=== PATIENT | male | born 1955 | race Caucasian/White ===

== ENCOUNTER 2020-12-03 13:23 | Outpatient (CLI) | payer OTHER, SELFPAY ==
--- NOTE | ~2020-12-03 | XR_ITS ---
EXAMINATION: XR chest 2V DATE: 12/03/2020 14:15 INDICATION: Shortness of breath. TECHNIQUE: Frontal and lateral views of the chest were obtained on 3 radiographs. COMPARISON: None. FINDINGS: A calcified left lung nodule is consistent with old granulomatous disease. No pleural effus ion or pneumothorax. The heart size is normal. IMPRESSION: 1. No acute cardiopulmonary disease. Reviewed, dictated and finalized at location B. NAGE ENGINEER
[2020-12-03 14:25] LABS: Basophils Absolute Auto 0.05 K/mm3 (0.00-0.10); Basophils Percent Auto 0.5 % (0.0-1.0); Eosinophils Percent Auto 1.9 % (1.0-6.0); Hematocrit 40.7 % (37.0-46.0); Hemoglobin 14.1 g/dL (12.4-15.3); Immature Granulocyte Absolute 0.03 K/mm3 (0.00-0.00); Immature Granulocyte Percent A 0.3 % (0.0-0.0); Lymphocytes Absolute Auto 2.86 K/mm3 (1.10-4.50); Lymphocytes Percent Auto 27.6 % (18.0-42.0); Mean Corpuscular HGB Conc 34.6 g/dL (32.0-36.0); Mean Corpuscular Hemoglobin 29.8 pg (27.0-31.0); Mean Platelet Volume 10.9 fl (8.7-11.0); Monocytes Absolute Auto 0.66 K/mm3 (0.10-0.90); Monocytes Percent Auto 6.4 % (2.0-11.0); Neutrophils Absolute Auto 6.6 K/mm3 (1.7-7.2); Neutrophils Percent Auto 63.3 % (50.0-70.0); Platelet Count Result 294 K/mm3 (150-420); Red Blood Count 4.73 M/mm3 (4.70-6.10); Red Cell Distribution Width 12.4 % (11.6-14.4); White Blood Count 10.4 K/mm3 (4.8-10.8)
[2020-12-03 14:39] LABS: Influenza Control Valid (Valid)
[2020-12-03 14:43] LABS: SARS-CoV-2 Ag Negative (Negative)
[2020-12-03 14:53] LABS: D Dimer 5.59 mg/L (0.19-0.50)
[2020-12-03 15:18] LABS: Anion Gap 11 mmol/L (8-16); Blood Urea Nitrogen 19 mg/dL (7-18); Calcium 9.4 mg/dL (8.5-10.1); Carbon Dioxide 26 mmol/L (21-32); Chloride 101 mmol/L (98-108); Estimated Glomerular Filt Rate > 60; Glucose 275 mg/dL (70-99); Osmolality Calculated 298 mOsm/kg (285-295); Potassium 3.8 mmol/L (3.5-5.1); Sodium 138 mmol/L (136-145)
[2020-12-04 21:57] LABS: SARS-CoV-2 RNA PCR Negative
== END 2020-12-03 13:24 | disposition home or self-care (01) ==
PROVIDERS: PCP Family Medicine; Visit Provider Family Medicine
DX: R06.02 Shortness of breath (principal); Z20.822 Contact with and (suspected) exposure to COVID-19
CPT/HCPCS: 71046; 80048; 85025; 85380; 87426; 87804; C9803; U0003; U0005

== ENCOUNTER 2020-12-03 15:34 | Emergency (ER) | payer OTHER, SELFPAY ==
--- NOTE | ~2020-12-03 | CT_ITS ---
EXAMINATION: CTA chest PE protocol DATE: 12/03/2020 17:22 INDICATION: Shortness of breath and cough TECHNIQUE: Computed tomography angiography (CTA) of the chest was performed with 100 mL Omnipaque-350 intravenous contrast timed to evaluate the pulmonary arteries. Coronal maximum intensity projection 3D-reconstructions were created by the technologist. The dose-length product (DLP) was 1102.30 mGy-cm . Automated exposure control and iterative reconstruction technique were employed. COMPARISON: None. FINDINGS: The pulmonary arteries are well-opacified. There are acute pulmonary emboli in segmental an d subsegmental branches of the upper and lower lobes. The heart size is normal. There is mild depende nt atelectasis. No focal airspace opacities are identified. There is no pleural effusion or pneumotho rax. No pathologically enlarged thoracic lymph nodes are identified. Nodules of the right thyroid lob e measure up to 1.2 cm. There is mild thoracic spondylosis. IMPRESSION: 1. Bilateral pulmonary emboli in the upper and lower lobes. These findings were discussed with Dr. Edu Lees MD in the Emergency Department at 1749 hours on 12/03/2020. Reviewed, dictated and finalized at location A. S MOLDER HELPER IMPRESSION: 1. Bilateral pulmonary emboli in the upper and lower lobes. These findings were discussed with Dr. Linus Lees MD in the Emergency Department at 1749 hours o n 12/03/2020.
[2020-12-03 15:52] VITALS: BP 128/78; PULSE 90; RESP 20; TEMP 36.3; O2SAT 97
--- NOTE | 2020-12-03 16:08 | ECG_ITS ---
Measurements Intervals [place] Rate: 72 P: 37 [place]: 113 QRS: 60 QRSD: 100 T: 27 QT: 377 QTc: 413 Interpretive Statements SINUS RHYTHM WITH SHORT [place] INTERVAL ATRIAL PREMATURE COMPLEXES DELAYED PRECORDIAL R/S TRANSITION BASELINE WANDER- I, II, III, AVR, AVL, AVF BORDERLINE ECG Electronically Signed On 12-03-2020 16:49:16 [employer] [employer] by Vipin Roche D.O.
[2020-12-03 16:46] LABS: Alanine Aminotransferase 20 U/L (16-63); Albumin Level 3.5 g/dL (3.4-5.0); Alkaline Phosphatase 111 U/L (46-116); Anion Gap 11 mmol/L (8-16); Aspartate Amino Transferase 15 U/L (15-37); Bilirubin,Total 0.4 mg/dL (0.00-1.00); Blood Urea Nitrogen 18 mg/dL (7-18); Calcium 9.3 mg/dL (8.5-10.1); Carbon Dioxide 25 mmol/L (21-32); Chloride 101 mmol/L (98-108); Estimated CRCL calculation 102 ml/min; Estimated Glomerular Filt Rate > 60; Glucose 215 mg/dL (70-99); Osmolality Calculated 291 mOsm/kg (285-295); Potassium 3.6 mmol/L (3.5-5.1); Sodium 137 mmol/L (136-145); Troponin I 7.3 ng/L (0.00-60.4)
--- NOTE | 2020-12-03 17:34 | ED.SOB ---
HPI - SOB/Dyspnea General Chief Complaint: Shortness of Breath/Dyspnea Stated Complaint: sent by doctor Time Seen by Provider: 12/03/20 17:35 Source: patient Mode of arrival: ambulatory Limitations: no limitations History of Present Illness HPI Narrative: Patient has had mild shortness of breath off and on for the past 2 weeks. 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 He has had previous fractures of both legs and has hardware in both legs. He denies a cough, he does state he had a previous DVT after orthopedic repair of his legs. His legs are quite large and he can't tell as to if they are swollen above baseline or not. He has been mildly short of breath while driving at times as well. MD elicited complaint: shortness of breath Pertinent past history: DVT Timing: intermittent Severity: mild (mild to moderate) Exacerbating factors: exertion Relieving factors: rest Associated symptoms: denies other symptoms Treatment prior to arrival: none Related Data Home oxygen amount: none Home Medications Medication Instructions Recorded Confirmed amlodipine 10 mg PO DAILY 12/03/20 12/03/20 atorvastatin 20 mg PO HS 12/03/20 12/03/20 finasteride 5 mg PO DAILY 12/03/20 12/03/20 irbesartan-hydrochlorothiazide 1 tablet PO DAILY 12/03/20 12/03/20 Allergies Allergy/AdvReac Type Severity Reaction Status Date / Time meperidine Allergy Unknown Unknown Verified 12/03/20 15:58 Review of Systems Constitutional: Constitutional: Reports no additional constitutional complaints Eyes: Eyes: Reports no additional eye complaints ENT: Reports system reviewed and no additional complaints, except as documented Cardiovascular: Cardiovascular: Reports no additional cardiovascular complaints Respiratory: Respiratory: Reports no additional respiratory complaints Gastrointestinal: Gastrointestinal: Reports no additional gastrointestinal complaints Genitourinary: Genitourinary: Reports no additional male genitourinary complaints Musculoskeletal: Musculoskeletal: Reports no additional musculoskeletal complaints Integumentary/Breasts: Skin/Breast: Reports system reviewed and no additional complaints, except as docu Neurologic: Reports system reviewed and no additional complaints, except as documented Psychiatric: Psychiatric: Reports no additional psychiatric complaints Endocrine: Endocrine: Reports no additional endocrine complaints Hematologic/Lymphatic: Hematologic/Lymphatic: Reports no additional hematologic/lymphatic complaints Allergic/Immunologic: Allergic/Immunologic: Reports no additional allergic/immunologic complaints [facility] Past Medical History Medical History (Updated 12/03/20 @ 20:01 by Linus Lees MD) DVT (deep venous thrombosis) Fracture closed, femur, shaft Fracture closed, fibula, shaft Hip arthrosis Lower leg arthropathy Rotator cuff arthropathy Social History Social History (Updated 12/03/20 @ 20:03 by Linus Lees MD) Smoking status: Never smoker Substance use: never Living arrangements: with family 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 Gender identity (if verbalized by the patient): Male Sexual Orientation (if Verbalized by the Patient): Straight or Heterosexual Exam Const: Orientation/consciousness: patient oriented x3 HENMT: Head: normal to inspection Ears: external ears normal and TM's normal bilaterally Face and sinus: normal facial exam Mouth: Yes Normal oral and palatal mucosa present and Yes moist mucous membranes Throat: posterior oropharynx normal Eyes: Conjunctivae: conjunctivae normal Neck: Neck: normal visual inspection Chest: Chest palpation & inspection: normal inspection of the chest Resp: Effort & Inspection: normal respiratory effort Auscultation: clear to auscultation bilaterally Cardio: Rate: regular rate Rhythm: regular rhythm GI: GI Palp: Yes Soft to palpation (nontender) Skin: General skin exam: normal color Neuro: Gene
[2020-12-03] MEDS: ENOXAPARIN 100 MG/ML SYRINGE 80 MG SUB-Q (18:25)
[2020-12-03] MEDS: ENOXAPARIN 100 MG/ML SYRINGE SUB-Q (18:26)
[2020-12-03] MEDS: APIXABAN 2.5 MG TABLET 10 MG (18:50)
[2020-12-03 18:55] VITALS: BP 121/91; PULSE 86; RESP 20; O2SAT 97
== END 2020-12-03 18:57 | disposition home or self-care (01) ==
PROVIDERS: Emergency Provider Emergency Medicine; PCP Family Medicine
DX: I82.429 Acute embolism and thrombosis of unspecified iliac vein (principal); I26.99 Other pulmonary embolism without acute cor pulmonale
CPT/HCPCS: 36415; 71275; 80053; 83880; 84484; 93005; 96372; 99283; 99284; A9270; J1650; Q9967

== ENCOUNTER 2020-12-04 13:12 | Outpatient (CLI) | payer OTHER, SELFPAY ==
--- NOTE | ~2020-12-04 | US_ITS ---
EXAMINATION: US venous doppler [facility] EXAM DATE: 12/04/2020 14:10 INDICATION: acute embolism and thrombosis of unspecified deep veins . TECHNIQUE: Multiple grayscale, color flow and Doppler images of the lower extremity deep venous syste ms bilaterally were obtained and reviewed. There is no prior study for comparison. FINDINGS: Right side: The right common femoral, femoral and profunda veins demonstrate normal color flow, respi ratory variation, augmentation and compressibility. Compressibility, color flow confirmed within the right popliteal, posterior tibial, peroneal, and greater saphenous veins. Left side: The left common femoral, femoral and profunda veins demonstrate normal color flow, respira tory variation, augmentation and compressibility. Compressibility, color flow confirmed within the l eft popliteal, posterior tibial, peroneal, and greater saphenous veins. IMPRESSION: 1. No lower extremity deep venous thrombosis bilaterally. Reviewed, dictated and finalized at location A. OGRAPH FINISHER
== END 2020-12-04 13:13 | disposition home or self-care (01) ==
LOC: CHSIMG 13:15
PROVIDERS: PCP Family Medicine; Visit Provider Emergency Medicine
DX: I82.409 Acute embolism and thrombosis of unspecified deep veins of unspecified lower extremity (principal)
CPT/HCPCS: 93970

== ENCOUNTER 2021-10-27 13:17 | Inpatient (IN) | payer OTHER, MEDICARE, SELFPAY ==
[2021-10-27] VITALS (23 sets, daily range): BP systolic 91–125; BP diastolic 53–82; PULSE 63–98; RESP 19–32; TEMP 36.5–37.9; O2SAT 89–96; BMI 49.1; BMI 51.6
--- NOTE | ~2021-10-27 | XR_ITS ---
EXAMINATION: XR chest 1V portable EXAM DATE: 11/21/2021 06:20 INDICATION: intubated TECHNIQUE: Portable AP frontal chest x-ray was obtained. Comparison is made to prior examination from 11/20/2021. FINDINGS: Endotracheal tube tip is 5 centimeters above the marily. There is a right IJ venous line. Diffuse bilateral pneumonia or edema. No pneumothorax or sizable pleural effusion. Cardiomediastinal silhouette is normal. There are bony degenerative changes. There is no significant interval change. IMPRESSION: 1. ET tube, IJ line in position. 2. Diffuse pneumonia and/or edema unchanged. Reviewed, dictated and finalized at location G. MONITOR TECH
--- NOTE | ~2021-10-27 | XR_ITS ---
EXAMINATION: XR chest 1V portable DATE: 11/11/2021 08:50 INDICATION: COVID pneumonia TECHNIQUE: frontal view of the chest was obtained. COMPARISON: Chest radiograph dated 11/10/2021 FINDINGS: Endotracheal tube tip 4 cm above the marily. Nasogastric tube extends below the left hemidiaphragm w ith distal tip collimated off the study. Right internal jugular central venous catheter with distal t ip at the midsuperior vena cava. No significant change in patchy airspace opacities throughout both lungs relatively sparing the left apex. No pneumothorax or definitive pleural effusion. Cardiac silhouette is partially obscured but ap pears normal in size. IMPRESSION: 1. No significant interval change in diffuse patchy airspace opacities consistent with pneumonia. Reviewed, dictated and finalized at location A. L MOLD DRESSER IMPRESSION: 1. No significant interval change in diffuse patchy airspace opacities consiste nt with pneumonia.
--- NOTE | ~2021-10-27 | XR_ITS ---
EXAMINATION: XR chest 1V portable EXAM DATE: 11/13/2021 07:58 INDICATION: COVID pneumonia TECHNIQUE: Portable AP frontal chest x-ray was obtained. Comparison is made to prior examination from 11/12/2021. FINDINGS: Endotracheal tube tip is about 5 centimeters above the marily. There is a nasogastric tub e seen with tip collimated off the study, but below the left hemidiaphragm. There is a right IJ venou s line. There is extensive bilateral airspace disease. There are no sizable pleural effusions. There is no pneumothorax suspected. The cardiomediastinal silhouette is prominent but magnified on this AP luis hnique. The bones and soft tissues are unremarkable. There is no significant interval change compared to prior exam. IMPRESSION: 1. Line and tube(s) in position. 2. Diffuse airspace disease. Reviewed, dictated and finalized at location A. SUPERVISOR GROUNDS AND LANDSCAPE
--- NOTE | ~2021-10-27 | XR_ITS ---
EXAMINATION: XR chest 1V portable DATE: 11/10/2021 09:01 INDICATION: COVID-19 pneumonia. TECHNIQUE: A single frontal view of the chest was obtained. COMPARISON: Chest single view 11/09/2021, chest CT 11/07/2021 FINDINGS: There are patchy airspace opacities in all lung zones bilaterally. No pleural effusion or p neumothorax. The heart size is normal. The nasogastric tube tip is in the stomach. The endotracheal t ube tip is 4.7 cm above the marily. A right internal jugular central venous catheter is seen with tip in the superior vena cava. IMPRESSION: 1. Stable diffuse lung disease, consistent with pneumonia. Reviewed, dictated and finalized at location A. R SECOND
--- NOTE | ~2021-10-27 | XR_ITS ---
EXAMINATION: XR chest 1V portable DATE: 11/06/2021 10:16 INDICATION: Pneumonia. TECHNIQUE: A single frontal view of the chest was obtained. COMPARISON: Chest single view 11/04/2021, chest CT 10/29/2021 FINDINGS: There are airspace and interstitial opacities in all lung zones bilaterally. No pleural eff usion or pneumothorax. The heart size is normal. IMPRESSION: 1. Diffuse lung disease with worsening on the left, consistent with COVID-19 pneumonia. Reviewed, dictated and finalized at location A. T DESK ASSOCIATE IMPRESSION: 1. Diffuse lung disease with worsening on the left, consistent with COVID-19 pn eumonia.
--- NOTE | ~2021-10-27 | XR_ITS ---
XR chest 1V portable DATE: 11/09/2021 10:38 INDICATION: Covid pneumonia TECHNIQUE: Portable AP chest on 11/09/2021 at 1010 and 1011 hours COMPARISON: 11/08/2021 portable supine AP chest at 1541 hours FINDINGS: ET tube tip 3.2 cm above marily. NG tube noted passing toward the stomach, distal portion n ot included in this examination. Right internal jugular central venous catheter tip overlies the superior vena cava. There are diffuse extensive patchy consolidating pulmonary infiltrates, mildly improved on the left. IMPRESSION: Extensive patchy bilateral pulmonary infiltrates, mildly improved on the left since 11/08 Reviewed, dictated and finalized at location A. CIPAL SYSTEM SOFTWARE ENGINEER IMPRESSION: Extensive patchy bilateral pulmonary infiltrates, mildly improved o n the left since 11/08/2021
--- NOTE | ~2021-10-27 | US_ITS ---
EXAMINATION: US renal BI DATE: 11/13/2021 13:34 INDICATION: Acute kidney injury. TECHNIQUE: Multiple ultrasound grayscale images of the kidneys were obtained. COMPARISON: Chest CT 11/07/2021 FINDINGS: The right kidney measures 13.3 x 6.0 x 6.5 cm. The left kidney measures 11.2 x 7.1 x 7.4 cm. The kidn eys demonstrate normal parenchymal echogenicity. There is no hydronephrosis. The bladder is not well visualized. IMPRESSION: 1. Normal kidney sizes. No hydronephrosis. Reviewed, dictated and finalized at location B. T METAL LAYOUT MECHANIC
--- NOTE | ~2021-10-27 | XR_ITS ---
EXAMINATION: XR chest PICC line, XR abdomen NG/feed tube insert DATE: 11/08/2021 15:54 INDICATION: COVID pneumonia. PICC line placement. Nasogastric tube placement. TECHNIQUE: 1. Frontal view of the chest was obtained. 2. Supine AP view of the abdomen was obtained. COMPARISON: Chest radiograph dated 11/06/2021 FINDINGS: Chest: Endotracheal tube tip 1.9 cm above the marily. Right internal jugular central venous catheter with di stal tip in the midsuperior vena cava. Again seen are patchy airspace opacities throughout both lungs without significant interval change on the right but with increase in the left lung particularly at the upper lung zone consistent with wor sening pneumonia. No pleural effusion or pneumothorax. Heart size is normal. Abdomen: Nasogastric tube tip in proximal side port in the body of the gas-filled stomach. IMPRESSION: 1. Lines and tubes in expected positions. 2. Diffuse bilateral lung disease with continued increase on the left consistent with worsening COVID pneumonia. Reviewed, dictated and finalized at location . X UNIX SYSTEM ADMINISTRATOR IMPRESSION: 1. Lines and tubes in expected positions. 2. Diffuse bilateral lung disease with continued increase on the left consisten t with worsening COVID pneumonia.
--- NOTE | ~2021-10-27 | XR_ITS ---
EXAMINATION: XR chest 1V portable EXAM DATE: 11/16/2021 06:14 INDICATION: Respiratory failure, COVID pneumonia, mechanical ventilation. TECHNIQUE: Portable AP frontal chest x-ray was obtained. Comparison is made to prior examination from 11/15/2021. FINDINGS: Endotracheal tube tip is 4-5 centimeters above the marily. There is a right IJ venous line . Feeding tube is in position. Diffuse bilateral acute airspace disease, probably edema from COVID pneumonia with relative sparing o f the left upper lung zone. There are no sizable pleural effusions. There is no pneumothorax suspe cted. The cardiomediastinal silhouette is prominent but magnified on this AP technique. The bones and soft tissues are unremarkable. There is no significant interval change compared to prior exam. IMPRESSION: 1. Line and tube(s) in position. 2. Diffuse COVID pneumonia unchanged. Reviewed, dictated and finalized at location A. APEUTIC DIETITIAN
--- NOTE | ~2021-10-27 | XR_ITS ---
XR chest 1V portable DATE: 11/20/2021 06:02 INDICATION: Respiratory failure. Covid pneumonia. TECHNIQUE: Portable AP chest on 11/20/2021 and 0520 hours COMPARISON: 11/19/2021 portable AP chest at 0502 hours FINDINGS: There are persistent prominent patchy consolidating infiltrates involving particularly the mid and lower lung zones, without improvement since 11/19/2021. Cardiomegaly. No pleural effusion or pneumothorax is evident. ET tube tip approximately 4.5 cm above marily in satisfactory position. NG tube in gastric fundus. Diffuse osteopenia. IMPRESSION: Persistent extensive patchy consolidating bilateral pulmonary infiltrates, without signif icant change since 11/19/2021 Reviewed, dictated and finalized at location A. EMS SOFTWARE DESIGNER IMPRESSION: Persistent extensive patchy consolidating bilateral pulmonary infil trates, without significant change since 11/19/2021
--- NOTE | ~2021-10-27 | CT_ITS ---
EXAMINATION: CT diagnostic chest wo con DATE: 11/07/2021 18:04 INDICATION: Covid pneumonia, worsening TECHNIQUE: Computed tomography (CT) of the chest was performed without intravenous contrast. Addition al 3D reconstructions utilizing coronal maximum intensity projection (MIP) were performed. Automated exposure control and iterative reconstruction technique were employed. The dose-length product was 89 4.20 mGy-cm. COMPARISON: 10/29/2021 FINDINGS: Evolving pattern of diffuse bilateral patchy lung disease characterized by patchy regions of consolid ation and groundglass opacity throughout both lungs. There has been significant progression in both e xtent and density of lung disease in the right middle, lingula and bilateral upper lobes with dense c onsolidation in the region of groundglass opacity central aspect of the right upper lobe and with new relatively large region of dense consolidation in the left upper lobe which was previously free of l don disease. There has been a nearly inverse evolution of lung disease in the bilateral lower lobes w here the prior groundglass opacities and consolidation have significantly decreased in both extent an d density. No pleural effusion or pneumothorax. Heart size is normal. Atherosclerotic coronary artery calcific location. No pericardial effusion. Calcified mediastinal and bilateral hilar lymph nodes al danna with several tiny splenic calcific lesions, all consistent with old granulomatous disease. Modera te to severe spondylosis at the lower cervical and upper thoracic spine. IMPRESSION: 1. Evolving pattern of extensive patchy bilateral lung disease consistent with COVID pneumonia with p rogression in the bilateral upper lobes, lingula and right middle lobe but with interval improvement in the bilateral lower lobes. Reviewed, dictated and finalized at location H. RMATION TECHNOLOGY CONSULTANT IMPRESSION: 1. Evolving pattern of extensive patchy bilateral lung disease consistent with COVID pneumonia with progression in the bilateral upper lobes, lingula and righ t middle lobe but with interval improvement in the bilateral lower lobes.
--- NOTE | ~2021-10-27 | XR_ITS ---
EXAMINATION: XR chest 1V portable EXAM DATE: 10/27/2021 14:03 INDICATION: Shortness of breath. TECHNIQUE: Portable AP frontal chest x-ray was obtained. Comparison is made to prior examination from 12/03/2020. FINDINGS: Moderate amount of bilateral airspace disease, more consistent with pneumonia than edema bu t please clinically correlate. No sizable pleural effusion. No pneumothorax. The cardiomediastinal si lhouette is prominent but magnified on this AP technique. There are no osseous abnormalities identifi ed. IMPRESSION: Moderate amount of acute airspace disease. More likely pneumonia than edema. Reviewed, dictated and finalized at location B. ATE WEALTH ADVISOR IMPRESSION: Moderate amount of acute airspace disease. More likely pneumonia t major edema.
--- NOTE | ~2021-10-27 | XR_ITS ---
XR chest 1V portable DATE: 11/18/2021 06:13 INDICATION: Respiratory failure, Covid pneumonia TECHNIQUE: Portable AP chest on 11/18/2021 at 0505 hours COMPARISON: 11/17/2021 portable AP chest at 0453 hours FINDINGS: ET and NG tubes in satisfactory position. Right internal jugular central venous catheter ti p overlies the superior vena cava. There are persistent severe patchy bilateral pulmonary infiltrates, relatively sparing the left apica l area, without significant change since 11/17/2021. IMPRESSION: Extensive severe bilateral pulmonary infiltrates, not significantly changed since 2 Reviewed, dictated and finalized at location A. ATIONS ADVISOR IMPRESSION: Extensive severe bilateral pulmonary infiltrates, not significantly changed since 11/17/2021
--- NOTE | ~2021-10-27 | XR_ITS ---
EXAMINATION: XR chest 1V portable DATE: 11/15/2021 08:50 INDICATION: Respiratory failure. COVID-19 pneumonia. TECHNIQUE: A single frontal view of the chest was obtained. COMPARISON: Chest single view 11/13/2021, chest CT 11/07/2021 FINDINGS: There are airspace opacities in all lung zones bilaterally. No pleural effusion or pneumoth orax. The heart size is normal. The endotracheal tube tip is 3.4 cm above the marily. The nasogastric tube tip is in the stomach. A right internal jugular central venous catheter is seen with tip at the superior cavoatrial junction. IMPRESSION: 1. Diffuse lung disease, likely stable given differences in technique, consistent with pneumonia vers us acute respiratory distress syndrome (ARDS). Reviewed, dictated and finalized at location A. POTATO ARRANGER IMPRESSION: 1. Diffuse lung disease, likely stable given differences in technique, consiste nt with pneumonia versus acute respiratory distress syndrome (ARDS).
--- NOTE | ~2021-10-27 | XR_ITS ---
EXAMINATION: XR chest 1V portable INDICATION: Increasing hypoxia TECHNIQUE: Portable AP chest at 0609 COMPARISON: 10/27/2021 FINDINGS: Interstitial and airspace opacities of the left mid and lower lung zone persists without si gnificant change. There are increasing opacities of the right mid and lower lung zone. No definite pl eural effusion or pneumothorax is identified. The cardiomediastinal silhouette is normal. The lung vo lumes are low. IMPRESSION: 1. Interstitial and airspace opacities of the mid and lower lung zones with worsening on the right, c onsistent with pneumonia. Reviewed, dictated and finalized at location A. MACOMETRICIAN IMPRESSION: 1. Interstitial and airspace opacities of the mid and lower lung zones with wor sening on the right, consistent with pneumonia.
--- NOTE | ~2021-10-27 | CT_ITS ---
EXAMINATION: CTA chest PE protocol DATE: 10/29/2021 22:24 CAREER DEVELOPMENT SPECIALIST INDICATION: Shortness of breath and. Covid pneumonia. Rule out pulmonary embolism. TECHNIQUE: Computed tomographic angiography (CTA) of the chest was performed with 100 mL Omnipaque-35 0 intravenous contrast. The dose-length product was 877.06 mGy-cm. Maximum intensity projection 3D-re constructions of the aorta and other arteries were constructed by the technologist on a separate work station. Automated exposure control and iterative reconstruction technique were employed. COMPARISON: CT dated 10/27/2021 FINDINGS: Study limited for evaluation of peripheral pulmonary arteries. There are small filling defe cts in right upper lobe segmental pulmonary arteries, consistent with pulmonary embolism. Small throm bus burden. Cardiomegaly. No significant pleural or pericardial effusion. No thoracic lymphadenopathy . There is atherosclerosis of the aorta and coronary arteries. There is persistent multifocal airspac e consolidation which has progressed in the right lower lobe, consistent with pneumonia. Visualized a spects of the upper abdomen are unremarkable. No acute osseous abnormality. Mild thoracic spondylosis . IMPRESSION: 1. New small filling defect right upper lobe segmental pulmonary artery, consistent with pulmonary em bolism. Small thrombus burden. 2: Progression of extensive patchy bilateral airspace disease with worsening in the right lower lobe, compatible with pneumonia. Reviewed, dictated and finalized at location A. ER DEVELOPMENT SPECIALIST IMPRESSION: 1. New small filling defect right upper lobe segmental pulmonary artery, consis tent with pulmonary embolism. Small thrombus burden. 2: Progression of extensive patchy bilateral airspace disease with worsening in the right lower lobe, compatible with pneumonia.
--- NOTE | ~2021-10-27 | XR_ITS ---
XR chest 1V portable DATE: 11/17/2021 06:20 INDICATION: Respiratory failure. Covid pneumonia. TECHNIQUE: Portable AP chest on 11/17/2021 0453 hours COMPARISON: 11/16/2021 portable AP chest at 0500 hours FINDINGS: ET tube in satisfactory position approximately 3 cm above marily. NG tube in stomach. Right internal jugular central venous catheter overlies superior vena cava. Extensive patchy bilateral pulmonary infiltrates are noted, without significant interval change since 11/16/2021. No pneumothorax. IMPRESSION: No significant change of extensive bilateral patchy pulmonary infiltrates Reviewed, dictated and finalized at location A. RIOR BLOCK WIRER IMPRESSION: No significant change of extensive bilateral patchy pulmonary infil trates
--- NOTE | ~2021-10-27 | XR_ITS ---
XR chest 1V portable DATE: 11/19/2021 06:11 INDICATION: Respiratory failure, Covid pneumonia TECHNIQUE: Portable AP chest on 11/19/2021 at 0502 hours COMPARISON: 11/18/2021 portable AP chest at 0505 hours FINDINGS: ET tube in satisfactory position 3.6 cm above marily. NG tube in stomach. Right internal ju gular central venous catheter overlies the superior vena cava. There are extensive persistent prominent patchy consolidating infiltrates of both lungs, relatively s paring the left apical area. Diffuse osteopenia. IMPRESSION: No significant change of extensive bilateral pulmonary infiltrates since 11/2021 Reviewed, dictated and finalized at location A. L PLATER
--- NOTE | ~2021-10-27 | XR_ITS ---
EXAMINATION: XR chest 1V portable DATE: 11/22/2021 06:13 INDICATION: Respiratory failure. TECHNIQUE: A single frontal view of the chest was obtained. COMPARISON: Chest single view 11/21/2021 FINDINGS: There are airspace and interstitial opacities throughout the lungs bilaterally with relativ e sparing of left upper lung zone. No pleural effusion or pneumothorax. The heart size is normal. The re is a tracheostomy tube in expected position. A right internal jugular central venous catheter is s een with tip in the superior vena cava. IMPRESSION: 1. Stable diffuse lung disease, consistent with pneumonia versus acute respiratory distress syndrome (ARDS). Reviewed, dictated and finalized at location A. RVISOR BOTTLE HOUSE CLEANERS IMPRESSION: 1. Stable diffuse lung disease, consistent with pneumonia versus acute respirat ory distress syndrome (ARDS).
--- NOTE | ~2021-10-27 | XR_ITS ---
EXAMINATION: XR chest 1V portable EXAM DATE: 11/12/2021 07:39 INDICATION: COVID PNA . TECHNIQUE: Portable AP frontal chest x-ray was obtained. Comparison is made to prior examination from 11/11/2021. FINDINGS: Endotracheal tube tip is 4 centimeters above the marily. There is a nasogastric tube seen with tip collimated off the study, but below the left hemidiaphragm. There is a right IJ venous line. There is extensive bilateral airspace disease. There are no sizable pleural effusions. There is no pneumothorax suspected. The cardiomediastinal silhouette is prominent but magnified on this AP luis hnique. The bones and soft tissues are unremarkable. There is no significant interval change compared to prior exam. IMPRESSION: 1. Line and tube(s) in position. 2. Stable airspace disease and other findings as above. Reviewed, dictated and finalized at location A. EHOLD APPLIANCE INSTALLER
--- NOTE | ~2021-10-27 | CT_ITS ---
EXAMINATION: CTA chest PE protocol DATE: 10/27/2021 15:35 MANUFACTURING PLANT CONTROLLER INDICATION: Shortness of breath. Hypoxia. TECHNIQUE: Computed tomographic angiography (CTA) of the chest was performed with 100 mL Omnipaque-35 0 intravenous contrast. The dose-length product was 824.64 mGy-cm. Maximum intensity projection 3D-re constructions of the aorta and other arteries were constructed by the technologist on a separate work station. Automated exposure control and iterative reconstruction technique were employed. COMPARISON: CT dated 12/03/2020. FINDINGS: Study is technically adequate. No central pulmonary embolism. Evaluation of lower lobe segm ental pulmonary arteries limited by motion artifact. There is 1.3 cm right thyroid nodule. No signifi cant pleural or pericardial effusion. There is mild atherosclerosis. There is multifocal airspace dis ease, consistent with pneumonia, most confluent in the lower lobes. Visualized aspects of the upper a bdomen are unremarkable. Mild thoracic spondylosis. No focal lytic or blastic lesions. No acute osseo us abnormality. IMPRESSION: 1. Multifocal airspace disease, consistent with pneumonia. 2: No evidence for pulmonary embolism. Evaluation of lower lobe segmental and subsegmental pulmonary arteries limited by motion. 3: Right thyroid nodule measuring 1.3 cm. Consider correlation with thyroid ultrasound on a nonemerge nt basis. Reviewed, dictated and finalized at location A. FACTURING PLANT CONTROLLER IMPRESSION: 1. Multifocal airspace disease, consistent with pneumonia. 2: No evidence for pulmonary embolism. Evaluation of lower lobe segmental and subsegmental pulmonary arteries limited by motion. 3: Right thyroid nodule measuring 1.3 cm. Consider correlation with thyroid ult rasound on a nonemergent basis.
--- NOTE | ~2021-10-27 | XR_ITS ---
EXAMINATION: XR chest 1V portable DATE: 11/04/2021 18:07 INDICATION: COVID TECHNIQUE: frontal view of the chest was obtained. COMPARISON: Chest radiograph and CT dated 10/29/2021 and 10/27/2021 FINDINGS: Interval reexpansion the previously reduced right lung volume. Slight interval increase in patchy air space opacities throughout both lungs relatively sparing the upper lung zones consistent with COVID p neumonia. No pleural effusion or pneumothorax. The cardiomediastinal silhouette is normal. IMPRESSION: 1. Slight increase in patchy bilateral airspace opacities relatively sparing the upper lung zones con sistent with COVID pneumonia. Reviewed, dictated and finalized at location H. BLOWER IMPRESSION: 1. Slight increase in patchy bilateral airspace opacities relatively sparing th e upper lung zones consistent with COVID pneumonia.
--- NOTE | 2021-10-27 13:48 | ECG_ITS ---
Measurements Intervals [place] Rate: 93 P: 71 [place]: 159 QRS: -14 QRSD: 102 T: -12 QT: 387 QTc: 483 Interpretive Statements SINUS RHYTHM ATRIAL PREMATURE COMPLEXES POOR R WAVE PROGRESSION, ANTERIOR LEADS INFERIOR INFARCT, AGE INDETERMINATE BASELINE ARTIFACT- I, II, III, AVR, AVL, AVF, V1-V6 ABNORMAL ECG Electronically Signed On 10-27-2021 15:22:20 CRUSHER TENDER by Vipin Roche D.O.
[2021-10-27 14:11] LABS: Basophils Percent Auto 0.3 % (0.2-1.2); Eosinophils Absolute Auto 0.2 K/mm3 (0-0.3); Eosinophils Percent Auto 2.8 % (0-4.4); Hematocrit 42.4 % (42.0-52.0); Hemoglobin 14.6 g/dL (14.0-18.0); Immature Granulocyte Absolute 0.04 K/mm3 (0.00-0.031); Immature Granulocyte Percent A 0.7 % (0-0.5); Lymphocytes Absolute Auto 1.08 K/mm3 (0.9-3.2); Lymphocytes Percent Auto 17.7 % (18.3-44.2); Mean Corpuscular HGB Conc 34.4 g/dl (32-36); Mean Corpuscular Volume 84.3 fl (80-100); Mean Platelet Volume 10.2 fl (7.4-10.4); Monocytes Absolute Auto 0.4 K/mm3 (0.1-0.6); Monocytes Percent Auto 7.1 % (2.6-8.5); Neutrophils Absolute Auto 4.4 K/mm3 (1.3-6.7); Neutrophils Percent Auto 71.4 % (45.5-73.1); Platelet Count Result 207 k/mm3 (150-375); Red Blood Count 5.03 M/mm3 (4.6-6.20); Red Cell Distribution Width 12.8 % (11.5-14.5); White Blood Count 6.1 K/mm3 (4.5-10.0)
--- NOTE | 2021-10-27 14:12 | ED.GENADULT ---
HPI - General Adult General Chief complaint: Shortness of Breath/Dyspnea Stated complaint: dif breathing, covid + Time Seen by Provider: 10/27/21 13:45 Source: patient and RN notes reviewed History of Present Illness HPI narrative: Patient is a 66 y/o male complaining of severe SOB. He states that he tested positive for COVID 1 week ago and his symptoms started 1-2 days prior to that. He also has cough, chest pain and subjective fever. He has no vomiting or diarrhea. He has not been vaccinated against COVID. He states that his COVID test was done at [facility] for pre-op evaluation for previously scheduled shoulder surgery. The surgery was canceled due to COVID positivity. Related Data Home Medications Medication Instructions Recorded Confirmed amlodipine 10 mg PO DAILY 12/03/20 12/03/20 atorvastatin 20 mg PO HS 12/03/20 12/03/20 finasteride 5 mg PO DAILY 12/03/20 12/03/20 irbesartan-hydrochlorothiazide 1 tablet PO DAILY 12/03/20 12/03/20 Allergies Allergy/AdvReac Type Severity Reaction Status Date / Time meperidine Allergy Unknown Unknown Verified 12/03/20 15:58 Review of Systems Constitutional: Constitutional: Denies chills, Reports fever(s), Denies headache(s) and Denies weakness Eyes: Eyes: Denies blurry vision ENT: Denies headache(s) and Denies neck pain Cardiovascular: Cardiovascular: Reports chest pain and Reports dyspnea Respiratory: Respiratory: Reports cough and Reports dyspnea Gastrointestinal: Gastrointestinal: Denies abdominal pain, Denies diarrhea, Denies nausea and Denies vomiting Genitourinary: Genitourinary: Denies hematuria and Denies dysuria Musculoskeletal: Musculoskeletal: Denies back pain and Denies neck pain Neurologic: Denies headache(s) and Denies weakness [facility] Past Medical History Medical History (Updated 10/27/21 @ 16:51 by Cori Talbert MD) Benign prostatic hyperplasia Current use of fdc anticoagulation Deep venous thrombosis Following ORIF of lower extremity fractures. Fracture closed, femur, shaft Fracture closed, fibula, shaft Hyperlipidemia Hypertension Pulmonary embolism (11/2020) Surgical History Surgical History (Updated 10/27/21 @ 15:13 by Mray Nagel PA-C) History of open reduction and internal fixation (ORIF) procedure Bilateral lower extremity fractures. Social History Social History (Updated 10/27/21 @ 15:13 by Mary Nagel PA-C) Social History: Surrogate decision maker: Reinaldo Maldonado, spouse. Code status: Full code. 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 Exam Const: General: no acute distress and well developed Orientation/consciousness: oriented to person, oriented to place, oriented to time and patient oriented x3 HENMT: Head: normocephalic Ears: external ears normal General nose exam: Normal external nose present Eyes: General: appearance normal, both eyes and all related structures Conjunctivae: conjunctivae normal Neck: Neck: normal visual inspection and full ROM Chest: Chest palpation & inspection: normal inspection of the chest and no tenderness Resp: Effort & Inspection: normal respiratory effort and tachypneic Cardio: Rate: regular rate Rhythm: regular rhythm GI: GI Palp: No abdominal tenderness and Yes Soft to palpation Skin: General skin exam: normal color and turgor normal Neuro: General: oriented to person, oriented to place, oriented to time and patient oriented x3 Cognition (Neuro): normal cognition Extrem: General: normal to inspection, full ROM and no pedal edema Psych: Appearance: grossly normal Mental Status: mental status grossly normal Affect: normal affect Course Vital Signs Vital signs: Vital Signs Temperature 36.7 C 10/27/21 13:27 Pulse Rate 95 10/27/21 13:27 Respiratory Rate 19 10/27/21 13:27 Blood Pressure 95/67 L 10/27/21 13:27 Pulse Oximetry 89 L 10/27/21 13:27
[2021-10-27 14:22] LABS: Alanine Aminotransferase 43 U/L (4-50); Albumin Level 3.9 g/dL (3.5-5.1); Alkaline Phosphatase 84 U/L (38-126); Anion Gap 10 mmol/L (8-16); Aspartate Amino Transferase 101 U/L (17-59); Bilirubin,Total 0.6 mg/dL (0.2-1.3); Blood Urea Nitrogen 16 mg/dL (9-20); Calcium 8.6 mg/dL (8.4-10.2); Carbon Dioxide 28 mmol/L (22-30); Chloride 96 mmol/L (98-107); Estimated CRCL calculation 92 ml/min; Estimated Glomerular Filt Rate > 60; Glucose 168 mg/dL (65-110); Potassium 3.6 mmol/L (3.4-5.0); Sodium 134 mmol/L (137-145)
--- NOTE | 2021-10-27 14:39 | ED.GENADULT ---
HPI - General Adult General Chief complaint: Shortness of Breath/Dyspnea Stated complaint: dif breathing, covid + Time Seen by Provider: 10/27/21 13:45 Source: patient and RN notes reviewed Related Data Home Medications Medication Instructions Recorded Confirmed amlodipine 10 mg PO DAILY 12/03/20 12/03/20 atorvastatin 20 mg PO HS 12/03/20 12/03/20 finasteride 5 mg PO DAILY 12/03/20 12/03/20 irbesartan-hydrochlorothiazide 1 tablet PO DAILY 12/03/20 12/03/20 Allergies Allergy/AdvReac Type Severity Reaction Status Date / Time meperidine Allergy Unknown Unknown Verified 12/03/20 15:58 [facility] Past Medical History Medical History (Updated 12/04/20 @ 00:00 by Regina Lin) DVT (deep venous thrombosis) Fracture closed, femur, shaft Fracture closed, fibula, shaft Hip arthrosis Lower leg arthropathy Rotator cuff arthropathy Social History Social History (Updated 12/03/20 @ 20:03 by Linus Lees MD) Smoking status: Never smoker Substance use: never 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 Date: 10/27/21 Time: 14:38 Vital Signs Vital signs: Vital Signs Temperature 36.7 C 10/27/21 13:27 Pulse Rate 95 10/27/21 13:27 Respiratory Rate 19 10/27/21 13:27 Blood Pressure 95/67 L 10/27/21 13:27 Pulse Oximetry 89 L 10/27/21 13:27 Temperature 36.7 C 10/27/21 13:27 Pulse Rate 91 10/27/21 14:33 Respiratory Rate 26 H 10/27/21 14:33 Blood Pressure 91/53 L 10/27/21 14:33 Pulse Oximetry 90 10/27/21 14:33 Medical Decision Making Vital Signs Vital Signs: Vital Signs Temperature 36.7 C 10/27/21 13:27 Pulse Rate 95 10/27/21 13:27 Respiratory Rate 19 10/27/21 13:27 Blood Pressure 95/67 L 10/27/21 13:27 Pulse Oximetry 89 L 10/27/21 13:27 Temperature 36.7 C 10/27/21 13:27 Pulse Rate 91 10/27/21 14:33 Respiratory Rate 26 H 10/27/21 14:33 Blood Pressure 91/53 L 10/27/21 14:33 Pulse Oximetry 90 10/27/21 14:33 Lab Data Result diagrams: 10/27/21 14:05 10/27/21 14:05 Labs: Lab Results 10/27/21 10/27/21 10/27/21 Range/Units 14:05 14:05 14:05 WBC Pending RBC Pending Hgb Pending Hct Pending MCV Pending MCH Pending MCHC Pending RDW Pending Plt Count Pending MPV Pending Immature Gran % (Auto) Pending Neut % (Auto) Pending Lymph % (Auto) Pending [place] % (Auto) Pending Eos % (Auto) Pending Baso % (Auto) Pending Lymph # (Auto) Pending [place] # (Auto) Pending Eos # (Auto) Pending Baso # (Auto) Pending Abs Immat Gran (auto) Pending Absolute Neuts (auto) Pending Absolute Nucleated RBC Pending Nucleated RBC % Pending PT Pending INR Pending APTT Pending Sodium 134 L (137-145) mmol/L Potassium 3.6 (3.4-5.0) mmol/L Chloride 96 L (98-107) mmol/L Carbon Dioxide 28 (22-30) mmol/L Anion Gap 10 (8-16) mmol/L BUN 16 (9-20) mg/dL Creatinine 1.10 (0.7-1.3) mg/dL Estim Creat Clear Calc 92 ml/min Estimated GFR > 60 (59 - ) Glucose 168 H (65-110) mg/dL Calcium 8.6 (8.4-10.2) mg/dL Total Bilirubin 0.6 (0.2-1.3) mg/dL AST 101 H (17-59) U/L ALT 43 (4-50) U/L Alkaline Phosphatase 84 (38-126) U/L Total Protein 7.0 (6.3-8.2) g/dL Albumin 3.9 (3.5-5.1) g/dL Discharge Plan Discharge Prescriptions: No Action atorvastatin 20 mg tablet 20 mg PO HS RF: 0 irbesartan-hydrochlorothiazide 150-12.5 mg tablet 1 tablet PO DAILY RF: 0 amlodipine 10 mg tablet 10 mg PO DAILY RF: 0 finasteride 5 mg tablet 5 mg PO DAILY RF: 0 Eliquis 5 mg tablet 10 mg PO BID Qty:
[2021-10-27 14:44] LABS: Prothrombin Time 12.9 Seconds (11.1-14.7)
[2021-10-27 14:45] LABS: Partial Thromboplastin Time 30.7 SECONDS (22.3-36.8)
[2021-10-27 14:59] LABS: Alveolar/Arterial O2 Gradient 590.2 mmHg; Base Excess ABG -0.2 mEq/l (+/-2.0); Fractional Inspired Oxygen 100 %; HCO3 ABG 21.7 mEq/l (22.0-26.0); Oxygen Content ABG 20.1 %vol (16.0-22.0); Oxygen Saturation ABG 97.8 % (95.0-100.0); Oxyhemoglobin 96.4 % THb (90.0-100.0); PCO2 ABG 28.7 mmHg (35.0-45.0); PO2 ABG 94.1 mmHg (80.0-100.0); PO2 FiO2 Ratio Arterial Blood 0.94 %; Total Hemoglobin 14.8 g/dL (12.0-18.0); pH ABG 7.497 (7.350-7.450)
[2021-10-27 15:01] LABS: Device NON-REBREATHER MASK; Modified Allen's Test Pass; Site Drawn RIGHT BRACHIAL
[2021-10-27 15:23] LABS: Atypical Lymphocytes Present; Platelet Estimate Adequate (Adequate)
--- NOTE | 2021-10-27 15:30 | PM.IMHP ---
H&P: HPI History of Present Illness Date/Time: 10/27/21 15:30 Chief Complaint: Shortness of breath. Narrative: This is a 66-year-old male with hypertension, hyperlipidemia, diabetes, benign prostatic hyperplasia, and history of deep venous thrombosis after orthopedic surgery and more recently pulmonary emboli in November 2020 who presented to the emergency department earlier today via EMS for evaluation of shortness of breath. He had a COVID test done approximately 1 week ago at [facility] in anticipation for a right shoulder surgery and that reportedly came back positive though he was feeling okay at that time. The following day however he began not feeling well with fever, body aches, decreased smell and taste, cough, decreased appetite, and loose stools. Over the past couple of days he has had increasing shortness of breath and he came in for evaluation. On arrival to the ED, his SpO2 was 90% on 15 L non-rebreather. Chest CTA showed multifocal pneumonia and he is being admitted in this setting. At the time of my evaluation, he is resting comfortably on his left side and he has no specific complaints. He denies chest pain, pleuritic pain, palpitations, nausea, and vomiting. His is also COVID positive. He is unvaccinated. Review of Systems Review of Systems: Twelve systems were reviewed and are negative except as per HPI. [facility] Past Medical History Medical History (Updated 10/27/21 @ 23:17 by Mary Nagel PA-C) Benign prostatic hyperplasia Deep venous thrombosis Following ORIF of lower extremity fractures. Fracture closed, femur, shaft Fracture closed, fibula, shaft Hyperlipidemia Hypertension Pulmonary embolism (11/2020) Type 2 diabetes mellitus Surgical History Surgical History (Updated 10/27/21 @ 23:15 by Mary Nagel PA-C) History of open reduction and internal fixation (ORIF) procedure Bilateral lower extremity fractures. Right wrist fracture. Family History Family History Mother Cancer Heart valve disease Social History Social History (Updated 10/27/21 @ 23:13 by Mary Nagel PA-C) Social History: Surrogate decision maker: Reinaldo Maldonado, spouse. Code status: Full code. 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 Meds Home Medications and Allergies Home Medications Medication Instructions Recorded Confirmed Type amlodipine 10 mg PO DAILY 12/03/20 10/27/21 History atorvastatin 20 mg PO HS 12/03/20 10/27/21 History irbesartan-hydrochlorothiazide 1 tablet PO DAILY 12/03/20 10/27/21 History hydrocodone-acetaminophen 10 - 325 tablet PO Q4-6H 10/27/21 10/27/21 History ibuprofen [Advil] 800 mg PO Q6H PRN 10/27/21 10/27/21 History pioglitazone 30 mg PO DAILY 10/27/21 10/27/21 History saxagliptin [Onglyza] 5 mg PO DAILY 10/27/21 10/27/21 History Allergies Allergy/AdvReac Type Severity Reaction Status Date / Time meperidine Allergy Unknown Unknown Verified 12/03/20 15:58 Vital Signs Vital Signs - 24 hr 10/27/21 13:27 10/27/21 14:05 10/27/21 14:33 Temperature 98.1 F Pulse Rate 95 91 Respiratory Rate 19 26 H Blood Pressure 95/67 L 91/53 L Pulse Oximetry 89 L 94 90 Exam Narrative: General: Mildly ill-appearing male lying on his left side in bed. Weight: 168 kg. BMI: 51.7. HEENT: PERRL, EOMI. Sclerae anicteric. Tacky mucous membranes. Oropharynx is crowded. Neck: Supple. Exam difficult due to neck circumference. Right thyroid nodule noted on CT was not palpable. Respiratory: He is on a non-rebreather, is mildly tachypneic, and is speaking in full sentences. Coarse crackles heard throughout. Cardiovascular: Regular rate and rhythm with S1-S2. Gastrointestinal: Abdomen is soft, obese, nontender, and nondistended with positive bowel sounds. Skin: Warm and dry. No rash or lesions on limited exam.
[2021-10-27] MEDS: DEXAMETHASONE SOD PHOS INJ 4 MG/ML VIAL 6 MG IV PUSH (15:31)
[2021-10-27] MEDS: REMDESIVIR 200 MG/NS 250 ML 200 MG/250 ML BAG 250 MG IVPB (15:51)
[2021-10-27 17:25] LABS: Prothrombin Time 12.8 Seconds (11.1-14.7)
--- NOTE | 2021-10-27 17:34 | ADMGEN ---
This patient, Kane Maldonado, was admitted to IMU Room 209-01 on 10/27/21 at 1635. Patient/family oriented to hospital policies and general routines including ID bracelet, bed and alarms, visiting hours, pain management, procedures, bathroom and other care routines, personal items, smoking policy, room service/diet, and visiting hours. Information on how to activate the Rapid Response Team has been discussed. Patient/Family are encouraged to report perceived risks to care and to ask questions if they do not understand what they are told or what they should do.
[2021-10-27 17:44] LABS: Troponin I 0.046 ng/mL (0.000-0.034)
[2021-10-27 17:59] LABS: Alanine Aminotransferase 41 U/L (4-50)
[2021-10-27 21:10] LABS: Troponin I 0.039 ng/mL (0.000-0.034)
[2021-10-28] VITALS (17 sets, daily range): BP systolic 98–128; BP diastolic 55–65; PULSE 55–77; RESP 19–32; TEMP 36.1–36.6; O2SAT 90–94
[2021-10-28] MEDS: ATORVASTATIN 20 MG TABLET PO ×2 (01:21→19:58)
[2021-10-28 05:19] LABS: Hematocrit 41.6 % (42.0-52.0); Hemoglobin 14.1 g/dL (14.0-18.0); Mean Corpuscular HGB Conc 33.9 g/dl (32-36); Mean Corpuscular Hemoglobin 29.3 pg (26-34); Mean Corpuscular Volume 86.3 fl (80-100); Mean Platelet Volume 10.5 fl (7.4-10.4); Platelet Count Result 197 k/mm3 (150-375); Red Blood Count 4.82 M/mm3 (4.6-6.20); Red Cell Distribution Width 12.7 % (11.5-14.5); White Blood Count 4.9 K/mm3 (4.5-10.0)
[2021-10-28 05:28] LABS: INR 0.9; Prothrombin Time 12.2 Seconds (11.1-14.7)
[2021-10-28 05:35] LABS: Alanine Aminotransferase 46 U/L (4-50); Albumin Level 3.9 g/dL (3.5-5.1); Alkaline Phosphatase 78 U/L (38-126); Anion Gap 10 mmol/L (8-16); Aspartate Amino Transferase 94 U/L (17-59); Bilirubin,Total 0.5 mg/dL (0.2-1.3); Blood Urea Nitrogen 18 mg/dL (9-20); CRP 8.3 mg/dL (<1.0); Calcium 8.8 mg/dL (8.4-10.2); Carbon Dioxide 28 mmol/L (22-30); Chloride 96 mmol/L (98-107); Estimated CRCL calculation 124 ml/min; Estimated Glomerular Filt Rate > 60; Glucose 282 mg/dL (65-110); Lactate Dehydrogenase 1372 U/L (313-618); Potassium 4.2 mmol/L (3.4-5.0); Sodium 134 mmol/L (137-145)
[2021-10-28 06:54] LABS: Thyroid Stimulating Hormone Reflex 0.488 uIU/mL (0.465-4.68)
--- NOTE | 2021-10-28 07:45 | PM.IMPN ---
Progress Note: A&P Assessment and Plan (1) Acute respiratory failure with hypoxia: Code(s): J96.01 - Acute respiratory failure with hypoxia Status: Acute Assessment and Plan: Secondary to COVID pneumonia. He is currently on 15 L non-rebreather. Chest CTA did not show central pulmonary embolism though study was limited in the segmental arteries due to respiratory motion. Continue supportive care. (2) Pneumonia due to COVID-19 virus: Code(s): U07.1 - COVID-19; J12.82 - Pneumonia due to coronavirus disease 2018 Status: Acute Assessment and Plan: Patient reports testing positive for COVID approximately 1 week ago and records have been requested from [facility] for confirmation. He is unvaccinated. Given his oxygen requirement he has been started on dexamethasone and remdesivir. We discussed tocilizumab as well and he is agreeable however we are awaiting confirmation that he indeed is COVID positive as above. (3) Hypertension: Code(s): I10 - Essential (primary) hypertension Status: Acute Assessment and Plan: Relative hypotension this afternoon. Hold BP meds if blood pressure is is and 140/90. (4) Type 2 diabetes mellitus: Code(s): E11.9 - Type 2 diabetes mellitus without complications Status: Acute Assessment and Plan: Continue pioglitazone and saxagliptin. Initiate sliding scale insulin, Accu-Cheks, and hypoglycemic protocol. Check hemoglobin A1c. Accu-check in the 230-282 range. Subjective Date/time seen: 10/28/21 07:45 This is a 66-year-old male with hypertension, hyperlipidemia, diabetes, benign prostatic hyperplasia, and history of deep venous thrombosis after orthopedic surgery and more recently pulmonary emboli in November 2020 who presented to the emergency department earlier today via EMS for evaluation of shortness of breath. He had a COVID test done approximately 1 week ago at [facility] in anticipation for a right shoulder surgery and that reportedly came back positive though he was feeling okay at that time. The following day however he began not feeling well with fever, body aches, decreased smell and taste, cough, decreased appetite, and loose stools. Over the past couple of days he has had increasing shortness of breath and he came in for evaluation. On arrival to the ED, his SpO2 was 90% on 15 L non-rebreather. Chest CTA showed multifocal pneumonia and he is being admitted in this setting. At the time of my evaluation, he is resting comfortably on his left side and he has no specific complaints. He denies chest pain, pleuritic pain, palpitations, nausea, and vomiting. His is also COVID positive. He is unvaccinated. S: Patient examined at the bedside. He reports chest pain with coughing. He is comfortable breathing oxygen 15 L via nasal cannula. No active complaints. Exam Narrative: General: Mildly ill-appearing male lying on his left side in bed. Weight: 168 kg. BMI: 51.7. HEENT: PERRL, EOMI. Sclerae anicteric. Dry mucous membranes. Oropharynx is crowded. Neck: Supple. Exam difficult due to neck circumference. Right thyroid nodule noted on CT was not palpable. Respiratory: He is on a non-rebreather, is mildly tachypneic, and is speaking in full sentences. Coarse crackles heard throughout. Cardiovascular: Regular rate and rhythm with S1-S2. Gastrointestinal: Abdomen is soft, obese, nontender, and nondistended with positive bowel sounds. Skin: Warm and dry. No rash or lesions on limited exam. Extremities: No cyanosis, clubbing, or significant edema. Old scars from prior surgeries noted the legs. Radial and pedal pulses intact. Neurological: Alert. Cranial nerves 2-12 are grossly intact. No gross focal deficits to casual conversation. Psychiatric: Pleasant and cooperative with normal mood and affect. Judgment and insight intact. Objective Data Vital Signs Vital Signs: Vital Signs - 24 hr 10/27/21 13:27 10/27/21
[2021-10-28 08:59] LABS: Glucose Point of Care 238 mg/dl (65-105)
[2021-10-28] MEDS: ENOXAPARIN 40 MG/0.4 ML SYRINGE SUB-Q ×2 (09:09→19:58)
[2021-10-28] MEDS: PIOGLITAZONE HCL 30 MG TABLET PO (09:09)
[2021-10-28 12:35] LABS: Glucose Point of Care 249 mg/dl (65-105)
[2021-10-28 17:10] LABS: Glucose Point of Care 245 mg/dl (65-105)
[2021-10-28] MEDS: REMDESIVIR 100 MG/NS 250 ML 100 MG/250 ML BAG 250 MG IVPB (19:58)
[2021-10-28] MEDS: ALPRAZolam (*CRX) 0.25 MG TABLET PO (21:39)
[2021-10-28] MEDS: HYDROcodone/acetaminophen (*CRX) 10-325 MG TABLET 1 TAB PO (21:39)
[2021-10-29] VITALS (18 sets, daily range): BP systolic 99–114; BP diastolic 46–60; PULSE 53–98; RESP 21–28; TEMP 36.3–37.3; O2SAT 91–95
[2021-10-29 05:47] LABS: Basophils Percent Auto 0.1 % (0.2-1.2); Hematocrit 40.7 % (42.0-52.0); Hemoglobin 13.6 g/dL (14.0-18.0); Lymphocytes Absolute Auto 0.89 K/mm3 (0.9-3.2); Lymphocytes Percent Auto 8.6 % (18.3-44.2); Mean Corpuscular HGB Conc 33.4 g/dl (32-36); Mean Corpuscular Hemoglobin 28.6 pg (26-34); Mean Corpuscular Volume 85.5 fl (80-100); Mean Platelet Volume 10.7 fl (7.4-10.4); Monocytes Absolute Auto 0.7 K/mm3 (0.1-0.6); Neutrophils Absolute Auto 8.6 K/mm3 (1.3-6.7); Neutrophils Percent Auto 83.3 % (45.5-73.1); Platelet Count Result 236 k/mm3 (150-375); Red Blood Count 4.76 M/mm3 (4.6-6.20); Red Cell Distribution Width 12.5 % (11.5-14.5); White Blood Count 10.4 K/mm3 (4.5-10.0)
[2021-10-29 05:55] LABS: Prothrombin Time 13.5 Seconds (11.1-14.7)
[2021-10-29 06:00] LABS: Alanine Aminotransferase 40 U/L (4-50); Anion Gap 8 mmol/L (8-16); Blood Urea Nitrogen 25 mg/dL (9-20); Calcium 8.7 mg/dL (8.4-10.2); Carbon Dioxide 25 mmol/L (22-30); Chloride 98 mmol/L (98-107); Estimated CRCL calculation 140 ml/min; Estimated Glomerular Filt Rate > 60; Glucose 307 mg/dL (65-110); Magnesium 2.3 mg/dL (1.6-2.3); Potassium 3.7 mmol/L (3.4-5.0); Sodium 131 mmol/L (137-145)
[2021-10-29] MEDS: PIOGLITAZONE HCL 30 MG TABLET PO (08:17)
[2021-10-29] MEDS: ENOXAPARIN 40 MG/0.4 ML SYRINGE SUB-Q (08:17)
--- NOTE | 2021-10-29 08:26 | PM.IMPN ---
Progress Note: A&P Assessment and Plan (1) Acute respiratory failure with hypoxia: Code(s): J96.01 - Acute respiratory failure with hypoxia Status: Acute Assessment and Plan: Secondary to COVID pneumonia. He is currently on 15 L non-rebreather. Chest CTA did not show central pulmonary embolism though study was limited in the segmental arteries due to respiratory motion. Continue supportive care. (2) Pneumonia due to COVID-19 virus: Code(s): U07.1 - COVID-19; J12.82 - Pneumonia due to coronavirus disease 2018 Status: Acute Assessment and Plan: Patient reports testing positive for COVID approximately 1 week ago and records have been requested from [facility] for confirmation. He is unvaccinated. Given his oxygen requirement he has been started on dexamethasone and remdesivir. We discussed tocilizumab as well and he is agreeable however we are awaiting confirmation that he indeed is COVID positive as above. (3) Hypertension: Code(s): I10 - Essential (primary) hypertension Status: Acute Assessment and Plan: Relative hypotension this afternoon. Hold BP meds if blood pressure is is and 140/90. (4) Type 2 diabetes mellitus: Code(s): E11.9 - Type 2 diabetes mellitus without complications Status: Acute Assessment and Plan: Continue pioglitazone and saxagliptin. Initiate sliding scale insulin, Accu-Cheks, and hypoglycemic protocol. Check hemoglobin A1c. Accu-check in the 230-282 range. Additional Plan 10/29/21 ISS added for elevated BG orals discontinued, ISS and lantas low dose ordered ABG ordered pt on maximal resp therapy w AirVo pulm and ID following close monitoring high risk for decompensation may require transfer to ICU Time Spent With Patient Time with patient: 25 - 35 minutes Subjective Date/time seen: 10/29/21 08:26 Obese male lying on his left side in no acute respiratory distress cooperative to my interview when asked how he is feeling reports that he is hanging in there he vocalizes no complaints at the time my interview Exam Narrative: General: Mildly to moderately ill-appearing male lying on his left side in bed. Weight: 168 kg. BMI: 51.7. HEENT: EOMI. Sclerae anicteric. Dry mucous membranes. Oropharynx is crowded. Neck: Supple. Exam difficult due to neck circumference. Right thyroid nodule . Respiratory: He is on a non-rebreather, is mildly tachypneic, and is speaking in full sentences. Coarse crackles heard throughout. Cardiovascular: Regular rate and rhythm with S1-S2. Gastrointestinal: Abdomen is soft, obese, nontender, and nondistended with positive bowel sounds. Skin: Warm and dry. No rash or lesions on limited exam. Extremities: No cyanosis, clubbing, or significant edema. Old scars from prior surgeries noted the legs. Radial and pedal pulses intact. Neurological: Alert. Cranial nerves 2-12 are grossly intact. No gross focal deficits to casual conversation. Psychiatric: Pleasant and cooperative with normal mood and affect. Judgment and insight intact. Objective Data Vital Signs Vital Signs: Vital Signs - 24 hr 10/28/21 10:00 10/28/21 12:00 10/28/21 14:00 Temperature 97 F L Pulse Rate 55 L 55 L 58 L Respiratory Rate 32 H Blood Pressure 121/62 Pulse Oximetry 94 10/28/21 16:00 10/28/21 18:00 10/28/21 20:00 Temperature 97 F L 97.8 F Pulse Rate 62 70 77 Respiratory Rate 30 H 22 H Blood Pressure 98/58 L 102/61 Pulse Oximetry 94 90 10/28/21 21:00 10/28/21 21:10 10/28/21 22:00 Temperature Pulse Rate 77 62 Respiratory Rate 22 H Blood Pressure Pulse Oximetry 90 90 10/28/21 22:13 10/28/21 23:02 10/29/21 00:00 Temperature 97.7 F Pulse Rate 65 64 Respiratory Rate 24 H 21 H Blood Pressure 103/55 L Pulse Oximetry 94 94 94 10/29/21 00:07 10/29/21 02:00 10/29/21 03:18 Temperature Pulse Rate 53 L 55 L Respiratory Rate 21 H Blood Pressure Puls
[2021-10-29 13:20] LABS: Glucose Point of Care 321 mg/dl (65-105)
[2021-10-29] MEDS: INSULIN ASPART (*BKC) 100 UNITS/ML SUB-Q ×2 (13:22→16:44)
[2021-10-29 14:20] LABS: Alveolar/Arterial O2 Gradient 630.4 mmHg; Base Excess ABG 1.1 mEq/l (+/-2.0); HCO3 ABG 23.1 mEq/l (22.0-26.0); Oxygen Content ABG 18.7 %vol (16.0-22.0); Oxygen Saturation ABG 90.7 % (95.0-100.0); PCO2 ABG 29.8 mmHg (35.0-45.0); PO2 ABG 52.8 mmHg (80.0-100.0); PO2 FiO2 Ratio Arterial Blood 0.53 %; Total Hemoglobin 15.2 g/dL (12.0-18.0)
[2021-10-29 14:24] LABS: pH ABG 7.507 (7.350-7.450)
[2021-10-29 14:25] LABS: Oxyhemoglobin 87.8 % THb (90.0-100.0); Site Drawn LEFT BRACHIAL
[2021-10-29 14:26] LABS: Device HIGH FLOW THERAPY
[2021-10-29 14:27] LABS: Fractional Inspired Oxygen 92 %
[2021-10-29 14:30] LABS: SARS-CoV-2 RNA PCR Positive
--- NOTE | 2021-10-29 17:09 | ECG_ITS ---
Measurements Intervals [place] Rate: 83 P: [place]: 0 QRS: 9 QRSD: 104 T: -3 QT: 368 QTc: 434 Interpretive Statements ATRIAL FIBRILLATION DELAYED PRECORDIAL R/S TRANSITION BORDERLINE T WAVE ABNORMALITY- INFERIOR LEADS BASELINE ARTIFACT- I, II, III, AVR, AVL ABNORMAL ECG Electronically Signed On 10-30-2021 10:52:38 [employer] by Vipin Roche D.O.
[2021-10-29 17:13] LABS: Glucose Point of Care 330 mg/dl (65-105)
[2021-10-29 18:58] LABS: Troponin I < 0.012 ng/mL (0.000-0.034)
[2021-10-29 19:40] LABS: Hemoglobin A1C 7.9 % (<5.7)
[2021-10-29] MEDS: ENOXAPARIN 100 MG/ML SYRINGE 170 MG SUB-Q (20:31)
[2021-10-29] MEDS: ATORVASTATIN 20 MG TABLET PO (20:33)
[2021-10-29] MEDS: INSULIN GLARGINE (*BKC) 100 UNITS/ML SUB-Q (20:38)
[2021-10-29 21:31] LABS: Glucose Point of Care 302 mg/dl (65-105)
[2021-10-29] MEDS: REMDESIVIR 100 MG/NS 250 ML 100 MG/250 ML BAG 250 MG IVPB (22:37)
[2021-10-30] VITALS (25 sets, daily range): BP systolic 91–130; BP diastolic 56–69; PULSE 62–91; RESP 20–28; TEMP 36.2–36.8; O2SAT 90–100
[2021-10-30 07:12] LABS: Prothrombin Time 13.3 Seconds (11.1-14.7)
[2021-10-30 07:16] LABS: Alanine Aminotransferase 35 U/L (4-50); Estimated CRCL calculation 119 ml/min; Estimated Glomerular Filt Rate > 60
[2021-10-30] MEDS: ENOXAPARIN 100 MG/ML SYRINGE 170 MG SUB-Q (08:42)
[2021-10-30] MEDS: INSULIN GLARGINE (*BKC) 100 UNITS/ML SUB-Q (08:43)
[2021-10-30] MEDS: INSULIN ASPART (*BKC) 100 UNITS/ML SUB-Q ×3 (08:46→16:10)
--- NOTE | 2021-10-30 08:46 | PM.IMPN ---
Progress Note: A&P Assessment and Plan (1) Acute respiratory failure with hypoxia: Code(s): J96.01 - Acute respiratory failure with hypoxia Status: Acute Assessment and Plan: Secondary to COVID pneumonia. He is currently on 15 L non-rebreather. Chest CTA did not show central pulmonary embolism though study was limited in the segmental arteries due to respiratory motion. Continue supportive care. (2) Pneumonia due to COVID-19 virus: Code(s): U07.1 - COVID-19; J12.82 - Pneumonia due to coronavirus disease 2018 Status: Acute Assessment and Plan: Patient reports testing positive for COVID approximately 1 week ago and records have been requested from [facility] for confirmation. He is unvaccinated. Given his oxygen requirement he has been started on dexamethasone and remdesivir. We discussed tocilizumab as well and he is agreeable however we are awaiting confirmation that he indeed is COVID positive as above. (3) Hypertension: Code(s): I10 - Essential (primary) hypertension Status: Acute Assessment and Plan: Relative hypotension this afternoon. Hold BP meds if blood pressure is is and 140/90. (4) Type 2 diabetes mellitus: Code(s): E11.9 - Type 2 diabetes mellitus without complications Status: Acute Assessment and Plan: Continue pioglitazone and saxagliptin. Initiate sliding scale insulin, Accu-Cheks, and hypoglycemic protocol. Check hemoglobin A1c. Accu-check in the 230-282 range. Additional Plan 10/29/21 ISS added for elevated BG orals discontinued, ISS and lantas low dose ordered ABG ordered pt on maximal resp therapy w AirVo pulm and ID following close monitoring high risk for decompensation may require transfer to ICU 10/30/21 BG elevated Lantus increased to 15U BID (5U given at 8:30 am) may require significantly higher basal dosing cont abx cont remdesivir pt w new PE on full dose lovenox pt w new onset afib rate controlled close monitoring high risk for decompensation may require transfer to ICU BiPAP PRN prone and sides as able Subjective Date/time seen: 10/30/21 08:46 pt doing ok advised to lay on r and l sides and alternate, pt agrees Exam Narrative: General: moderately ill-appearing male lying on his right side in bed. Weight: 168 kg. BMI: 51.7. mordidly obese HEENT: EOMI. Sclerae anicteric. Dry mucous membranes. Oropharynx is crowded. Neck: Supple. no JVD Respiratory: He is on a HFNC max setting w NRB mask and is speaking in full sentences. Coarse crackles heard throughout. Cardiovascular: Irregular rate and rhythm Gastrointestinal: Abdomen is soft, obese, nontender, and nondistended with positive bowel sounds. Skin: Warm and dry. No rash or lesions on limited exam. Extremities: No cyanosis, clubbing, or significant edema. Old scars from prior surgeries noted the legs. Radial and pedal pulses intact. Neurological: Alert. Cranial nerves 2-12 are grossly intact. No gross focal deficits to casual conversation. Psychiatric: Pleasant and cooperative with normal mood and affect. Judgment and insight intact. Objective Data Vital Signs Vital Signs: Vital Signs - 24 hr 10/29/21 10:00 10/29/21 10:56 10/29/21 12:00 Temperature 97.7 F Pulse Rate 85 78 Respiratory Rate 24 H Blood Pressure 104/46 L Pulse Oximetry 95 94 10/29/21 14:00 10/29/21 16:00 10/29/21 18:00 Temperature 99.1 F Pulse Rate 82 87 98 Respiratory Rate 28 H Blood Pressure 99/51 L Pulse Oximetry 94 10/29/21 20:00 10/29/21 22:00 10/29/21 22:30 Temperature 97.6 F Pulse Rate 76 84 Respiratory Rate 28 H 22 H Blood Pressure 114/60 Pulse Oximetry 92 10/29/21 23:34 10/29/21 23:55 10/30/21 00:00 Temperature 97.6 F Pulse Rate 93 83 Respiratory Rate 26 H Blood Pressure 113/58 L Pulse Oximetry 94 94 10/30/21 01:06 10/30/21 01:53 10/30/21 02:00 Temperature Pulse Rate 91
[2021-10-30 08:56] LABS: Glucose Point of Care 323 mg/dl (65-105)
[2021-10-30] MEDS: INSULIN GLARGINE (*BKC) 100 UNITS/ML 10 UNITS SUB-Q (10:21)
[2021-10-30 11:59] LABS: Glucose Point of Care 255 mg/dl (65-105)
[2021-10-30 14:13] LABS: Alveolar/Arterial O2 Gradient 630.5 mmHg; Base Excess ABG 2.8 mEq/l (+/-2.0); Carboxyhemoglobin 0.3 % THb (0-2.0); Fractional Inspired Oxygen 100 %; HCO3 ABG 25.1 mEq/l (22.0-26.0); Methemoglobin ABG 0.3 %THb (0-1.5); Oxygen Content ABG 18.9 %vol (16.0-22.0); Oxygen Saturation ABG 89.4 % (95.0-100.0); PCO2 ABG 32.2 mmHg (35.0-45.0); PO2 ABG 50.3 mmHg (80.0-100.0); Reduced Hemoglobin 13.5 %THb (0-5.0); Total Hemoglobin 15.7 g/dL (12.0-18.0)
[2021-10-30 14:16] LABS: Device NON-INVASIVE VENT; Modified Allen's Test Pass; Oxyhemoglobin 85.9 % THb (90.0-100.0); Site Drawn LEFT RADIAL
[2021-10-30 14:17] LABS: Non-Invasive Expiratory Pressure 5 CMH2O; Non-Invasive Inspiratory Pressure 10 CMH2O; Non-Invasive Vent Rate 4 /MIN
[2021-10-30 16:13] LABS: Glucose Point of Care 201 mg/dl (65-105)
[2021-10-30 21:09] LABS: Glucose Point of Care 184 mg/dl (65-105)
[2021-10-30] MEDS: ENOXAPARIN 100 MG/ML SYRINGE SUB-Q (21:21)
[2021-10-30] MEDS: ATORVASTATIN 20 MG TABLET PO (21:21)
[2021-10-30] MEDS: INSULIN GLARGINE (*BKC) 100 UNITS/ML 15 UNITS SUB-Q (21:22)
[2021-10-30] MEDS: REMDESIVIR 100 MG/NS 250 ML 100 MG/250 ML BAG 250 MG IVPB (21:22)
[2021-10-30] MEDS: ENOXAPARIN 30 MG/0.3 ML SYRINGE SUB-Q (21:22)
[2021-10-31] VITALS (16 sets, daily range): BP systolic 92–129; BP diastolic 47–75; PULSE 64–101; RESP 20–26; TEMP 36.1–37; O2SAT 91–99
[2021-10-31] MEDS: guaiFENesin/DEXTROMETHORPHAN 10 ML UDC PO ×2 (05:09→21:30)
[2021-10-31 05:25] LABS: INR 1.2; Prothrombin Time 15.4 Seconds (11.1-14.7)
[2021-10-31 05:27] LABS: Alanine Aminotransferase 31 U/L (4-50); Estimated CRCL calculation 119 ml/min; Estimated Glomerular Filt Rate > 60
[2021-10-31 08:42] LABS: Glucose Point of Care 131 mg/dl (65-105)
[2021-10-31] MEDS: ENOXAPARIN 30 MG/0.3 ML SYRINGE SUB-Q ×2 (09:24→20:54)
[2021-10-31] MEDS: INSULIN GLARGINE (*BKC) 100 UNITS/ML 15 UNITS SUB-Q ×2 (09:24→21:35)
[2021-10-31] MEDS: ENOXAPARIN 100 MG/ML SYRINGE SUB-Q ×2 (09:24→20:54)
[2021-10-31 13:17] LABS: Glucose Point of Care 183 mg/dl (65-105)
[2021-10-31 16:59] LABS: Glucose Point of Care 239 mg/dl (65-105)
[2021-10-31] MEDS: INSULIN ASPART (*BKC) 100 UNITS/ML SUB-Q (17:20)
[2021-10-31 20:29] LABS: Glucose Point of Care 332 mg/dl (65-105)
[2021-10-31] MEDS: ATORVASTATIN 20 MG TABLET PO (20:53)
--- NOTE | 2021-10-31 20:54 | PC.NURSE ---
Keegan Flores called claiming to be POA, pt disputes this claim and does not give permission to release information, he is to be referred to , Reinaldo Maldonado.
[2021-10-31] MEDS: REMDESIVIR 100 MG/NS 250 ML 100 MG/250 ML BAG 250 MG IVPB (21:16)
--- NOTE | 2021-10-31 21:17 | PM.IMPN ---
Progress Note: A&P Assessment and Plan (1) Acute respiratory failure with hypoxia: Code(s): J96.01 - Acute respiratory failure with hypoxia Status: Acute Assessment and Plan: Secondary to COVID pneumonia. He is currently on 15 L non-rebreather. Chest CTA did not show central pulmonary embolism though study was limited in the segmental arteries due to respiratory motion. Continue supportive care. (2) Pneumonia due to COVID-19 virus: Code(s): U07.1 - COVID-19; J12.82 - Pneumonia due to coronavirus disease 2018 Status: Acute Assessment and Plan: Patient reports testing positive for COVID approximately 1 week ago and records have been requested from [facility] for confirmation. He is unvaccinated. Given his oxygen requirement he has been started on dexamethasone and remdesivir. We discussed tocilizumab as well and he is agreeable however we are awaiting confirmation that he indeed is COVID positive as above. (3) Hypertension: Code(s): I10 - Essential (primary) hypertension Status: Acute Assessment and Plan: Relative hypotension this afternoon. Hold BP meds if blood pressure is is and 140/90. (4) Type 2 diabetes mellitus: Code(s): E11.9 - Type 2 diabetes mellitus without complications Status: Acute Assessment and Plan: Continue pioglitazone and saxagliptin. Initiate sliding scale insulin, Accu-Cheks, and hypoglycemic protocol. Check hemoglobin A1c. Accu-check in the 230-282 range. Additional Plan 10/29/21 ISS added for elevated BG orals discontinued, ISS and lantas low dose ordered ABG ordered pt on maximal resp therapy w AirVo pulm and ID following close monitoring high risk for decompensation may require transfer to ICU 10/30/21 BG elevated Lantus increased to 15U BID (5U given at 8:30 am) may require significantly higher basal dosing cont abx cont remdesivir pt w new PE on full dose lovenox pt w new onset afib rate controlled close monitoring high risk for decompensation may require transfer to ICU BiPAP PRN prone and sides as able 10/31/21 remains stable on bipap w HF/NRB BG above goal ISS increased to high dose will increase basal insulin tomorrow cont treatment for covid pulm following recs appreciated cont supportive care Subjective Date/time seen: 10/31/21 21:17 pt doing ok has no complaints Exam Narrative: General: moderately ill-appearing male lying on his right side in bed. Weight: 168 kg. BMI: 51.7. mordidly obese HEENT: EOMI. Sclerae anicteric. Dry mucous membranes. Oropharynx is crowded. Neck: Supple. no JVD Respiratory: He is on a HFNC max setting w NRB mask and is speaking in full sentences. Coarse crackles heard throughout. Cardiovascular: Irregular rate and rhythm Gastrointestinal: Abdomen is soft, obese, nontender, and nondistended with positive bowel sounds. Skin: Warm and dry. No rash or lesions on limited exam. Extremities: No cyanosis, clubbing, or significant edema. Old scars from prior surgeries noted the legs. Radial and pedal pulses intact. Neurological: Alert. Cranial nerves 2-12 are grossly intact. No gross focal deficits to casual conversation. Psychiatric: Pleasant and cooperative with normal mood and affect. Judgment and insight intact. Objective Data Vital Signs Vital Signs: Vital Signs - 24 hr 10/30/21 21:48 10/30/21 23:13 10/30/21 23:14 Temperature 98.2 F Pulse Rate 62 89 89 Respiratory Rate 26 H Blood Pressure 130/61 Pulse Oximetry 92 92 10/30/21 23:25 10/31/21 00:00 10/31/21 02:00 Temperature Pulse Rate 101 H 81 Respiratory Rate Blood Pressure Pulse Oximetry 94 10/31/21 04:00 10/31/21 04:40 10/31/21 06:00 Temperature 98.3 F Pulse Rate 64 94 Respiratory Rate 24 H Blood Pressure 129/75 Pulse Oximetry 92 95 10/31/21 08:00 10/31/21 09:35 10/31/21 10:00 Temperature 98.6 F Pulse Rate 68 81 96 Respir
[2021-10-31] MEDS: INSULIN ASPART (*BKC) 100 UNITS/ML 6 UNITS SUB-Q (21:35)
[2021-11-01] VITALS (15 sets, daily range): BP systolic 98–132; BP diastolic 53–82; PULSE 61–94; RESP 18–24; TEMP 36.3–36.9; O2SAT 90–98
[2021-11-01 08:36] LABS: Glucose Point of Care 195 mg/dl (65-105)
[2021-11-01] MEDS: ENOXAPARIN 100 MG/ML SYRINGE SUB-Q ×2 (10:47→21:30)
[2021-11-01] MEDS: INSULIN GLARGINE (*BKC) 100 UNITS/ML 15 UNITS SUB-Q ×2 (10:47→21:30)
[2021-11-01] MEDS: ENOXAPARIN 30 MG/0.3 ML SYRINGE SUB-Q ×2 (10:47→21:30)
[2021-11-01 13:12] LABS: Glucose Point of Care 176 mg/dl (65-105)
[2021-11-01 16:44] LABS: Glucose Point of Care 262 mg/dl (65-105)
[2021-11-01] MEDS: INSULIN ASPART (*BKC) 100 UNITS/ML SUB-Q (17:29)
--- NOTE | 2021-11-01 20:34 | PM.IMPN ---
Progress Note: A&P Assessment and Plan (1) Acute respiratory failure with hypoxia: Code(s): J96.01 - Acute respiratory failure with hypoxia Status: Acute Assessment and Plan: Secondary to COVID pneumonia. He is currently on 15 L non-rebreather. Chest CTA did not show central pulmonary embolism though study was limited in the segmental arteries due to respiratory motion. Continue supportive care. (2) Pneumonia due to COVID-19 virus: Code(s): U07.1 - COVID-19; J12.82 - Pneumonia due to coronavirus disease 2018 Status: Acute Assessment and Plan: Patient reports testing positive for COVID approximately 1 week ago and records have been requested from [facility] for confirmation. He is unvaccinated. Given his oxygen requirement he has been started on dexamethasone and remdesivir. We discussed tocilizumab as well and he is agreeable however we are awaiting confirmation that he indeed is COVID positive as above. (3) Hypertension: Code(s): I10 - Essential (primary) hypertension Status: Acute Assessment and Plan: Relative hypotension this afternoon. Hold BP meds if blood pressure is is and 140/90. (4) Type 2 diabetes mellitus: Code(s): E11.9 - Type 2 diabetes mellitus without complications Status: Acute Assessment and Plan: Continue pioglitazone and saxagliptin. Initiate sliding scale insulin, Accu-Cheks, and hypoglycemic protocol. Check hemoglobin A1c. Accu-check in the 230-282 range. Additional Plan 10/29/21 ISS added for elevated BG orals discontinued, ISS and lantas low dose ordered ABG ordered pt on maximal resp therapy w AirVo pulm and ID following close monitoring high risk for decompensation may require transfer to ICU 10/30/21 BG elevated Lantus increased to 15U BID (5U given at 8:30 am) may require significantly higher basal dosing cont abx cont remdesivir pt w new PE on full dose lovenox pt w new onset afib rate controlled close monitoring high risk for decompensation may require transfer to ICU BiPAP PRN prone and sides as able 10/31/21 remains stable on bipap w HF/NRB BG above goal ISS increased to high dose will increase basal insulin tomorrow cont treatment for covid pulm following recs appreciated cont supportive care 11/01/21 pt remains on stable on current oxygen requirements BG still above goal remains on tx for covid pulm following cont supportive care dc diet supplements Subjective Date/time seen: 11/01/21 20:34 Patient doing okay very grateful for staff states that he has had excellent nursing compliant with pronating no complaints but unable to tolerate Glucerna Exam Narrative: General: moderately ill-appearing male lying on his right side in bed. Weight: 157 kg. BMI: 48.3. morbidly obese HEENT: EOMI. Sclerae anicteric. Neck: Supple. no JVD Respiratory: He is on a HFNC max setting w NRB mask and is speaking in full sentences. Cardiovascular: Irregular rate and rhythm Gastrointestinal: Abdomen is soft, obese, nontender, and nondistended with positive bowel sounds. Skin: Warm and dry. No rash or lesions on limited exam. Extremities: No cyanosis, clubbing, or significant edema. Old scars from prior surgeries noted the legs. Radial and pedal pulses intact. Neurological: Alert. Cranial nerves 2-12 are grossly intact. No gross focal deficits to casual conversation. Psychiatric: Pleasant and cooperative with normal mood and affect. Judgment and insight intact. Objective Data Vital Signs Vital Signs: Vital Signs - 24 hr 10/31/21 22:00 10/31/21 22:40 11/01/21 00:00 Temperature 97.5 F L Pulse Rate 71 78 Respiratory Rate 20 Blood Pressure 108/75 Pulse Oximetry 93 98 11/01/21 02:00 11/01/21 03:35 11/01/21 04:00 Temperature 97.4 F L Pulse Rate 77 71 Respiratory Rate 20 Blood Pressure 105/67 Pulse Oximetry 94 95 11/01/21 05:45 11/01/21 08:00
[2021-11-01 20:50] LABS: Glucose Point of Care 311 mg/dl (65-105)
[2021-11-01] MEDS: ATORVASTATIN 20 MG TABLET PO (21:30)
[2021-11-02] VITALS (15 sets, daily range): BP systolic 99–147; BP diastolic 55–66; PULSE 61–117; RESP 22–28; TEMP 36.2–37.1; O2SAT 92–96
[2021-11-02 05:41] LABS: Basophils Percent Auto 0.2 % (0.2-1.2); Hematocrit 40.7 % (42.0-52.0); Hemoglobin 13.9 g/dL (14.0-18.0); Immature Granulocyte Absolute 0.26 K/mm3 (0.00-0.031); Lymphocytes Absolute Auto 0.83 K/mm3 (0.9-3.2); Lymphocytes Percent Auto 6.4 % (18.3-44.2); Mean Corpuscular HGB Conc 34.2 g/dl (32-36); Mean Corpuscular Hemoglobin 29.1 pg (26-34); Mean Corpuscular Volume 85.1 fl (80-100); Monocytes Absolute Auto 0.7 K/mm3 (0.1-0.6); Monocytes Percent Auto 5.1 % (2.6-8.5); Neutrophils Absolute Auto 11.3 K/mm3 (1.3-6.7); Neutrophils Percent Auto 86.3 % (45.5-73.1); Platelet Count Result 325 k/mm3 (150-375); Red Blood Count 4.78 M/mm3 (4.6-6.20); Red Cell Distribution Width 12.5 % (11.5-14.5)
[2021-11-02 05:52] LABS: D Dimer 0.79 ug/mL (<0.48)
[2021-11-02 06:03] LABS: Alanine Aminotransferase 28 U/L (4-50); Albumin Level 2.9 g/dL (3.5-5.1); Alkaline Phosphatase 73 U/L (38-126); Anion Gap 9 mmol/L (8-16); Aspartate Amino Transferase 30 U/L (17-59); Bilirubin,Total 0.6 mg/dL (0.2-1.3); Blood Urea Nitrogen 24 mg/dL (9-20); Calcium 8.5 mg/dL (8.4-10.2); Carbon Dioxide 26 mmol/L (22-30); Chloride 103 mmol/L (98-107); Estimated CRCL calculation 134 ml/min; Estimated Glomerular Filt Rate > 60; Glucose 225 mg/dL (65-110); Magnesium 2.1 mg/dL (1.6-2.3); Phosphorus 2.9 mg/dL (2.5-4.5); Potassium 3.5 mmol/L (3.4-5.0); Sodium 138 mmol/L (137-145)
[2021-11-02 08:36] LABS: Glucose Point of Care 192 mg/dl (65-105)
[2021-11-02] MEDS: ENOXAPARIN 30 MG/0.3 ML SYRINGE SUB-Q ×2 (09:54→20:55)
[2021-11-02] MEDS: INSULIN GLARGINE (*BKC) 100 UNITS/ML 20 UNITS SUB-Q ×2 (09:54→20:56)
[2021-11-02] MEDS: ENOXAPARIN 100 MG/ML SYRINGE SUB-Q ×2 (09:54→20:55)
[2021-11-02 12:55] LABS: Glucose Point of Care 249 mg/dl (65-105)
[2021-11-02] MEDS: INSULIN ASPART (*BKC) 100 UNITS/ML SUB-Q ×2 (13:25→18:04)
[2021-11-02 16:30] LABS: Glucose Point of Care 262 mg/dl (65-105)
--- NOTE | 2021-11-02 20:41 | PM.IMPN ---
Progress Note: A&P Assessment and Plan (1) Acute respiratory failure with hypoxia: Code(s): J96.01 - Acute respiratory failure with hypoxia Status: Acute Assessment and Plan: Secondary to COVID pneumonia. He is currently on 15 L non-rebreather. Chest CTA did not show central pulmonary embolism though study was limited in the segmental arteries due to respiratory motion. Continue supportive care. (2) Pneumonia due to COVID-19 virus: Code(s): U07.1 - COVID-19; J12.82 - Pneumonia due to coronavirus disease 2018 Status: Acute Assessment and Plan: Patient reports testing positive for COVID approximately 1 week ago and records have been requested from [facility] for confirmation. He is unvaccinated. Given his oxygen requirement he has been started on dexamethasone and remdesivir. We discussed tocilizumab as well and he is agreeable however we are awaiting confirmation that he indeed is COVID positive as above. (3) Hypertension: Code(s): I10 - Essential (primary) hypertension Status: Acute Assessment and Plan: Relative hypotension this afternoon. Hold BP meds if blood pressure is is and 140/90. (4) Type 2 diabetes mellitus: Code(s): E11.9 - Type 2 diabetes mellitus without complications Status: Acute Assessment and Plan: Continue pioglitazone and saxagliptin. Initiate sliding scale insulin, Accu-Cheks, and hypoglycemic protocol. Check hemoglobin A1c. Accu-check in the 230-282 range. Additional Plan 10/29/21 ISS added for elevated BG orals discontinued, ISS and lantas low dose ordered ABG ordered pt on maximal resp therapy w AirVo pulm and ID following close monitoring high risk for decompensation may require transfer to ICU 10/30/21 BG elevated Lantus increased to 15U BID (5U given at 8:30 am) may require significantly higher basal dosing cont abx cont remdesivir pt w new PE on full dose lovenox pt w new onset afib rate controlled close monitoring high risk for decompensation may require transfer to ICU BiPAP PRN prone and sides as able 10/31/21 remains stable on bipap w HF/NRB BG above goal ISS increased to high dose will increase basal insulin tomorrow cont treatment for covid pulm following recs appreciated cont supportive care 11/01/21 pt remains on stable on current oxygen requirements BG still above goal remains on tx for covid pulm following cont supportive care dc diet supplements 11/02/2021 Basal insulin has been increased to 20 b.i.d. Patient encouraged to eat Unable to tolerate mobilization at this point Continues on high-flow nasal cannula with non-rebreather at high settings AFib on full anticoagulation PE on CT imaging 10/30 Overall slow to improve but remained stable Subjective Date/time seen: 11/02/21 20:41 Patient doing okay male functioning high-flow has been adjusted and patient comfortable lying on his side he is informed that any physician will come tomorrow to take my place all questions answered. Exam Narrative: General: moderately ill-appearing male lying on his right side in bed. Weight: 157 kg. BMI: 48.3. morbidly obese HEENT: EOMI. Sclerae anicteric. Neck: Supple. no JVD Respiratory: He is on a HFNC max setting w NRB mask and is speaking in full sentences. Cardiovascular: Irregular rate and rhythm Gastrointestinal: Abdomen is soft, obese, nontender, and nondistended with positive bowel sounds. Skin: Warm and dry. No rash or lesions on limited exam. Extremities: No cyanosis, clubbing, or significant edema. Old scars from prior surgeries noted the legs. Radial and pedal pulses intact. Neurological: Alert. Cranial nerves 2-12 are grossly intact. No gross focal deficits to casual conversation. Psychiatric: Pleasant and cooperative with normal mood and affect. Judgment and insight intact. Objective Data Vital Signs Vital Signs: Vital Signs - 24 hr
[2021-11-02] MEDS: ATORVASTATIN 20 MG TABLET PO (20:55)
[2021-11-02 20:59] LABS: Glucose Point of Care 344 mg/dl (65-105)
[2021-11-03] VITALS (16 sets, daily range): BP systolic 107–125; BP diastolic 70–80; PULSE 63–98; RESP 20–32; TEMP 36.1–37.1; O2SAT 92–97
[2021-11-03 07:48] LABS: Glucose Point of Care 178 mg/dl (65-105)
[2021-11-03] MEDS: ENOXAPARIN 30 MG/0.3 ML SYRINGE SUB-Q ×2 (09:56→20:29)
[2021-11-03] MEDS: ENOXAPARIN 100 MG/ML SYRINGE SUB-Q ×2 (09:56→20:29)
[2021-11-03] MEDS: INSULIN GLARGINE (*BKC) 100 UNITS/ML 20 UNITS SUB-Q ×2 (09:56→20:31)
--- NOTE | 2021-11-03 10:05 | PCNWS ---
Weekly nutritional screen. Pt screened in for 7 day lenght of stay. Patient is tolerating current diet with adequate intake. No weight loss reported. No nutritional needs at this time.
[2021-11-03 11:49] LABS: Glucose Point of Care 188 mg/dl (65-105)
[2021-11-03 16:12] LABS: Glucose Point of Care 255 mg/dl (65-105)
--- NOTE | 2021-11-03 16:56 | PM.IMPN ---
Progress Note: A&P Assessment and Plan (1) Acute respiratory failure with hypoxia: Code(s): J96.01 - Acute respiratory failure with hypoxia Status: Acute Assessment and Plan: Secondary to COVID pneumonia.pt needing high flow oxygen Chest CTA did not show central pulmonary embolism though study was limited in the segmental arteries due to respiratory motion. Continue supportive care. (2) Pneumonia due to COVID-19 virus: Code(s): U07.1 - COVID-19; J12.82 - Pneumonia due to coronavirus disease 2018 Status: Acute Assessment and Plan: Patient reports testing positive for COVID approximately 1 week ago and records have been requested from [facility] for confirmation. He is unvaccinated. Given his oxygen requirement he has been started on dexamethasone and remdesivir. (3) Hypertension: Code(s): I10 - Essential (primary) hypertension Status: Acute Assessment and Plan: Continue to watch (4) Type 2 diabetes mellitus: Code(s): E11.9 - Type 2 diabetes mellitus without complications Status: Acute Assessment and Plan: Continue pioglitazone and saxagliptin. Initiate sliding scale insulin, Accu-Cheks, and hypoglycemic protocol. Check hemoglobin A1c. Subjective Date/time seen: 11/03/21 16:56 Interval history: 10/29/21 ISS added for elevated BG orals discontinued, ISS and lantas low dose ordered ABG ordered pt on maximal resp therapy w AirVo pulm and ID following close monitoring high risk for decompensation may require transfer to ICU 10/30/21 BG elevated Lantus increased to 15U BID (5U given at 8:30 am) may require significantly higher basal dosing cont abx cont remdesivir pt w new PE on full dose lovenox pt w new onset afib rate controlled close monitoring high risk for decompensation may require transfer to ICU BiPAP PRN prone and sides as able 10/31/21 remains stable on bipap w HF/NRB BG above goal ISS increased to high dose will increase basal insulin tomorrow cont treatment for covid pulm following recs appreciated cont supportive care 11/01/21 pt remains on stable on current oxygen requirements BG still above goal remains on tx for covid pulm following cont supportive care dc diet supplements 11/02/2021 Basal insulin has been increased to 20 b.i.d. Patient encouraged to eat Unable to tolerate mobilization at this point Continues on high-flow nasal cannula with non-rebreather at high settings AFib on full anticoagulation PE on CT imaging 10/30 Overall slow to improve but remained stable 11/03/2021 Continues on high-flow nasal cannula with non-rebreather at high settings pt is on iv steroids and iv rocephin and iv zithromycin Review of Systems Review of Systems: All systems reviewed & are unremarkable except as noted in HPI and below Exam Narrative: General: moderately ill-appearing male lying on his right side in bed. Weight: 157 kg. BMI: 48.3. morbidly obese HEENT: EOMI. Sclerae anicteric. Neck: Supple. no JVD Cardiovascular: irreg irreg Gastrointestinal: Abdomen is soft, obese, nontender, and nondistended with positive bowel sounds. Skin: Warm and dry. No rash or lesions on limited exam. Extremities: No cyanosis, clubbing, or significant edema. Old scars from prior surgeries noted the legs. Radial and pedal pulses intact. Neurological: Alert. Cranial nerves 2-12 are grossly intact. No gross focal deficits to casual conversation. Psychiatric: Pleasant and cooperative with normal mood and affect. Judgment and insight intact. Objective Data Vital Signs Vital Signs: Vital Signs - 24 hr 11/02/21 18:00 11/02/21 20:00 11/02/21 21:27 Temperature 36.6 C Pulse Rate 89 91 90 Respiratory Rate 24 H 22 H Blood Pressure 147/55 H Pulse Oximetry 96 96 11/02/21 22:00 11/03/21 00:00 11/03/21 02:00 Temperature 36.8 C Pulse Rate 90 75 66 Respiratory Rate 22 H Blood Pressure 125/75 Pu
[2021-11-03] MEDS: INSULIN ASPART (*BKC) 100 UNITS/ML SUB-Q (17:51)
[2021-11-03] MEDS: ATORVASTATIN 20 MG TABLET PO (20:29)
[2021-11-03 20:40] LABS: Glucose Point of Care 256 mg/dl (65-105)
[2021-11-04] VITALS (18 sets, daily range): BP systolic 105–122; BP diastolic 52–79; PULSE 61–165; RESP 20–24; TEMP 36.2–36.6; O2SAT 89–94
[2021-11-04 08:55] LABS: Glucose Point of Care 131 mg/dl (65-105)
[2021-11-04] MEDS: ENOXAPARIN 100 MG/ML SYRINGE SUB-Q ×2 (08:59→20:42)
[2021-11-04] MEDS: ENOXAPARIN 30 MG/0.3 ML SYRINGE SUB-Q ×2 (09:00→20:41)
[2021-11-04] MEDS: INSULIN GLARGINE (*BKC) 100 UNITS/ML 20 UNITS SUB-Q ×2 (09:00→20:41)
[2021-11-04] MEDS: INSULIN ASPART (*BKC) 100 UNITS/ML SUB-Q (12:54)
[2021-11-04 13:01] LABS: Glucose Point of Care 202 mg/dl (65-105)
[2021-11-04] MEDS: METOPROLOL TARTRATE INJ 5 MG/5 ML VIAL IV PUSH (15:42)
--- NOTE | 2021-11-04 16:31 | PM.IMPN ---
Progress Note: A&P Assessment and Plan (1) Acute respiratory failure with hypoxia: Code(s): J96.01 - Acute respiratory failure with hypoxia Status: Acute Assessment and Plan: Secondary to COVID pneumonia.pt needing high flow oxygen Chest CTA did not show central pulmonary embolism though study was limited in the segmental arteries due to respiratory motion. Continue supportive care. (2) Pneumonia due to COVID-19 virus: Code(s): U07.1 - COVID-19; J12.82 - Pneumonia due to coronavirus disease 2018 Status: Acute Assessment and Plan: Patient reports testing positive for COVID approximately 1 week ago and records have been requested from [facility] for confirmation. He is unvaccinated. Given his oxygen requirement he has been started on dexamethasone and remdesivir. Now on iv steroids, zithromax and rocephin consult pulmology (3) Hypertension: Code(s): I10 - Essential (primary) hypertension Status: Acute Assessment and Plan: Continue to watch (4) Type 2 diabetes mellitus: Code(s): E11.9 - Type 2 diabetes mellitus without complications Status: Acute Assessment and Plan: Continue pioglitazone and saxagliptin. Initiate sliding scale insulin, Accu-Cheks, and hypoglycemic protocol. Check hemoglobin A1c. Subjective Date/time seen: 11/04/21 16:31 Interval history: 10/29/21 ISS added for elevated BG orals discontinued, ISS and lantas low dose ordered ABG ordered pt on maximal resp therapy w AirVo pulm and ID following close monitoring high risk for decompensation may require transfer to ICU 10/30/21 BG elevated Lantus increased to 15U BID (5U given at 8:30 am) may require significantly higher basal dosing cont abx cont remdesivir pt w new PE on full dose lovenox pt w new onset afib rate controlled close monitoring high risk for decompensation may require transfer to ICU BiPAP PRN prone and sides as able 10/31/21 remains stable on bipap w HF/NRB BG above goal ISS increased to high dose will increase basal insulin tomorrow cont treatment for covid pulm following recs appreciated cont supportive care 11/01/21 pt remains on stable on current oxygen requirements BG still above goal remains on tx for covid cont supportive care dc diet supplements 11/02/2021 Basal insulin has been increased to 20 b.i.d. Patient encouraged to eat Unable to tolerate mobilization at this point Continues on high-flow nasal cannula with non-rebreather at high settings AFib on full anticoagulation PE on CT imaging 10/30 Overall slow to improve but remained stable 11/03/2021 Continues on high-flow nasal cannula with non-rebreather at high settings pt is on iv steroids and iv Rocephin and iv Zithromax 11/04/21 pt remains on high flow oxygen appears in good spirits continue current care, iv steroids and iv Rocephin and iv Zithrom consult pulmonology Review of Systems Review of Systems: All systems reviewed & are unremarkable except as noted in HPI and below Exam Narrative: General: moderately ill-appearing male lying on his right side in bed.obese Cardiovascular: irreg irreg Gastrointestinal: Abdomen is soft, obese, nontender, and nondistended with positive bowel sounds. Skin: Warm and dry. No rash or lesions on limited exam. Extremities: No cyanosis, clubbing, or significant edema. Old scars from prior surgeries noted the legs. Radial and pedal pulses intact. Neurological: Alert. Cranial nerves 2-12 are grossly intact. No gross focal deficits to casual conversation. Psychiatric: Pleasant and cooperative with normal mood and affect. Judgment and insight intact. Objective Data Vital Signs Vital Signs: Vital Signs - 24 hr 11/03/21 17:00 11/03/21 18:00 11/03/21 20:00 Temperature 36.5 C Pulse Rate 88 84 77 Respiratory Rate 22 H Blood Pressure 107/70 Pulse Oximetry 93 95 11/03/21 20:05 11/03/21 22:00 11/03/21
[2021-11-04 18:21] LABS: Glucose Point of Care 199 mg/dl (65-105)
[2021-11-04 20:22] LABS: Glucose Point of Care 329 mg/dl (65-105)
[2021-11-04] MEDS: ATORVASTATIN 20 MG TABLET PO (20:42)
[2021-11-05] VITALS (20 sets, daily range): BP systolic 103–129; BP diastolic 64–77; PULSE 62–146; RESP 18–36; TEMP 36.3–36.7; O2SAT 88–99
[2021-11-05 07:09] LABS: Hematocrit 41.2 % (42.0-52.0); Hemoglobin 14.3 g/dL (14.0-18.0); Mean Corpuscular HGB Conc 34.7 g/dl (32-36); Mean Corpuscular Hemoglobin 28.9 pg (26-34); Mean Corpuscular Volume 83.4 fl (80-100); Mean Platelet Volume 11.1 fl (7.4-10.4); Platelet Count Result 320 k/mm3 (150-375); Red Blood Count 4.94 M/mm3 (4.6-6.20); Red Cell Distribution Width 12.6 % (11.5-14.5); White Blood Count 16.6 K/mm3 (4.5-10.0)
[2021-11-05 07:48] LABS: Anion Gap 4 mmol/L (8-16); Blood Urea Nitrogen 22 mg/dL (9-20); Calcium 8.6 mg/dL (8.4-10.2); Carbon Dioxide 26 mmol/L (22-30); Chloride 104 mmol/L (98-107); Estimated CRCL calculation 155 ml/min; Estimated Glomerular Filt Rate > 60; Glucose 144 mg/dL (65-110); Potassium 3.7 mmol/L (3.4-5.0); Sodium 134 mmol/L (137-145)
[2021-11-05 08:39] LABS: Glucose Point of Care 128 mg/dl (65-105)
--- NOTE | 2021-11-05 08:51 | PM.CNPUL ---
Assessment and Plan Assessment and plan (1) Pneumonia due to COVID-19 virus: Code(s): U07.1 - COVID-19; J12.82 - Pneumonia due to coronavirus disease 2019 Status: Acute (2) Acute respiratory failure with hypoxia: Code(s): J96.01 - Acute respiratory failure with hypoxia Status: Acute Assessment and Plan: 66-year-old man with a history of morbid obesity diabetes mellitus, hyperlipidemia, hypertension, with bilateral pulmonary infiltrates related to COVID-19 pneumonia, a borderline O2 saturation while receiving high-flow nasal cannula, evidence of a pulmonary embolism on last chest CT for which he is receiving full-dose anticoagulation. Also on IV antibiotics for possible bacterial coinfection. Has had mild leukocytosis. I would check inflammatory indices again and consider adding anti-inflammatory agent if elevated. I would switch patient to BiPAP support given the borderline O2 saturation on high-flow nasal cannula, the extensive infiltrates on recent chest CT, and high likelihood of developing atelectasis due to morbid obesity. (3) Pulmonary embolism: Qualifiers: Acute cor pulmonale presence: unspecified Chronicity: unspecified Pulmonary embolism type: unspecified Qualified Code(s): I26.99 - Other pulmonary embolism without acute cor pulmonale Code(s): I26.99 - Other pulmonary embolism without acute cor pulmonale Status: Acute History of Present Illness History of Present Illness Consult date: 11/05/21 Chief complaint: Covid pneumonia/hypoxia Narrative: This 66-year-old man with history of hypertension hyperlipidemia and previous DVT and pulmonary emboli presented with shortness of breath. Approximately 1 week prior to this admission the patient was found to have a positive COVID test while waiting for orthopedic surgery. Over the ensuing days, he developed a fever muscle aches cough and loose bowel movements. When he was seen in the emergency room he was found to be hypoxemic. Patient underwent a chest CT that showed multifocal pneumonia and also a small pulmonary embolus. The patient currently has been on high-flow nasal cannula at 60 liters/minute with borderline O2 saturation. He denied chest pain hemoptysis fever or chills. He feels tired because he did not sleep well last night. Patient has received treatment with dexamethasone IV and remdesivir. Review of Systems Review of Systems: All systems reviewed & are unremarkable except as noted in HPI and below (H nd p and below.) PMFSH Past Medical History Medical History (Updated 11/05/21 @ 08:57 by Wayne Szymanski MD) Benign prostatic hyperplasia Deep venous thrombosis Following ORIF of lower extremity fractures. Fracture closed, femur, shaft Fracture closed, fibula, shaft Hyperlipidemia Hypertension Pulmonary embolism (11/2020) Type 2 diabetes mellitus Surgical History Surgical History (Updated 10/27/21 @ 23:15 by Mary Nagel PA-C) History of open reduction and internal fixation (ORIF) procedure Bilateral lower extremity fractures. Right wrist fracture. Family History Family History Mother Cancer Heart valve disease Social History Social History (Updated 10/27/21 @ 23:13 by Mary Nagel PA-C) Social History: Surrogate decision maker: Reinaldo Maldonado, spouse. Code status: Full code. 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 Meds Home Medications and Allergies Home Medications Medication Instructions Recorded Confirmed Type amlodipine 10 mg PO DAILY 12/03/20 10/27/21 History atorvastatin 20 mg PO HS 12/03/20 10/27/21 History irbesartan-hydrochlorothiazide 1 tablet PO DAILY 12/03/20 10/27/21 History hydrocodone-acetaminophen 10 - 325 tablet PO Q4-6H 10/27/21 10/27/21 History ibuprofen [Advil] 800 mg PO Q6H PRN
[2021-11-05] MEDS: INSULIN GLARGINE (*BKC) 100 UNITS/ML 20 UNITS SUB-Q ×2 (09:10→20:54)
[2021-11-05] MEDS: ENOXAPARIN 30 MG/0.3 ML SYRINGE SUB-Q ×2 (09:10→20:13)
[2021-11-05] MEDS: ENOXAPARIN 100 MG/ML SYRINGE SUB-Q ×2 (09:10→20:13)
[2021-11-05 09:51] LABS: CRP 0.9 mg/dL (<1.0)
[2021-11-05 10:37] LABS: D Dimer 1.22 ug/mL (<0.48)
[2021-11-05 12:09] LABS: Glucose Point of Care 131 mg/dl (65-105)
[2021-11-05] MEDS: BARICITINIB 2 MG TABLET 4 MG PO (12:31)
--- NOTE | 2021-11-05 15:54 | PM.IMPN ---
Progress Note: A&P Assessment and Plan (1) Acute respiratory failure with hypoxia: Code(s): J96.01 - Acute respiratory failure with hypoxia Status: Acute Assessment and Plan: Secondary to COVID pneumonia.pt needing high flow oxygen Chest CTA demonstrates new small filling defect right upper lobe segmental pulmonary artery, consistent with pulmonary embolism. Small thrombus burden. Currently patient is on therapeutic dose of IV heparin. There is suspicion for possible bacterial coinfection evidence by mild leukocytosis. Patient also receiving IV antibiotics. Recheck anti-inflammatory in this is per Pulmonary recommendation. Continue BiPAP support. (2) Pneumonia due to COVID-19 virus: Code(s): U07.1 - COVID-19; J12.82 - Pneumonia due to coronavirus disease 2018 Status: Acute Assessment and Plan: Patient reports testing positive for COVID approximately 1 week ago and records have been requested from [facility] for confirmation. He is unvaccinated. Given his oxygen requirement he has been started on dexamethasone and remdesivir. Now on iv steroids, zithromax and rocephin consult pulmology (3) Hypertension: Code(s): I10 - Essential (primary) hypertension Status: Acute Assessment and Plan: For pressure within acceptable range. Home blood pressure medication on hold. Metoprolol 5 mg IV q.6 p.r.n. for rate control. (4) Type 2 diabetes mellitus: Code(s): E11.9 - Type 2 diabetes mellitus without complications Status: Acute Assessment and Plan: Continue pioglitazone and saxagliptin. Initiate sliding scale insulin, Accu-Cheks, and hypoglycemic protocol. Check hemoglobin A1c. Fasting glucose was 144. Accu-Chek in the 128-155 range. Additional Plan 10/29/21 ISS added for elevated BG orals discontinued, ISS and lantas low dose ordered ABG ordered pt on maximal resp therapy w AirVo pulm and ID following close monitoring high risk for decompensation may require transfer to ICU 10/30/21 BG elevated Lantus increased to 15U BID (5U given at 8:30 am) may require significantly higher basal dosing cont abx cont remdesivir pt w new PE on full dose lovenox pt w new onset afib rate controlled close monitoring high risk for decompensation may require transfer to ICU BiPAP PRN prone and sides as able 10/31/21 remains stable on bipap w HF/NRB BG above goal ISS increased to high dose will increase basal insulin tomorrow cont treatment for covid pulm following recs appreciated cont supportive care 11/01/21 pt remains on stable on current oxygen requirements BG still above goal remains on tx for covid pulm following cont supportive care dc diet supplements 11/02/2021 Basal insulin has been increased to 20 b.i.d. Patient encouraged to eat Unable to tolerate mobilization at this point Continues on high-flow nasal cannula with non-rebreather at high settings AFib on full anticoagulation PE on CT imaging 10/30 Overall slow to improve but remained stable 11/05 Currently patient is on by lb. PE on CTA march on full anticoagulation. Currently patient strict hand.. Goals of care conversation a family meeting on 11/06/2021. Subjective Date/time seen: 11/05/21 10:00 S: Patient examined at the bedside. Is tolerating the BiPAP. He is not feeling well. Interval history: 10/29/21 ISS added for elevated BG orals discontinued, ISS and lantas low dose ordered ABG ordered pt on maximal resp therapy w AirVo pulm and ID following close monitoring high risk for decompensation may require transfer to ICU 10/30/21 BG elevated Lantus increased to 15U BID (5U given at 8:30 am) may require significantly higher basal dosing cont abx cont remdesivir pt w new PE on full dose lovenox pt w new onset afib rate controlled close monitoring high risk for decompensation may require transfer to ICU BiPAP PRN prone and sides as able
[2021-11-05 16:33] LABS: Glucose Point of Care 155 mg/dl (65-105)
[2021-11-05 20:11] LABS: Glucose Point of Care 186 mg/dl (65-105)
[2021-11-05] MEDS: ATORVASTATIN 20 MG TABLET PO (20:13)
[2021-11-06] VITALS (15 sets, daily range): BP systolic 92–115; BP diastolic 57–71; PULSE 70–163; RESP 25–33; TEMP 36.1–37.2; O2SAT 89–98
[2021-11-06] MEDS: guaiFENesin/DEXTROMETHORPHAN 10 ML UDC PO ×3 (03:45→18:38)
[2021-11-06 04:49] LABS: Basophils Percent Auto 0.1 % (0.2-1.2); Hematocrit 41.6 % (42.0-52.0); Hemoglobin 14.4 g/dL (14.0-18.0); Immature Granulocyte Absolute 0.27 K/mm3 (0.00-0.031); Immature Granulocyte Percent A 1.8 % (0-0.5); Lymphocytes Absolute Auto 1.03 K/mm3 (0.9-3.2); Mean Corpuscular HGB Conc 34.6 g/dl (32-36); Mean Corpuscular Hemoglobin 29.3 pg (26-34); Mean Corpuscular Volume 84.7 fl (80-100); Mean Platelet Volume 11.2 fl (7.4-10.4); Monocytes Absolute Auto 0.7 K/mm3 (0.1-0.6); Monocytes Percent Auto 4.8 % (2.6-8.5); Neutrophils Absolute Auto 12.7 K/mm3 (1.3-6.7); Neutrophils Percent Auto 86.3 % (45.5-73.1); Platelet Count Result 297 k/mm3 (150-375); Red Blood Count 4.91 M/mm3 (4.6-6.20); Red Cell Distribution Width 12.8 % (11.5-14.5); White Blood Count 14.8 K/mm3 (4.5-10.0)
[2021-11-06 05:09] LABS: Alanine Aminotransferase 30 U/L (4-50); Aspartate Amino Transferase 28 U/L (17-59); CRP 1.2 mg/dL (<1.0); Estimated CRCL calculation 135 ml/min; Estimated Glomerular Filt Rate > 60; Lactate Dehydrogenase 888 U/L (313-618)
[2021-11-06 09:29] LABS: Glucose Point of Care 120 mg/dl (65-105)
[2021-11-06] MEDS: ENOXAPARIN 100 MG/ML SYRINGE SUB-Q ×2 (09:56→21:40)
[2021-11-06] MEDS: ENOXAPARIN 30 MG/0.3 ML SYRINGE SUB-Q ×2 (09:56→21:40)
[2021-11-06] MEDS: BARICITINIB 2 MG TABLET 4 MG PO (09:56)
[2021-11-06] MEDS: INSULIN GLARGINE (*BKC) 100 UNITS/ML 20 UNITS SUB-Q ×2 (09:56→21:40)
--- NOTE | 2021-11-06 10:02 | PM.PNPUL ---
Progress Note: A&P Assessment and Plan (1) Pneumonia due to COVID-19 virus: Code(s): U07.1 - COVID-19; J12.82 - Pneumonia due to coronavirus disease 2019 Status: Acute (2) Acute respiratory failure with hypoxia: Code(s): J96.01 - Acute respiratory failure with hypoxia Status: Acute Assessment and Plan: respiratory status has worsened over the last 24 hours. Patient laying flat in bed while receiving BiPAP support. He does not want to sit up in bed which could improve his gas exchange given his morbid obesity. Will continue with current regimen, repeat chest x-ray. CRP not very elevated. May need transfer to ICU if condition worsens. (3) Pulmonary embolism: Qualifiers: Pulmonary embolism type: unspecified Chronicity: unspecified Acute cor pulmonale presence: unspecified Qualified Code(s): I26.99 - Other pulmonary embolism without acute cor pulmonale Code(s): I26.99 - Other pulmonary embolism without acute cor pulmonale Status: Acute (4) Type 2 diabetes mellitus: Code(s): E11.9 - Type 2 diabetes mellitus without complications Status: Acute Subjective Date/time seen: 11/06/21 10:02 Respiratory status has worsened over the last 24 hours. Patient currently is BiPAP dependent. Has had shortness of breath. Complaining of fatigue did not sleep well last night. Receiving treatment for pulmonary embolism, completed treatment with dexamethasone currently on antibiotics for possible bacterial coinfection. Review of Systems Review of Systems: All systems reviewed & are unremarkable except as noted in HPI and below Exam Narrative: GENERAL APPEARANCE: Well developed, well nourished, alert, who appears to be in moderate respiratory distress while on BiPAP support 100% FiO2 laying flat in bed. SKIN: Inspection of the skin reveals no rashes, ulcerations or petechiae. HEENT: Sclerae anicteric and conjunctivae pink and moist. Extraocular movements were intact and pupils were equal. NECK: Supple. There was no thyroid enlargement, and no tenderness, or masses were felt. LUNGS: Auscultation of the lungs few crackles at bases posteriorly no wheezing. CARDIAC: There was a regular rate and rhythm without any murmurs, gallops, rubs. ABDOMEN: Soft and nontender with normal bowel sounds. LYMPH NODES: No lymphadenopathy was appreciated in the neck. EXTREMITIES: No cyanosis, clubbing or edema. NEUROLOGIC: Alert and oriented x 3. Normal affect. Objective Data Vital Signs Vital Signs: Vital Signs - 24 hr 11/05/21 12:00 11/05/21 13:19 11/05/21 14:00 Temperature 36.3 C L Pulse Rate 146 H 99 110 H Respiratory Rate 29 H 31 H Blood Pressure 127/64 Pulse Oximetry 93 92 11/05/21 16:00 11/05/21 17:10 11/05/21 18:00 Temperature 36.3 C L Pulse Rate 71 71 69 Respiratory Rate 31 H 26 H Blood Pressure 124/67 Pulse Oximetry 93 95 11/05/21 20:00 11/05/21 21:55 11/05/21 23:27 Temperature 36.7 C 36.7 C Pulse Rate 70 70 80 Respiratory Rate 28 H 28 H 26 H Blood Pressure 103/75 114/76 Pulse Oximetry 95 95 97 11/05/21 23:47 11/06/21 01:45 11/06/21 04:00 Temperature 36.6 C Pulse Rate 84 82 95 Respiratory Rate 26 H 30 H Blood Pressure 105/71 Pulse Oximetry 95 90 11/06/21 06:00 11/06/21 08:00 11/06/21 08:59 Temperature 37.2 C Pulse Rate 72 104 H 88 Respiratory Rate 27 H 29 H Blood Pressure 105/65 Pulse Oximetry 89 L 90 Intake/Output Intake/Output: Intake & Output 11/03/21 11/04/21 11/05/21 11/06/21 23:59 23:59 23:59 23:59 Intake Total 1660 1270 830 100 Output Total 1650 875 800 675 Balance 10 491 30 575 Meds/Results Medications: Active Medications Generic Name Dose Route Start Last Admin Trade Name Freq PRN Reason Stop Dose Admin Acetaminophen 650 mg 10/28/21 21:27 Acetaminophen 325 Mg Tablet PO Q4H PRN Mild Pain (1-3) or Fever Hydrocodone Bitart/Acetaminophen 1 tab 10/28/21 10:22 10/28/21
--- NOTE | 2021-11-06 10:12 | PM.IMPN ---
Progress Note: A&P Assessment and Plan (1) Acute respiratory failure with hypoxia: Code(s): J96.01 - Acute respiratory failure with hypoxia Status: Acute Assessment and Plan: Secondary to COVID pneumonia.pt needing high flow oxygen; respiratory status has worsened over the last 24 hours. Patient does not tolerate prone position; he does not want to sit in bed, which will improve alveolar recruitment. Chest CTA demonstrates new small filling defect right upper lobe segmental pulmonary artery, consistent with pulmonary embolism. Small thrombus burden. Currently patient is on therapeutic dose of IV heparin. There is suspicion for possible bacterial coinfection evidence by mild leukocytosis. Patient also receiving IV antibiotics. Recheck anti-inflammatory in this is per Pulmonary recommendation. Continue BiPAP support. Patient may need transfer to ICU if his condition worsens. (2) Pneumonia due to COVID-19 virus: Code(s): U07.1 - COVID-19; J12.82 - Pneumonia due to coronavirus disease 2018 Status: Acute Assessment and Plan: Patient reports testing positive for COVID approximately 1 week ago and records have been requested from [facility] for confirmation. He is unvaccinated. Given his oxygen requirement he has been appropriately started on dexamethasone and remdesivir. Now on iv steroids, zithromax and rocephin consult pulmology (3) Hypertension: Code(s): I10 - Essential (primary) hypertension Status: Acute Assessment and Plan: Blood pressure within acceptable range. Home blood pressure medication on hold due to strict NPO status. Metoprolol 5 mg IV q.6 p.r.n. for rate control. (4) Type 2 diabetes mellitus: Code(s): E11.9 - Type 2 diabetes mellitus without complications Status: Acute Assessment and Plan: Continue pioglitazone and saxagliptin. Initiate sliding scale insulin, Accu-Cheks, and hypoglycemic protocol. Check hemoglobin A1c. Fasting glucose was 174. Accu-Chek in the 120-166 range. Additional Plan 10/29/21 ISS added for elevated BG orals discontinued, ISS and lantas low dose ordered ABG ordered pt on maximal resp therapy w AirVo pulm and ID following close monitoring high risk for decompensation may require transfer to ICU 10/30/21 BG elevated Lantus increased to 15U BID (5U given at 8:30 am) may require significantly higher basal dosing cont abx cont remdesivir pt w new PE on full dose lovenox pt w new onset afib rate controlled close monitoring high risk for decompensation may require transfer to ICU BiPAP PRN prone and sides as able 10/31/21 remains stable on bipap w HF/NRB BG above goal ISS increased to high dose will increase basal insulin tomorrow cont treatment for covid pulm following recs appreciated cont supportive care 11/01/21 pt remains on stable on current oxygen requirements BG still above goal remains on tx for covid pulm following cont supportive care dc diet supplements 11/02/2021 Basal insulin has been increased to 20 b.i.d. Patient encouraged to eat Unable to tolerate mobilization at this point Continues on high-flow nasal cannula with non-rebreather at high settings AFib on full anticoagulation PE on CT imaging 10/30 Overall slow to improve but remained stable 11/05 Currently patient is on by lb. PE on CTA march on full anticoagulation. Currently patient strict hand.. Goals of care conversation a family meeting on 11/06/2021. 11/06 Currently patient is on BIPap. DUE TO MORBID OBESITY, IS NOT ABLE TO TOLERATE PRONE POSITION. PE on CTA march on full anticoagulation. Currently patient strict hand.. Goals of care conversation: Patient agrees with C. If needed, but would declined intubation. Modified code ordered Subjective Date/time seen: 11/06/21 10:12 S; patient was seen examined at the bedside. He is tolerating BiPAP. He declines escalation to intubati
[2021-11-06 11:11] LABS: Base Excess ABG 2.4 mEq/l (+/-2.0); HCO3 ABG 24.9 mEq/l (22.0-26.0); Oxygen Saturation ABG 96.2 % (95.0-100.0); PCO2 ABG 32.8 mmHg (35.0-45.0); pH ABG 7.498 (7.350-7.450)
[2021-11-06 11:12] LABS: Alveolar/Arterial O2 Gradient 605.2 mmHg; Oxygen Content ABG 20.5 %vol (16.0-22.0); Oxyhemoglobin 94.2 % THb (90.0-100.0); PO2 FiO2 Ratio Arterial Blood 0.75 %; Site Drawn RIGHT RADIAL; Total Hemoglobin 15.5 g/dL (12.0-18.0)
[2021-11-06 11:13] LABS: Device BIPAP; Modified Allen's Test Pass
[2021-11-06 11:14] LABS: Expiratory Pressure 10 cmH2O; Inspiratory Pressure 14 cmH2O
[2021-11-06 12:52] LABS: Glucose Point of Care 113 mg/dl (65-105)
[2021-11-06] MEDS: HYDROcodone/acetaminophen (*CRX) 10-325 MG TABLET 1 TAB PO ×2 (13:54→17:54)
[2021-11-06] MEDS: METOPROLOL TARTRATE INJ 5 MG/5 ML VIAL IV PUSH (16:10)
[2021-11-06 17:29] LABS: Glucose Point of Care 166 mg/dl (65-105)
[2021-11-06 18:20] LABS: Anion Gap 6 mmol/L (8-16); Blood Urea Nitrogen 21 mg/dL (9-20); Calcium 8.6 mg/dL (8.4-10.2); Carbon Dioxide 25 mmol/L (22-30); Chloride 104 mmol/L (98-107); Estimated CRCL calculation 135 ml/min; Estimated Glomerular Filt Rate > 60; Glucose 174 mg/dL (65-110); Magnesium 2.2 mg/dL (1.6-2.3); Potassium 4.2 mmol/L (3.4-5.0); Sodium 135 mmol/L (137-145)
[2021-11-06] MEDS: ATORVASTATIN 20 MG TABLET PO (21:40)
[2021-11-07] VITALS (20 sets, daily range): BP systolic 102–114; BP diastolic 62–72; PULSE 65–165; RESP 16–33; TEMP 36.2–36.7; O2SAT 92–97
[2021-11-07 00:41] LABS: Glucose Point of Care 140 mg/dl (65-105)
[2021-11-07 06:57] LABS: Basophils Percent Auto 0.2 % (0.2-1.2); Hematocrit 43.2 % (42.0-52.0); Hemoglobin 14.8 g/dL (14.0-18.0); Immature Granulocyte Absolute 0.21 K/mm3 (0.00-0.031); Lymphocytes Absolute Auto 1.07 K/mm3 (0.9-3.2); Mean Corpuscular HGB Conc 34.3 g/dl (32-36); Mean Corpuscular Volume 84.7 fl (80-100); Mean Platelet Volume 11.1 fl (7.4-10.4); Monocytes Absolute Auto 1.1 K/mm3 (0.1-0.6); Neutrophils Absolute Auto 18.9 K/mm3 (1.3-6.7); Neutrophils Percent Auto 88.8 % (45.5-73.1); Platelet Count Result 299 k/mm3 (150-375); Red Cell Distribution Width 12.7 % (11.5-14.5); White Blood Count 21.3 K/mm3 (4.5-10.0)
[2021-11-07 07:16] LABS: Alanine Aminotransferase 31 U/L (4-50); Anion Gap 5 mmol/L (8-16); Aspartate Amino Transferase 30 U/L (17-59); Blood Urea Nitrogen 21 mg/dL (9-20); Calcium 8.7 mg/dL (8.4-10.2); Carbon Dioxide 25 mmol/L (22-30); Chloride 105 mmol/L (98-107); Estimated CRCL calculation 134 ml/min; Estimated Glomerular Filt Rate > 60; Glucose 106 mg/dL (65-110); Magnesium 2.2 mg/dL (1.6-2.3); Sodium 135 mmol/L (137-145)
[2021-11-07] MEDS: BARICITINIB 2 MG TABLET 4 MG PO (08:57)
[2021-11-07] MEDS: ENOXAPARIN 30 MG/0.3 ML SYRINGE SUB-Q ×2 (08:57→20:28)
[2021-11-07] MEDS: ENOXAPARIN 100 MG/ML SYRINGE SUB-Q ×2 (08:58→20:29)
[2021-11-07] MEDS: INSULIN GLARGINE (*BKC) 100 UNITS/ML 20 UNITS SUB-Q (08:58)
[2021-11-07] MEDS: METOPROLOL TARTRATE INJ 5 MG/5 ML VIAL IV PUSH ×2 (09:07→22:49)
--- NOTE | 2021-11-07 10:19 | PM.PNPUL ---
Progress Note: A&P Assessment and Plan (1) Pneumonia due to COVID-19 virus: Code(s): U07.1 - COVID-19; J12.82 - Pneumonia due to coronavirus disease 2019 Status: Acute (2) Acute respiratory failure with hypoxia: Code(s): J96.01 - Acute respiratory failure with hypoxia Status: Acute Assessment and Plan: respiratory status has worsened over the last 24 hours. Patient laying flat in bed while receiving BiPAP support. He does not want to sit up in bed which could improve his gas exchange given his morbid obesity. Will will repeat chest CT, cultures sputum, start IV fluids D5 half normal, patient wants to get intubated if condition worsens. (3) Pulmonary embolism: Qualifiers: Pulmonary embolism type: unspecified Chronicity: unspecified Acute cor pulmonale presence: unspecified Qualified Code(s): I26.99 - Other pulmonary embolism without acute cor pulmonale Code(s): I26.99 - Other pulmonary embolism without acute cor pulmonale Status: Acute (4) Type 2 diabetes mellitus: Code(s): E11.9 - Type 2 diabetes mellitus without complications Status: Acute Subjective Date/time seen: 11/07/21 10:19 patient has no new respiratory symptoms. Has been BiPAP dependent over the last 24 hours. O2 saturation in the mid 90% range. He is afebrile, while receiving antibiotics for possible bacterial coinfection. Spends most of the day in left lateral position. Receiving treatment for pulmonary embolism as well. Review of Systems Review of Systems: All systems reviewed & are unremarkable except as noted in HPI and below Exam Narrative: GENERAL APPEARANCE: Well developed, well nourished, alert, who appears to be in moderate respiratory distress while on BiPAP support 100% FiO2 laying flat in bed. SKIN: Inspection of the skin reveals no rashes, ulcerations or petechiae. HEENT: Sclerae anicteric and conjunctivae pink and moist. Extraocular movements were intact and pupils were equal. NECK: Supple. There was no thyroid enlargement, and no tenderness, or masses were felt. LUNGS: Auscultation of the lungs few crackles at bases posteriorly no wheezing. CARDIAC: There was a regular rate and rhythm without any murmurs, gallops, rubs. ABDOMEN: Soft and nontender with normal bowel sounds. LYMPH NODES: No lymphadenopathy was appreciated in the neck. EXTREMITIES: No cyanosis, clubbing or edema. NEUROLOGIC: Alert and oriented x 3. Normal affect. Objective Data Vital Signs Vital Signs: Vital Signs - 24 hr 11/06/21 12:00 11/06/21 14:00 11/06/21 15:47 Temperature 36.9 C Pulse Rate 84 113 H 137 H Respiratory Rate 28 H 33 H Blood Pressure 115/66 Pulse Oximetry 92 94 11/06/21 16:00 11/06/21 16:10 11/06/21 18:00 Temperature 36.1 C L Pulse Rate 94 163 H 89 Respiratory Rate 25 H Blood Pressure 92/62 L Pulse Oximetry 94 11/06/21 20:00 11/06/21 21:16 11/06/21 22:00 Temperature 36.4 C Pulse Rate 72 74 83 Respiratory Rate 28 H 27 H Blood Pressure 106/57 L Pulse Oximetry 96 96 11/07/21 00:00 11/07/21 02:00 11/07/21 03:37 Temperature 36.4 C L Pulse Rate 74 99 75 Respiratory Rate 26 H 29 H Blood Pressure 111/71 Pulse Oximetry 92 92 11/07/21 03:56 11/07/21 04:00 11/07/21 06:00 Temperature 36.5 C Pulse Rate 93 65 74 Respiratory Rate 25 H Blood Pressure 112/72 Pulse Oximetry 92 97 11/07/21 08:00 Temperature 36.2 C L Pulse Rate 132 H Respiratory Rate 16 Blood Pressure 114/65 Pulse Oximetry 92 Intake/Output Intake/Output: Intake & Output 11/04/21 11/05/21 11/06/21 11/07/21 23:59 23:59 23:59 23:59 Intake Total 1270 830 220 Output Total 138 311 6491 500 Balance 395 30 950 -500 Meds/Results Medications: Active Medications Generic Name Dose Route Start Last Admin Trade Name Freq PRN Reason Stop Dose Admin Acetaminophen 650 mg 10/28/21 21:27 Acetaminophen 325 Mg Tablet PO Q4H PRN Mild Pain (
[2021-11-07] MEDS: KCL 20 MEQ/D5/0.9% SOD CHL 1,000 ML 75 ML IV CONT (11:49)
--- NOTE | 2021-11-07 12:01 | PM.IMPN ---
Progress Note: A&P Assessment and Plan (1) Acute respiratory failure with hypoxia: Code(s): J96.01 - Acute respiratory failure with hypoxia Status: Acute Assessment and Plan: Secondary to COVID pneumonia.pt needing high flow oxygen; respiratory status has worsened over the last 24 hours. Patient does not tolerate prone position; he does not want to sit in bed, which will improve alveolar recruitment. Chest CTA demonstrates new small filling defect right upper lobe segmental pulmonary artery, consistent with pulmonary embolism. Small thrombus burden. Currently patient is on therapeutic dose of IV heparin. There is suspicion for possible bacterial coinfection evidence by mild leukocytosis. Patient also receiving IV antibiotics. Recheck anti-inflammatory in this is per Pulmonary recommendation. Continue BiPAP support. Patient may need transfer to ICU if his condition worsens. (2) Pneumonia due to COVID-19 virus: Code(s): U07.1 - COVID-19; J12.82 - Pneumonia due to coronavirus disease 2018 Status: Acute Assessment and Plan: Patient reports testing positive for COVID approximately 1 week ago and records have been requested from [facility] for confirmation. He is unvaccinated. Given his oxygen requirement he has been appropriately started on dexamethasone and remdesivir. Now on iv steroids, zithromax and rocephin consult pulmology (3) Hypertension: Code(s): I10 - Essential (primary) hypertension Status: Acute Assessment and Plan: Blood pressure within acceptable range. Home blood pressure medication on hold due to strict NPO status. Metoprolol 5 mg IV q.6 p.r.n. for rate control. (4) Type 2 diabetes mellitus: Code(s): E11.9 - Type 2 diabetes mellitus without complications Status: Acute Assessment and Plan: Continue pioglitazone and saxagliptin. Initiate sliding scale insulin, Accu-Cheks, and hypoglycemic protocol. Check hemoglobin A1c. Fasting glucose was 174. Accu-Chek in the 120-166 range. Additional Plan 10/29/21 ISS added for elevated BG orals discontinued, ISS and lantas low dose ordered ABG ordered pt on maximal resp therapy w AirVo pulm and ID following close monitoring high risk for decompensation may require transfer to ICU 10/30/21 BG elevated Lantus increased to 15U BID (5U given at 8:30 am) may require significantly higher basal dosing cont abx cont remdesivir pt w new PE on full dose lovenox pt w new onset afib rate controlled close monitoring high risk for decompensation may require transfer to ICU BiPAP PRN prone and sides as able 10/31/21 remains stable on bipap w HF/NRB BG above goal ISS increased to high dose will increase basal insulin tomorrow cont treatment for covid pulm following recs appreciated cont supportive care 11/01/21 pt remains on stable on current oxygen requirements BG still above goal remains on tx for covid pulm following cont supportive care dc diet supplements 11/02/2021 Basal insulin has been increased to 20 b.i.d. Patient encouraged to eat Unable to tolerate mobilization at this point Continues on high-flow nasal cannula with non-rebreather at high settings AFib on full anticoagulation PE on CT imaging 10/30 Overall slow to improve but remained stable 11/05 Currently patient is on by lb. PE on CTA march on full anticoagulation. Currently patient strict hand.. Goals of care conversation a family meeting on 11/06/2021. 11/06 Currently patient is on BIPap. DUE TO MORBID OBESITY, IS NOT ABLE TO TOLERATE PRONE POSITION. PE on CTA march on full anticoagulation. Currently patient strict hand.. Goals of care conversation: Patient agrees with C. If needed, but would declined intubation. Modified code ordered 11/07/2021 Patient is encouraged to set up to improve aeration. Currently using my Pap will continue current treatment. Anticoagulation is on witho
[2021-11-07 13:30] LABS: Glucose Point of Care 97 mg/dl (65-105)
[2021-11-07] MEDS: guaiFENesin/DEXTROMETHORPHAN 10 ML UDC PO (17:39)
[2021-11-07 17:44] LABS: Glucose Point of Care 99 mg/dl (65-105)
[2021-11-07] MEDS: ATORVASTATIN 20 MG TABLET PO (20:29)
[2021-11-08] VITALS (49 sets, daily range): BP systolic 49–144; BP diastolic 41–96; PULSE 77–197; RESP 22–36; TEMP 36.1–38.5; O2SAT 78–98
[2021-11-08] MEDS: KCL 20 MEQ/D5/0.9% SOD CHL 1,000 ML 75 ML IV CONT (01:55)
[2021-11-08 04:15] LABS: Glucose Point of Care 77 mg/dl (65-105)
[2021-11-08] MEDS: METOPROLOL TARTRATE INJ 5 MG/5 ML VIAL IV PUSH ×4 (05:00→15:00)
[2021-11-08] MEDS: DIGOXIN INJ 250 MCG/ML 2 ML AMP (*BKC) 125 MCG IV PUSH (05:32)
[2021-11-08 06:26] LABS: Glucose Point of Care 101 mg/dl (65-105)
[2021-11-08 06:50] LABS: Basophils Percent Auto 0.2 % (0.2-1.2); Eosinophils Absolute Auto 0.1 K/mm3 (0-0.3); Eosinophils Percent Auto 0.5 % (0-4.4); Hematocrit 44.9 % (42.0-52.0); Hemoglobin 14.9 g/dL (14.0-18.0); Immature Granulocyte Absolute 0.18 K/mm3 (0.00-0.031); Lymphocytes Absolute Auto 0.95 K/mm3 (0.9-3.2); Lymphocytes Percent Auto 5.1 % (18.3-44.2); Mean Corpuscular HGB Conc 33.2 g/dl (32-36); Mean Corpuscular Hemoglobin 29.6 pg (26-34); Mean Corpuscular Volume 89.3 fl (80-100); Mean Platelet Volume 11.1 fl (7.4-10.4); Monocytes Absolute Auto 0.9 K/mm3 (0.1-0.6); Neutrophils Absolute Auto 16.4 K/mm3 (1.3-6.7); Neutrophils Percent Auto 88.2 % (45.5-73.1); Platelet Count Result 238 k/mm3 (150-375); Red Blood Count 5.03 M/mm3 (4.6-6.20); Red Cell Distribution Width 13.2 % (11.5-14.5); White Blood Count 18.6 K/mm3 (4.5-10.0)
[2021-11-08 07:16] LABS: Alanine Aminotransferase 33 U/L (4-50); Anion Gap 5 mmol/L (8-16); Aspartate Amino Transferase 50 U/L (17-59); Blood Urea Nitrogen 20 mg/dL (9-20); Calcium 8.4 mg/dL (8.4-10.2); Carbon Dioxide 22 mmol/L (22-30); Chloride 108 mmol/L (98-107); Estimated CRCL calculation 134 ml/min; Estimated Glomerular Filt Rate > 60; Magnesium 2.3 mg/dL (1.6-2.3); Potassium 3.9 mmol/L (3.4-5.0); Sodium 135 mmol/L (137-145)
--- NOTE | 2021-11-08 07:26 | P.PNIM_ITS ---
Progress Note: A&P Assessment and Plan (1) Acute respiratory failure with hypoxia: Code(s): J96.01 - Acute respiratory failure with hypoxia Status: Acute Assessment and Plan: Secondary to COVID pneumonia.pt needing high flow oxygen; respiratory status has worsened over the last 24 hours. Patient does not tolerate prone position; he does not want to sit in bed, which will improve alveolar recruitment. Chest CTA demonstrates new small filling defect right upper lobe segmental pulmonary artery, consistent with pulmonary embolism. Small thrombus burden. Currently patient is on therapeutic dose of IV heparin. There is suspicion for possible bacterial coinfection evidence by mild leukocytosis. Patient also receiving IV antibiotics. Recheck anti-inflammatory in this is per Pulmonary recommendation. Continue BiPAP support. Patient may need transfer to ICU if his condition worsens. (2) Pneumonia due to COVID-19 virus: Code(s): U07.1 - COVID-19; J12.82 - Pneumonia due to coronavirus disease 2018 Status: Acute Assessment and Plan: Patient reports testing positive for COVID approximately 1 week ago and records have been requested from [facility] for confirmation. He is unvaccinated. Given his oxygen requirement he has been appropriately started on dexamethasone and remdesivir. Now on iv steroids, zithromax and rocephin consult pulmology (3) Hypertension: Code(s): I10 - Essential (primary) hypertension Status: Acute Assessment and Plan: Blood pressure within acceptable range. Home blood pressure medication on hold due to strict NPO status. Metoprolol 5 mg IV q.6 p.r.n. for rate control. (4) Type 2 diabetes mellitus: Code(s): E11.9 - Type 2 diabetes mellitus without complications Status: Acute Assessment and Plan: Continue pioglitazone and saxagliptin. Initiate sliding scale insulin, Accu- Cheks, and hypoglycemic protocol. Check hemoglobin A1c. Fasting glucose was 174. Accu-Chek in the 120-166 range. Additional Plan 10/29/21 ISS added for elevated BG orals discontinued, ISS and lantas low dose ordered ABG ordered pt on maximal resp therapy w AirVo pulm and ID following close monitoring high risk for decompensation may require transfer to ICU 10/30/21 BG elevated Lantus increased to 15U BID (5U given at 8:30 am) may require significantly hig her basal dosing cont abx cont remdesivir pt w new PE on full dose lovenox pt w new onset afib rate controlled close monitoring high risk for decompensation may require transfer to ICU BiPAP PRN prone and sides as able 10/31/21 remains stable on bipap w HF/NRB BG above goal ISS increased to high dose will increase basal insulin tomorrow cont treatment for covid pulm following recs appreciated cont supportive care 11/01/21 pt remains on stable on current oxygen requirements BG still above goal remains on tx for covid pulm following cont supportive care dc diet supplements 11/02/2021 Basal insulin has been increased to 20 b.i.d. Patient encouraged to eat Unable to tolerate mobilization at this point Continues on high-flow nasal cannula with non-rebreather at high settings AFib on full anticoagulation PE on CT imaging 10/30 Overall slow to improve but remained stable 11/05 Currently patient is on by lb. PE on CTA march on full anticoagulation. Currently patient strict hand.. Goals of care conversation a family meeting on 11/06/2021. 11/06 Currently patient is on BIPap. DUE TO MORBID OBESITY,
[2021-11-08 08:27] LABS: Glucose 86 mg/dL (65-110)
[2021-11-08] MEDS: ENOXAPARIN 100 MG/ML SYRINGE SUB-Q ×2 (09:08→19:58)
[2021-11-08] MEDS: ENOXAPARIN 30 MG/0.3 ML SYRINGE SUB-Q ×2 (09:08→19:58)
[2021-11-08] MEDS: BARICITINIB 2 MG TABLET 4 MG PO (09:08)
[2021-11-08 12:12] LABS: Glucose Point of Care 85 mg/dl (65-105)
[2021-11-08] MEDS: guaiFENesin/DEXTROMETHORPHAN 10 ML UDC PO (12:13)
[2021-11-08] MEDS: MIDAZOLAM 100MG/NS 100ML(*CRX) 100 MG/100 ML BAG IV CONT (15:00)
[2021-11-08] MEDS: FENTANYL 2,500MCG/NS250ML(*CRX 2,500 MCG/250 ML BAG 15 MCG IV CONT (15:00)
[2021-11-08] MEDS: ROCURONIUM BROMIDE 50 MG/5 ML VIAL (15:01)
[2021-11-08] MEDS: PROPOFOL IV EMULSION 100 ML 32.55 MG IV CONT (15:35)
[2021-11-08] MEDS: ADENOSINE IV SOLN 6 MG/2 ML VIAL IV PUSH (15:36)
[2021-11-08] MEDS: SODIUM CHLORIDE 0.9% IV 1,000 ML 999 ML IV CONT ×2 (15:50→17:13)
[2021-11-08] MEDS: AMIODARONE 150 MG/D5W 100 ML 150 MG/100 ML BAG 15 MG (16:15)
[2021-11-08] MEDS: AMIODARONE 150 MG/D5W 100 ML 150 MG/100 ML BAG 600 MG IV CONT ×2 (16:15→18:45)
[2021-11-08] MEDS: CISATRACURIUM BESYLATE 200 MG in DEXTROSE 5% 80 ML 13.95 ML IV CONT ×2 (16:23→22:13)
[2021-11-08] MEDS: NOREPINEPHRINE 8 MG/D5W 250 ML 8 MG/250 ML BAG 30 MG (16:25)
[2021-11-08] MEDS: AMIODARONE 360 MG/D5W 200 ML 360 MG/200 ML BAG (16:26)
--- NOTE | 2021-11-08 16:27 | WPDPROCEDUR ---
Procedures Intubation Intubation Date: 11/08/21 Intubation Time: 15:31 A pre-procedural Time-Out was completed immediately before starting the procedure and confirmed: Patient Identification, Site, Procedure, Patient Position and the Availability of Requisite Equipment: Yes Sedative: etomidate Paralytic: rocuronium Laryngoscope: fiber optic video scope Assist device used: fiber optic device ET tube size: 8 Tube secured depth (cm): 24 Tube secured location: lips Tube placement confirmation: visualized tube passing through cords, equal breath sounds bilaterally, no breath sounds over epigastrium and confirmation by capnometry Patient tolerated procedure: well Intubation complications: none
[2021-11-08] MEDS: AMIODARONE 360 MG/D5W 200 ML 360 MG/200 ML BAG 33.33 MG IV CONT (16:28)
--- NOTE | 2021-11-08 16:29 | P.PCNBED_ITS ---
Procedures Central Line Placement Right IJ: Central Line Date: 11/08/21 Central Line Time: 16:02 Discussed w/ the patient/family/POA,the placement of a central venous catheter, including its clinical necessity/indication & associated potential risks, benifits and alternatives.: Yes The patient/family/POA understand(s) and acknowledge(s) the need to proceed with central venous catheter insertion as an important element of the patient's clinical management.: Yes Time Out Performed: Yes Patient Position: supine Patient placed on monitor/pulse ox: Yes Provider Prep: mask, sterile gown, sterile gloves, Max. sterile barrier precautions, cap and hand hygiene with conventional soap/water or alcohol based hand rub Central line prep: 2% Chlorhexidine scrub Local anesthesia used: lidocaine 1% Amount of anesthesia used (ml): 3 Sterile US Technique with sterile gel/sterile probe covers: Yes Central line lumen inserted: triple Upper Sorbian: 12 Length (cm): 16 Depth of Insertion (cm): 16 Post Procedure: sutured in place, good blood return, all ports aspirated, flushed, capped, transparent dressing, hemostatic product, antimicrobial product and securement product Post procedure x-ray: tip of catheter in good position Patient tolerated procedure: well Complications: none
[2021-11-08] MEDS: NOREPINEPHRINE 8 MG/D5W 250 ML 8 MG/250 ML BAG 46.88 MG IV CONT (16:31)
--- NOTE | 2021-11-08 16:31 | WPDCNINT ---
Assessment and Plan Assessment and plan (1) Acute respiratory failure with hypoxia: Code(s): J96.01 - Acute respiratory failure with hypoxia Status: Acute Assessment and Plan: Acute hypoxic respiratory failure likely related to COVID pneumonia, component of small PE also could be a factor -patient failed his BiPAP, was on 14/10 and 100% FiO2 with O2 sats in the mid to upper 80s. -patient was intubated in the ICU on 11/08/2021 -currently on peep of 16 and 100% FiO2, -chest x-ray has been reviewed which shows worsening of bilateral infiltrates > on left side -a post intubation ABGs are pending -will start patient on Flolan -sedated with fentanyl, Versed infusion, Nimbex infusion for neuromuscular blockade -will start bronchodilators and Pulmicort -given his worsening chest x-ray and respiratory status, this could be bacterial pneumonia, patient also has leukocytosis, will start vancomycin and imipenem (11/08) (2) Pneumonia due to COVID-19 virus: Code(s): U07.1 - COVID-19; J12.82 - Pneumonia due to coronavirus disease 2019 Status: Acute Assessment and Plan: Patient was tested positive a week prior to admission on 10/27/2021, unvaccinated -completed dexamethasone and remdesivir -continue on baricitinib -will monitor CRP level -continue droplet, airborne, contact isolation/precautions (3) Pulmonary embolism: Qualifiers: Pulmonary embolism type: unspecified Chronicity: unspecified Acute cor pulmonale presence: unspecified Qualified Code(s): I26.99 - Other pulmonary embolism without acute cor pulmonale Code(s): I26.99 - Other pulmonary embolism without acute cor pulmonale Status: Acute Assessment and Plan: Chest CTA on 10/29/2021: 1. New small filling defect right upper lobe segmental pulmonary artery, consistent with pulmonary embolism. Small thrombus burden. 2: Progression of extensive patchy bilateral airspace disease with worsening in the right lower lobe, compatible with pneumonia. -patient is on therapeutic Lovenox (4) Type 2 diabetes mellitus: Code(s): E11.9 - Type 2 diabetes mellitus without complications Status: Acute Assessment and Plan: Blood sugars have been stable, continue Accu-Cheks and sliding scale insulin -hemoglobin A1c this admission was 7.9 (5) Hypertension: Code(s): I10 - Essential (primary) hypertension Status: Acute Assessment and Plan: Patient initially was hypertensive but after intubation and being on sedation he dropped his blood pressures. Hypotension could also be related to AFib RVR -fluid bolus was given and patient was started on Levophed, will maintain mean arterial pressures > 65 mmHg -given leukocytosis and worsening infiltrates on chest x-ray will start him on vancomycin and imipenem as above (6) Atrial fibrillation with RVR: Code(s): I48.91 - Unspecified atrial fibrillation Status: Acute Assessment and Plan: AFib RVR, patient initially was in SVT with heart rates in the 200s, was given adenosine 6 mg IV x1 on 11/08/2021, no change was noted, patient was then given metoprolol 5 mg IV x1 and briefly slow down to the 150s 160s. -patient was started on amiodarone bolus and infusion for because he dropped his blood pressures Additional Plan DVT prophylaxis: On therapeutic Lovenox Stress ulcer prophylaxis: Started on Protonix Nutrition: Will start tube feeds in a.m. Code status: Full code Critical care time spent: 56 minutes This dictation may have been done utilizing a voice recognition system. Attempts have been made to correct errors. However, there may be uncorrected grammatical, spelling, and recognition errors present. Due to a high probability of clinically significant, life threatening deterioration, the patient required my highest level of preparedness to intervene emergently and I personally spent this critical care time directly and personally managing the patient. T
[2021-11-08] MEDS: EPOPROSTENOL SODIUM 0.5 MG VIAL 1 MG INHALATION ×2 (16:54→23:08)
[2021-11-08 17:01] LABS: Base Excess ABG -6.3 mEq/l (+/-2.0); HCO3 ABG 22.2 mEq/l (22.0-26.0); PCO2 ABG 55.8 mmHg (35.0-45.0); PO2 ABG 57.5 mmHg (80.0-100.0); pH ABG 7.217 (7.350-7.450)
[2021-11-08 17:02] LABS: Alveolar/Arterial O2 Gradient 599.7 mmHg; Oxygen Content ABG 17.8 %vol (16.0-22.0); Oxygen Saturation ABG 83.7 % (95.0-100.0); Total Hemoglobin 15.3 g/dL (12.0-18.0)
[2021-11-08 17:03] LABS: Arterial Blood Gas PEEP 16 cmH2O; Arterial Blood Gas Vent Mode CMV; Arterial Blood Gas Ventilator rate 26 /MIN; Carboxyhemoglobin 0.3 % THb (0-2.0); Device VENTILATOR; Fractional Inspired Oxygen 100 %; Methemoglobin ABG 0.4 %THb (0-1.5); Modified Allen's Test Unable to perform; Oxyhemoglobin 82.7 % THb (90.0-100.0); PO2 FiO2 Ratio Arterial Blood 0.57 %; Reduced Hemoglobin 16.6 %THb (0-5.0); Site Drawn RIGHT RADIAL
[2021-11-08 17:04] LABS: Arterial Blood Gas Tidal Volume 450 ml
[2021-11-08 18:24] LABS: Glucose Point of Care 156 mg/dl (65-105)
[2021-11-08] MEDS: METOPROLOL TARTRATE 25 MG TABLET PO (19:57)
[2021-11-08] MEDS: CENTRAL LINE FLUSH 10 ML IV PUSH (19:58)
[2021-11-08] MEDS: MINERAL OIL/WHITE PETROLATUM OINTMENT 1 APPLIC EACH EYE (19:58)
[2021-11-08] MEDS: ATORVASTATIN 20 MG TABLET PO (19:58)
[2021-11-08] MEDS: ACETAMINOPHEN 325 MG TABLET 650 MG PO (21:51)
[2021-11-08] MEDS: AMIODARONE 360 MG/D5W 200 ML 360 MG/200 ML BAG 16.67 MG IV CONT (22:10)
[2021-11-08 23:34] LABS: Glucose Point of Care 224 mg/dl (65-105)
[2021-11-09] VITALS (43 sets, daily range): BP systolic 88–148; BP diastolic 60–90; PULSE 62–133; RESP 26–31; TEMP 36.4–37.2; O2SAT 95–100
[2021-11-09] MEDS: METOPROLOL TARTRATE INJ 5 MG/5 ML VIAL IV PUSH (00:28)
[2021-11-09] MEDS: INSULIN ASPART (*BKC) 100 UNITS/ML SUB-Q ×4 (00:29→23:43)
[2021-11-09] MEDS: CISATRACURIUM BESYLATE 200 MG in DEXTROSE 5% 80 ML 18.6 ML IV CONT ×5 (02:46→23:22)
[2021-11-09] MEDS: CENTRAL LINE FLUSH 10 ML IV PUSH ×3 (05:20→21:08)
[2021-11-09] MEDS: EPOPROSTENOL SODIUM 0.5 MG VIAL 1 MG INHALATION ×4 (05:30→23:25)
[2021-11-09 06:17] LABS: Hematocrit 40.3 % (42.0-52.0); Hemoglobin 13.1 g/dL (14.0-18.0); Mean Corpuscular HGB Conc 32.5 g/dl (32-36); Mean Corpuscular Hemoglobin 29.1 pg (26-34); Mean Corpuscular Volume 89.6 fl (80-100); Mean Platelet Volume 11.1 fl (7.4-10.4); Platelet Count Result 247 k/mm3 (150-375); Red Cell Distribution Width 13.5 % (11.5-14.5); White Blood Count 31.6 K/mm3 (4.5-10.0)
[2021-11-09 06:44] LABS: Alveolar/Arterial O2 Gradient 537.4 mmHg; Fractional Inspired Oxygen 100 %; Oxygen Saturation ABG 98.1 % (95.0-100.0); Oxyhemoglobin 97.1 % THb (90.0-100.0); PCO2 ABG 48.1 mmHg (35.0-45.0); PO2 ABG 127.5 mmHg (80.0-100.0); PO2 FiO2 Ratio Arterial Blood 1.27 %
[2021-11-09 06:45] LABS: Modified Allen's Test Pass; Site Drawn RIGHT RADIAL; pH ABG 7.279 (7.350-7.450)
[2021-11-09 06:46] LABS: Device VENTILATOR
[2021-11-09 06:47] LABS: Arterial Blood Gas PEEP 16 cmH2O; Arterial Blood Gas Tidal Volume 450 ml; Arterial Blood Gas Vent Mode CMV; Arterial Blood Gas Ventilator rate 28 /MIN
[2021-11-09 07:04] LABS: Alanine Aminotransferase 32 U/L (4-50); Albumin Level 2.5 g/dL (3.5-5.1); Alkaline Phosphatase 98 U/L (38-126); Anion Gap 9 mmol/L (8-16); Aspartate Amino Transferase 42 U/L (17-59); Bilirubin,Total 0.4 mg/dL (0.2-1.3); Blood Urea Nitrogen 26 mg/dL (9-20); CRP > 9.0 mg/dL (<1.0); Calcium 7.8 mg/dL (8.4-10.2); Carbon Dioxide 21 mmol/L (22-30); Chloride 104 mmol/L (98-107); Estimated CRCL calculation 75 ml/min; Estimated Glomerular Filt Rate 55; Glucose 261 mg/dL (65-110); Phosphorus 4.8 mg/dL (2.5-4.5); Potassium 4.7 mmol/L (3.4-5.0); Sodium 134 mmol/L (137-145)
[2021-11-09] MEDS: NOREPINEPHRINE 8 MG/D5W 250 ML 8 MG/250 ML BAG 16.88 MG IV CONT (08:42)
[2021-11-09] MEDS: BARICITINIB 2 MG TABLET 4 MG PO (08:47)
[2021-11-09] MEDS: ASCORBIC ACID 500 MG TABLET PO (08:47)
[2021-11-09] MEDS: PANTOPRAZOLE SODIUM IV 40 MG VIAL IV PUSH (08:47)
[2021-11-09] MEDS: CHOLECALCIFEROL 1,000 UNITS TABLET 1000 UNITS PO (08:47)
[2021-11-09] MEDS: ENOXAPARIN 30 MG/0.3 ML SYRINGE SUB-Q ×2 (08:47→21:07)
[2021-11-09] MEDS: ENOXAPARIN 100 MG/ML SYRINGE SUB-Q ×2 (08:47→21:07)
[2021-11-09] MEDS: METOPROLOL TARTRATE 25 MG TABLET PO ×2 (08:48→21:08)
[2021-11-09] MEDS: AMIODARONE 360 MG/D5W 200 ML 360 MG/200 ML BAG 16.67 MG IV CONT (08:58)
[2021-11-09 10:33] LABS: Band Neutrophils Percent 3 % (0-6); Lymphocytes Absolute Manual 1.58 K/mm3 (1.1-4.5); Monocytes Absolute Manual 0.63 K/mm3 (0.1-0.90); Monocytes Percent Manual 2 % (3-9); Neutrophils Absolute Manual 29.38 K/mm3 (1.3-6.7); Neutrophils Percent Manual 90 % (46-73); Platelet Estimate Adequate (Adequate); Total Cells Counted 100
--- NOTE | 2021-11-09 13:15 | WPDINTPN ---
Progress Note: A&P Assessment and Plan (1) Acute respiratory failure with hypoxia: Code(s): J96.01 - Acute respiratory failure with hypoxia Status: Acute Assessment and Plan: Acute hypoxic respiratory failure likely related to COVID pneumonia, component of small PE also could be a factor -patient failed his BiPAP, was on 28/08 and 100% FiO2 with O2 sats in the mid to upper 80s. -patient was intubated in the ICU on 11/08/2021 -currently on peep of 16 and 100% FiO2, wean FiO2 to 80% -chest x-ray and ABGs reviewed, ventilator adjusted - will start weaning Flolan -sedated with fentanyl, Versed infusion, Nimbex infusion for neuromuscular blockade -will start bronchodilators and Pulmicort -given his worsening chest x-ray and respiratory status, this could be bacterial pneumonia, patient also has leukocytosis, continue vancomycin and imipenem (11/08) (2) Pneumonia due to COVID-19 virus: Code(s): U07.1 - COVID-19; J12.82 - Pneumonia due to coronavirus disease 2019 Status: Acute Assessment and Plan: Patient was tested positive a week prior to admission on 10/27/2021, unvaccinated -completed dexamethasone and remdesivir -continue on baricitinib -will monitor CRP level -continue droplet, airborne, contact isolation/precautions (3) Pulmonary embolism: Qualifiers: Pulmonary embolism type: unspecified Chronicity: unspecified Acute cor pulmonale presence: unspecified Qualified Code(s): I26.99 - Other pulmonary embolism without acute cor pulmonale Code(s): I26.99 - Other pulmonary embolism without acute cor pulmonale Status: Acute Assessment and Plan: Chest CTA on 10/29/2021: 1. New small filling defect right upper lobe segmental pulmonary artery, consistent with pulmonary embolism. Small thrombus burden. 2: Progression of extensive patchy bilateral airspace disease with worsening in the right lower lobe, compatible with pneumonia. -patient is on therapeutic Lovenox (4) Type 2 diabetes mellitus: Code(s): E11.9 - Type 2 diabetes mellitus without complications Status: Acute Assessment and Plan: Blood sugars have been stable, continue Accu-Cheks and sliding scale insulin -hemoglobin A1c this admission was 7.9 (5) Hypertension: Code(s): I10 - Essential (primary) hypertension Status: Acute Assessment and Plan: Patient initially was hypertensive but after intubation and being on sedation he dropped his blood pressures. Hypotension could also be related to AFib RVR -fluid bolus was given and patient was started on Levophed, will maintain mean arterial pressures > 65 mmHg -given leukocytosis and worsening infiltrates on chest x-ray will start him on vancomycin and imipenem as above (6) Atrial fibrillation with RVR: Code(s): I48.91 - Unspecified atrial fibrillation Status: Acute Assessment and Plan: AFib RVR, patient initially was in SVT with heart rates in the 200s, was given adenosine 6 mg IV x1 on 11/08/2021, no change was noted, patient was then given metoprolol 5 mg IV x1 and briefly slow down to the 150s 160s. -patient was started on amiodarone bolus and infusion because he dropped his blood pressures - continue amiodarone infusion at 0.5 mg/min. - Patient also on therapeutic Lovenox (7) Acute kidney injury: Code(s): N17.9 - Acute kidney failure, unspecified Status: Acute Assessment and Plan: patient with acute kidney injury, creatinine up to 1.3 from 0.7 (11/08) - likely due to hypotension, shock, infection, COVID pneumonia, hypoxia - patient did receive IV fluids - now on Levophed, will maintain mean arterial pressures greater than 70 mmHg for adequate renal perfusion - avoid nephrotoxic medications - monitor renal function, electrolytes and urine output (8) Shock: Code(s): R57.9 - Shock, unspecified Status: Acute Assessment and Plan: hypotension requiring IV fluids. - Patient st
[2021-11-09 13:21] LABS: Glucose Point of Care 242 mg/dl (65-105)
[2021-11-09] MEDS: MINERAL OIL/WHITE PETROLATUM OINTMENT 1 APPLIC EACH EYE ×2 (13:24→21:08)
[2021-11-09] MEDS: FENTANYL 2,500MCG/NS250ML(*CRX 2,500 MCG/250 ML BAG 10 MCG IV CONT (13:24)
[2021-11-09 17:55] LABS: Glucose Point of Care 199 mg/dl (65-105)
[2021-11-09] MEDS: ATORVASTATIN 20 MG TABLET PO (21:07)
[2021-11-09] MEDS: MIDAZOLAM 100MG/NS 100ML(*CRX) 100 MG/100 ML BAG IV CONT (21:18)
[2021-11-09] MEDS: NOREPINEPHRINE 8 MG/D5W 250 ML 8 MG/250 ML BAG 11.25 MG IV CONT (23:26)
[2021-11-10] VITALS (37 sets, daily range): BP systolic 102–142; BP diastolic 67–101; PULSE 67–158; RESP 26–28; TEMP 34.4–38.5; O2SAT 93–100; BMI 49.9
[2021-11-10 00:16] LABS: Glucose Point of Care 217 mg/dl (65-105)
[2021-11-10] MEDS: AMIODARONE 360 MG/D5W 200 ML 360 MG/200 ML BAG 16.67 MG IV CONT (04:09)
[2021-11-10] MEDS: CISATRACURIUM BESYLATE 200 MG in DEXTROSE 5% 80 ML 18.6 ML IV CONT ×4 (04:11→21:04)
[2021-11-10 04:12] LABS: Base Excess ABG -2.4 mEq/l (+/-2.0)
[2021-11-10 04:13] LABS: Carboxyhemoglobin 0.3 % THb (0-2.0); Device VENTILATOR; Fractional Inspired Oxygen 65 %; Methemoglobin ABG 0.2 %THb (0-1.5); Modified Allen's Test Pass; Oxygen Content ABG 19.6 %vol (16.0-22.0); Reduced Hemoglobin 1.7 %THb (0-5.0); Site Drawn RIGHT RADIAL
[2021-11-10 04:14] LABS: Arterial Blood Gas PEEP 16 cmH2O; Arterial Blood Gas Tidal Volume 450 ml; Arterial Blood Gas Vent Mode CMV; Arterial Blood Gas Ventilator rate 28 /MIN
[2021-11-10 05:17] LABS: Basophils Percent Auto 0.1 % (0.2-1.2); Eosinophils Absolute Auto 0.2 K/mm3 (0-0.3); Hematocrit 38.8 % (42.0-52.0); Immature Granulocyte Absolute 0.11 K/mm3 (0.00-0.031); Immature Granulocyte Percent A 0.6 % (0-0.5); Lymphocytes Absolute Auto 0.86 K/mm3 (0.9-3.2); Lymphocytes Percent Auto 5.1 % (18.3-44.2); Mean Corpuscular HGB Conc 33.5 g/dl (32-36); Mean Corpuscular Hemoglobin 29.1 pg (26-34); Mean Platelet Volume 11.4 fl (7.4-10.4); Monocytes Absolute Auto 0.8 K/mm3 (0.1-0.6); Monocytes Percent Auto 4.5 % (2.6-8.5); Neutrophils Percent Auto 88.7 % (45.5-73.1); Platelet Count Result 219 k/mm3 (150-375); Red Blood Count 4.46 M/mm3 (4.6-6.20); Red Cell Distribution Width 13.5 % (11.5-14.5); White Blood Count 16.9 K/mm3 (4.5-10.0)
[2021-11-10 05:23] LABS: Alanine Aminotransferase 28 U/L (4-50); Anion Gap 2 mmol/L (8-16); Aspartate Amino Transferase 28 U/L (17-59); Blood Urea Nitrogen 27 mg/dL (9-20); Calcium 8.3 mg/dL (8.4-10.2); Carbon Dioxide 25 mmol/L (22-30); Chloride 101 mmol/L (98-107); Estimated CRCL calculation 88 ml/min; Estimated Glomerular Filt Rate > 60; Glucose 247 mg/dL (65-110); Magnesium 2.1 mg/dL (1.6-2.3); Phosphorus 2.9 mg/dL (2.5-4.5); Potassium 4.2 mmol/L (3.4-5.0); Sodium 128 mmol/L (137-145)
[2021-11-10] MEDS: CENTRAL LINE FLUSH 10 ML IV PUSH ×3 (05:38→20:54)
[2021-11-10] MEDS: EPOPROSTENOL SODIUM 0.5 MG VIAL 1 MG INHALATION (05:49)
[2021-11-10] MEDS: INSULIN ASPART (*BKC) 100 UNITS/ML SUB-Q ×3 (06:30→17:51)
[2021-11-10] MEDS: BARICITINIB 2 MG TABLET 4 MG PO (08:36)
[2021-11-10] MEDS: ENOXAPARIN 30 MG/0.3 ML SYRINGE SUB-Q ×2 (08:36→20:53)
[2021-11-10] MEDS: ASCORBIC ACID 500 MG TABLET PO (08:36)
[2021-11-10] MEDS: CHOLECALCIFEROL 1,000 UNITS TABLET 1000 UNITS PO (08:36)
[2021-11-10] MEDS: METOPROLOL TARTRATE 25 MG TABLET PO ×2 (08:36→20:52)
[2021-11-10] MEDS: ENOXAPARIN 100 MG/ML SYRINGE SUB-Q ×2 (08:37→20:52)
[2021-11-10] MEDS: PANTOPRAZOLE SODIUM IV 40 MG VIAL IV PUSH (08:37)
[2021-11-10] MEDS: INSULIN GLARGINE (*BKC) 100 UNITS/ML 28 UNITS SUB-Q ×2 (08:37→20:53)
[2021-11-10] MEDS: MINERAL OIL/WHITE PETROLATUM OINTMENT 1 APPLIC EACH EYE ×2 (08:38→20:53)
[2021-11-10 12:30] LABS: Glucose Point of Care 265 mg/dl (65-105)
--- NOTE | 2021-11-10 13:20 | WPDINTPN ---
Progress Note: A&P Assessment and Plan (1) Acute respiratory failure with hypoxia: Code(s): J96.01 - Acute respiratory failure with hypoxia Status: Acute Assessment and Plan: Acute hypoxic respiratory failure likely related to COVID pneumonia, component of small PE also could be a factor -patient failed his BiPAP, was on /10 and 100% FiO2 with O2 sats in the mid to upper 80s. -patient was intubated in the ICU on 11/08/2021 -currently on peep of 16 and 1650% FiO2, will decrease PEEP to 14 and wean FiO2 to maintain O2 sats greater than 92% -chest x-ray and ABGs reviewed, -will wean Flolan to off -sedated with fentanyl, Versed infusion, Nimbex infusion for neuromuscular blockade -continue bronchodilators and Pulmicort -11/08: Given his worsening chest x-ray and respiratory status, this could be bacterial pneumonia, patient also has leukocytosis, continue vancomycin and imipenem (11/08) (2) Pneumonia due to COVID-19 virus: Code(s): U07.1 - COVID-19; J12.82 - Pneumonia due to coronavirus disease 2019 Status: Acute Assessment and Plan: Patient was tested positive a week prior to admission on 10/27/2021, unvaccinated -completed dexamethasone and remdesivir -continue on baricitinib -will monitor inflammatory markers -continue droplet, airborne, contact isolation/precautions (3) Pulmonary embolism: Qualifiers: Acute cor pulmonale presence: unspecified Chronicity: unspecified Pulmonary embolism type: unspecified Qualified Code(s): I26.99 - Other pulmonary embolism without acute cor pulmonale Code(s): I26.99 - Other pulmonary embolism without acute cor pulmonale Status: Acute Assessment and Plan: Chest CTA on 10/29/2021: 1. New small filling defect right upper lobe segmental pulmonary artery, consistent with pulmonary embolism. Small thrombus burden. 2: Progression of extensive patchy bilateral airspace disease with worsening in the right lower lobe, compatible with pneumonia. -patient is on therapeutic Lovenox (4) Type 2 diabetes mellitus: Code(s): E11.9 - Type 2 diabetes mellitus without complications Status: Acute Assessment and Plan: Blood sugars have been stable, continue Accu-Cheks and sliding scale insulin -hemoglobin A1c this admission was 7.9 (5) Hypertension: Code(s): I10 - Essential (primary) hypertension Status: Acute Assessment and Plan: Patient initially was hypertensive but after intubation and being on sedation he dropped his blood pressures. Hypotension could also be related to AFib RVR -fluid bolus was given and patient was started on Levophed, will maintain mean arterial pressures > 65 mmHg -given leukocytosis and worsening infiltrates on chest x-ray will start him on vancomycin and imipenem as above (6) Atrial fibrillation with RVR: Code(s): I48.91 - Unspecified atrial fibrillation Status: Acute Assessment and Plan: AFib RVR, patient initially was in SVT with heart rates in the 200s, was given adenosine 6 mg IV x1 on 11/08/2021, no change was noted, patient was then given metoprolol 5 mg IV x1 and briefly slow down to the 150s 160s. -patient was started on amiodarone bolus and infusion because he dropped his blood pressures - continue amiodarone infusion at 0.5 mg/min. - Patient also on therapeutic Lovenox (7) Acute kidney injury: Code(s): N17.9 - Acute kidney failure, unspecified Status: Acute Assessment and Plan: patient with acute kidney injury, creatinine up to 1.3 from 0.7 (11/08) -11/10: Creatinine improving - likely due to hypotension, shock, infection, COVID pneumonia, hypoxia - patient did receive IV fluids - now on Levophed, will maintain mean arterial pressures greater than 70 mmHg for adequate renal perfusion - avoid nephrotoxic medications - monitor renal function, electrolytes and urine output (8) Shock: Code(s): R57.9 - Shock, unspecified Status
[2021-11-10] MEDS: FENTANYL 2,500MCG/NS250ML(*CRX 2,500 MCG/250 ML BAG 10 MCG IV CONT (14:53)
--- NOTE | 2021-11-10 16:06 | PCFNICU ---
ICU Rounding Note: Pt current nutrition is Nepro running at 60mL/hr over 22 hours. Last recorded weight is 162.5 kg. Bowel Motility: +BM 11/08 Labs Reviewed: hgb 13.0, hct 38.8, Na 128, Ca 8.3, BUN 27, Glu 247 Meds Noted: vitamin c, nimbex, lovenox, flolan, fentanyl, novolog, lantus, lopressor, versed, protonix, vancomycin, vitamin D Skin: WNL Additional Notes: Pt intubated on 11/08. Pt is on mechanical ventilation and tube feeding of Nepro running at 60mL/hr over 22 hours providing 2376kcal/107g protein/ 960mL of water, meeting 89% of kcal needs and 69% of protein needs. Tube feeding rate is at current goal rate. Recommend increasing goal rate to 65mL/hr to provide 2574kcal/116g protein/1040mL water, meeting 95% of kcal needs and 75% of protein needs. Agree with diet order at this time. Will continue to follow. Following daily in ICU rounds. Monitor every T/F.
[2021-11-10 17:56] LABS: Glucose Point of Care 219 mg/dl (65-105)
[2021-11-10] MEDS: BUDESONIDE RESPULE NEB 0.5 MG/2 ML AMP INHALATION (20:08)
[2021-11-10] MEDS: IPRATROPIUM BR 0.02% INH SOLN 0.5 MG/2.5 ML VIAL INHALATION (20:08)
[2021-11-10] MEDS: ALBUTEROL SULFATE NEB 2.5 MG/0.5 ML INH 5 MG INHALATION (20:08)
[2021-11-10] MEDS: ATORVASTATIN 20 MG TABLET PO (20:52)
[2021-11-10 21:03] LABS: Glucose Point of Care 246 mg/dl (65-105)
[2021-11-10] MEDS: AMIODARONE 360 MG/D5W 200 ML 360 MG/200 ML BAG 33.33 MG IV CONT (21:35)
--- NOTE | 2021-11-10 22:49 | PC.NURSE ---
2119 Dr. Nguyen informed of HR 130s-170s. orders received to resume amiodarone gtt
[2021-11-11] VITALS (41 sets, daily range): BP systolic 95–120; BP diastolic 57–84; PULSE 86–146; RESP 28–30; TEMP 34.8–38.5; O2SAT 94–99; BMI 51.1
[2021-11-11 00:19] LABS: Glucose Point of Care 198 mg/dl (65-105)
[2021-11-11] MEDS: IPRATROPIUM BR 0.02% INH SOLN 0.5 MG/2.5 ML VIAL INHALATION ×4 (01:53→22:34)
[2021-11-11] MEDS: ALBUTEROL SULFATE NEB 2.5 MG/0.5 ML INH 5 MG INHALATION ×4 (01:53→22:34)
[2021-11-11] MEDS: CISATRACURIUM BESYLATE 200 MG in DEXTROSE 5% 80 ML 18.6 ML IV CONT ×3 (02:25→19:37)
[2021-11-11] MEDS: AMIODARONE 360 MG/D5W 200 ML 360 MG/200 ML BAG 33.33 MG IV CONT ×4 (03:55→22:48)
[2021-11-11 05:22] LABS: Basophils Percent Auto 0.1 % (0.2-1.2); Eosinophils Absolute Auto 0.2 K/mm3 (0-0.3); Eosinophils Percent Auto 1.8 % (0-4.4); Hematocrit 36.5 % (42.0-52.0); Hemoglobin 12.2 g/dL (14.0-18.0); Immature Granulocyte Percent A 0.8 % (0-0.5); Lymphocytes Absolute Auto 1.08 K/mm3 (0.9-3.2); Lymphocytes Percent Auto 8.1 % (18.3-44.2); Mean Corpuscular HGB Conc 33.4 g/dl (32-36); Mean Corpuscular Hemoglobin 29.1 pg (26-34); Mean Corpuscular Volume 87.1 fl (80-100); Monocytes Absolute Auto 0.8 K/mm3 (0.1-0.6); Monocytes Percent Auto 6.1 % (2.6-8.5); Neutrophils Absolute Auto 11.1 K/mm3 (1.3-6.7); Neutrophils Percent Auto 83.1 % (45.5-73.1); Platelet Count Result 200 k/mm3 (150-375); Red Blood Count 4.19 M/mm3 (4.6-6.20); Red Cell Distribution Width 13.7 % (11.5-14.5); White Blood Count 13.3 K/mm3 (4.5-10.0)
[2021-11-11 05:31] LABS: D Dimer 1.06 ug/mL (<0.48)
[2021-11-11 05:47] LABS: Alveolar/Arterial O2 Gradient 284.4 mmHg; Base Excess ABG -2.2 mEq/l (+/-2.0); Carboxyhemoglobin 0.3 % THb (0-2.0); Fractional Inspired Oxygen 60 %; HCO3 ABG 26.9 mEq/l (22.0-26.0); Methemoglobin ABG 0.3 %THb (0-1.5); Oxygen Content ABG 20.1 %vol (16.0-22.0); Oxygen Saturation ABG 91.3 % (95.0-100.0); Oxyhemoglobin 92.4 % THb (90.0-100.0); PO2 ABG 72.2 mmHg (80.0-100.0); Total Hemoglobin 15.5 g/dL (12.0-18.0)
[2021-11-11 05:49] LABS: Device VENTILATOR; Modified Allen's Test Pass; PCO2 ABG 64.7 mmHg (35.0-45.0); Site Drawn LEFT RADIAL; pH ABG 7.236 (7.350-7.450)
[2021-11-11 05:50] LABS: Arterial Blood Gas PEEP 12 cmH2O; Arterial Blood Gas Tidal Volume 450 ml; Arterial Blood Gas Vent Mode CMV; Arterial Blood Gas Ventilator rate 28 /MIN
[2021-11-11 05:59] LABS: Alanine Aminotransferase 24 U/L (4-50); Anion Gap 2 mmol/L (8-16); Aspartate Amino Transferase 27 U/L (17-59); Blood Urea Nitrogen 29 mg/dL (9-20); CRP 14.1 mg/dL (<1.0); Calcium 8.4 mg/dL (8.4-10.2); Carbon Dioxide 28 mmol/L (22-30); Chloride 98 mmol/L (98-107); Estimated CRCL calculation 90 ml/min; Estimated Glomerular Filt Rate > 60; Glucose 170 mg/dL (65-110); Lactate Dehydrogenase 777 U/L (313-618); Magnesium 2.2 mg/dL (1.6-2.3); Phosphorus 3.1 mg/dL (2.5-4.5); Sodium 128 mmol/L (137-145)
[2021-11-11] MEDS: CENTRAL LINE FLUSH 10 ML IV PUSH ×3 (06:35→20:27)
[2021-11-11] MEDS: BUDESONIDE RESPULE NEB 0.5 MG/2 ML AMP INHALATION ×2 (08:24→22:34)
[2021-11-11 09:53] LABS: Glucose Point of Care 173 mg/dl (65-105)
[2021-11-11] MEDS: INSULIN GLARGINE (*BKC) 100 UNITS/ML 28 UNITS SUB-Q ×2 (10:04→20:27)
[2021-11-11] MEDS: PANTOPRAZOLE SODIUM IV 40 MG VIAL IV PUSH (10:06)
[2021-11-11] MEDS: CHOLECALCIFEROL 1,000 UNITS TABLET 1000 UNITS PO (10:06)
[2021-11-11] MEDS: METOPROLOL TARTRATE 25 MG TABLET PO ×2 (10:07→20:26)
[2021-11-11] MEDS: ENOXAPARIN 30 MG/0.3 ML SYRINGE SUB-Q ×2 (10:07→20:26)
[2021-11-11] MEDS: ASCORBIC ACID 500 MG TABLET PO (10:07)
[2021-11-11] MEDS: BARICITINIB 2 MG TABLET 4 MG PO (10:07)
[2021-11-11] MEDS: ENOXAPARIN 100 MG/ML SYRINGE SUB-Q ×2 (10:08→20:27)
[2021-11-11] MEDS: AMIODARONE 150 MG/D5W 100 ML 150 MG/100 ML BAG 600 MG IV CONT (11:44)
--- NOTE | 2021-11-11 12:22 | WPDINTPN ---
Progress Note: A&P Assessment and Plan (1) Acute respiratory failure with hypoxia: Code(s): J96.01 - Acute respiratory failure with hypoxia Status: Acute Assessment and Plan: Acute hypoxic respiratory failure likely related to COVID pneumonia, component of small PE also could be a factor -patient failed his BiPAP, was on 28/08 and 100% FiO2 with O2 sats in the mid to upper 80s. - intubated in the ICU on 11/08/2021 -currently on peep of 12 and 60% FiO2, will increase PEEP to 14, wean FiO2 to maintain O2 sats greater than 92% -chest x-ray and ABGs reviewed, -patient is off Flolan -sedated with fentanyl, Versed infusion, Nimbex infusion for neuromuscular blockade -continue bronchodilators and Pulmicort -11/08: Given his worsening chest x-ray and respiratory status, this could be bacterial pneumonia, patient also has leukocytosis, continue vancomycin and imipenem (11/08) (2) Pneumonia due to COVID-19 virus: Code(s): U07.1 - COVID-19; J12.82 - Pneumonia due to coronavirus disease 2019 Status: Acute Assessment and Plan: Patient was tested positive a week prior to admission on 10/27/2021, unvaccinated -completed dexamethasone and remdesivir -continue on baricitinib -will monitor inflammatory markers -continue droplet, airborne, contact isolation/precautions (3) Pulmonary embolism: Qualifiers: Acute cor pulmonale presence: unspecified Chronicity: unspecified Pulmonary embolism type: unspecified Qualified Code(s): I26.99 - Other pulmonary embolism without acute cor pulmonale Code(s): I26.99 - Other pulmonary embolism without acute cor pulmonale Status: Acute Assessment and Plan: Chest CTA on 10/29/2021: 1. New small filling defect right upper lobe segmental pulmonary artery, consistent with pulmonary embolism. Small thrombus burden. 2: Progression of extensive patchy bilateral airspace disease with worsening in the right lower lobe, compatible with pneumonia. -patient is on therapeutic Lovenox (4) Type 2 diabetes mellitus: Code(s): E11.9 - Type 2 diabetes mellitus without complications Status: Acute Assessment and Plan: Blood sugars have been stable, continue Accu-Cheks and sliding scale insulin -hemoglobin A1c this admission was 7.9 (5) Hypertension: Code(s): I10 - Essential (primary) hypertension Status: Acute Assessment and Plan: Patient initially was hypertensive but after intubation and being on sedation he dropped his blood pressures. Hypotension could also be related to AFib RVR -fluid bolus was given and patient was started on Levophed, will maintain mean arterial pressures > 65 mmHg -given leukocytosis and worsening infiltrates on chest x-ray will start him on vancomycin and imipenem as above -leukocytosis improving (6) Atrial fibrillation with RVR: Code(s): I48.91 - Unspecified atrial fibrillation Status: Acute Assessment and Plan: AFib RVR, patient initially was in SVT with heart rates in the 200s, was given adenosine 6 mg IV x1 on 11/08/2021, no change was noted, patient was then given metoprolol 5 mg IV x1 and briefly slow down to the 150s 160s. -patient was started on amiodarone bolus and infusion because he dropped his blood pressures - continue amiodarone infusion at 0.5 mg/min. - Patient also on therapeutic Lovenox (7) Acute kidney injury: Code(s): N17.9 - Acute kidney failure, unspecified Status: Acute Assessment and Plan: patient with acute kidney injury, creatinine up to 1.3 from 0.7 (11/08) -11/10: Creatinine improving - likely due to hypotension, shock, infection, COVID pneumonia, hypoxia - patient did receive IV fluids - now on Levophed, will maintain mean arterial pressures greater than 70 mmHg for adequate renal perfusion - avoid nephrotoxic medications - monitor renal function, electrolytes and urine output (8) Shock: Code(s): R57.9 - Shock, unspecified
[2021-11-11 12:39] LABS: Glucose Point of Care 182 mg/dl (65-105)
[2021-11-11] MEDS: MINERAL OIL/WHITE PETROLATUM OINTMENT 1 APPLIC EACH EYE ×2 (13:31→20:27)
[2021-11-11 14:07] LABS: Vancomycin Trough 20.2 ug/mL (10.0-20.0)
[2021-11-11] MEDS: FENTANYL 2,500MCG/NS250ML(*CRX 2,500 MCG/250 ML BAG 10 MCG IV CONT (16:59)
[2021-11-11] MEDS: INSULIN ASPART (*BKC) 100 UNITS/ML SUB-Q (17:00)
[2021-11-11] MEDS: MIDAZOLAM 100MG/NS 100ML(*CRX) 100 MG/100 ML BAG IV CONT (18:05)
[2021-11-11 19:34] LABS: Glucose Point of Care 222 mg/dl (65-105)
[2021-11-11] MEDS: ATORVASTATIN 20 MG TABLET PO (20:26)
[2021-11-11 20:44] LABS: Glucose Point of Care 184 mg/dl (65-105)
[2021-11-11 23:34] LABS: Glucose Point of Care 141 mg/dl (65-105)
[2021-11-12] VITALS (40 sets, daily range): BP systolic 82–125; BP diastolic 55–76; PULSE 64–104; RESP 28–30; TEMP 36.3–36.8; O2SAT 94–100
[2021-11-12] MEDS: AMIODARONE 360 MG/D5W 200 ML 360 MG/200 ML BAG 33.33 MG IV CONT (04:43)
[2021-11-12 04:57] LABS: Basophils Percent Auto 0.2 % (0.2-1.2); Eosinophils Absolute Auto 0.1 K/mm3 (0-0.3); Eosinophils Percent Auto 0.9 % (0-4.4); Hematocrit 34.1 % (42.0-52.0); Hemoglobin 11.1 g/dL (14.0-18.0); Immature Granulocyte Absolute 0.09 K/mm3 (0.00-0.031); Immature Granulocyte Percent A 0.7 % (0-0.5); Lymphocytes Absolute Auto 1.17 K/mm3 (0.9-3.2); Lymphocytes Percent Auto 9.7 % (18.3-44.2); Mean Corpuscular HGB Conc 32.6 g/dl (32-36); Mean Corpuscular Hemoglobin 29.1 pg (26-34); Mean Corpuscular Volume 89.5 fl (80-100); Mean Platelet Volume 11.1 fl (7.4-10.4); Monocytes Percent Auto 8.5 % (2.6-8.5); Neutrophils Absolute Auto 9.7 K/mm3 (1.3-6.7); Platelet Count Result 191 k/mm3 (150-375); Red Blood Count 3.81 M/mm3 (4.6-6.20); Red Cell Distribution Width 14.2 % (11.5-14.5); White Blood Count 12.1 K/mm3 (4.5-10.0)
[2021-11-12] MEDS: CENTRAL LINE FLUSH 10 ML IV PUSH ×3 (05:06→20:23)
[2021-11-12 05:10] LABS: Glucose Point of Care 151 mg/dl (65-105)
[2021-11-12 05:12] LABS: Alanine Aminotransferase 21 U/L (4-50); Anion Gap 0 mmol/L (8-16); Aspartate Amino Transferase 23 U/L (17-59); Blood Urea Nitrogen 34 mg/dL (9-20); Calcium 8.5 mg/dL (8.4-10.2); Carbon Dioxide 30 mmol/L (22-30); Chloride 97 mmol/L (98-107); Estimated CRCL calculation 73 ml/min; Estimated Glomerular Filt Rate 51; Glucose 161 mg/dL (65-110); Magnesium 2.3 mg/dL (1.6-2.3); Phosphorus 3.3 mg/dL (2.5-4.5); Potassium 4.3 mmol/L (3.4-5.0); Sodium 127 mmol/L (137-145)
[2021-11-12] MEDS: CISATRACURIUM BESYLATE 200 MG in DEXTROSE 5% 80 ML 18.6 ML IV CONT ×4 (06:23→22:00)
[2021-11-12 06:26] LABS: Alveolar/Arterial O2 Gradient 198.5 mmHg; Base Excess ABG 0.1 mEq/l (+/-2.0); Fractional Inspired Oxygen 50 %; Oxygen Content ABG 16.6 %vol (16.0-22.0); Oxygen Saturation ABG 95.5 % (95.0-100.0); Oxyhemoglobin 95.3 % THb (90.0-100.0); PO2 ABG 89.2 mmHg (80.0-100.0); PO2 FiO2 Ratio Arterial Blood 1.78 %; Total Hemoglobin 12.3 g/dL (12.0-18.0)
[2021-11-12 06:29] LABS: PCO2 ABG 61.2 mmHg (35.0-45.0); pH ABG 7.278 (7.350-7.450)
[2021-11-12 06:30] LABS: Arterial Blood Gas Ventilator rate 28 /MIN; Device VENTILATOR; Modified Allen's Test Pass; Site Drawn RIGHT RADIAL
[2021-11-12 06:31] LABS: Arterial Blood Gas PEEP 14 cmH2O; Arterial Blood Gas Tidal Volume 450 ml; Arterial Blood Gas Vent Mode CMV
[2021-11-12] MEDS: CHOLECALCIFEROL 1,000 UNITS TABLET 1000 UNITS PO (07:39)
[2021-11-12] MEDS: ENOXAPARIN 100 MG/ML SYRINGE SUB-Q ×2 (07:39→20:26)
[2021-11-12] MEDS: ASCORBIC ACID 500 MG TABLET PO (07:39)
[2021-11-12] MEDS: ENOXAPARIN 30 MG/0.3 ML SYRINGE SUB-Q ×2 (07:39→20:26)
[2021-11-12] MEDS: METOPROLOL TARTRATE 25 MG TABLET PO ×2 (07:39→20:25)
[2021-11-12] MEDS: PANTOPRAZOLE SODIUM IV 40 MG VIAL IV PUSH (07:40)
[2021-11-12] MEDS: INSULIN GLARGINE (*BKC) 100 UNITS/ML 28 UNITS SUB-Q ×2 (07:40→20:22)
[2021-11-12] MEDS: MINERAL OIL/WHITE PETROLATUM OINTMENT 1 APPLIC EACH EYE ×2 (07:40→20:23)
[2021-11-12] MEDS: IPRATROPIUM BR 0.02% INH SOLN 0.5 MG/2.5 ML VIAL INHALATION ×3 (08:52→20:40)
[2021-11-12] MEDS: ALBUTEROL SULFATE NEB 2.5 MG/0.5 ML INH 5 MG INHALATION ×3 (08:53→20:40)
[2021-11-12] MEDS: BARICITINIB 2 MG TABLET PO (09:56)
[2021-11-12] MEDS: METOPROLOL TARTRATE 12.5 MG TABLET PO (09:56)
[2021-11-12] MEDS: METOCLOPRAMIDE HCL INJ 10 MG/2 ML VIAL IV PUSH ×3 (09:59→23:52)
[2021-11-12 11:25] LABS: Glucose Point of Care 169 mg/dl (65-105)
[2021-11-12] MEDS: AMIODARONE 360 MG/D5W 200 ML 360 MG/200 ML BAG 16.67 MG IV CONT (11:44)
--- NOTE | 2021-11-12 15:16 | WPDINTPN ---
Progress Note: A&P Assessment and Plan (1) Acute respiratory failure with hypoxia: Code(s): J96.01 - Acute respiratory failure with hypoxia Status: Acute Assessment and Plan: Acute hypoxic respiratory failure likely related to COVID pneumonia, component of small PE also could be a factor -patient failed his BiPAP, was on 28/08 and 100% FiO2 with O2 sats in the mid to upper 80s. - intubated in the ICU on 11/08/2021 -currently on peep of 14 and 50% FiO2, will wean PEEP to 12 -chest x-ray and ABGs reviewed, -patient is off Flolan -sedated with fentanyl, Versed infusion, Nimbex infusion for neuromuscular blockade -continue to prone patient daily for 16-18 hours -continue bronchodilators and Pulmicort -11/08: Given his worsening chest x-ray and respiratory status, this could be bacterial pneumonia, patient also has leukocytosis, continue vancomycin and imipenem (11/08) (2) Pneumonia due to COVID-19 virus: Code(s): U07.1 - COVID-19; J12.82 - Pneumonia due to coronavirus disease 2019 Status: Acute Assessment and Plan: Patient was tested positive a week prior to admission on 10/27/2021, unvaccinated -completed dexamethasone and remdesivir -continue on baricitinib -will monitor inflammatory markers -continue droplet, airborne, contact isolation/precautions (3) Pulmonary embolism: Qualifiers: Pulmonary embolism type: unspecified Chronicity: unspecified Acute cor pulmonale presence: unspecified Qualified Code(s): I26.99 - Other pulmonary embolism without acute cor pulmonale Code(s): I26.99 - Other pulmonary embolism without acute cor pulmonale Status: Acute Assessment and Plan: Chest CTA on 10/29/2021: 1. New small filling defect right upper lobe segmental pulmonary artery, consistent with pulmonary embolism. Small thrombus burden. 2: Progression of extensive patchy bilateral airspace disease with worsening in the right lower lobe, compatible with pneumonia. -patient is on therapeutic Lovenox (4) Type 2 diabetes mellitus: Code(s): E11.9 - Type 2 diabetes mellitus without complications Status: Acute Assessment and Plan: Blood sugars have been stable, continue Accu-Cheks and sliding scale insulin -hemoglobin A1c this admission was 7.9 (5) Hypertension: Code(s): I10 - Essential (primary) hypertension Status: Acute Assessment and Plan: Patient initially was hypertensive but after intubation and being on sedation he dropped his blood pressures. Hypotension could also be related to AFib RVR -11/12/2021 patient was hypotensive requiring some IV fluid bolus, was started on Levophed -continue vancomycin and imipenem as above -leukocytosis improving -11/10: Sputum cultures negative -11/08 blood cultures x2 negative -11/08 urine culture negative (6) Atrial fibrillation with RVR: Code(s): I48.91 - Unspecified atrial fibrillation Status: Acute Assessment and Plan: AFib RVR, patient initially was in SVT with heart rates in the 200s, was given adenosine 6 mg IV x1 on 11/08/2021, no change was noted, patient was then given metoprolol 5 mg IV x1 and briefly slow down to the 150s 160s. -patient was started on amiodarone bolus and infusion because he dropped his blood pressures - continue amiodarone infusion at 0.5 mg/min. - Patient also on therapeutic Lovenox (7) Acute kidney injury: Code(s): N17.9 - Acute kidney failure, unspecified Status: Acute Assessment and Plan: patient with acute kidney injury, creatinine up to 1.3 from 0.7 (11/08) - likely due to hypotension, shock, infection, COVID pneumonia, hypoxia - patient did receive IV fluids - now on Levophed, will maintain mean arterial pressures greater than 70 mmHg for adequate renal perfusion - avoid nephrotoxic medications - monitor renal function, electrolytes and urine output -11/12: Creatinine went up to 1.40, will maintain adequate mean arterial pressures
[2021-11-12 17:07] LABS: Glucose Point of Care 197 mg/dl (65-105)
--- NOTE | 2021-11-12 17:08 | PCFNICU ---
ICU Rounding Note: Pt current nutrition is Nepro running at 60mL/hr over 22 hours. Last recorded weight is 167.1 kg. Bowel Motility: LBM 11/08/21, No new BM reported Labs Reviewed: hgb 11.1, hct 34.1, ferritin 675, Na 127, GFR 51, BUN 34, Cr 1.40, Glu 161 Meds Noted: albuterol, nexterone, vitamin c, nimbex, lovenox, lantus, atrovent, reglan, lopressor, protonix, vancomycin, vitamin D Skin: WNL Additional Notes: Pt remains on a mechanical vent and tube feeding of Nepro running at 60mL/hr over 22 hours has been held due to intolerance. Pt has been started on reglan (11/12/21). Recommend reinitiating tube feeding at 10mL/hr over 22 hours and increasing the rate by 10mL/hr every q 4 hours until a goal rate of 65mL/hr is met. Goal rate of Nepro will provide 2376kcal, 107g protein, and 960mL of water, meeting 86% of kcal needs and 69% of protein needs. Agree with diet order at this time. Will continue to follow. Following daily in ICU rounds. Will follow up daily in ICU rounds. Will monitor every T/F. .
[2021-11-12] MEDS: FENTANYL 2,500MCG/NS250ML(*CRX 2,500 MCG/250 ML BAG 10 MCG IV CONT (17:21)
[2021-11-12] MEDS: ATORVASTATIN 20 MG TABLET PO (20:25)
[2021-11-12] MEDS: MIDAZOLAM 100MG/NS 100ML(*CRX) 100 MG/100 ML BAG IV CONT (21:18)
[2021-11-13] VITALS (51 sets, daily range): BP systolic 83–120; BP diastolic 54–83; PULSE 60–100; RESP 17–33; TEMP 36.3–36.8; O2SAT 93–100
[2021-11-13 00:02] LABS: Glucose Point of Care 190 mg/dl (65-105)
[2021-11-13] MEDS: IPRATROPIUM BR 0.02% INH SOLN 0.5 MG/2.5 ML VIAL INHALATION ×4 (01:51→20:26)
[2021-11-13] MEDS: ALBUTEROL SULFATE NEB 2.5 MG/0.5 ML INH 5 MG INHALATION ×4 (01:51→20:26)
[2021-11-13] MEDS: CISATRACURIUM BESYLATE 200 MG in DEXTROSE 5% 80 ML 18.6 ML IV CONT ×2 (02:43→07:26)
[2021-11-13 05:21] LABS: Basophils Percent Auto 0.2 % (0.2-1.2); Eosinophils Absolute Auto 0.1 K/mm3 (0-0.3); Eosinophils Percent Auto 1.1 % (0-4.4); Hemoglobin 10.2 g/dL (14.0-18.0); Immature Granulocyte Absolute 0.12 K/mm3 (0.00-0.031); Lymphocytes Percent Auto 12.1 % (18.3-44.2); Mean Corpuscular HGB Conc 32.9 g/dl (32-36); Mean Corpuscular Hemoglobin 29.2 pg (26-34); Mean Corpuscular Volume 88.8 fl (80-100); Mean Platelet Volume 11.3 fl (7.4-10.4); Monocytes Absolute Auto 1.1 K/mm3 (0.1-0.6); Monocytes Percent Auto 9.1 % (2.6-8.5); Neutrophils Absolute Auto 8.9 K/mm3 (1.3-6.7); Neutrophils Percent Auto 76.5 % (45.5-73.1); Platelet Count Result 172 k/mm3 (150-375); Red Blood Count 3.49 M/mm3 (4.6-6.20); Red Cell Distribution Width 14.1 % (11.5-14.5); White Blood Count 11.6 K/mm3 (4.5-10.0)
[2021-11-13 05:32] LABS: D Dimer 0.64 ug/mL (<0.48)
[2021-11-13 05:35] LABS: Alanine Aminotransferase 19 U/L (4-50); Anion Gap 4 mmol/L (8-16); Aspartate Amino Transferase 26 U/L (17-59); Blood Urea Nitrogen 42 mg/dL (9-20); CRP 6.6 mg/dL (<1.0); Calcium 8.4 mg/dL (8.4-10.2); Carbon Dioxide 29 mmol/L (22-30); Chloride 95 mmol/L (98-107); Estimated CRCL calculation 73 ml/min; Estimated Glomerular Filt Rate 51; Glucose 140 mg/dL (65-110); Lactate Dehydrogenase 548 U/L (313-618); Magnesium 2.4 mg/dL (1.6-2.3); Phosphorus 2.8 mg/dL (2.5-4.5); Potassium 4.2 mmol/L (3.4-5.0); Sodium 128 mmol/L (137-145)
[2021-11-13 05:37] LABS: Alanine Aminotransferase 18 U/L (4-50); Aspartate Amino Transferase 24 U/L (17-59)
[2021-11-13 05:58] LABS: Vancomycin Trough 24.6 ug/mL (10.0-20.0)
[2021-11-13] MEDS: CENTRAL LINE FLUSH 10 ML IV PUSH ×3 (06:07→20:57)
[2021-11-13] MEDS: METOCLOPRAMIDE HCL INJ 10 MG/2 ML VIAL IV PUSH ×4 (06:07→23:27)
[2021-11-13 06:52] LABS: Alveolar/Arterial O2 Gradient 171.7 mmHg; Base Excess ABG 2.5 mEq/l (+/-2.0); Fractional Inspired Oxygen 40 %; HCO3 ABG 27.4 mEq/l (22.0-26.0); Oxygen Content ABG 15.9 %vol (16.0-22.0); Oxygen Saturation ABG 92.6 % (95.0-100.0); Oxyhemoglobin 92.3 % THb (90.0-100.0); PCO2 ABG 43.4 mmHg (35.0-45.0); PO2 ABG 63.6 mmHg (80.0-100.0); PO2 FiO2 Ratio Arterial Blood 1.59 %; Total Hemoglobin 12.2 g/dL (12.0-18.0); pH ABG 7.418 (7.350-7.450)
[2021-11-13 06:54] LABS: Arterial Blood Gas Vent Mode CMV; Arterial Blood Gas Ventilator rate 28 /MIN; Device VENTILATOR; Modified Allen's Test Pass; Site Drawn LEFT RADIAL
[2021-11-13 06:55] LABS: Arterial Blood Gas PEEP 12 cmH2O; Arterial Blood Gas Tidal Volume 480 ml
[2021-11-13 07:18] LABS: Glucose Point of Care 128 mg/dl (65-105)
[2021-11-13] MEDS: AMIODARONE 360 MG/D5W 200 ML 360 MG/200 ML BAG 16.67 MG IV CONT (07:29)
[2021-11-13] MEDS: ASCORBIC ACID 500 MG TABLET PO (07:31)
[2021-11-13] MEDS: ENOXAPARIN 100 MG/ML SYRINGE SUB-Q ×2 (07:31→20:52)
[2021-11-13] MEDS: CHOLECALCIFEROL 1,000 UNITS TABLET 1000 UNITS PO (07:31)
[2021-11-13] MEDS: PANTOPRAZOLE SODIUM IV 40 MG VIAL IV PUSH (07:32)
[2021-11-13] MEDS: ENOXAPARIN 30 MG/0.3 ML SYRINGE SUB-Q ×2 (07:32→20:52)
[2021-11-13] MEDS: MINERAL OIL/WHITE PETROLATUM OINTMENT 1 APPLIC EACH EYE ×2 (07:32→20:53)
[2021-11-13] MEDS: INSULIN GLARGINE (*BKC) 100 UNITS/ML 28 UNITS SUB-Q (08:10)
[2021-11-13 09:50] LABS: Creatine Kinase 118 U/L (55-170)
[2021-11-13 09:56] LABS: Potassium Urine Random 13.4 meq/L
[2021-11-13 09:57] LABS: Sodium Urine Random < 5 meq/L
[2021-11-13 10:23] LABS: Creatinine Urine 155.4 mg/dL
[2021-11-13] MEDS: PROPOFOL IV EMULSION 100 ML 14.99 MG IV CONT (10:39)
[2021-11-13] MEDS: BARICITINIB 2 MG TABLET PO (10:40)
[2021-11-13 10:52] LABS: Eosinophil Urine Rare % (None Seen)
[2021-11-13] MEDS: METOPROLOL TARTRATE 25 MG TABLET PO ×2 (10:57→20:53)
--- NOTE | 2021-11-13 11:57 | PM.CNNEP ---
Assessment and Plan Assessment and plan (1) Acute kidney injury: Code(s): N17.9 - Acute kidney failure, unspecified Status: Acute Assessment and Plan: Kane has acute kidney injury. His creatinine alaina from normal to 1.3 yesterday and to 1.4 today. Urine electrolytes are pre renal. CPK is normal most likely this is acute kidney injury due to pre renal azotemia. There may be a component of ATN from his shock and COVID-19 as well. Obstruction is always a possibility. If his creatinine rises again tomorrow we can get an ultrasound. Interstitial nephritis is a possibility because he has been in the hospital for a while. However he does not have any eosinophilia nor skin rash which makes this less likely. Glomerulonephritis would be unusual in this clinical scenario. Will check a urinalysis. Will discuss with Dr. Nguyen about possibly giving a little bit of IV fluid but his intake/ output has been positive for the last few days. (2) Shock: Code(s): R57.9 - Shock, unspecified Status: Acute Assessment and Plan: The patient has a reasonably good blood pressure right now. he is not on pressors. (3) Pulmonary embolism: Qualifiers: Pulmonary embolism type: unspecified Chronicity: unspecified Acute cor pulmonale presence: unspecified Qualified Code(s): I26.99 - Other pulmonary embolism without acute cor pulmonale Code(s): I26.99 - Other pulmonary embolism without acute cor pulmonale Status: Acute Assessment and Plan: He is on Lovenox (4) Pneumonia due to COVID-19 virus: Code(s): U07.1 - COVID-19; J12.82 - Pneumonia due to coronavirus disease 2019 Status: Acute Assessment and Plan: he is getting supportive care. FiO2 is at 40% with 10 of peep. (5) Hypertension: Code(s): I10 - Essential (primary) hypertension Status: Acute Assessment and Plan: Blood pressure is under good control. His antihypertensives are on hold of course. (6) Atrial fibrillation with RVR: Code(s): I48.91 - Unspecified atrial fibrillation Status: Acute Assessment and Plan: heart rate is under good control. (7) Type 2 diabetes mellitus: Code(s): E11.9 - Type 2 diabetes mellitus without complications Status: Acute Assessment and Plan: On Accu-Cheks and sliding-scale insulin History of Present Illness Reason for Consult Consult date: 11/13/21 Chief Complaint Chief complaint: Covid pneumonia/hypoxia History of Present Illness Narrative: Suly is an unfortunate 66-year-old gentleman who has multiple medical problems including hypertension, diabetes, pulmonary embolism earlier this year, hyperlipidemia, DVT earlier this year and BPH. He was going to get right shoulder surgery soon and for preoperative evaluation he had a COVID test about 1 week ago and this came back positive. He felt fine at the time and so just went home an isolated. However over the next few days he gradually became more and more short of breath and so came to the emergency room. His oxygenation was low so he was placed on non-rebreather at15L of oxygen. CT scan showed the pneumonia. He was admitted he was eventually transferred to the ICU. On November 08 he was intubated. For the COVID he was treated with Dexamethasone and rum does severe enough completed these courses. He continues on baricitinib. Over the last couple of days his creatinine alaina from the normal level to 1.3 yesterday to 1.4 today so renal consultation was requested the patient cannot give a history. He does not seem to have any past history of kidney disease. He has not had any urine studies at this hospital. Outpatient meds were reviewed and he was not on any Advil Aleve ibuprofen or Motrin and he has not had any nephrotoxic medications while here. Review of Systems Review of Systems: ROS unobtainable: Yes unobtain
[2021-11-13 12:15] LABS: Glucose Point of Care 125 mg/dl (65-105)
--- NOTE | 2021-11-13 12:46 | WPDINTPN ---
Progress Note: A&P Assessment and Plan (1) Acute respiratory failure with hypoxia: Code(s): J96.01 - Acute respiratory failure with hypoxia Status: Acute Assessment and Plan: Acute hypoxic respiratory failure likely related to COVID pneumonia, component of small PE also could be a factor -patient failed his BiPAP, was on 28/08 and 100% FiO2 with O2 sats in the mid to upper 80s. - intubated in the ICU on 11/08/2021 -currently on peep of 12 and 40% FiO2, will wean PEEP to 10 -chest x-ray and ABGs reviewed, -sedated with fentanyl, Versed infusion, Nimbex infusion for neuromuscular blockade, will start weaning Nimbex to off -continue bronchodilators and Pulmicort -11/08: Given his worsening chest x-ray and respiratory status, this could be bacterial pneumonia, patient also has leukocytosis, continue vancomycin and imipenem (11/08) for a total of 10 days (2) Shock: Code(s): R57.9 - Shock, unspecified Status: Acute Assessment and Plan: hypotension requiring IV fluids. Likely related to hypovolemia or septic shock - Patient started on Levophed, maintain mean arterial pressures greater than 70 mmHg for adequate end organ perfusion -11/08/2021 blood cultures negative x2, urine cultures negative -11/08/2021 sputum culture negative - continue vancomycin and cefepime as above (3) Pneumonia due to COVID-19 virus: Code(s): U07.1 - COVID-19; J12.82 - Pneumonia due to coronavirus disease 2019 Status: Acute Assessment and Plan: Patient was tested positive a week prior to admission on 10/27/2021, unvaccinated -completed dexamethasone and remdesivir -continue on baricitinib -renally dosed -will monitor inflammatory markers -continue droplet, airborne, contact isolation/precautions (4) Pulmonary embolism: Qualifiers: Pulmonary embolism type: unspecified Chronicity: unspecified Acute cor pulmonale presence: unspecified Qualified Code(s): I26.99 - Other pulmonary embolism without acute cor pulmonale Code(s): I26.99 - Other pulmonary embolism without acute cor pulmonale Status: Acute Assessment and Plan: Chest CTA on 10/29/2021: 1. New small filling defect right upper lobe segmental pulmonary artery, consistent with pulmonary embolism. Small thrombus burden. 2: Progression of extensive patchy bilateral airspace disease with worsening in the right lower lobe, compatible with pneumonia. -patient is on therapeutic Lovenox (5) Type 2 diabetes mellitus: Code(s): E11.9 - Type 2 diabetes mellitus without complications Status: Acute Assessment and Plan: Blood sugars have been stable, continue Accu-Cheks and sliding scale insulin -hemoglobin A1c this admission was 7.9 (6) Hypertension: Code(s): I10 - Essential (primary) hypertension Status: Acute Assessment and Plan: Patient initially was hypertensive but after intubation and being on sedation he dropped his blood pressures. Hypotension could also be related to AFib RVR -11/12/2021 patient was hypotensive requiring some IV fluid bolus, was started on Levophed -continue vancomycin and imipenem as above -leukocytosis improving -11/10: Sputum cultures negative -11/08 blood cultures x2 negative -11/08 urine culture negative (7) Atrial fibrillation with RVR: Code(s): I48.91 - Unspecified atrial fibrillation Status: Acute Assessment and Plan: AFib RVR, patient initially was in SVT with heart rates in the 200s, was given adenosine 6 mg IV x1 on 11/08/2021, no change was noted, patient was then given metoprolol 5 mg IV x1 and briefly slow down to the 150s 160s. -patient was started on amiodarone bolus and infusion because he dropped his blood pressures - continue amiodarone infusion at 0.5 mg/min. Will start amiodarone infusion 11/13 -continue metoprolol per tube - Patient also on therapeutic Lovenox (8) Acute kidney injury: Code(s): N17.9 - Acute kidney failure
--- NOTE | 2021-11-13 12:53 | PCFNICU ---
ICU Rounding Note: Pt current nutrition is Nepro running at 30mL/hr over 22 hours Last recorded weight is 166.5 kg. Bowel Motility: LBM 11/08/21, No new BM reported, Active bowel sounds, Recommend starting miralax Labs Reviewed: hgb 10.2, hct 31.0, Mg 2.4, Na 128, Ferritin 541, GFR 51, BUN 42, Cr 1.40, Glu 140 Meds Noted: albuterol, vitamin C, olumiant, lovenox, fentanyl, primimax, lantus, atrovent, reglan, lopressor, versed, protonix, propofol Skin: WNL Additional Notes: Pt remains on mechanical ventilation and tube feeding of Nepro running at 30mL/hr over 22 hours providing 1188kcal, 53g of protein, and 480mL of water. Propofol is currently running at 14.99mL/hr providing an additional 396kcal of lipids, total kcal provided is 1584kcal. Tube feeding was held this am (11/13/21) due to intolerance as evidenced by reported residuals of 120-700mL. Tube feeding has since been reinitiated and reglan was started 11/12/21. Recommend increasing tube feeding rate by 10mL/hr every q 4 hours as tolerated by pt until goal rate of 60mL/hr is met. Nepro running at goal rate of 60mL/hr over 22 hours will provided 2376kcal, 107g of protein, and 960mL of water, this will meet 89% of kcal needs and 69% of protein needs. If goal rate is reached and propofol continue to run at 14.99mL/hr, total kcal provided is 2772kcal, meeting 100% of kcal needs. Agree with diet order at this time. Following daily in ICU rounds. Will follow up daily in ICU rounds. Will monitor every T/F. .
[2021-11-13 13:39] LABS: Total Protein Urine Random 95 mg/dL; Ur Ttl Prot Creatinine Ratio 0.53 mg/mg (0-0.20)
[2021-11-13] MEDS: PROPOFOL IV EMULSION 100 ML 9.99 MG IV CONT (17:17)
[2021-11-13 17:25] LABS: Glucose Point of Care 90 mg/dl (65-105)
[2021-11-13] MEDS: BUDESONIDE RESPULE NEB 0.5 MG/2 ML AMP INHALATION (20:26)
[2021-11-13] MEDS: ATORVASTATIN 20 MG TABLET PO (20:53)
[2021-11-13] MEDS: FENTANYL 2,500MCG/NS250ML(*CRX 2,500 MCG/250 ML BAG 7.5 MCG IV CONT (20:54)
[2021-11-13 21:13] LABS: Glucose Point of Care 83 mg/dl (65-105)
[2021-11-14] VITALS (46 sets, daily range): BP systolic 83–120; BP diastolic 50–91; PULSE 71–104; RESP 20–35; TEMP 36.8–37.4; O2SAT 91–100
[2021-11-14] MEDS: IPRATROPIUM BR 0.02% INH SOLN 0.5 MG/2.5 ML VIAL INHALATION ×4 (02:12→20:00)
[2021-11-14] MEDS: ALBUTEROL SULFATE NEB 2.5 MG/0.5 ML INH 5 MG INHALATION ×4 (02:12→20:00)
[2021-11-14] MEDS: PROPOFOL IV EMULSION 100 ML 14.99 MG IV CONT (02:50)
[2021-11-14 03:45] LABS: Alveolar/Arterial O2 Gradient 184.1 mmHg; Base Excess ABG 2.8 mEq/l (+/-2.0); Fractional Inspired Oxygen 40 %; HCO3 ABG 27.6 mEq/l (22.0-26.0); PCO2 ABG 43.5 mmHg (35.0-45.0); PO2 ABG 51.1 mmHg (80.0-100.0); PO2 FiO2 Ratio Arterial Blood 1.28 %; Total Hemoglobin 9.9 g/dL (12.0-18.0); pH ABG 7.421 (7.350-7.450)
[2021-11-14 03:46] LABS: Oxygen Saturation ABG 86.8 % (95.0-100.0)
[2021-11-14 03:47] LABS: Arterial Blood Gas Ventilator rate 28 /MIN; Device VENTILATOR; Modified Allen's Test Pass; Oxyhemoglobin 86.4 % THb (90.0-100.0); Site Drawn LEFT RADIAL
[2021-11-14 03:48] LABS: Arterial Blood Gas PEEP 10 cmH2O; Arterial Blood Gas Tidal Volume 480 ml; Arterial Blood Gas Vent Mode CMV
[2021-11-14] MEDS: MIDAZOLAM 100MG/NS 100ML(*CRX) 100 MG/100 ML BAG 6 MG IV CONT (04:14)
[2021-11-14 04:19] LABS: Basophils Percent Auto 0.2 % (0.2-1.2); Eosinophils Absolute Auto 0.2 K/mm3 (0-0.3); Eosinophils Percent Auto 1.2 % (0-4.4); Hemoglobin 9.9 g/dL (14.0-18.0); Immature Granulocyte Percent A 1.6 % (0-0.5); Lymphocytes Absolute Auto 2.54 K/mm3 (0.9-3.2); Lymphocytes Percent Auto 19.8 % (18.3-44.2); Mean Corpuscular Hemoglobin 29.4 pg (26-34); Mean Platelet Volume 11.4 fl (7.4-10.4); Monocytes Absolute Auto 0.9 K/mm3 (0.1-0.6); Monocytes Percent Auto 6.8 % (2.6-8.5); Neutrophils Absolute Auto 9.1 K/mm3 (1.3-6.7); Neutrophils Percent Auto 70.4 % (45.5-73.1); Platelet Count Result 168 k/mm3 (150-375); Red Blood Count 3.37 M/mm3 (4.6-6.20); Red Cell Distribution Width 14.2 % (11.5-14.5); White Blood Count 12.9 K/mm3 (4.5-10.0)
[2021-11-14 04:36] LABS: Alanine Aminotransferase 20 U/L (4-50); Albumin Level 2.5 g/dL (3.5-5.1); Anion Gap 6 mmol/L (8-16); Aspartate Amino Transferase 38 U/L (17-59); Blood Urea Nitrogen 50 mg/dL (9-20); Calcium 8.2 mg/dL (8.4-10.2); Carbon Dioxide 27 mmol/L (22-30); Chloride 94 mmol/L (98-107); Estimated CRCL calculation 57 ml/min; Estimated Glomerular Filt Rate 38; Glucose 121 mg/dL (65-110); Magnesium 2.4 mg/dL (1.6-2.3); Potassium 3.9 mmol/L (3.4-5.0); Sodium 127 mmol/L (137-145)
[2021-11-14] MEDS: METOCLOPRAMIDE HCL INJ 10 MG/2 ML VIAL IV PUSH ×3 (05:59→18:08)
[2021-11-14] MEDS: CENTRAL LINE FLUSH 10 ML IV PUSH ×3 (05:59→20:54)
[2021-11-14] MEDS: BUDESONIDE RESPULE NEB 0.5 MG/2 ML AMP INHALATION ×2 (08:34→20:00)
[2021-11-14] MEDS: BARICITINIB 2 MG TABLET PO (08:53)
[2021-11-14] MEDS: ASCORBIC ACID 500 MG TABLET PO (08:53)
[2021-11-14] MEDS: FUROSEMIDE INJ 40 MG/4 ML VIAL IV PUSH (08:53)
[2021-11-14] MEDS: ENOXAPARIN 100 MG/ML SYRINGE SUB-Q ×2 (08:54→20:53)
[2021-11-14] MEDS: CHOLECALCIFEROL 1,000 UNITS TABLET 1000 UNITS PO (08:54)
[2021-11-14] MEDS: ENOXAPARIN 30 MG/0.3 ML SYRINGE SUB-Q ×2 (08:54→20:53)
[2021-11-14] MEDS: PANTOPRAZOLE SODIUM IV 40 MG VIAL IV PUSH (08:55)
[2021-11-14] MEDS: MINERAL OIL/WHITE PETROLATUM OINTMENT 1 APPLIC EACH EYE ×2 (08:55→20:54)
[2021-11-14 08:56] LABS: Glucose Point of Care 75 mg/dl (65-105)
[2021-11-14] MEDS: PROPOFOL IV EMULSION 100 ML 29.97 MG IV CONT (09:10)
--- NOTE | 2021-11-14 11:52 | PM.PNNEP ---
Progress Note: A&P Assessment and Plan (1) Acute kidney injury: Code(s): N17.9 - Acute kidney failure, unspecified Status: Acute Assessment and Plan: Kane has acute kidney injury. His creatinine alaina from normal to 1.4 to 1.8 today. Urine electrolytes are pre renal. CPK is normal Renal ultrasound is unremarkable. most likely this is acute kidney injury due to pre renal azotemia. There may be a component of ATN from his shock and COVID-19 as well. he is on 40% FiO2 and 10 of peep. Will try saline at 100cc per an hour for 1L. Discussed with Dr. Sourav fernandez (2) Shock: Code(s): R57.9 - Shock, unspecified Status: Acute Assessment and Plan: The patient has a reasonably good blood pressure right now. he is not on pressors. (3) Pulmonary embolism: Qualifiers: Pulmonary embolism type: unspecified Chronicity: unspecified Acute cor pulmonale presence: unspecified Qualified Code(s): I26.99 - Other pulmonary embolism without acute cor pulmonale Code(s): I26.99 - Other pulmonary embolism without acute cor pulmonale Status: Acute Assessment and Plan: He is on Lovenox (4) Pneumonia due to COVID-19 virus: Code(s): U07.1 - COVID-19; J12.82 - Pneumonia due to coronavirus disease 2019 Status: Acute Assessment and Plan: he is getting supportive care with ventilator, paralytics, bronchodilators, rotation , etc. he is on baricitinib. he received Dexamethasone and remdesivir FiO2 is at 40% with 10 of peep. (5) Hypertension: Code(s): I10 - Essential (primary) hypertension Status: Acute Assessment and Plan: Blood pressure is under good control. His antihypertensives are on hold. (6) Atrial fibrillation with RVR: Code(s): I48.91 - Unspecified atrial fibrillation Status: Acute Assessment and Plan: heart rate is under good control. (7) Type 2 diabetes mellitus: Code(s): E11.9 - Type 2 diabetes mellitus without complications Status: Acute Assessment and Plan: On Accu-Cheks and sliding-scale insulin Subjective Date/time seen: 11/14/21 11:52 Interval history: patient is About the same. Intubated, on the ventilator, on paralytics and antibiotics. Exam Narrative: WDWN in NAD skin no rash head ncat lungs Coarse bilaterally cor reg no rub abd BS+ nontender and soft ext no edema. Objective Data Vital Signs Vital Signs: Vital Signs - 24 hr 11/13/21 12:00 11/13/21 12:10 11/13/21 12:18 Temperature 36.3 C L Pulse Rate 68 67 80 Respiratory Rate 27 H 33 H Blood Pressure 106/83 Pulse Oximetry 100 100 11/13/21 12:19 11/13/21 13:05 11/13/21 13:11 Temperature Pulse Rate 80 64 73 Respiratory Rate 33 H 20 17 Blood Pressure Pulse Oximetry 11/13/21 13:58 11/13/21 14:00 11/13/21 14:15 Temperature Pulse Rate 69 68 68 Respiratory Rate 30 H Blood Pressure 98/64 L Pulse Oximetry 98 11/13/21 14:16 11/13/21 15:50 11/13/21 16:00 Temperature 36.7 C Pulse Rate 64 75 72 Respiratory Rate 29 H 30 H Blood Pressure 98/61 L Pulse Oximetry 97 94 98 11/13/21 16:20 11/13/21 17:17 11/13/21 18:00 Temperature Pulse Rate 78 74 72 Respiratory Rate 28 H 28 H Blood Pressure 89/60 L Pulse Oximetry 96 99 11/13/21 20:00 11/13/21 20:20 11/13/21 20:30 Temperature 36.6 C Pulse Rate 77 78 78 Respiratory Rate 28 H 30 H 30 H Blood Pressure 91/62 L Pulse Oximetry 96 96 11/13/21 20:32 11/13/21 20:53 11/13/21 20:54 Temperature Pulse Rate 85 85 85 Respiratory Rate 28 H 28 H Blood Pressure Pulse Oximetry 11/13/21 22:00 11/13/21 23:35 11/14/21 00:00 Temperature 36.9 C Pulse Rate 80 80 73 Respiratory Rate 28 H 28 H Blood Pressure 90/54 L 90/64 L Pulse Oximetry 96 96 98 11/14/21 02:00 11/14/21 02:16 11/14/21 02:25 Temperature Pulse Rate 90 94 85 Respira
[2021-11-14 12:09] LABS: Glucose Point of Care 99 mg/dl (65-105)
--- NOTE | 2021-11-14 12:15 | WPDINTPN ---
Progress Note: A&P Assessment and Plan (1) Acute respiratory failure with hypoxia: Code(s): J96.01 - Acute respiratory failure with hypoxia Status: Acute Assessment and Plan: Acute hypoxic respiratory failure likely related to COVID pneumonia, component of small PE also could be a factor -patient failed his BiPAP, was on 28/08 and 100% FiO2 with O2 sats in the mid to upper 80s. - intubated in the ICU on 11/08/2021 -currently on peep of 10 and 40% FiO2, will wean PEEP to 10 -chest x-ray and ABGs reviewed, -sedated with fentanyl, Versed infusion, Nimbex infusion for neuromuscular blockade, will start weaning Nimbex to off -continue bronchodilators and Pulmicort -11/08: Given his worsening chest x-ray and respiratory status, this could be bacterial pneumonia, patient also has leukocytosis, continue vancomycin and imipenem (11/08) for a total of 7 days (2) Shock: Code(s): R57.9 - Shock, unspecified Status: Acute Assessment and Plan: hypotension requiring IV fluids. Likely related to hypovolemia or septic shock -off Levophed, but may have to go back on blood pressures are borderline -11/08/2021 blood cultures negative x2, urine cultures negative -11/08/2021 sputum culture negative - continue vancomycin and cefepime as above (3) Pneumonia due to COVID-19 virus: Code(s): U07.1 - COVID-19; J12.82 - Pneumonia due to coronavirus disease 2019 Status: Acute Assessment and Plan: Patient was tested positive a week prior to admission on 10/27/2021, unvaccinated -completed dexamethasone and remdesivir -continue on baricitinib -renally dosed -will monitor inflammatory markers -continue droplet, airborne, contact isolation/precautions -continue vitamin-C and vitamin-D (4) Pulmonary embolism: Qualifiers: Acute cor pulmonale presence: unspecified Chronicity: unspecified Pulmonary embolism type: unspecified Qualified Code(s): I26.99 - Other pulmonary embolism without acute cor pulmonale Code(s): I26.99 - Other pulmonary embolism without acute cor pulmonale Status: Acute Assessment and Plan: Chest CTA on 10/29/2021: 1. New small filling defect right upper lobe segmental pulmonary artery, consistent with pulmonary embolism. Small thrombus burden. 2: Progression of extensive patchy bilateral airspace disease with worsening in the right lower lobe, compatible with pneumonia. -patient is on therapeutic Lovenox (5) Type 2 diabetes mellitus: Code(s): E11.9 - Type 2 diabetes mellitus without complications Status: Acute Assessment and Plan: Blood sugars have been stable, continue Accu-Cheks and sliding scale insulin -hemoglobin A1c this admission was 7.9 (6) Hypertension: Code(s): I10 - Essential (primary) hypertension Status: Acute Assessment and Plan: Patient initially was hypertensive but after intubation and being on sedation he dropped his blood pressures. Hypotension could also be related to AFib RVR -11/12/2021 patient was hypotensive requiring some IV fluid bolus, was started on Levophed -continue vancomycin and imipenem as above -leukocytosis improving -11/10: Sputum cultures negative -11/08 blood cultures x2 negative -11/08 urine culture negative (7) Atrial fibrillation with RVR: Code(s): I48.91 - Unspecified atrial fibrillation Status: Acute Assessment and Plan: AFib RVR, patient initially was in SVT with heart rates in the 200s, was given adenosine 6 mg IV x1 on 11/08/2021, no change was noted, patient was then given metoprolol 5 mg IV x1 and briefly slow down to the 150s 160s. - OFF amiodarone infusion -continue metoprolol per tube - Patient also on therapeutic Lovenox (8) Acute kidney injury: Code(s): N17.9 - Acute kidney failure, unspecified Status: Acute Assessment and Plan: patient with acute kidney injury, creatinine up to 1.3 from 0.7 (11/08) - likely due to hypoten
[2021-11-14] MEDS: PROPOFOL IV EMULSION 100 ML 24.98 MG IV CONT ×3 (12:37→22:52)
[2021-11-14] MEDS: MIDAZOLAM 100MG/NS 100ML(*CRX) 100 MG/100 ML BAG 10 MG IV CONT (14:15)
--- NOTE | 2021-11-14 15:20 | PCNFU ---
Nutrition Follow-Up Complete: Inadequate oral intake related to covid 19 and resipratory failure as evidenced by poor intake Goal: Meet nutritional needs Pt is progressing towards goal Pt current nutrition is Nepro running at 50mL/hr over 22 hours Last recorded weight is 166.5 kg, down from 167.1kg reported 11/12/21. Bowel Motility: +BM 11/14 Labs Reviewed: hgb 9.9, hct 30.0, alb 2.5, Na 127, Cl 94, GFR 38, BUN 50, Cr 1.8, Glu 121, Ca 8.2, Mg 2.4 Meds Noted: albuterol, vitamin C, olumiant, budesonide, lovenox, fentanyl, primaxin, atrovent, reglan, versed, protonix, propofol, vacomycin, vitamin D Skin: WNL Additional Notes: Pt remains on mechanical ventilation and tube feeding of Nepro running at 50mL/hr over 22 hours providing 1980kcal, 89g of protein, and 800mL of water, meeting 57% of protein needs. Propofol is currently running at 24.98ml/hr providing an additional 659kcal of lipids. Total kcal provided is 2639kcal, meeting 96% of kcal needs. Tube feeding goal rate is 60mL/hr and will provide 2376kcal, 107g of protein, and 640mL of water. Agree with diet order at this time. Will continue to follow. Will follow up daily in ICU rounds. Will monitor every T/F.
[2021-11-14] MEDS: FENTANYL 2,500MCG/NS250ML(*CRX 2,500 MCG/250 ML BAG 17.5 MCG IV CONT (16:10)
[2021-11-14 17:57] LABS: Glucose Point of Care 109 mg/dl (65-105)
[2021-11-14] MEDS: ATORVASTATIN 20 MG TABLET PO (20:53)
[2021-11-14] MEDS: METOPROLOL TARTRATE 25 MG TABLET PO (20:54)
[2021-11-15] VITALS (40 sets, daily range): BP systolic 85–115; BP diastolic 52–84; PULSE 62–88; RESP 28–31; TEMP 36.2–36.6; O2SAT 91–100
[2021-11-15] MEDS: METOCLOPRAMIDE HCL INJ 10 MG/2 ML VIAL IV PUSH ×5 (00:51→23:25)
[2021-11-15] MEDS: NOREPINEPHRINE 8 MG/D5W 250 ML 8 MG/250 ML BAG 3.75 MG IV CONT (01:03)
[2021-11-15 01:13] LABS: Glucose Point of Care 103 mg/dl (65-105)
[2021-11-15] MEDS: MIDAZOLAM 100MG/NS 100ML(*CRX) 100 MG/100 ML BAG 9 MG IV CONT (01:33)
[2021-11-15] MEDS: PROPOFOL IV EMULSION 100 ML 24.98 MG IV CONT ×3 (01:37→08:58)
[2021-11-15] MEDS: ALBUTEROL SULFATE NEB 2.5 MG/0.5 ML INH 5 MG INHALATION ×4 (03:15→20:43)
[2021-11-15] MEDS: IPRATROPIUM BR 0.02% INH SOLN 0.5 MG/2.5 ML VIAL INHALATION ×4 (03:15→20:43)
[2021-11-15] MEDS: CENTRAL LINE FLUSH 10 ML IV PUSH ×3 (05:40→22:45)
[2021-11-15] MEDS: FENTANYL 2,500MCG/NS250ML(*CRX 2,500 MCG/250 ML BAG 17.5 MCG IV CONT ×2 (05:43→19:49)
[2021-11-15 05:57] LABS: Basophils Percent Auto 0.2 % (0.2-1.2); Eosinophils Absolute Auto 0.3 K/mm3 (0-0.3); Eosinophils Percent Auto 2.1 % (0-4.4); Hematocrit 28.3 % (42.0-52.0); Hemoglobin 9.2 g/dL (14.0-18.0); Immature Granulocyte Absolute 0.22 K/mm3 (0.00-0.031); Immature Granulocyte Percent A 1.7 % (0-0.5); Lymphocytes Percent Auto 18.9 % (18.3-44.2); Mean Corpuscular HGB Conc 32.5 g/dl (32-36); Mean Corpuscular Hemoglobin 29.2 pg (26-34); Mean Corpuscular Volume 89.8 fl (80-100); Monocytes Absolute Auto 0.8 K/mm3 (0.1-0.6); Monocytes Percent Auto 6.2 % (2.6-8.5); Neutrophils Absolute Auto 9.4 K/mm3 (1.3-6.7); Neutrophils Percent Auto 70.9 % (45.5-73.1); Platelet Count Result 154 k/mm3 (150-375); Red Blood Count 3.15 M/mm3 (4.6-6.20); Red Cell Distribution Width 14.5 % (11.5-14.5); White Blood Count 13.2 K/mm3 (4.5-10.0)
[2021-11-15 06:10] LABS: D Dimer 1.26 ug/mL (<0.48)
[2021-11-15 06:30] LABS: Alanine Aminotransferase 25 U/L (4-50); Anion Gap 4 mmol/L (8-16); Aspartate Amino Transferase 65 U/L (17-59); Blood Urea Nitrogen 58 mg/dL (9-20); CRP 21.8 mg/dL (<1.0); Calcium 8.4 mg/dL (8.4-10.2); Carbon Dioxide 27 mmol/L (22-30); Chloride 96 mmol/L (98-107); Estimated CRCL calculation 52 ml/min; Estimated Glomerular Filt Rate 33; Glucose 129 mg/dL (65-110); Lactate Dehydrogenase 846 U/L (313-618); Magnesium 2.6 mg/dL (1.6-2.3); Potassium 4.4 mmol/L (3.4-5.0); Sodium 127 mmol/L (137-145)
[2021-11-15 06:43] LABS: Alveolar/Arterial O2 Gradient 277.1 mmHg; Base Excess ABG -0.5 mEq/l (+/-2.0); Fractional Inspired Oxygen 55 %; HCO3 ABG 24.8 mEq/l (22.0-26.0); Oxygen Content ABG 12.7 %vol (16.0-22.0); Oxygen Saturation ABG 92.8 % (95.0-100.0); PCO2 ABG 43.4 mmHg (35.0-45.0); PO2 ABG 66.8 mmHg (80.0-100.0); PO2 FiO2 Ratio Arterial Blood 1.21 %; Total Hemoglobin 9.9 g/dL (12.0-18.0); pH ABG 7.375 (7.350-7.450)
[2021-11-15 06:44] LABS: Device VENTILATOR; Modified Allen's Test Pass; Site Drawn LEFT RADIAL
[2021-11-15 06:45] LABS: Arterial Blood Gas PEEP 10 cmH2O; Arterial Blood Gas Tidal Volume 480 ml; Arterial Blood Gas Vent Mode CMV; Arterial Blood Gas Ventilator rate 28 /MIN
[2021-11-15] MEDS: BUDESONIDE RESPULE NEB 0.5 MG/2 ML AMP INHALATION (08:53)
[2021-11-15] MEDS: CHOLECALCIFEROL 1,000 UNITS TABLET 1000 UNITS PO (08:56)
[2021-11-15] MEDS: ASCORBIC ACID 500 MG TABLET PO (08:56)
[2021-11-15] MEDS: BARICITINIB 2 MG TABLET PO (08:56)
[2021-11-15] MEDS: ENOXAPARIN 100 MG/ML SYRINGE SUB-Q ×2 (08:57→19:50)
[2021-11-15] MEDS: MINERAL OIL/WHITE PETROLATUM OINTMENT 1 APPLIC EACH EYE ×2 (08:57→19:50)
[2021-11-15] MEDS: ENOXAPARIN 30 MG/0.3 ML SYRINGE SUB-Q ×2 (08:57→19:50)
[2021-11-15] MEDS: PANTOPRAZOLE SODIUM IV 40 MG VIAL IV PUSH (08:57)
[2021-11-15] MEDS: LACTATED RINGERS 1,000 ML 100 ML IV CONT (10:46)
--- NOTE | 2021-11-15 11:12 | PM.PNNEP ---
Progress Note: A&P Assessment and Plan (1) Acute kidney injury: Code(s): N17.9 - Acute kidney failure, unspecified Status: Acute Assessment and Plan: Kane has acute kidney injury. His creatinine alaina from normal to 1.4 to 1.8 today. Urine electrolytes are pre renal. CPK is normal Renal ultrasound is unremarkable. most likely this is acute kidney injury due to multiple factors including pre renal azotemia, ATN from his shock and COVID-19. he is on 55% FiO2 and 10 of peep. He received saline yesterday. Intake/output is positive Blood pressure is a bit soft and I agree with norepinephrine to keep blood pressure up a little bit more. Perhaps this is why his urine sodium was low. Will check a cortisol level as well. He is getting fluids from his obligate medications plus also from his tube feedings. (2) Shock: Code(s): R57.9 - Shock, unspecified Status: Acute Assessment and Plan: The patient has a reasonably good blood pressure right now as he is back on low-dose pressors. (3) Pulmonary embolism: Qualifiers: Pulmonary embolism type: unspecified Chronicity: unspecified Acute cor pulmonale presence: unspecified Qualified Code(s): I26.99 - Other pulmonary embolism without acute cor pulmonale Code(s): I26.99 - Other pulmonary embolism without acute cor pulmonale Status: Acute Assessment and Plan: He is on Lovenox (4) Pneumonia due to COVID-19 virus: Code(s): U07.1 - COVID-19; J12.82 - Pneumonia due to coronavirus disease 2019 Status: Acute Assessment and Plan: he is getting supportive care with ventilator, paralytics, bronchodilators, rotation , etc. he is on baricitinib. he received Dexamethasone and remdesivir FiO2 is at 40% with 10 of peep. (5) Hypertension: Code(s): I10 - Essential (primary) hypertension Status: Acute Assessment and Plan: With soft blood pressure, His antihypertensives are on hold. (6) Atrial fibrillation with RVR: Code(s): I48.91 - Unspecified atrial fibrillation Status: Acute Assessment and Plan: heart rate is under good control. (7) Type 2 diabetes mellitus: Code(s): E11.9 - Type 2 diabetes mellitus without complications Status: Acute Assessment and Plan: On Accu-Cheks and sliding-scale insulin Subjective Date/time seen: 11/15/21 11:12 Interval history: patient is still on the ventilator. Blood pressures were soft overnight so placed on norepinephrine and is doing better. Intubated, on the ventilator, on paralytics and antibiotics. Exam Narrative: WDWN male intubated and in the ICU in [facility] skin no rash head ncat lungs Coarse bilaterally cor reg no rub or gallop abd BS+ nontender and soft ext no edema. Objective Data Vital Signs Vital Signs: Vital Signs - 24 hr 11/14/21 12:00 11/14/21 12:25 11/14/21 12:31 Temperature 37.2 C Pulse Rate 80 74 79 Respiratory Rate 28 H 28 H Blood Pressure 83/57 L Pulse Oximetry 100 95 11/14/21 12:37 11/14/21 14:00 11/14/21 14:02 Temperature Pulse Rate 79 95 89 Respiratory Rate 28 H 20 32 H Blood Pressure 93/58 L Pulse Oximetry 94 11/14/21 14:05 11/14/21 14:09 11/14/21 14:15 Temperature Pulse Rate 89 94 95 Respiratory Rate 35 H 28 H Blood Pressure Pulse Oximetry 97 11/14/21 16:00 11/14/21 16:10 11/14/21 16:38 Temperature 37.4 C Pulse Rate 87 95 82 Respiratory Rate 28 H 28 H 28 H Blood Pressure 111/91 H Pulse Oximetry 95 11/14/21 17:27 11/14/21 18:00 11/14/21 18:51 Temperature Pulse Rate 78 78 82 Respiratory Rate 28 H 28 H Blood Pressure 101/61 Pulse Oximetry 99 96 11/14/21 20:00 11/14/21 20:15 11/14/21 20:46 Temperature 36.8 C Pulse Rate 75 71 75 Respiratory Rate 29 H 29 H 28 H Blood Pressure 84/59 L Pulse Oximetry 95 11/14/21 20:54 11/14/21 22:00 11/15/21 00:00 Temp
[2021-11-15] MEDS: PROPOFOL IV EMULSION 100 ML 29.97 MG IV CONT ×4 (12:08→22:26)
[2021-11-15 12:26] LABS: Glucose Point of Care 130 mg/dl (65-105)
--- NOTE | 2021-11-15 12:44 | WPDINTPN ---
Progress Note: A&P Assessment and Plan (1) Acute respiratory failure with hypoxia: Code(s): J96.01 - Acute respiratory failure with hypoxia Status: Acute Assessment and Plan: Acute hypoxic respiratory failure likely related to COVID pneumonia, component of small PE also could be a factor -patient failed his BiPAP, was on 28/08 and 100% FiO2 with O2 sats in the mid to upper 80s. - intubated in the ICU on 11/08/2021 -currently on peep of 10 and 55% FiO2, -chest x-ray and ABGs reviewed, -sedated with fentanyl, Versed infusion, Nimbex infusion for neuromuscular blockade, patient has been off Nimbex since 11/13 -continue bronchodilators and Pulmicort (2) Shock: Code(s): R57.9 - Shock, unspecified Status: Acute Assessment and Plan: hypotension requiring IV fluids. Likely related to hypovolemia or septic shock -11/14: Restarted Levophed as blood pressures are low. Will maintain mean arterial pressures > 70 mmHg full adequate renal and end organ perfusion -11/08/2021 blood cultures negative x2, urine cultures negative -11/08/2021 sputum culture negative -status post 7 days of vancomycin and cefepime (stopped on 11/15/2021) (3) Pneumonia due to COVID-19 virus: Code(s): U07.1 - COVID-19; J12.82 - Pneumonia due to coronavirus disease 2019 Status: Acute Assessment and Plan: Patient was tested positive a week prior to admission on 10/27/2021, unvaccinated -completed dexamethasone and remdesivir -continue on baricitinib -renally dosed -will monitor inflammatory markers -continue droplet, airborne, contact isolation/precautions -continue vitamin-C and vitamin-D (4) Pulmonary embolism: Qualifiers: Pulmonary embolism type: unspecified Chronicity: unspecified Acute cor pulmonale presence: unspecified Qualified Code(s): I26.99 - Other pulmonary embolism without acute cor pulmonale Code(s): I26.99 - Other pulmonary embolism without acute cor pulmonale Status: Acute Assessment and Plan: Chest CTA on 10/29/2021: 1. New small filling defect right upper lobe segmental pulmonary artery, consistent with pulmonary embolism. Small thrombus burden. 2: Progression of extensive patchy bilateral airspace disease with worsening in the right lower lobe, compatible with pneumonia. -patient is on therapeutic Lovenox (5) Type 2 diabetes mellitus: Code(s): E11.9 - Type 2 diabetes mellitus without complications Status: Acute Assessment and Plan: Blood sugars have been stable, continue Accu-Cheks and sliding scale insulin -hemoglobin A1c this admission was 7.9 (6) Hypertension: Code(s): I10 - Essential (primary) hypertension Status: Acute Assessment and Plan: Patient initially was hypertensive but after intubation and being on sedation he dropped his blood pressures. Hypotension could also be related to AFib RVR -11/12/2021 patient was hypotensive requiring some IV fluid bolus, was started on Levophed -continue vancomycin and imipenem as above -leukocytosis improving -11/10: Sputum cultures negative -11/08 blood cultures x2 negative -11/08 urine culture negative (7) Atrial fibrillation with RVR: Code(s): I48.91 - Unspecified atrial fibrillation Status: Acute Assessment and Plan: AFib RVR, patient initially was in SVT with heart rates in the 200s, was given adenosine 6 mg IV x1 on 11/08/2021, no change was noted, patient was then given metoprolol 5 mg IV x1 and briefly slow down to the 150s 160s. - OFF amiodarone infusion -continue metoprolol per tube - Patient also on therapeutic Lovenox (8) Acute kidney injury: Code(s): N17.9 - Acute kidney failure, unspecified Status: Acute Assessment and Plan: patient with acute kidney injury, creatinine up to 1.3 from 0.7 (11/08) - likely due to hypotension, shock, infection, COVID pneumonia, hypoxia - patient did receive IV fluids - now on Levophed, wi
[2021-11-15 13:33] LABS: Cortisol Random 5.54 ug/dL
[2021-11-15] MEDS: MIDAZOLAM 100MG/NS 100ML(*CRX) 100 MG/100 ML BAG 10 MG IV CONT ×2 (14:04→23:25)
[2021-11-15 18:27] LABS: Glucose Point of Care 161 mg/dl (65-105)
[2021-11-15] MEDS: ATORVASTATIN 20 MG TABLET PO (19:51)
[2021-11-15] MEDS: METOPROLOL TARTRATE 25 MG TABLET PO (19:51)
[2021-11-16] VITALS (39 sets, daily range): BP systolic 96–127; BP diastolic 46–77; PULSE 58–88; RESP 22–32; TEMP 35.5–36.1; O2SAT 93–99
[2021-11-16 00:27] LABS: Glucose Point of Care 163 mg/dl (65-105)
[2021-11-16] MEDS: PROPOFOL IV EMULSION 100 ML 29.97 MG IV CONT ×7 (01:47→21:16)
[2021-11-16] MEDS: ALBUTEROL SULFATE NEB 2.5 MG/0.5 ML INH 5 MG INHALATION ×4 (03:25→20:26)
[2021-11-16] MEDS: IPRATROPIUM BR 0.02% INH SOLN 0.5 MG/2.5 ML VIAL INHALATION ×4 (03:26→20:26)
[2021-11-16 03:41] LABS: Basophils Percent Auto 0.2 % (0.2-1.2); Eosinophils Absolute Auto 0.4 K/mm3 (0-0.3); Eosinophils Percent Auto 3.9 % (0-4.4); Hematocrit 25.9 % (42.0-52.0); Hemoglobin 8.5 g/dL (14.0-18.0); Immature Granulocyte Absolute 0.26 K/mm3 (0.00-0.031); Immature Granulocyte Percent A 2.9 % (0-0.5); Lymphocytes Absolute Auto 1.56 K/mm3 (0.9-3.2); Lymphocytes Percent Auto 17.4 % (18.3-44.2); Mean Corpuscular HGB Conc 32.8 g/dl (32-36); Mean Corpuscular Hemoglobin 29.5 pg (26-34); Mean Corpuscular Volume 89.9 fl (80-100); Mean Platelet Volume 10.8 fl (7.4-10.4); Monocytes Absolute Auto 0.7 K/mm3 (0.1-0.6); Monocytes Percent Auto 7.5 % (2.6-8.5); Neutrophils Absolute Auto 6.1 K/mm3 (1.3-6.7); Neutrophils Percent Auto 68.1 % (45.5-73.1); Platelet Count Result 152 k/mm3 (150-375); Red Blood Count 2.88 M/mm3 (4.6-6.20); Red Cell Distribution Width 14.5 % (11.5-14.5)
[2021-11-16 03:53] LABS: Alanine Aminotransferase 25 U/L (4-50); Albumin Level 2.6 g/dL (3.5-5.1); Anion Gap 7 mmol/L (8-16); Aspartate Amino Transferase 60 U/L (17-59); Blood Urea Nitrogen 53 mg/dL (9-20); Calcium 8.4 mg/dL (8.4-10.2); Carbon Dioxide 26 mmol/L (22-30); Chloride 98 mmol/L (98-107); Estimated CRCL calculation 58 ml/min; Estimated Glomerular Filt Rate 38; Glucose 158 mg/dL (65-110); Magnesium 2.6 mg/dL (1.6-2.3); Potassium 4.1 mmol/L (3.4-5.0); Sodium 131 mmol/L (137-145)
[2021-11-16 05:23] LABS: pH ABG 7.329 (7.350-7.450)
[2021-11-16 05:24] LABS: Oxygen Content ABG 11.9 %vol (16.0-22.0)
[2021-11-16 05:25] LABS: Device VENTILATOR; Fractional Inspired Oxygen 50 %; Modified Allen's Test Pass; Site Drawn RIGHT RADIAL
[2021-11-16 05:27] LABS: Arterial Blood Gas PEEP 10 cmH2O; Arterial Blood Gas Vent Mode CMV; Arterial Blood Gas Ventilator rate 28 /MIN
[2021-11-16 05:28] LABS: Arterial Blood Gas Tidal Volume 480 ml
[2021-11-16] MEDS: METOCLOPRAMIDE HCL INJ 10 MG/2 ML VIAL IV PUSH ×3 (06:25→17:40)
[2021-11-16] MEDS: CENTRAL LINE FLUSH 10 ML IV PUSH ×3 (06:25→21:16)
[2021-11-16] MEDS: ENOXAPARIN 30 MG/0.3 ML SYRINGE SUB-Q ×2 (08:41→21:16)
[2021-11-16] MEDS: MINERAL OIL/WHITE PETROLATUM OINTMENT 1 APPLIC EACH EYE ×2 (08:41→21:16)
[2021-11-16] MEDS: ENOXAPARIN 100 MG/ML SYRINGE SUB-Q ×2 (08:41→21:15)
[2021-11-16] MEDS: PANTOPRAZOLE SODIUM IV 40 MG VIAL IV PUSH (08:41)
[2021-11-16] MEDS: CHOLECALCIFEROL 1,000 UNITS TABLET 1000 UNITS PO (08:42)
[2021-11-16] MEDS: ASCORBIC ACID 500 MG TABLET PO (08:42)
[2021-11-16] MEDS: BARICITINIB 2 MG TABLET PO (08:42)
[2021-11-16] MEDS: METOPROLOL TARTRATE 25 MG TABLET PO ×2 (08:42→21:15)
[2021-11-16] MEDS: FENTANYL 2,500MCG/NS250ML(*CRX 2,500 MCG/250 ML BAG 12.5 MCG IV CONT (09:05)
[2021-11-16] MEDS: MIDAZOLAM 100MG/NS 100ML(*CRX) 100 MG/100 ML BAG 8 MG IV CONT (09:07)
--- NOTE | 2021-11-16 09:37 | WPDINTPN ---
Progress Note: A&P Assessment and Plan (1) Acute respiratory failure with hypoxia: Code(s): J96.01 - Acute respiratory failure with hypoxia Status: Acute Assessment and Plan: Acute hypoxic respiratory failure likely related to COVID pneumonia, component of small PE also could be a factor -patient failed his BiPAP, was on 28/08 and 100% FiO2 with O2 sats in the mid to upper 80s. - intubated in the ICU on 11/08/2021 -currently on peep of 10 and 50% FiO2, will wean FiO2 to maintain O2 sats greater than 92% -chest x-ray and ABGs reviewed, -sedated with propofol fentanyl, Versed infusion, start weaning sedation, will start Precedex and keep propofol. Will discontinue fentanyl and Versed infusion -patient has been off Nimbex since 11/13 -continue bronchodilators and Pulmicort (2) Shock: Code(s): R57.9 - Shock, unspecified Status: Acute Assessment and Plan: hypotension requiring IV fluids. Likely related to hypovolemia or septic shock -11/14: Restarted Levophed as blood pressures are low. Will maintain mean arterial pressures > 70 mmHg full adequate renal and end organ perfusion -11/08/2021 blood cultures negative x2, urine cultures negative -11/10/2021 sputum culture negative -status post 7 days of vancomycin and cefepime (stopped on 11/15/2021) -leukocytosis improving - (3) Pneumonia due to COVID-19 virus: Code(s): U07.1 - COVID-19; J12.82 - Pneumonia due to coronavirus disease 2019 Status: Acute Assessment and Plan: Patient was tested positive a week prior to admission on 10/27/2021, unvaccinated -completed dexamethasone and remdesivir -continue on baricitinib -renally dosed -will monitor inflammatory markers -continue droplet, airborne, contact isolation/precautions -continue vitamin-C and vitamin-D (4) Pulmonary embolism: Qualifiers: Pulmonary embolism type: unspecified Chronicity: unspecified Acute cor pulmonale presence: unspecified Qualified Code(s): I26.99 - Other pulmonary embolism without acute cor pulmonale Code(s): I26.99 - Other pulmonary embolism without acute cor pulmonale Status: Acute Assessment and Plan: Chest CTA on 10/29/2021: 1. New small filling defect right upper lobe segmental pulmonary artery, consistent with pulmonary embolism. Small thrombus burden. 2: Progression of extensive patchy bilateral airspace disease with worsening in the right lower lobe, compatible with pneumonia. -patient is on therapeutic Lovenox (5) Type 2 diabetes mellitus: Code(s): E11.9 - Type 2 diabetes mellitus without complications Status: Acute Assessment and Plan: Blood sugars have been stable, continue Accu-Cheks and sliding scale insulin -hemoglobin A1c this admission was 7.9 (6) Hypertension: Code(s): I10 - Essential (primary) hypertension Status: Acute Assessment and Plan: Patient initially was hypertensive but after intubation and being on sedation he dropped his blood pressures. Hypotension could also be related to AFib RVR -11/12/2021 patient was hypotensive requiring some IV fluid bolus, was started on Levophed -hold all antihypertensives (7) Atrial fibrillation with RVR: Code(s): I48.91 - Unspecified atrial fibrillation Status: Acute Assessment and Plan: AFib RVR, patient initially was in SVT with heart rates in the 200s, was given adenosine 6 mg IV x1 on 11/08/2021, no change was noted, patient was then given metoprolol 5 mg IV x1 and briefly slow down to the 150s 160s. - OFF amiodarone infusion -continue metoprolol per tube - Patient also on therapeutic Lovenox -currently in AFib, rate controlled (8) Acute kidney injury: Code(s): N17.9 - Acute kidney failure, unspecified Status: Acute Assessment and Plan: patient with acute kidney injury, creatinine up to 1.3 from 0.7 (11/08) - likely due to hypotension, shock, infection, COVID pneumonia, hypoxi
--- NOTE | 2021-11-16 10:59 | PM.PNNEP ---
Progress Note: A&P Assessment and Plan (1) Acute kidney injury: Code(s): N17.9 - Acute kidney failure, unspecified Status: Acute Assessment and Plan: Kane has acute kidney injury. His creatinine alaina from normal to 1.4 to 1.8 then peaked at 2.0 now 1.8. Flea this is a trend in a good direction. Urine electrolytes are pre renal. CPK is normal Renal ultrasound is unremarkable. most likely this is acute kidney injury due to multiple factors including pre renal azotemia, ATN from his shock and COVID-19. he is on 55% FiO2 and 10 of peep. He received 1L of LR yesterday. He is also on norepi to keep his MAP above 70. Creatinine came down without a compromise in his respiratory status. Hopefully this will continue to improve. (2) Shock: Code(s): R57.9 - Shock, unspecified Status: Acute Assessment and Plan: The patient has a reasonably good blood pressure right now as he is back on low-dose pressors. Cortisol level is low. He is not on dexamethasone. Will check a Cortrosyn stim (3) Pulmonary embolism: Qualifiers: Pulmonary embolism type: unspecified Chronicity: unspecified Acute cor pulmonale presence: unspecified Qualified Code(s): I26.99 - Other pulmonary embolism without acute cor pulmonale Code(s): I26.99 - Other pulmonary embolism without acute cor pulmonale Status: Acute Assessment and Plan: He is on Lovenox (4) Pneumonia due to COVID-19 virus: Code(s): U07.1 - COVID-19; J12.82 - Pneumonia due to coronavirus disease 2019 Status: Acute Assessment and Plan: he is getting supportive care with ventilator, paralytics, bronchodilators, rotation , etc. he is on baricitinib. he received Dexamethasone and remdesivir FiO2 is at 40% with 10 of peep. (5) Hypertension: Code(s): I10 - Essential (primary) hypertension Status: Acute Assessment and Plan: With soft blood pressure, His antihypertensives are on hold. (6) Atrial fibrillation with RVR: Code(s): I48.91 - Unspecified atrial fibrillation Status: Acute Assessment and Plan: heart rate is under good control. (7) Type 2 diabetes mellitus: Code(s): E11.9 - Type 2 diabetes mellitus without complications Status: Acute Assessment and Plan: On Accu-Cheks and sliding-scale insulin Subjective Date/time seen: 11/16/21 10:59 Interval history: Blood pressure improved on the norepi. He also received a L of IV fluids. Intubated, on the ventilator, on paralytics and antibiotics. Exam Narrative: WDWN male intubated and in the ICU in [facility] skin no rash head ncat lungs Coarse to auscultation cor reg no rub or gallop abd BS+ nontender and soft ext no edema. Objective Data Vital Signs Vital Signs: Vital Signs - 24 hr 11/15/21 11:33 11/15/21 11:59 11/15/21 12:00 Temperature 36.6 C Pulse Rate 80 84 77 Respiratory Rate 28 H 28 H Blood Pressure 101/65 Pulse Oximetry 96 96 11/15/21 12:08 11/15/21 14:00 11/15/21 14:04 Temperature Pulse Rate 83 75 84 Respiratory Rate 28 H 28 H 28 H Blood Pressure 107/64 Pulse Oximetry 96 11/15/21 14:16 11/15/21 14:22 11/15/21 15:29 Temperature Pulse Rate 77 74 75 Respiratory Rate 28 H 28 H Blood Pressure Pulse Oximetry 96 11/15/21 15:38 11/15/21 15:58 11/15/21 18:00 Temperature 36.6 C Pulse Rate 75 88 73 Respiratory Rate 28 H 28 H 28 H Blood Pressure 101/84 89/59 L Pulse Oximetry 93 97 11/15/21 18:36 11/15/21 18:59 11/15/21 19:05 Temperature Pulse Rate 73 75 75 Respiratory Rate 28 H 28 H Blood Pressure 89/59 L Pulse Oximetry 11/15/21 19:49 11/15/21 19:51 11/15/21 20:00 Temperature 36.2 C L Pulse Rate 72 70 73 Respiratory Rate 28 H 28 H Blood Pressure 107/72 Pulse Oximetry 97 11/15/21 20:44 11/15/21 20:45 11/15/21 20:55 Temperature Pulse Rate 72 72 67 Respiratory R
[2021-11-16 11:38] LABS: Glucose Point of Care 164 mg/dl (65-105)
[2021-11-16] MEDS: COSYNTROPIN 0.25 MG/ML VIAL IV PUSH (11:51)
[2021-11-16 13:07] LABS: Cortisol Baseline 3.56 ug/dL
[2021-11-16] MEDS: INSULIN ASPART (*BKC) 100 UNITS/ML SUB-Q (17:40)
[2021-11-16 17:48] LABS: Glucose Point of Care 233 mg/dl (65-105)
[2021-11-16] MEDS: ATORVASTATIN 20 MG TABLET PO (21:15)
[2021-11-17] VITALS (50 sets, daily range): BP systolic 90–142; BP diastolic 39–96; PULSE 67–136; RESP 28–33; TEMP 35.4–37.4; O2SAT 90–95
[2021-11-17] MEDS: METOCLOPRAMIDE HCL INJ 10 MG/2 ML VIAL IV PUSH ×4 (00:38→17:04)
[2021-11-17] MEDS: PROPOFOL IV EMULSION 100 ML 29.97 MG IV CONT (00:38)
[2021-11-17 01:08] LABS: Glucose Point of Care 176 mg/dl (65-105)
[2021-11-17] MEDS: IPRATROPIUM BR 0.02% INH SOLN 0.5 MG/2.5 ML VIAL INHALATION ×4 (01:08→20:19)
[2021-11-17] MEDS: ALBUTEROL SULFATE NEB 2.5 MG/0.5 ML INH 5 MG INHALATION ×4 (01:08→20:19)
[2021-11-17] MEDS: MIDAZOLAM 100MG/NS 100ML(*CRX) 100 MG/100 ML BAG IV CONT (02:53)
[2021-11-17] MEDS: PROPOFOL IV EMULSION 100 ML 34.97 MG IV CONT (04:49)
[2021-11-17 05:01] LABS: Basophils Percent Auto 0.2 % (0.2-1.2); Eosinophils Absolute Auto 0.3 K/mm3 (0-0.3); Eosinophils Percent Auto 3.2 % (0-4.4); Hematocrit 27.2 % (42.0-52.0); Hemoglobin 8.8 g/dL (14.0-18.0); Immature Granulocyte Absolute 0.38 K/mm3 (0.00-0.031); Immature Granulocyte Percent A 3.6 % (0-0.5); Lymphocytes Absolute Auto 2.14 K/mm3 (0.9-3.2); Lymphocytes Percent Auto 20.2 % (18.3-44.2); Mean Corpuscular HGB Conc 32.4 g/dl (32-36); Mean Corpuscular Hemoglobin 29.6 pg (26-34); Mean Corpuscular Volume 91.6 fl (80-100); Mean Platelet Volume 10.7 fl (7.4-10.4); Monocytes Absolute Auto 0.7 K/mm3 (0.1-0.6); Monocytes Percent Auto 6.9 % (2.6-8.5); Neutrophils Percent Auto 65.9 % (45.5-73.1); Nucleated Red Blood Cells Perc 0.2 % (0.0-0.2); Platelet Count Result 165 k/mm3 (150-375); Red Blood Count 2.97 M/mm3 (4.6-6.20); Red Cell Distribution Width 14.5 % (11.5-14.5); White Blood Count 10.6 K/mm3 (4.5-10.0)
[2021-11-17 05:14] LABS: D Dimer 1.68 ug/mL (<0.48)
[2021-11-17 05:50] LABS: Alanine Aminotransferase 25 U/L (4-50); Albumin Level 2.9 g/dL (3.5-5.1); Alkaline Phosphatase 121 U/L (38-126); Anion Gap 4 mmol/L (8-16); Aspartate Amino Transferase 47 U/L (17-59); Bilirubin,Total 0.3 mg/dL (0.2-1.3); Blood Urea Nitrogen 45 mg/dL (9-20); CRP 18.6 mg/dL (<1.0); Calcium 8.9 mg/dL (8.4-10.2); Carbon Dioxide 29 mmol/L (22-30); Chloride 100 mmol/L (98-107); Estimated CRCL calculation 65 ml/min; Estimated Glomerular Filt Rate 43; Glucose 127 mg/dL (65-110); Lactate Dehydrogenase 774 U/L (313-618); Magnesium 2.4 mg/dL (1.6-2.3); Potassium 4.5 mmol/L (3.4-5.0); Sodium 133 mmol/L (137-145)
[2021-11-17] MEDS: PROPOFOL IV EMULSION 100 ML 39.96 MG IV CONT ×2 (06:38→08:53)
[2021-11-17] MEDS: CENTRAL LINE FLUSH 10 ML IV PUSH ×3 (06:39→21:57)
[2021-11-17 06:47] LABS: Alveolar/Arterial O2 Gradient 318.7 mmHg; Base Excess ABG 2.5 mEq/l (+/-2.0); Carboxyhemoglobin 0.3 % THb (0-2.0); Fractional Inspired Oxygen 65 %; HCO3 ABG 26.8 mEq/l (22.0-26.0); Methemoglobin ABG 0.3 %THb (0-1.5); Oxygen Content ABG 13.5 %vol (16.0-22.0); Oxygen Saturation ABG 97.8 % (95.0-100.0); Oxyhemoglobin 96.5 % THb (90.0-100.0); PCO2 ABG 40.7 mmHg (35.0-45.0); PO2 ABG 100.5 mmHg (80.0-100.0); PO2 FiO2 Ratio Arterial Blood 1.55 %; Reduced Hemoglobin 2.9 %THb (0-5.0); Total Hemoglobin 9.8 g/dL (12.0-18.0); pH ABG 7.437 (7.350-7.450)
[2021-11-17 06:48] LABS: Device VENTILATOR; Modified Allen's Test Pass; Site Drawn RIGHT BRACHIAL
[2021-11-17 06:51] LABS: Arterial Blood Gas PEEP 10 cmH2O; Arterial Blood Gas Vent Mode CMV; Arterial Blood Gas Ventilator rate 28 /MIN
[2021-11-17 06:52] LABS: Arterial Blood Gas Tidal Volume 480 ml
[2021-11-17] MEDS: FENTANYL 2,500MCG/NS250ML(*CRX 2,500 MCG/250 ML BAG 10 MCG IV CONT (08:29)
[2021-11-17] MEDS: ASCORBIC ACID 500 MG TABLET PO (08:31)
[2021-11-17] MEDS: METOPROLOL TARTRATE 25 MG TABLET PO ×2 (08:32→21:56)
[2021-11-17] MEDS: ENOXAPARIN 30 MG/0.3 ML SYRINGE SUB-Q ×2 (08:32→21:56)
[2021-11-17] MEDS: MINERAL OIL/WHITE PETROLATUM OINTMENT 1 APPLIC EACH EYE ×2 (08:32→21:56)
[2021-11-17] MEDS: ENOXAPARIN 100 MG/ML SYRINGE SUB-Q ×2 (08:32→21:56)
[2021-11-17] MEDS: CHOLECALCIFEROL 1,000 UNITS TABLET 1000 UNITS PO (08:32)
[2021-11-17] MEDS: BARICITINIB 2 MG TABLET PO (08:32)
[2021-11-17] MEDS: PANTOPRAZOLE SODIUM IV 40 MG VIAL IV PUSH (08:33)
[2021-11-17] MEDS: METOPROLOL TARTRATE INJ 5 MG/5 ML VIAL IV PUSH (08:56)
[2021-11-17] MEDS: PROPOFOL IV EMULSION 100 ML 49.95 MG IV CONT ×7 (10:59→23:10)
--- NOTE | 2021-11-17 11:45 | PCFNICU ---
ICU Rounding Note: Pt current nutrition is Nepro at 40 ml/hr over 22 hours. Last recorded weight is 174 kg, up from 162.5 kg on admit Bowel Motility:+Bm reported 1/2 Labs Reviewed:BUN 45, Cr 1.6,Glu 127, NA 133, Alb 2.9,Hct 7.2, Hct 8.8 Meds Noted: Fentanyl, Vit C, Reglan, Lopressor, Versed, Levophed, Protonix,Vit D, Propofol 50 gpgh=9854 kcals Skin: WNL Additional Notes: Patient remains on mechanical vent and tube feedings of Nepro at 60 ml/hr. Tube feeding rate decreased to 40 ml/hr today, due to increased propofol titration. Calorie intake at this time 2902 kcals/72 gms protein/640 ml water. Free water flush 30 ml q 4 hours. Possible Trach/PEG. Agree with diet orders. Will follow up daily in ICU rounds. Will monitor every T/F.
[2021-11-17 11:48] LABS: Glucose Point of Care 126 mg/dl (65-105)
--- NOTE | 2021-11-17 12:30 | WPDINTPN ---
Progress Note: A&P Assessment and Plan (1) Acute respiratory failure with hypoxia: Code(s): J96.01 - Acute respiratory failure with hypoxia Status: Acute Assessment and Plan: Acute hypoxic respiratory failure likely related to COVID pneumonia, component of small PE also could be a factor -patient failed his BiPAP, was on 28/08 and 100% FiO2 with O2 sats in the mid to upper 80s. - intubated in the ICU on 11/08/2021 -currently on peep of 10 and 65% FiO2, will wean FiO2 to maintain O2 sats greater than 92% -chest x-ray and ABGs reviewed, -sedated with propofol fentanyl, Versed infusion, start weaning sedation, will start Precedex and keep propofol. Will discontinue fentanyl and Versed infusion -patient has been off Nimbex since 11/13 -continue bronchodilators and Pulmicort (2) Shock: Code(s): R57.9 - Shock, unspecified Status: Acute Assessment and Plan: hypotension requiring IV fluids. Likely related to hypovolemia or septic shock -08/17/22: Patient has been off Levophed since this morning. -11/08/2021 blood cultures negative x2, urine cultures negative -11/10/2021 sputum culture negative -status post 7 days of vancomycin and cefepime (stopped on 11/15/2021) -leukocytosis improving - (3) Pneumonia due to COVID-19 virus: Code(s): U07.1 - COVID-19; J12.82 - Pneumonia due to coronavirus disease 2019 Status: Acute Assessment and Plan: Patient was tested positive a week prior to admission on 10/27/2021, unvaccinated -completed dexamethasone and remdesivir -continue on baricitinib -renally dosed -will monitor inflammatory markers -continue droplet, airborne, contact isolation/precautions -continue vitamin-C and vitamin-D (4) Pulmonary embolism: Qualifiers: Pulmonary embolism type: unspecified Chronicity: unspecified Acute cor pulmonale presence: unspecified Qualified Code(s): I26.99 - Other pulmonary embolism without acute cor pulmonale Code(s): I26.99 - Other pulmonary embolism without acute cor pulmonale Status: Acute Assessment and Plan: Chest CTA on 10/29/2021: 1. New small filling defect right upper lobe segmental pulmonary artery, consistent with pulmonary embolism. Small thrombus burden. 2: Progression of extensive patchy bilateral airspace disease with worsening in the right lower lobe, compatible with pneumonia. -patient is on therapeutic Lovenox (5) Type 2 diabetes mellitus: Code(s): E11.9 - Type 2 diabetes mellitus without complications Status: Acute Assessment and Plan: Blood sugars have been stable, continue Accu-Cheks and sliding scale insulin -hemoglobin A1c this admission was 7.9 (6) Atrial fibrillation with RVR: Code(s): I48.91 - Unspecified atrial fibrillation Status: Acute Assessment and Plan: AFib RVR, patient initially was in SVT with heart rates in the 200s, was given adenosine 6 mg IV x1 on 11/08/2021, no change was noted, patient was then given metoprolol 5 mg IV x1 and briefly slow down to the 150s 160s. - OFF amiodarone infusion -continue metoprolol per tube - Patient also on therapeutic Lovenox -currently in AFib, rate controlled (7) Acute kidney injury: Code(s): N17.9 - Acute kidney failure, unspecified Status: Acute Assessment and Plan: patient with acute kidney injury, creatinine up to 1.3 from 0.7 (11/08) - likely due to hypotension, shock, infection, COVID pneumonia, hypoxia -nephrology following the patient -11/17/2021: Creatinine coming down to 1.6, urine output has been significantly better -11/16/2021: Patient did get a L of IV fluid bolus over 10 hours and was on Levophed at 2 mcg/min with significant improvement in his urine output and renal function. -appreciate Nephrology evaluation and recommendations, -continue to monitor renal function, electrolytes and urine output Additional Plan DVT prophylaxis: On therapeutic Lovenox Stress ulc
[2021-11-17 13:23] LABS: Chloride Rand Ur <20 mmol/L (32-290); Creatinine Random Urine 139 mg/dL (20-320)
--- NOTE | 2021-11-17 15:46 | PM.PNNEP ---
Progress Note: A&P Assessment and Plan (1) Acute kidney injury: Code(s): N17.9 - Acute kidney failure, unspecified Status: Acute Assessment and Plan: Kane has acute kidney injury. His creatinine alaina from normal to 1.4 to 1.8 then peaked at 2.0 now 1.8. Flea this is a trend in a good direction. Urine electrolytes are pre renal. CPK is normal Renal ultrasound is unremarkable. most likely this is acute kidney injury due to multiple factors including pre renal azotemia, ATN from his shock and COVID-19. he is on 55% FiO2 and 10 of peep. he is on a low dose of Levophed to keep his MA P in a good range. His creatinine has improved once again. (2) Shock: Code(s): R57.9 - Shock, unspecified Status: Acute Assessment and Plan: The patient has a reasonably good blood pressure right now as he is back on low-dose pressors. Cortisol level is low. Cortrosyn stim was normal. (3) Pulmonary embolism: Qualifiers: Pulmonary embolism type: unspecified Chronicity: unspecified Acute cor pulmonale presence: unspecified Qualified Code(s): I26.99 - Other pulmonary embolism without acute cor pulmonale Code(s): I26.99 - Other pulmonary embolism without acute cor pulmonale Status: Acute Assessment and Plan: He is on Lovenox (4) Pneumonia due to COVID-19 virus: Code(s): U07.1 - COVID-19; J12.82 - Pneumonia due to coronavirus disease 2019 Status: Acute Assessment and Plan: he is getting supportive care with ventilator, paralytics, bronchodilators, rotation , etc. he is on baricitinib. he received Dexamethasone and remdesivir FiO2 is at 55% with 10 of peep. (5) Hypertension: Code(s): I10 - Essential (primary) hypertension Status: Acute Assessment and Plan: With soft blood pressure, His antihypertensives are on hold. (6) Atrial fibrillation with RVR: Code(s): I48.91 - Unspecified atrial fibrillation Status: Acute Assessment and Plan: heart rate is under good control. (7) Type 2 diabetes mellitus: Code(s): E11.9 - Type 2 diabetes mellitus without complications Status: Acute Assessment and Plan: On Accu-Cheks and sliding-scale insulin Subjective Date/time seen: 11/17/21 15:46 Interval history: Blood pressure improved on the norepi. Systolic running between 97 and 140. Exam Narrative: WDWN male intubated and in the ICU in NAD in the supine position skin no rash or subcu nodules head ncat lungs Coarse to auscultation cor reg no rub or gallop abd BS+ nontender and soft ext no edema or cyanosis. Objective Data Vital Signs Vital Signs: Vital Signs - 24 hr 11/16/21 16:00 11/16/21 16:17 11/16/21 18:00 Temperature 35.5 C L Pulse Rate 87 74 64 Respiratory Rate 28 H 28 H 28 H Blood Pressure 106/66 117/68 Pulse Oximetry 94 95 11/16/21 18:24 11/16/21 20:00 11/16/21 20:01 Temperature Pulse Rate 64 67 58 L Respiratory Rate 28 H 28 H Blood Pressure 126/67 Pulse Oximetry 96 11/16/21 20:21 11/16/21 20:25 11/16/21 21:01 Temperature 35.9 C L Pulse Rate 77 88 68 Respiratory Rate 22 H 28 H Blood Pressure 120/66 Pulse Oximetry 94 96 11/16/21 21:15 11/16/21 21:17 11/16/21 22:00 Temperature Pulse Rate 69 69 67 Respiratory Rate 28 H Blood Pressure Pulse Oximetry 11/16/21 22:01 11/17/21 00:00 11/17/21 00:39 Temperature 36.1 C L 36.4 C Pulse Rate 67 72 72 Respiratory Rate 28 H 28 H 29 H Blood Pressure 127/77 115/67 Pulse Oximetry 96 95 11/17/21 01:06 11/17/21 01:15 11/17/21 02:00 Temperature 36.7 C Pulse Rate 74 84 73 Respiratory Rate 28 H 29 H Blood Pressure 120/61 Pulse Oximetry 95 95 11/17/21 02:53 11/17/21 04:00 11/17/21 04:17 Temperature 37.0 C Pulse Rate 84 85 78 Respiratory Rate 28 H 28 H Blood Pressure 121/64 Pulse Oximetry 93 95 11/17/21 04:54
[2021-11-17 17:46] LABS: Glucose Point of Care 144 mg/dl (65-105)
[2021-11-17 17:46] LABS: Glucose Point of Care 152 mg/dl (65-105)
[2021-11-17] MEDS: ATORVASTATIN 20 MG TABLET PO (21:56)
[2021-11-18] VITALS (41 sets, daily range): BP systolic 96–124; BP diastolic 54–69; PULSE 69–100; RESP 28–30; TEMP 36.8–37.3; O2SAT 94–96
[2021-11-18] MEDS: METOCLOPRAMIDE HCL INJ 10 MG/2 ML VIAL IV PUSH ×4 (01:04→17:44)
[2021-11-18 01:10] LABS: Glucose Point of Care 136 mg/dl (65-105)
[2021-11-18] MEDS: MIDAZOLAM 100MG/NS 100ML(*CRX) 100 MG/100 ML BAG IV CONT (01:56)
[2021-11-18] MEDS: PROPOFOL IV EMULSION 100 ML 49.95 MG IV CONT ×9 (01:57→21:08)
[2021-11-18] MEDS: ALBUTEROL SULFATE NEB 2.5 MG/0.5 ML INH 5 MG INHALATION ×4 (02:03→21:47)
[2021-11-18] MEDS: IPRATROPIUM BR 0.02% INH SOLN 0.5 MG/2.5 ML VIAL INHALATION ×4 (02:04→21:47)
[2021-11-18 05:17] LABS: Alveolar/Arterial O2 Gradient 210.8 mmHg; Carboxyhemoglobin 0.3 % THb (0-2.0); Fractional Inspired Oxygen 45 %; Methemoglobin ABG 0.1 %THb (0-1.5); Reduced Hemoglobin 16.8 %THb (0-5.0); Total Hemoglobin 10.3 g/dL (12.0-18.0)
[2021-11-18 05:18] LABS: Basophils Percent Auto 0.4 % (0.2-1.2); Eosinophils Absolute Auto 0.4 K/mm3 (0-0.3); Eosinophils Percent Auto 4.1 % (0-4.4); Hematocrit 26.1 % (42.0-52.0); Hemoglobin 8.4 g/dL (14.0-18.0); Immature Granulocyte Percent A 3.1 % (0-0.5); Lymphocytes Absolute Auto 1.72 K/mm3 (0.9-3.2); Lymphocytes Percent Auto 17.6 % (18.3-44.2); Mean Corpuscular HGB Conc 32.2 g/dl (32-36); Mean Corpuscular Hemoglobin 29.7 pg (26-34); Mean Corpuscular Volume 92.2 fl (80-100); Mean Platelet Volume 11.2 fl (7.4-10.4); Monocytes Absolute Auto 0.8 K/mm3 (0.1-0.6); Neutrophils Absolute Auto 6.6 K/mm3 (1.3-6.7); Neutrophils Percent Auto 66.8 % (45.5-73.1); Platelet Count Result 198 k/mm3 (150-375); Red Blood Count 2.83 M/mm3 (4.6-6.20); Red Cell Distribution Width 15.1 % (11.5-14.5); White Blood Count 9.8 K/mm3 (4.5-10.0)
[2021-11-18 05:20] LABS: Oxyhemoglobin 82.8 % THb (90.0-100.0)
[2021-11-18 05:25] LABS: Base Excess ABG 2.3 mEq/l (+/-2.0); HCO3 ABG 28.1 mEq/l (22.0-26.0); PCO2 ABG 49.5 mmHg (35.0-45.0); PO2 ABG 52.7 mmHg (80.0-100.0); pH ABG 7.372 (7.350-7.450)
[2021-11-18 05:27] LABS: Device VENTILATOR; Modified Allen's Test Unable to perform; Site Drawn RIGHT RADIAL
[2021-11-18 05:28] LABS: Arterial Blood Gas PEEP 10 cmH2O; Arterial Blood Gas Tidal Volume 480 ml; Arterial Blood Gas Vent Mode CMV; Arterial Blood Gas Ventilator rate 28 /MIN
[2021-11-18 05:28] LABS: Alanine Aminotransferase 25 U/L (4-50); Albumin Level 2.9 g/dL (3.5-5.1); Alkaline Phosphatase 117 U/L (38-126); Anion Gap 2 mmol/L (8-16); Aspartate Amino Transferase 40 U/L (17-59); Bilirubin,Total 0.3 mg/dL (0.2-1.3); Blood Urea Nitrogen 51 mg/dL (9-20); Carbon Dioxide 32 mmol/L (22-30); Chloride 97 mmol/L (98-107); Estimated CRCL calculation 66 ml/min; Estimated Glomerular Filt Rate 43; Glucose 120 mg/dL (65-110); Magnesium 2.6 mg/dL (1.6-2.3); Phosphorus 4.5 mg/dL (2.5-4.5); Potassium 4.7 mmol/L (3.4-5.0); Sodium 131 mmol/L (137-145)
--- NOTE | 2021-11-18 06:35 | PM.PNNEP ---
Progress Note: A&P Assessment and Plan (1) Acute kidney injury: Code(s): N17.9 - Acute kidney failure, unspecified Status: Acute Assessment and Plan: Kane has acute kidney injury. His creatinine peaked at 2.0 and is now down to 1.6. Urine electrolytes are pre renal. CPK is normal Renal ultrasound is unremarkable. most likely this is acute kidney injury due to multiple factors including pre renal azotemia, ATN from his shock and COVID-19. he is on 45% FiO2 and 10 of peep. he is on a low dose of Levophed to keep his MAP in a good range. His oxygenation is better and his creatinine is better. (2) Shock: Code(s): R57.9 - Shock, unspecified Status: Acute Assessment and Plan: The patient has a reasonably good blood pressure right now as he is back on low-dose pressors. Cortisol level is low. Cortrosyn stim was normal. (3) Pulmonary embolism: Qualifiers: Pulmonary embolism type: unspecified Chronicity: unspecified Acute cor pulmonale presence: unspecified Qualified Code(s): I26.99 - Other pulmonary embolism without acute cor pulmonale Code(s): I26.99 - Other pulmonary embolism without acute cor pulmonale Status: Acute Assessment and Plan: He is on Lovenox (4) Pneumonia due to COVID-19 virus: Code(s): U07.1 - COVID-19; J12.82 - Pneumonia due to coronavirus disease 2019 Status: Acute Assessment and Plan: he is getting supportive care with ventilator, paralytics, bronchodilators, rotation , etc. he is on baricitinib. he received Dexamethasone and remdesivir FiO2 is at 45% with 10 of peep. (5) Hypertension: Code(s): I10 - Essential (primary) hypertension Status: Acute Assessment and Plan: With soft blood pressure, His antihypertensives are on hold. (6) Atrial fibrillation with RVR: Code(s): I48.91 - Unspecified atrial fibrillation Status: Acute Assessment and Plan: heart rate is under good control. On metoprolol 25mg twice a day (7) Type 2 diabetes mellitus: Code(s): E11.9 - Type 2 diabetes mellitus without complications Status: Acute Assessment and Plan: On Accu-Cheks and sliding-scale insulin Subjective Date/time seen: 11/18/21 06:35 Interval history: Patient resting comfortably in the supine position on the ventilator in the ICU and sedated Systolic running between 97 and 120 Exam Narrative: WDWN male intubated and in the ICU in NAD in the supine position skin no rash or subcu nodules head ncat lungs Coarse to auscultation cor irreg no rub or gallop abd BS+ nontender and soft ext trace edema and no cyanosis. Objective Data Vital Signs Vital Signs: Vital Signs - 24 hr 11/17/21 06:49 11/17/21 07:56 11/17/21 08:00 Temperature 37.4 C Pulse Rate 114 H 99 Respiratory Rate 28 H 30 H Blood Pressure 138/96 H 121/54 L Pulse Oximetry 95 11/17/21 08:17 11/17/21 08:29 11/17/21 08:32 Temperature Pulse Rate 136 H 136 H 126 H Respiratory Rate 30 H 30 H Blood Pressure Pulse Oximetry 11/17/21 08:53 11/17/21 08:56 11/17/21 09:04 Temperature Pulse Rate 135 H 135 H 120 H Respiratory Rate 30 H 30 H Blood Pressure Pulse Oximetry 11/17/21 10:00 11/17/21 10:56 11/17/21 10:59 Temperature 37.3 C Pulse Rate 95 90 90 Respiratory Rate 28 H 28 H 28 H Blood Pressure 107/62 Pulse Oximetry 90 11/17/21 11:20 11/17/21 12:00 11/17/21 12:35 Temperature 36.6 C Pulse Rate 72 81 77 Respiratory Rate 28 H 28 H Blood Pressure 97/57 L Pulse Oximetry 95 91 11/17/21 13:00 11/17/21 13:11 11/17/21 13:57 Temperature Pulse Rate 70 70 73 Respiratory Rate 28 H 28 H 28 H Blood Pressure Pulse Oximetry 11/17/21 14:00 11/17/21 14:02 11/17/21 15:12 Temperature 36.2 C L Pulse Rate 72 70 72 Respiratory Rate 28 H 28 H Blood Pressure 98/63 L Pulse Oximetry 91 91
[2021-11-18] MEDS: CENTRAL LINE FLUSH 10 ML IV PUSH ×3 (08:07→20:12)
[2021-11-18] MEDS: ENOXAPARIN 30 MG/0.3 ML SYRINGE SUB-Q ×2 (09:04→20:10)
[2021-11-18] MEDS: CHOLECALCIFEROL 1,000 UNITS TABLET 1000 UNITS PO (09:04)
[2021-11-18] MEDS: BARICITINIB 2 MG TABLET PO (09:04)
[2021-11-18] MEDS: PANTOPRAZOLE SODIUM IV 40 MG VIAL IV PUSH (09:04)
[2021-11-18] MEDS: ASCORBIC ACID 500 MG TABLET PO (09:04)
[2021-11-18] MEDS: ENOXAPARIN 100 MG/ML SYRINGE SUB-Q ×2 (09:04→20:09)
[2021-11-18] MEDS: METOPROLOL TARTRATE 25 MG TABLET PO ×2 (09:04→20:11)
[2021-11-18] MEDS: MINERAL OIL/WHITE PETROLATUM OINTMENT 1 APPLIC EACH EYE ×2 (09:04→20:11)
[2021-11-18] MEDS: FENTANYL 2,500MCG/NS250ML(*CRX 2,500 MCG/250 ML BAG 10 MCG IV CONT (09:18)
--- NOTE | 2021-11-18 11:45 | PCNFU ---
Addendum entered by Veronica Daniels RD, LDN 11/19/21 08:44: Propofol rate at 50 [id number] kcals. Calculation error. Original Note: Nutrition Follow-Up Complete: Inadequate oral intake related to covid 19 and respiratory failure as evidenced by poor intake Goal: Meet nutritional needs Patient is progressing towards goal. We will continue current goal. Pt current nutrition is Nepro at 45 ml/hr over 22 hours. Last recorded weight is 174 kg, up from 162 kg on admit. Bowel Motility:+BM reported 1/2 Labs Reviewed:Glu 120, BUN 51, Cr 1.6,Na 131, Alb 2.9,Hct 26.1,Hgb 8.4 Meds Noted:Vit C, Reglan, Lopressor, Versed, Levophed, Protonix, Fentanyl, Vit C, Albuterol, Propofol 50 [id number] kcals. Skin: Blister-right knee Additional Notes: Patient remains on mechanical vent and tube feedings of Nepro at 45 ml/hr, providing 1782 kcals/80 gms protein/720 ml water. Additional kcals from [id number] kcals. Free water flush 30 ml q 4 hours. Agree with diet orders at this time and monitor propofol titration for any tube feeding rate changes. Trach/PEG? Will follow up daily in ICU rounds. Will monitor every T/F.
[2021-11-18 11:55] LABS: Glucose Point of Care 118 mg/dl (65-105)
--- NOTE | 2021-11-18 13:07 | WPDINTPN ---
Progress Note: A&P Assessment and Plan (1) Acute respiratory failure with hypoxia: Code(s): J96.01 - Acute respiratory failure with hypoxia Status: Acute Assessment and Plan: Acute hypoxic respiratory failure likely related to COVID pneumonia, component of small PE also could be a factor -patient failed his BiPAP, was on 10 and 100% FiO2 with O2 sats in the mid to upper 80s. - intubated in the ICU on 11/08/2021 -currently on peep of 10 and 45% FiO2, will wean FiO2 to maintain O2 sats greater than 92% -chest x-ray and ABGs reviewed, -sedated with propofol fentanyl, Versed infusion, start weaning sedation, will start Precedex and keep propofol. Will discontinue fentanyl and Versed infusion -patient has been off Nimbex since 11/13 -discussed with regarding tracheostomy and PEG tube placement. She stated that she has discussed with her family and they all agree to getting a tracheostomy and PEG tube for the patient. I have consulted GI and ENT. -continue bronchodilators and Pulmicort (2) Shock: Code(s): R57.9 - Shock, unspecified Status: Acute Assessment and Plan: RESOLVED hypotension requiring IV fluids. Likely related to hypovolemia or septic shock -08/17/22: Patient has been off Levophed since this morning. -11/08/2021 blood cultures negative x2, urine cultures negative -11/10/2021 sputum culture negative -status post 7 days of vancomycin and cefepime (stopped on 11/15/2021) -leukocytosis improving - (3) Pneumonia due to COVID-19 virus: Code(s): U07.1 - COVID-19; J12.82 - Pneumonia due to coronavirus disease 2019 Status: Acute Assessment and Plan: Patient was tested positive a week prior to admission on 10/27/2021, unvaccinated -completed dexamethasone and remdesivir -continue on baricitinib -renally dosed -will monitor inflammatory markers -continue droplet, airborne, contact isolation/precautions -continue vitamin-C and vitamin-D (4) Pulmonary embolism: Qualifiers: Pulmonary embolism type: unspecified Chronicity: unspecified Acute cor pulmonale presence: unspecified Qualified Code(s): I26.99 - Other pulmonary embolism without acute cor pulmonale Code(s): I26.99 - Other pulmonary embolism without acute cor pulmonale Status: Acute Assessment and Plan: Chest CTA on 10/29/2021: 1. New small filling defect right upper lobe segmental pulmonary artery, consistent with pulmonary embolism. Small thrombus burden. 2: Progression of extensive patchy bilateral airspace disease with worsening in the right lower lobe, compatible with pneumonia. -patient is on therapeutic Lovenox (5) Type 2 diabetes mellitus: Code(s): E11.9 - Type 2 diabetes mellitus without complications Status: Acute Assessment and Plan: Blood sugars have been stable, continue Accu-Cheks and sliding scale insulin -hemoglobin A1c this admission was 7.9 (6) Atrial fibrillation with RVR: Code(s): I48.91 - Unspecified atrial fibrillation Status: Acute Assessment and Plan: AFib RVR, patient initially was in SVT with heart rates in the 200s, was given adenosine 6 mg IV x1 on 11/08/2021, no change was noted, patient was then given metoprolol 5 mg IV x1 and briefly slow down to the 150s 160s. - OFF amiodarone infusion -continue metoprolol per tube - Patient also on therapeutic Lovenox -currently in AFib, rate controlled (7) Acute kidney injury: Code(s): N17.9 - Acute kidney failure, unspecified Status: Acute Assessment and Plan: patient with acute kidney injury, creatinine up to 1.3 from 0.7 (11/08) - likely due to hypotension, shock, infection, COVID pneumonia, hypoxia -nephrology following the patient -11/17/2021: Creatinine down to 1.6, urine output has been significantly better -11/16/2021: Patient did get a L of IV fluid bolus over 10 hours and was on Levophed at 2 mcg/min with significant improvement in his u
--- NOTE | 2021-11-18 13:41 | WPDCN ---
Assessment and Plan Assessment and plan (1) Acute respiratory failure with hypoxia: Code(s): J96.01 - Acute respiratory failure with hypoxia Status: Acute Assessment and Plan: Plan is for the operating room Wednesday for tracheostomy. Please obtain consent. Please make NPO and hold VTE prophylaxis midnight before. Thank you. HPI Data of Consult Date/Time: 11/18/21 13:41 Requesting Physician: Brandan Gonzales MD Primary Care Provider: Levar Nelson MD Consult Narrative Narrative: Kane Maldonado is a 66 year old male with respiratory failure. ENT consult for placement of tracheostomy. Peep 10 FiO2 50% Review of Systems Review of Systems: ROS unobtainable: Yes unobtainable due to endotracheal tube PMFSH Past Medical History Medical History Benign prostatic hyperplasia Deep venous thrombosis Following ORIF of lower extremity fractures. Fracture closed, femur, shaft Fracture closed, fibula, shaft Hyperlipidemia Hypertension Pulmonary embolism (11/2020) Type 2 diabetes mellitus Surgical History Surgical History History of open reduction and internal fixation (ORIF) procedure Bilateral lower extremity fractures. Right wrist fracture. Family History Family History Mother Cancer Heart valve disease Social History Social History Social History: Surrogate decision maker: Reinaldo Maldonado, spouse. Code status: Full code. 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 Spiritual care concerns: No Meds Home Medications and Allergies Home Medications Medication Instructions Recorded Confirmed Type amlodipine 10 mg PO DAILY 12/03/20 10/27/21 History atorvastatin 20 mg PO HS 12/03/20 10/27/21 History irbesartan-hydrochlorothiazide 1 tablet PO DAILY 12/03/20 10/27/21 History hydrocodone-acetaminophen 10 - 325 tablet PO Q4-6H 10/27/21 10/27/21 History ibuprofen [Advil] 800 mg PO Q6H PRN 10/27/21 10/27/21 History pioglitazone 30 mg PO DAILY 10/27/21 10/27/21 History saxagliptin [Onglyza] 5 mg PO DAILY 10/27/21 10/27/21 History Allergies Allergy/AdvReac Type Severity Reaction Status Date / Time meperidine Allergy Unknown Unknown Verified 12/03/20 15:58 Vital Signs Vital Signs - 24 hr 11/17/21 13:57 11/17/21 14:00 11/17/21 14:02 Temperature 36.2 C L Pulse Rate 73 72 70 Respiratory Rate 28 H 28 H Blood Pressure 98/63 L Pulse Oximetry 91 91 11/17/21 15:12 11/17/21 15:15 11/17/21 16:00 Temperature 35.7 C L Pulse Rate 72 72 70 Respiratory Rate 28 H 28 H 28 H Blood Pressure 101/60 Pulse Oximetry 91 11/17/21 17:00 11/17/21 17:03 11/17/21 17:06 Temperature 35.4 C L Pulse Rate 72 82 Respiratory Rate 28 H 28 H Blood Pressure Pulse Oximetry 11/17/21 17:15 11/17/21 17:24 11/17/21 17:30 Temperature 35.4 C L 35.5 C L Pulse Rate 72 Respiratory Rate Blood Pressure Pulse Oximetry 90 11/17/21 17:45 11/17/21 18:00 11/17/21 18:30 Temperature 35.6 C L 35.7 C L 35.7 C L Pulse Rate 67 Respiratory Rate 28 H Blood Pressure 90/56 L Pulse Oximetry 90 11/17/21 18:59 11/17/21 19:00 11/17/21 19:30 Temperature 35.7 C L 36.1 C L Pulse Rate 75 Respiratory Rate 28 H Blood Pressure Pulse Oximetry 11/17/21 20:00 11/17/21 21:00 11/17/21 21:07 Temperature 36.1 C L 36.1 C L Pulse Rate 79 92 Respiratory Rate 28 H Blood Pressure 93/39 L Pulse Oximetry 94 11/17/21 22:00 11/17/21 23:15 11/18/21 00:00 Temperature 36.3 C L 37.0 C Pulse Rate 84 100 80 Respiratory Rate 28 H 28 H Blood Pressure 99/64 L 96/59 L Pulse Oximetry 93 93 96 11/18/21 01:11 11/18/21 01:56 11/18/21 02:00 [facility]
--- NOTE | 2021-11-18 17:00 | PM.IMPN ---
Progress Note: A&P Assessment and Plan (1) Shock: Code(s): R57.9 - Shock, unspecified Status: Acute (2) Acute kidney injury: Code(s): N17.9 - Acute kidney failure, unspecified Status: Acute (3) Atrial fibrillation with RVR: Code(s): I48.91 - Unspecified atrial fibrillation Status: Acute (4) Pulmonary embolism: Qualifiers: Pulmonary embolism type: unspecified Chronicity: unspecified Acute cor pulmonale presence: unspecified Qualified Code(s): I26.99 - Other pulmonary embolism without acute cor pulmonale Code(s): I26.99 - Other pulmonary embolism without acute cor pulmonale Status: Acute (5) Type 2 diabetes mellitus: Code(s): E11.9 - Type 2 diabetes mellitus without complications Status: Acute (6) Pneumonia due to COVID-19 virus: Code(s): U07.1 - COVID-19; J12.82 - Pneumonia due to coronavirus disease 2019 Status: Acute (7) Acute respiratory failure with hypoxia: Code(s): J96.01 - Acute respiratory failure with hypoxia Status: Acute Additional Plan # COVID-19 pneumonia # acute hypoxic respiratory failure -apparently diagnosed a week prior to admission on 10/27/2021 -unvaccinated -status post remdesivir and Decadron. On renal dosed baricitinib -intubated 11/08/2021, plan for tracheostomy on 11/21/2021 -sedation: Fentanyl Versed propofol -blood pressure is soft, not needing pressors, weaned off of Levophed previously -off Nimbex since 11/13/2012 -on isolation # pulmonary embolism -new filling defect on 10/29/2021 consistent with pulmonary embolism small thrombus -therapeutic Lovenox # AFib with RVR, rate controlled - initially had SVT treated with adenosine on 11/08/2021 -off amiodarone drip, continue metoprolol per tube -rate controlled AFib -anticoagulation on full-dose Lovenox # septic shock may be secondary to COVID-19 more superimposed pneumonia -status post antibiotics vancomycin cefepime 7 day course on 11/15/2021 # acute kidney injury -likely secondary to septic shock, ATN -continue trending -nephrology consult # other chronic conditions -type 2 diabetes: Hemoglobin A1c 7.9, Accu-Cheks and sliding scale insulin q.6 hours, hypoglycemia protocol Diet: Tube feeds Nepro DVT prophylaxis: Therapeutic Lovenox GI prophylaxis: Protonix Code status: Full code Disposition: Continue ICU, will need LTAC, GI consulted for PEG, ENT consult for trach Subjective Date/time seen: 11/18/21 17:00 Patient seen and examined. Plan for tracheostomy on 11/21/2021, intubated on 11/08/2021. Patient will need trach and PEG for LTAC. He has been off Nimbex and appears to be stable for COVID 19 pneumonia. Review of Systems Review of Systems: ROS unobtainable: Yes unobtainable due to endotracheal tube Exam Narrative: - GENERAL: Intubated sedated male breathing comfortably on ventilator - EYES: Anicteric. - HENT: Moist mucous membranes. ET tube in place, OG tube in place - LUNGS: Coarse lung sounds throughout, no wheezing - CARDIOVASCULAR: Regular rate and rhythm. - ABDOMEN: Soft, nondistended. - EXTREMITIES: Peripheral pulses 2+. Non-tender. - NEUROLOGIC: Sedated - SKIN: No rashes or lesions. Warm. Objective Data Vital Signs Vital Signs: Vital Signs - 24 hr 11/17/21 17:03 11/17/21 17:06 11/17/21 17:15 Temperature 35.4 C L Pulse Rate 72 82 Respiratory Rate 28 H 28 H Blood Pressure Pulse Oximetry 11/17/21 17:24 11/17/21 17:30 11/17/21 17:45 Temperature 35.5 C L 35.6 C L Pulse Rate 72 Respiratory Rate Blood Pressure Pulse Oximetry 90 11/17/21 18:00 11/17/21 18:30 11/17/21 18:59 Temperature 35.7 C L 35.7 C L Pulse Rate 67 75 Respiratory Rate 28 H 28 H Blood Pressure 90/56 L Pulse Oximetry 90 11/17/21 19:00 11/17/21 19:30 11/17/21 20:00 Temperature 35.7 C L 36.1 C L 36.1 C L Pulse Rate 79 Respiratory Rate 28 H Blood Pressure 93/39 L Pulse Oxime
[2021-11-18 17:23] LABS: Glucose Point of Care 111 mg/dl (65-105)
[2021-11-18] MEDS: ATORVASTATIN 20 MG TABLET PO (20:11)
[2021-11-19] VITALS (40 sets, daily range): BP systolic 85–119; BP diastolic 56–78; PULSE 69–94; RESP 18–30; TEMP 36.4–37.6; O2SAT 90–99
[2021-11-19] MEDS: PROPOFOL IV EMULSION 100 ML 49.95 MG IV CONT (00:22)
[2021-11-19] MEDS: METOCLOPRAMIDE HCL INJ 10 MG/2 ML VIAL IV PUSH ×5 (00:24→17:41)
[2021-11-19 00:27] LABS: Glucose Point of Care 113 mg/dl (65-105)
[2021-11-19] MEDS: ALBUTEROL SULFATE NEB 2.5 MG/0.5 ML INH 5 MG INHALATION ×4 (02:56→19:59)
[2021-11-19] MEDS: IPRATROPIUM BR 0.02% INH SOLN 0.5 MG/2.5 ML VIAL INHALATION ×4 (02:56→19:59)
[2021-11-19] MEDS: PROPOFOL IV EMULSION 100 ML 39.96 MG IV CONT ×9 (04:37→22:57)
[2021-11-19] MEDS: MIDAZOLAM 100MG/NS 100ML(*CRX) 100 MG/100 ML BAG IV CONT (05:13)
[2021-11-19 05:26] LABS: Basophils Percent Auto 0.1 % (0.2-1.2); Eosinophils Absolute Auto 0.3 K/mm3 (0-0.3); Eosinophils Percent Auto 3.2 % (0-4.4); Hematocrit 23.3 % (42.0-52.0); Hemoglobin 7.5 g/dL (14.0-18.0); Immature Granulocyte Absolute 0.33 K/mm3 (0.00-0.031); Immature Granulocyte Percent A 3.9 % (0-0.5); Lymphocytes Absolute Auto 1.64 K/mm3 (0.9-3.2); Lymphocytes Percent Auto 19.4 % (18.3-44.2); Mean Corpuscular HGB Conc 32.2 g/dl (32-36); Mean Corpuscular Hemoglobin 29.3 pg (26-34); Monocytes Absolute Auto 0.7 K/mm3 (0.1-0.6); Monocytes Percent Auto 8.6 % (2.6-8.5); Neutrophils Absolute Auto 5.5 K/mm3 (1.3-6.7); Neutrophils Percent Auto 64.8 % (45.5-73.1); Platelet Count Result 222 k/mm3 (150-375); Red Blood Count 2.56 M/mm3 (4.6-6.20); White Blood Count 8.5 K/mm3 (4.5-10.0)
[2021-11-19 05:37] LABS: Alanine Aminotransferase 27 U/L (4-50); Albumin Level 2.7 g/dL (3.5-5.1); Alkaline Phosphatase 130 U/L (38-126); Anion Gap 2 mmol/L (8-16); Aspartate Amino Transferase 40 U/L (17-59); Bilirubin,Total 0.3 mg/dL (0.2-1.3); Blood Urea Nitrogen 49 mg/dL (9-20); Calcium 8.8 mg/dL (8.4-10.2); Carbon Dioxide 30 mmol/L (22-30); Chloride 99 mmol/L (98-107); Estimated CRCL calculation 58 ml/min; Estimated Glomerular Filt Rate 38; Glucose 133 mg/dL (65-110); Magnesium 2.6 mg/dL (1.6-2.3); Phosphorus 4.5 mg/dL (2.5-4.5); Potassium 4.2 mmol/L (3.4-5.0); Sodium 131 mmol/L (137-145)
[2021-11-19 06:17] LABS: Alveolar/Arterial O2 Gradient 151.8 mmHg; Base Excess ABG 0.4 mEq/l (+/-2.0); Carboxyhemoglobin 0.3 % THb (0-2.0); Fractional Inspired Oxygen 40 %; HCO3 ABG 25.3 mEq/l (22.0-26.0); Methemoglobin ABG 0.4 %THb (0-1.5); Oxygen Content ABG 11.9 %vol (16.0-22.0); Oxygen Saturation ABG 96.4 % (95.0-100.0); Oxyhemoglobin 95.3 % THb (90.0-100.0); PCO2 ABG 41.9 mmHg (35.0-45.0); PO2 ABG 85.2 mmHg (80.0-100.0); PO2 FiO2 Ratio Arterial Blood 2.13 %; Total Hemoglobin 8.8 g/dL (12.0-18.0); pH ABG 7.398 (7.350-7.450)
[2021-11-19] MEDS: CENTRAL LINE FLUSH 10 ML IV PUSH ×3 (07:24→22:37)
[2021-11-19] MEDS: ASCORBIC ACID 500 MG TABLET PO (08:03)
[2021-11-19] MEDS: METOPROLOL TARTRATE 25 MG TABLET PO ×2 (08:03→20:26)
[2021-11-19] MEDS: ENOXAPARIN 100 MG/ML SYRINGE SUB-Q (08:04)
[2021-11-19] MEDS: CHOLECALCIFEROL 1,000 UNITS TABLET 1000 UNITS PO (08:04)
[2021-11-19] MEDS: MINERAL OIL/WHITE PETROLATUM OINTMENT 1 APPLIC EACH EYE ×2 (08:04→20:27)
[2021-11-19] MEDS: ENOXAPARIN 30 MG/0.3 ML SYRINGE SUB-Q (08:04)
[2021-11-19] MEDS: PANTOPRAZOLE SODIUM IV 40 MG VIAL IV PUSH (08:04)
[2021-11-19] MEDS: MIDODRINE HCL 10 MG TABLET PO ×3 (09:36→16:19)
--- NOTE | 2021-11-19 10:54 | WPDINTPN ---
Progress Note: A&P Assessment and Plan (1) Acute respiratory failure with hypoxia: Code(s): J96.01 - Acute respiratory failure with hypoxia Status: Acute Assessment and Plan: Acute hypoxic respiratory failure likely related to COVID pneumonia, component of small PE also could be a factor -patient failed his BiPAP, was on 28/08 and 100% FiO2 with O2 sats in the mid to upper 80s. - intubated in the ICU on 11/08/2021 -currently on peep of 10 and 45% FiO2, will wean FiO2 to maintain O2 sats greater than 92% -chest x-ray and ABGs reviewed, -sedated with propofol fentanyl, Versed infusion, start weaning sedation, will start Precedex and keep propofol. Will discontinue fentanyl and Versed infusion -patient has been off Nimbex since 11/13 -discussed with regarding tracheostomy and PEG tube placement. She stated that she has discussed with her family and they all agree to getting a tracheostomy and PEG tube for the patient. -tracheostomy scheduled for 11/21/2021 -continue bronchodilators and Pulmicort (2) Shock: Code(s): R57.9 - Shock, unspecified Status: Acute Assessment and Plan: RESOLVED hypotension requiring IV fluids. Likely related to hypovolemia or septic shock -08/17/22: Patient has been off Levophed since this morning. -11/08/2021 blood cultures negative x2, urine cultures negative -11/10/2021 sputum culture negative -status post 7 days of vancomycin and cefepime (stopped on 11/15/2021) -leukocytosis improving - (3) Pneumonia due to COVID-19 virus: Code(s): U07.1 - COVID-19; J12.82 - Pneumonia due to coronavirus disease 2019 Status: Acute Assessment and Plan: Patient was tested positive a week prior to admission on 10/27/2021, unvaccinated -completed dexamethasone and remdesivir -continue on baricitinib -renally dosed -will monitor inflammatory markers -continue droplet, airborne, contact isolation/precautions -continue vitamin-C and vitamin-D (4) Pulmonary embolism: Qualifiers: Acute cor pulmonale presence: unspecified Chronicity: unspecified Pulmonary embolism type: unspecified Qualified Code(s): I26.99 - Other pulmonary embolism without acute cor pulmonale Code(s): I26.99 - Other pulmonary embolism without acute cor pulmonale Status: Acute Assessment and Plan: Chest CTA on 10/29/2021: 1. New small filling defect right upper lobe segmental pulmonary artery, consistent with pulmonary embolism. Small thrombus burden. 2: Progression of extensive patchy bilateral airspace disease with worsening in the right lower lobe, compatible with pneumonia. -patient is on therapeutic Lovenox (5) Type 2 diabetes mellitus: Code(s): E11.9 - Type 2 diabetes mellitus without complications Status: Acute Assessment and Plan: Blood sugars have been stable, continue Accu-Cheks and sliding scale insulin -hemoglobin A1c this admission was 7.9 (6) Atrial fibrillation with RVR: Code(s): I48.91 - Unspecified atrial fibrillation Status: Acute Assessment and Plan: AFib RVR, patient initially was in SVT with heart rates in the 200s, was given adenosine 6 mg IV x1 on 11/08/2021, no change was noted, patient was then given metoprolol 5 mg IV x1 and briefly slow down to the 150s 160s. - OFF amiodarone infusion -continue metoprolol per tube - Patient also on therapeutic Lovenox -currently in AFib, rate controlled (7) Acute kidney injury: Code(s): N17.9 - Acute kidney failure, unspecified Status: Acute Assessment and Plan: patient with acute kidney injury, creatinine up to 1.3 from 0.7 (11/08) - likely due to hypotension, shock, infection, COVID pneumonia, hypoxia -nephrology following the patient -11/17/2021: Creatinine down to 1.6, urine output has been significantly better -11/16/2021: Patient did get a L of IV fluid bolus over 10 hours and was on Levophed at 2 mcg/min with significant
--- NOTE | 2021-11-19 11:26 | PCFNICU ---
ICU Rounding Note: Pt current nutrition is Nepro at 45 ml/hr over 22 hours. Last recorded weight is 173 kg, up from 162.5 kg on admit. Bowel Motility: +BM reported 11/16 Labs Reviewed: Glu 133, BUN 49, GFR 38,Cr 1.8,Na 131, Hct 23.3,Hgb 7.5,Na 131 Meds Noted: Fentanyl, Versed, Propofol 40 twyn=4541 kcals, Lopressor, Reglan, Vit C, Albuterol, Protonix, Levophed, Vit D Skin: Blister-right knee Additional Notes: Patient remains on mechanical vent and tube feedings of Nepro at 45 ml/hr over 22 hours and tolerating. Propofol providing an additional 1055 kcals. Plans for Trach 11/21. Agree with diet orders. Following daily in ICU rounds. Will follow up daily in ICU rounds. Will monitor every T/F.
[2021-11-19 12:26] LABS: Glucose Point of Care 127 mg/dl (65-105)
[2021-11-19] MEDS: FENTANYL 2,500MCG/NS250ML(*CRX 2,500 MCG/250 ML BAG 7.5 MCG IV CONT (12:30)
--- NOTE | 2021-11-19 13:40 | WPDGICN ---
Assessment and Plan Assessment and plan (1) Acute respiratory failure with hypoxia: Code(s): J96.01 - Acute respiratory failure with hypoxia Status: Acute Assessment and Plan: still sick in ICU, will need exterminator feeding for which will place G-tube endoscopically tomorrow hold lovenox dose tonight and tomorrow (he is on full dose anticoagulation) (2) Pneumonia due to COVID-19 virus: Code(s): U07.1 - COVID-19; J12.82 - Pneumonia due to coronavirus disease 2019 Status: Acute Assessment and Plan: treated in icu will get also tracheostomy (3) Pulmonary embolism: Qualifiers: Pulmonary embolism type: unspecified Chronicity: unspecified Acute cor pulmonale presence: unspecified Qualified Code(s): I26.99 - Other pulmonary embolism without acute cor pulmonale Code(s): I26.99 - Other pulmonary embolism without acute cor pulmonale Status: Acute (4) Atrial fibrillation with RVR: Code(s): I48.91 - Unspecified atrial fibrillation Status: Acute Assessment and Plan: on medical treatment (5) Current use of mcfp anticoagulation: Code(s): Z79.01 - terminal clerk (current) use of anticoagulants Status: Acute GI Consult Note Consult date/time: 11/19/21 13:40 Reason for consult: respiratory failure due to COVID-19, ventilator dependent HPI: Kane Maldonado is a 66 year old male with history of hypertension, hyperlipidemia, diabetes, benign prostatic hyperplasia, and history of deep venous thrombosis after orthopedic surgery and more recently pulmonary emboli in November 2020 admitted on 10/27/21 with progressive shortness of breath due to COVID, he is unvaccinated and eventually was intubated and treated in ICU, now ventilator dependent, hospital course complicated with hypotension and shock that resolved, Afib, COVID pneumonia with persistent respiratory failure, also PE currently on full dose lovenox. I am called to place G-tube for mcfp feeding, ENT also will place tracheostomy. He has been tolerating NGT feeding. Review of Systems Review of Systems: ROS unobtainable: Yes unobtainable due to endotracheal tube, unobtainable due to medical condition and unobtainable due to mental status PMFSH Past Medical History Medical History Benign prostatic hyperplasia Deep venous thrombosis Following ORIF of lower extremity fractures. Fracture closed, femur, shaft Fracture closed, fibula, shaft Hyperlipidemia Hypertension Pulmonary embolism (11/2020) Type 2 diabetes mellitus Surgical History Surgical History History of open reduction and internal fixation (ORIF) procedure Bilateral lower extremity fractures. Right wrist fracture. Family History Family History Mother Cancer Heart valve disease Social History Social History Social History: Surrogate decision maker: Reinaldo Maldonado, spouse. Code status: Full code. 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 Spiritual care concerns: No Meds Home Medications and Allergies Home Medications Medication Instructions Recorded Confirmed Type amlodipine 10 mg PO DAILY 12/03/20 10/27/21 History atorvastatin 20 mg PO HS 12/03/20 10/27/21 History irbesartan-hydrochlorothiazide 1 tablet PO DAILY 12/03/20 10/27/21 History hydrocodone-acetaminophen 10 - 325 tablet PO Q4-6H 10/27/21 10/27/21 History ibuprofen [Advil] 800 mg PO Q6H PRN 10/27/21 10/27/21 History pioglitazone 30 mg PO DAILY 10/27/21 10/27/21 History saxagliptin [Onglyza] 5 mg PO DAILY 10/27/21 10/27/21 History Allergies Allergy/AdvReac Type Severity Reaction Status Date / Time meperidine Allergy Unknown Unknown Verified
--- NOTE | 2021-11-19 16:04 | PM.IMPN ---
Progress Note: A&P Assessment and Plan (1) Shock: Code(s): R57.9 - Shock, unspecified Status: Acute (2) Acute kidney injury: Code(s): N17.9 - Acute kidney failure, unspecified Status: Acute (3) Atrial fibrillation with RVR: Code(s): I48.91 - Unspecified atrial fibrillation Status: Acute (4) Pulmonary embolism: Qualifiers: Pulmonary embolism type: unspecified Chronicity: unspecified Acute cor pulmonale presence: unspecified Qualified Code(s): I26.99 - Other pulmonary embolism without acute cor pulmonale Code(s): I26.99 - Other pulmonary embolism without acute cor pulmonale Status: Acute (5) Type 2 diabetes mellitus: Code(s): E11.9 - Type 2 diabetes mellitus without complications Status: Acute (6) Pneumonia due to COVID-19 virus: Code(s): U07.1 - COVID-19; J12.82 - Pneumonia due to coronavirus disease 2018 Status: Acute (7) Acute respiratory failure with hypoxia: Code(s): J96.01 - Acute respiratory failure with hypoxia Status: Acute (8) Current use of mcfp anticoagulation: Code(s): Z79.01 - [facility] (current) use of anticoagulants Status: Acute Additional Plan # COVID-19 pneumonia # acute hypoxic respiratory failure -apparently diagnosed a week prior to admission on 10/27/2021 -unvaccinated -status post remdesivir and Decadron. On renal dosed baricitinib -intubated 11/08/2021, plan for tracheostomy on 11/21/2021, plan PEG 11/20/2021 -sedation: Fentanyl Versed propofol -off Nimbex since 11/13/2012 -on isolation precautions for COVID # pulmonary embolism -new filling defect on 10/29/2021 consistent with pulmonary embolism small thrombus -therapeutic Lovenox, will hold for procedures PEG tube and tracheostomy # AFib with RVR, rate controlled - initially had SVT treated with adenosine on 11/08/2021 -off amiodarone drip, continue metoprolol per tube -rate controlled AFib -anticoagulation on full-dose Lovenox # septic shock may be secondary to COVID-19 more superimposed pneumonia -status post antibiotics vancomycin cefepime 7 day course on 11/15/2021 # acute kidney injury -likely secondary to septic shock, ATN -continue trending -nephrology consult # other chronic conditions -type 2 diabetes: Hemoglobin A1c 7.9, Accu-Cheks and sliding scale insulin q.6 hours, hypoglycemia protocol Diet: Tube feeds Nepro DVT prophylaxis: Therapeutic Lovenox GI prophylaxis: Protonix Code status: Full code Disposition: in ICU, will need LTAC for disposition, GI consulted for PEG, ENT consult for trach Subjective Date/time seen: 11/19/21 16:04 Patient seen and examined. Plan for PEG tube tomorrow, Lovenox held. Plan will be for tracheostomy on Wednesday. Seems to be doing well. AFib rate controlled, doing well off Levophed. We are monitoring urine output. Review of Systems Review of Systems: All systems reviewed & are unremarkable except as noted in HPI and below Exam Narrative: - GENERAL: Intubated sedated male breathing comfortably on ventilator - EYES: Anicteric. - HENT: Moist mucous membranes. ET tube in place, OG tube in place - LUNGS: Coarse lung sounds throughout, no wheezing - CARDIOVASCULAR: Regular rate and rhythm. - ABDOMEN: Soft, nondistended. - EXTREMITIES: Peripheral pulses 2+. Non-tender. - NEUROLOGIC: Sedated - SKIN: No rashes or lesions. Warm. Objective Data Vital Signs Vital Signs: Vital Signs - 24 hr 11/18/21 16:54 11/18/21 16:59 11/18/21 17:00 Temperature Pulse Rate 87 75 75 Respiratory Rate 28 H 28 H Blood Pressure Pulse Oximetry 96 11/18/21 17:48 11/18/21 17:49 11/18/21 18:00 Temperature 37.3 C Pulse Rate 89 79 80 Respiratory Rate 28 H 28 H 28 H Blood Pressure 105/61 Pulse Oximetry 94 11/18/21 19:01 11/18/21 19:03 11/18/21 20:00 Temperature 37.3 C Pulse Rate 81 81 85 Respiratory Rate 28 H 28 H 28 H Blood Pressure 111/69 Pulse Oximetry 9
[2021-11-19 16:46] LABS: Device VENTILATOR; Modified Allen's Test Pass; Site Drawn RIGHT RADIAL
[2021-11-19 16:47] LABS: Arterial Blood Gas PEEP 10 cmH2O; Arterial Blood Gas Tidal Volume 480 ml; Arterial Blood Gas Vent Mode CMV; Arterial Blood Gas Ventilator rate 28 /MIN
--- NOTE | 2021-11-19 17:28 | PM.PNNEP ---
Progress Note: A&P Assessment and Plan (1) Acute kidney injury: Code(s): N17.9 - Acute kidney failure, unspecified Status: Acute Assessment and Plan: Kane has acute kidney injury. His creatinine peaked at 2.0 , then dropped to 1.6 and now is 1.8. Urine electrolytes are pre renal. CPK is normal Renal ultrasound is unremarkable. most likely this is acute kidney injury due to multiple factors including pre renal azotemia, ATN from his shock and COVID-19. he is on 45% FiO2 and 10 of peep. He is off the Levophed now. I agree with midodrine His oxygenation is doing well right now With an FiO2 of 40%.. (2) Shock: Code(s): R57.9 - Shock, unspecified Status: Acute Assessment and Plan: The patient has a reasonably good blood pressure right now as he is back on low-dose pressors. Cortisol level is low. Cortrosyn stim was normal. (3) Pulmonary embolism: Qualifiers: Pulmonary embolism type: unspecified Chronicity: unspecified Acute cor pulmonale presence: unspecified Qualified Code(s): I26.99 - Other pulmonary embolism without acute cor pulmonale Code(s): I26.99 - Other pulmonary embolism without acute cor pulmonale Status: Acute Assessment and Plan: He is on Lovenox (4) Pneumonia due to COVID-19 virus: Code(s): U07.1 - COVID-19; J12.82 - Pneumonia due to coronavirus disease 2019 Status: Acute Assessment and Plan: he is getting supportive care with ventilator, paralytics, bronchodilators, rotation , etc. he is on baricitinib. he received Dexamethasone and remdesivir FiO2 is at 45% with 10 of peep. (5) Hypertension: Code(s): I10 - Essential (primary) hypertension Status: Acute Assessment and Plan: With soft blood pressure, His antihypertensives are on hold. (6) Atrial fibrillation with RVR: Code(s): I48.91 - Unspecified atrial fibrillation Status: Acute Assessment and Plan: heart rate is under good control. On metoprolol 25mg twice a day (7) Type 2 diabetes mellitus: Code(s): E11.9 - Type 2 diabetes mellitus without complications Status: Acute Assessment and Plan: On Accu-Cheks and sliding-scale insulin (8) Anemia: Code(s): D64.9 - Anemia, unspecified Status: Acute Assessment and Plan: patient's hemoglobin is drifting down. Will start Epogen. Subjective Date/time seen: 11/19/21 7:40 a.m. Interval history: Patient resting comfortably in the supine position on the ventilator in the ICU and sedated Systolic running between 97 and 120 he is off pressors. Sedatives have been decreased a bit. Exam Narrative: WDWN male intubated and in the ICU in NAD in the supine position skin no rash or subcu nodules head ncat lungs Coarse cor irreg no rub or gallop abd BS+ nontender and soft ext trace edema and no cyanosis. Objective Data Vital Signs Vital Signs: Vital Signs - 24 hr 11/18/21 17:48 11/18/21 17:49 11/18/21 18:00 Temperature 37.3 C Pulse Rate 89 79 80 Respiratory Rate 28 H 28 H 28 H Blood Pressure 105/61 Pulse Oximetry 94 11/18/21 19:01 11/18/21 19:03 11/18/21 20:00 Temperature 37.3 C Pulse Rate 81 81 85 Respiratory Rate 28 H 28 H 28 H Blood Pressure 111/69 Pulse Oximetry 95 11/18/21 20:11 11/18/21 21:08 11/18/21 21:09 Temperature Pulse Rate 85 81 81 Respiratory Rate 28 H 28 H Blood Pressure Pulse Oximetry 11/18/21 21:49 11/18/21 21:50 11/18/21 22:00 Temperature 37.1 C Pulse Rate 69 69 71 Respiratory Rate 28 H 28 H Blood Pressure 118/66 Pulse Oximetry 95 94 11/19/21 00:00 11/19/21 00:22 11/19/21 00:48 Temperature 36.7 C Pulse Rate 88 84 91 Respiratory Rate 28 H 28 H Blood Pressure 114/67 Pulse Oximetry 94 92 11/19/21 02:00 11/19/21 02:58 11/19/21 02:59 Temperature 36.5 C Pulse Rate 79 80 80 Respiratory Rate
[2021-11-19 17:55] LABS: Glucose Point of Care 108 mg/dl (65-105)
[2021-11-19] MEDS: ATORVASTATIN 20 MG TABLET PO (20:26)
[2021-11-20] VITALS (44 sets, daily range): BP systolic 95–114; BP diastolic 63–77; PULSE 63–133; RESP 19–35; TEMP 35.8–37.1; O2SAT 90–99
[2021-11-20] MEDS: METOCLOPRAMIDE HCL INJ 10 MG/2 ML VIAL IV PUSH ×4 (00:15→17:45)
[2021-11-20 00:26] LABS: Glucose Point of Care 127 mg/dl (65-105)
[2021-11-20] MEDS: PROPOFOL IV EMULSION 100 ML 39.96 MG IV CONT ×9 (01:28→22:48)
[2021-11-20] MEDS: ALBUTEROL SULFATE NEB 2.5 MG/0.5 ML INH 5 MG INHALATION ×4 (01:46→20:42)
[2021-11-20] MEDS: IPRATROPIUM BR 0.02% INH SOLN 0.5 MG/2.5 ML VIAL INHALATION ×4 (01:46→20:42)
[2021-11-20 04:17] LABS: Basophils Percent Auto 0.4 % (0.2-1.2); Eosinophils Absolute Auto 0.4 K/mm3 (0-0.3); Eosinophils Percent Auto 3.8 % (0-4.4); Hematocrit 25.2 % (42.0-52.0); Hemoglobin 8.1 g/dL (14.0-18.0); Immature Granulocyte Absolute 0.31 K/mm3 (0.00-0.031); Immature Granulocyte Percent A 2.7 % (0-0.5); Lymphocytes Absolute Auto 1.63 K/mm3 (0.9-3.2); Lymphocytes Percent Auto 14.3 % (18.3-44.2); Mean Corpuscular HGB Conc 32.1 g/dl (32-36); Mean Corpuscular Hemoglobin 29.9 pg (26-34); Mean Platelet Volume 10.5 fl (7.4-10.4); Monocytes Percent Auto 8.6 % (2.6-8.5); Neutrophils Percent Auto 70.2 % (45.5-73.1); Platelet Count Result 319 k/mm3 (150-375); Red Blood Count 2.71 M/mm3 (4.6-6.20); Red Cell Distribution Width 15.4 % (11.5-14.5); White Blood Count 11.4 K/mm3 (4.5-10.0)
[2021-11-20 04:34] LABS: Alanine Aminotransferase 28 U/L (4-50); Albumin Level 2.8 g/dL (3.5-5.1); Alkaline Phosphatase 158 U/L (38-126); Anion Gap 5 mmol/L (8-16); Aspartate Amino Transferase 39 U/L (17-59); Bilirubin,Total 0.4 mg/dL (0.2-1.3); Blood Urea Nitrogen 46 mg/dL (9-20); Calcium 8.9 mg/dL (8.4-10.2); Carbon Dioxide 29 mmol/L (22-30); Chloride 99 mmol/L (98-107); Estimated CRCL calculation 70 ml/min; Estimated Glomerular Filt Rate 47; Glucose 136 mg/dL (65-110); Magnesium 2.4 mg/dL (1.6-2.3); Phosphorus 4.3 mg/dL (2.5-4.5); Potassium 4.2 mmol/L (3.4-5.0); Sodium 133 mmol/L (137-145)
[2021-11-20] MEDS: METOPROLOL TARTRATE INJ 5 MG/5 ML VIAL IV PUSH (04:48)
[2021-11-20 05:49] LABS: Alveolar/Arterial O2 Gradient 90.8 mmHg; Base Excess ABG -0.4 mEq/l (+/-2.0); Carboxyhemoglobin 0.5 % THb (0-2.0); Fractional Inspired Oxygen 30 %; Methemoglobin ABG 0.1 %THb (0-1.5); Oxygen Saturation ABG 90.2 % (95.0-100.0); Oxyhemoglobin 88.8 % THb (90.0-100.0); PCO2 ABG 51.1 mmHg (35.0-45.0); PO2 ABG 63.1 mmHg (80.0-100.0); Reduced Hemoglobin 10.6 %THb (0-5.0); Total Hemoglobin 9.6 g/dL (12.0-18.0); pH ABG 7.324 (7.350-7.450)
[2021-11-20 05:50] LABS: Device VENTILATOR; Modified Allen's Test Pass; Site Drawn RIGHT RADIAL
[2021-11-20 05:51] LABS: Arterial Blood Gas PEEP 10 cmH2O; Arterial Blood Gas Tidal Volume 480 ml; Arterial Blood Gas Vent Mode CMV; Arterial Blood Gas Ventilator rate 28 /MIN
[2021-11-20] MEDS: CENTRAL LINE FLUSH 10 ML IV PUSH ×3 (06:21→21:34)
[2021-11-20] MEDS: MINERAL OIL/WHITE PETROLATUM OINTMENT 1 APPLIC EACH EYE ×2 (08:21→20:56)
[2021-11-20] MEDS: PANTOPRAZOLE SODIUM IV 40 MG VIAL IV PUSH (08:21)
[2021-11-20] MEDS: METOPROLOL TARTRATE 25 MG TABLET PO ×2 (08:21→20:56)
[2021-11-20] MEDS: MIDODRINE HCL 10 MG TABLET PO ×3 (08:21→17:45)
[2021-11-20] MEDS: EPOETIN ALFA-EPBX 10,000 UNITS/ML VIAL 10000 UNITS SUB-Q (09:42)
--- NOTE | 2021-11-20 11:10 | PCFNICU ---
ICU Rounding Note: Pt current nutrition is NPO. Nutrition recommendation: Nepro at 45 ml/hr over 22 hours. Last recorded weight is 169.3 kg-stable Bowel Motility:+BM reported 11/16 Labs Reviewed:Glu 136, BUN 46, GFR 47, Cr 1.5,Na 133, Hct 25.2,Hgb 8.1 Meds Noted:Vit C, Reglan, Protonix, Albuterol,Lopressor, Versed, Fentanyl, NovoLog, Retacrit, Levophed, Propofol 40 grml=0134 kcals. Skin: blister-knee Additional Notes: Patient currently NPO for PEG today. Plans for Trach 11/21. Will follow up daily in ICU rounds. Will reassess every T/F.
[2021-11-20 12:24] LABS: Glucose Point of Care 130 mg/dl (65-105)
--- NOTE | 2021-11-20 14:16 | PM.PNNEP ---
Progress Note: A&P Assessment and Plan (1) Acute kidney injury: Code(s): N17.9 - Acute kidney failure, unspecified Status: Acute Assessment and Plan: Kane has acute kidney injury. His creatinine peaked at 2.0 , then dropped to 1.6 and now is 1.8. Urine electrolytes are pre renal. CPK is normal Renal ultrasound is unremarkable. most likely this is acute kidney injury due to multiple factors including pre renal azotemia, ATN from his shock and COVID-19. urine output was 1850. creatinine is down to 1.5. he is on 30% FiO2 and 10 of peep. I think his kidneys like the higher systolic effected by the midodrine.. (2) Shock: Code(s): R57.9 - Shock, unspecified Status: Acute Assessment and Plan: The patient has a reasonably good blood pressure right now as he is back on low-dose pressors. Cortisol level is low. Cortrosyn stim was normal. (3) Pulmonary embolism: Qualifiers: Pulmonary embolism type: unspecified Chronicity: unspecified Acute cor pulmonale presence: unspecified Qualified Code(s): I26.99 - Other pulmonary embolism without acute cor pulmonale Code(s): I26.99 - Other pulmonary embolism without acute cor pulmonale Status: Acute Assessment and Plan: He is on Lovenox (4) Pneumonia due to COVID-19 virus: Code(s): U07.1 - COVID-19; J12.82 - Pneumonia due to coronavirus disease 2019 Status: Acute Assessment and Plan: he is getting supportive care with ventilator, paralytics, bronchodilators, rotation , etc. he is on baricitinib. he received Dexamethasone and remdesivir FiO2 is at 45% with 10 of peep. (5) Hypertension: Code(s): I10 - Essential (primary) hypertension Status: Acute Assessment and Plan: With soft blood pressure, His antihypertensives are on hold. (6) Atrial fibrillation with RVR: Code(s): I48.91 - Unspecified atrial fibrillation Status: Acute Assessment and Plan: heart rate is under good control. On metoprolol 25mg twice a day (7) Type 2 diabetes mellitus: Code(s): E11.9 - Type 2 diabetes mellitus without complications Status: Acute Assessment and Plan: On Accu-Cheks and sliding-scale insulin (8) Anemia: Code(s): D64.9 - Anemia, unspecified Status: Acute Assessment and Plan: patient's hemoglobin is drifting down. Will start Epogen. Subjective Date/time seen: 11/20/21 14:16 Interval history: Patient resting comfortably in the supine position on the ventilator in the ICU and sedated Systolic Is improved on the midodrine. he is still off pressors. Sedatives have been decreased a bit. Exam Narrative: WDWN male intubated and in the ICU in NAD in the supine position skin no rash or subcu nodules head ncat lungs Coarse cor irreg no rub or gallop abd BS+ nontender and soft ext trace edema and no cyanosis. Objective Data Vital Signs Vital Signs: Vital Signs - 24 hr 11/19/21 14:22 11/19/21 14:25 11/19/21 14:26 Temperature Pulse Rate 79 78 70 Respiratory Rate 18 22 H Blood Pressure Pulse Oximetry 99 11/19/21 15:25 11/19/21 16:00 11/19/21 17:21 Temperature 37.3 C Pulse Rate 81 87 76 Respiratory Rate 28 H 30 H Blood Pressure 106/70 Pulse Oximetry 96 96 11/19/21 17:48 11/19/21 17:49 11/19/21 18:00 Temperature 37.6 C Pulse Rate 94 87 94 Respiratory Rate 28 H 28 H 28 H Blood Pressure 114/78 Pulse Oximetry 97 11/19/21 20:00 11/19/21 20:22 11/19/21 20:25 Temperature 37.6 C H Pulse Rate 86 90 85 Respiratory Rate 28 H 28 H 30 H Blood Pressure 107/70 Pulse Oximetry 94 94 11/19/21 20:26 11/19/21 20:35 11/19/21 22:00 Temperature 37.1 C Pulse Rate 89 85 80 Respiratory Rate 30 H 28 H Blood Pressure 111/66 Pulse Oximetry 97 11/19/21 22:57 11/20/21 00:00 11/20/21 01:28 Temperature 37.1 C Pulse Rate 78 8
[2021-11-20] MEDS: MIDAZOLAM 100MG/NS 100ML(*CRX) 100 MG/100 ML BAG IV CONT (15:32)
--- NOTE | 2021-11-20 15:35 | WPDINTPN ---
Progress Note: A&P Assessment and Plan (1) Acute respiratory failure with hypoxia: Code(s): J96.01 - Acute respiratory failure with hypoxia Status: Acute Assessment and Plan: Acute hypoxic respiratory failure likely related to COVID pneumonia, component of small PE also could be a factor -patient failed his BiPAP, was on 28/08 and 100% FiO2 with O2 sats in the mid to upper 80s. - intubated in the ICU on 11/08/2021 -currently on peep of 10 and 45% FiO2, will wean FiO2 to maintain O2 sats greater than 92% -chest x-ray and ABGs reviewed -Permissive hypercapnia -sedated with propofol fentanyl, Versed infusion, start weaning sedation, will start Precedex and keep propofol. Will discontinue fentanyl and Versed infusion -patient has been off Nimbex since 11/13 - Patient is scheduled for PEG tube placement today -tracheostomy scheduled for 11/21/2021 -continue bronchodilators and Pulmicort (2) Shock: Code(s): R57.9 - Shock, unspecified Status: Acute Assessment and Plan: RESOLVED hypotension requiring IV fluids. Likely related to hypovolemia or septic shock -08/17/22: Patient has been off Levophed now -11/08/2021 blood cultures negative x2, urine cultures negative -11/10/2021 sputum culture negative -status post 7 days of vancomycin and cefepime (stopped on 11/15/2021) (3) Pneumonia due to COVID-19 virus: Code(s): U07.1 - COVID-19; J12.82 - Pneumonia due to coronavirus disease 2019 Status: Acute Assessment and Plan: Patient was tested positive a week prior to admission on 10/27/2021, unvaccinated -completed dexamethasone, baricitinib and remdesivir -continue droplet, airborne, contact isolation/precautions -continue vitamin-C and vitamin-D (4) Pulmonary embolism: Qualifiers: Pulmonary embolism type: unspecified Chronicity: unspecified Acute cor pulmonale presence: unspecified Qualified Code(s): I26.99 - Other pulmonary embolism without acute cor pulmonale Code(s): I26.99 - Other pulmonary embolism without acute cor pulmonale Status: Acute Assessment and Plan: Chest CTA on 10/29/2021: 1. New small filling defect right upper lobe segmental pulmonary artery, consistent with pulmonary embolism. Small thrombus burden. 2: Progression of extensive patchy bilateral airspace disease with worsening in the right lower lobe, compatible with pneumonia. -patient is on therapeutic Lovenox which is on hold for PEG tube and tracheostomy (5) Type 2 diabetes mellitus: Code(s): E11.9 - Type 2 diabetes mellitus without complications Status: Acute Assessment and Plan: Blood sugars have been stable, continue Accu-Cheks and sliding scale insulin -hemoglobin A1c this admission was 7.9 (6) Atrial fibrillation with RVR: Code(s): I48.91 - Unspecified atrial fibrillation Status: Acute Assessment and Plan: AFib RVR, patient initially was in SVT with heart rates in the 200s, was given adenosine 6 mg IV x1 on 11/08/2021, no change was noted, patient was then given metoprolol 5 mg IV x1 and briefly slow down to the 150s 160s. - OFF amiodarone infusion -continue metoprolol per tube - Patient also on therapeutic Lovenox -currently in AFib, rate controlled (7) Acute kidney injury: Code(s): N17.9 - Acute kidney failure, unspecified Status: Acute Assessment and Plan: patient with acute kidney injury, creatinine up to 1.3 from 0.7 (11/08) - likely due to hypotension, shock, infection, COVID pneumonia, hypoxia -nephrology following the patient Creatinine improved but still elevated, urine output has been significantly better -continue to monitor renal function, electrolytes and urine output -continue midodrine Additional Plan DVT prophylaxis: On therapeutic Lovenox which is currently on hold for procedures Stress ulcer prophylaxis: Protonix Nutrition: Continue tube feeds Patient is scheduled for PEG today
[2021-11-20 18:15] LABS: Glucose Point of Care 102 mg/dl (65-105)
--- NOTE | 2021-11-20 18:30 | PM.IMHP ---
H&P: HPI History of Present Illness Date/Time: 11/20/21 18:30 Chief Complaint: Respiratory failure Review of Systems Review of Systems: History of respiratory failure plan for tracheostomy ROS unobtainable: Yes unobtainable due to endotracheal tube PMFSH Past Medical History Medical History (Updated 11/19/21 @ 17:32 by Jude Smith MD) Anemia Benign prostatic hyperplasia Deep venous thrombosis Following ORIF of lower extremity fractures. Fracture closed, femur, shaft Fracture closed, fibula, shaft Hyperlipidemia Hypertension Pulmonary embolism (11/2020) Type 2 diabetes mellitus Surgical History Surgical History History of open reduction and internal fixation (ORIF) procedure Bilateral lower extremity fractures. Right wrist fracture. Family History Family History Mother Cancer Heart valve disease Social History Social History Social History: Surrogate decision maker: Reinaldo Maldonado, spouse. Code status: Full code. 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 Spiritual care concerns: No Meds Home Medications and Allergies Home Medications Medication Instructions Recorded Confirmed Type amlodipine 10 mg PO DAILY 12/03/20 10/27/21 History atorvastatin 20 mg PO HS 12/03/20 10/27/21 History irbesartan-hydrochlorothiazide 1 tablet PO DAILY 12/03/20 10/27/21 History hydrocodone-acetaminophen 10 - 325 tablet PO Q4-6H 10/27/21 10/27/21 History ibuprofen [Advil] 800 mg PO Q6H PRN 10/27/21 10/27/21 History pioglitazone 30 mg PO DAILY 10/27/21 10/27/21 History saxagliptin [Onglyza] 5 mg PO DAILY 10/27/21 10/27/21 History Allergies Allergy/AdvReac Type Severity Reaction Status Date / Time meperidine Allergy Unknown Unknown Verified 12/03/20 15:58 Vital Signs Vital Signs - 24 hr 11/19/21 20:00 11/19/21 20:22 11/19/21 20:25 Temperature 37.6 C H Pulse Rate 86 90 85 Respiratory Rate 28 H 28 H 30 H Blood Pressure 107/70 Pulse Oximetry 94 94 11/19/21 20:26 11/19/21 20:35 11/19/21 22:00 Temperature 37.1 C Pulse Rate 89 85 80 Respiratory Rate 30 H 28 H Blood Pressure 111/66 Pulse Oximetry 97 11/19/21 22:57 11/20/21 00:00 11/20/21 01:28 Temperature 37.1 C Pulse Rate 78 82 92 Respiratory Rate 28 H 28 H 28 H Blood Pressure 114/70 Pulse Oximetry 98 11/20/21 01:50 11/20/21 02:00 11/20/21 03:52 Temperature 37.1 C Pulse Rate 95 99 98 Respiratory Rate 30 H 28 H 28 H Blood Pressure Pulse Oximetry 95 92 11/20/21 04:00 11/20/21 04:48 11/20/21 05:02 Temperature 36.9 C Pulse Rate 106 H 133 H 84 Respiratory Rate 35 H Blood Pressure 101/66 Pulse Oximetry 93 93 11/20/21 06:00 11/20/21 06:22 11/20/21 08:00 Temperature 36.5 C Pulse Rate 80 86 82 Respiratory Rate 28 H 28 H 20 Blood Pressure 101/63 102/68 Pulse Oximetry 99 97 11/20/21 08:40 11/20/21 08:47 11/20/21 08:53 Temperature Pulse Rate 81 82 85 Respiratory Rate 20 26 H Blood Pressure Pulse Oximetry 97 11/20/21 09:15 11/20/21 10:00 11/20/21 11:44 Temperature Pulse Rate 85 85 72 Respiratory Rate 26 H 26 H Blood Pressure 112/74 Pulse Oximetry 90 98 11/20/21 11:46 11/20/21 12:00 11/20/21 12:25 Temperature 36.2 C L Pulse Rate 77 75 79 Respiratory Rate 24 H 19 20 Blood Pressure 103/72 103/72 Pulse Oximetry 94 92 11/20/21 12:30 11/20/21 12:35 11/20/21 12:40 Temperature Pulse Rate 76 77 76 Respiratory Rate 27 H 20 25 H Blood Pressure 110/77 105/71 103/74 Pulse Oximetry 93 96 93 11/20/21 12:45 11/20/21 13:16 11/20/21 14:00 Temperature Pulse Rate 77 77 78 Respiratory Rate 24 H 24 H 30 H Blood Pressure 105/64 100/68 Pulse Oximetry 94 94 11/20/21 15:03 11/20/21
[2021-11-20] MEDS: ATORVASTATIN 20 MG TABLET PO (20:57)
[2021-11-20] MEDS: FENTANYL 2,500MCG/NS250ML(*CRX 2,500 MCG/250 ML BAG 7.5 MCG IV CONT (22:50)
[2021-11-21] VITALS (34 sets, daily range): BP systolic 92–101; BP diastolic 55–73; PULSE 61–144; RESP 22–29; TEMP 33.9–37.9; O2SAT 93–100
[2021-11-21] MEDS: METOCLOPRAMIDE HCL INJ 10 MG/2 ML VIAL IV PUSH ×3 (00:15→11:30)
[2021-11-21 00:37] LABS: Glucose Point of Care 117 mg/dl (65-105)
[2021-11-21] MEDS: PROPOFOL IV EMULSION 100 ML 39.96 MG IV CONT ×4 (01:19→23:26)
[2021-11-21] MEDS: ALBUTEROL SULFATE NEB 2.5 MG/0.5 ML INH 5 MG INHALATION ×4 (01:46→21:21)
[2021-11-21] MEDS: IPRATROPIUM BR 0.02% INH SOLN 0.5 MG/2.5 ML VIAL INHALATION ×4 (01:47→21:21)
[2021-11-21 05:02] LABS: Alveolar/Arterial O2 Gradient 112.5 mmHg; Base Excess ABG 1.8 mEq/l (+/-2.0); Carboxyhemoglobin 0.2 % THb (0-2.0); Fractional Inspired Oxygen 30 %; HCO3 ABG 26.3 mEq/l (22.0-26.0); Methemoglobin ABG 0.3 %THb (0-1.5); Oxygen Content ABG 10.7 %vol (16.0-22.0); Oxygen Saturation ABG 88.9 % (95.0-100.0); PCO2 ABG 40.4 mmHg (35.0-45.0); PO2 ABG 53.9 mmHg (80.0-100.0); Reduced Hemoglobin 12.1 %THb (0-5.0); Total Hemoglobin 8.7 g/dL (12.0-18.0); pH ABG 7.431 (7.350-7.450)
[2021-11-21 05:06] LABS: Modified Allen's Test Pass; Oxyhemoglobin 87.4 % THb (90.0-100.0); Site Drawn RIGHT RADIAL
[2021-11-21 05:07] LABS: Arterial Blood Gas PEEP 8 cmH2O; Arterial Blood Gas Tidal Volume 480 ml; Arterial Blood Gas Vent Mode CMV; Arterial Blood Gas Ventilator rate 28 /MIN; Device VENTILATOR
[2021-11-21 06:17] LABS: Basophils Percent Auto 0.3 % (0.2-1.2); Eosinophils Absolute Auto 0.5 K/mm3 (0-0.3); Eosinophils Percent Auto 4.6 % (0-4.4); Hemoglobin 7.9 g/dL (14.0-18.0); Immature Granulocyte Absolute 0.15 K/mm3 (0.00-0.031); Immature Granulocyte Percent A 1.4 % (0-0.5); Lymphocytes Absolute Auto 0.91 K/mm3 (0.9-3.2); Lymphocytes Percent Auto 8.8 % (18.3-44.2); Mean Corpuscular HGB Conc 32.9 g/dl (32-36); Mean Corpuscular Hemoglobin 29.7 pg (26-34); Mean Corpuscular Volume 90.2 fl (80-100); Mean Platelet Volume 10.1 fl (7.4-10.4); Monocytes Absolute Auto 0.8 K/mm3 (0.1-0.6); Monocytes Percent Auto 7.2 % (2.6-8.5); Neutrophils Percent Auto 77.7 % (45.5-73.1); Platelet Count Result 392 k/mm3 (150-375); Red Blood Count 2.66 M/mm3 (4.6-6.20); Red Cell Distribution Width 15.2 % (11.5-14.5); White Blood Count 10.4 K/mm3 (4.5-10.0)
[2021-11-21] MEDS: CENTRAL LINE FLUSH 10 ML IV PUSH ×3 (06:25→23:16)
[2021-11-21 06:41] LABS: Alanine Aminotransferase 23 U/L (4-50); Albumin Level 2.8 g/dL (3.5-5.1); Alkaline Phosphatase 140 U/L (38-126); Anion Gap 3 mmol/L (8-16); Aspartate Amino Transferase 30 U/L (17-59); Bilirubin,Total 0.4 mg/dL (0.2-1.3); Blood Urea Nitrogen 35 mg/dL (9-20); Carbon Dioxide 29 mmol/L (22-30); Chloride 101 mmol/L (98-107); Estimated CRCL calculation 79 ml/min; Estimated Glomerular Filt Rate 55; Glucose 114 mg/dL (65-110); Magnesium 2.2 mg/dL (1.6-2.3); Phosphorus 3.3 mg/dL (2.5-4.5); Potassium 3.9 mmol/L (3.4-5.0); Sodium 133 mmol/L (137-145)
--- NOTE | 2021-11-21 07:18 | WPDHPUPDATE1 ---
History and Physical Update Update Date/Time: 11/21/21 07:18 History and Physical has been reviewed, including an updated exam of the patient. There are NO changes in the patient's condition. Risks, benefits, and alternatives have been discussed and questions answered. Patient agrees to proceed with procedure.
[2021-11-21] MEDS: ceFAZolin SODIUM 1 GM VIAL 3 GM IV PUSH (09:26)
[2021-11-21] MEDS: LIDO 1%/EPINEPHRINE 1:100,000 50 ML VIAL 10 ML INFILTRATE (09:27)
--- NOTE | 2021-11-21 09:41 | WPDANESEPPF ---
Anes - Initial Pre Proc Eval Procedure: Operation Date: 11/20/21 11:00 Proposed Procedures p Esophagogastroduodenoscopy - Sebastian Cueto MD s Percutaneous Endoscopic Gastrostomy - Sebastian Cueto MD Operation Date: 11/21/21 09:15 Proposed Procedures p Tracheostomy - Herber Royal MD Date/Time: 11/21/21 09:41 Surgeon: Brandan Gonzales MD Pre Op Diagnosis: Covid pneumonia/hypoxia Patient Data Age: 66 Gender: M Height: 1.8 m Weight: 168.4 kg Last Vital Signs Temp 36.8 C 11/21/21 08:00 Pulse 77 11/21/21 08:00 Resp 22 H 11/21/21 08:00 BP 97/63 L 11/21/21 08:00 Pulse Ox 100 11/21/21 08:00 Allergies Allergy/AdvReac Type Severity Reaction Status Date / Time meperidine Allergy Unknown Unknown Verified 12/03/20 15:58 Home Medications Medication Instructions Recorded Confirmed Type amlodipine 10 mg PO DAILY 12/03/20 10/27/21 History atorvastatin 20 mg PO HS 12/03/20 10/27/21 History irbesartan-hydrochlorothiazide 1 tablet PO DAILY 12/03/20 10/27/21 History hydrocodone-acetaminophen 10 - 325 tablet PO Q4-6H 10/27/21 10/27/21 History ibuprofen [Advil] 800 mg PO Q6H PRN 10/27/21 10/27/21 History pioglitazone 30 mg PO DAILY 10/27/21 10/27/21 History saxagliptin [Onglyza] 5 mg PO DAILY 10/27/21 10/27/21 History Laboratory Tests 11/20/21 11/20/21 11/21/21 12:09 18:01 00:13 WBC RBC Hgb Hct MCV MCH MCHC RDW Plt Count MPV Immature Gran % (Auto) Neut % (Auto) Lymph % (Auto) [place] % (Auto) Eos % (Auto) Baso % (Auto) Lymph # (Auto) [place] # (Auto) Eos # (Auto) Baso # (Auto) Abs Immat Gran (auto) Absolute Neuts (auto) Absolute Nucleated RBC Nucleated RBC % Puncture Site ABG pH ABG pCO2 ABG pO2 ABG PO2/FiO2 Ratio ABG HCO3 ABG O2 Saturation ABG O2 Content ABG Base Excess A-a Gradient Oxyhemoglobin Carboxyhemoglobin Methemoglobin Reduced Hemoglobin Total Hemoglobin O2 Delivery Device O2 Liters/Min Minute Volume Vent Rate Vent Mode FiO2 Tidal Volume PEEP Peak Inspir Pressure Pressure Support Sodium Potassium Chloride Carbon Dioxide Anion Gap BUN Creatinine Estim Creat Clear Calc Estimated GFR Glucose POC Capillary Glucose 130 mg/dl H mg/dl 102 mg/dl mg/dl 117 mg/dl H mg/dl (65-105) (65-105) (65-105) Calcium Phosphorus Magnesium Total Bilirubin AST ALT Alkaline Phosphatase Total Protein Albumin 11/21/21 11/21/21 11/21/21 04:09 05:58 05:58 WBC 10.4 K/mm3 H K/mm3 (4.5-10.0) RBC 2.66 M/mm3 L M/mm3 (4.6-6.20) Hgb 7.9 g/dL L g/dL (14.0-18.0) Hct 24.0 % L % (42.0-52.0) MCV 90.2 fl fl (80-100) MCH 29.7 pg pg (26-34) MCHC 32.9 g/dl g/dl (32-36) RDW 15.2 % H % (11.5-14.5) Plt Count 392 k/mm3 H k/mm3 (150-375) MPV 10.1 fl fl (7.4-10.4) Immature Gran % (Auto) 1.4 % H % (0-0.5) Neut % (Auto) 77.7 % H % (45.5-73.1) Lymph % (Auto) 8.8 % L % (18.3-44.2) [place] % (Auto) 7.2 % % (2.6-8.5) Eos % (Auto) 4.6 % H % (0-4.4) Baso % (Auto) 0.3 % % (0.2-1.2) Lymph # (Auto)
[2021-11-21] MEDS: METOPROLOL TARTRATE 25 MG TABLET PO ×2 (10:49→20:38)
[2021-11-21] MEDS: MINERAL OIL/WHITE PETROLATUM OINTMENT 1 APPLIC EACH EYE ×2 (10:50→20:37)
[2021-11-21] MEDS: CHOLECALCIFEROL 1,000 UNITS TABLET 1000 UNITS PO (10:50)
[2021-11-21] MEDS: MIDODRINE HCL 10 MG TABLET PO ×3 (10:50→17:10)
[2021-11-21] MEDS: PANTOPRAZOLE SODIUM IV 40 MG VIAL IV PUSH (10:50)
[2021-11-21] MEDS: PROPOFOL IV EMULSION 100 ML 34.97 MG IV CONT (10:51)
[2021-11-21] MEDS: ASCORBIC ACID 500 MG TABLET PO (10:53)
--- NOTE | 2021-11-21 11:22 | W.PM.PROC2 ---
Procedure Note - Detailed Date of Procedure 11/21/21 Pre-op Diagnosis Covid pneumonia/hypoxia Post-op Diagnosis same Procedure Performed Tracheostomy Surgeon Herber Royal MD Indications See above Findings Trach placed between tracheal rings well tracheal tracheotomy created between fused tracheal rings 1 and 2. Eight proximal XLT Shiley placed Description of Procedure Patient identified in ICU consent verified. Patient brought operating room time-out performed. Anesthesia deepened id patient prepped and draped. Second time-out performed. Midline neck incision drawn approximately 3 cm wide 1 cc lidocaine 1% 1 100,000 parts epinephrine injected deep to this Bovie electrocautery at a setting of 12 in 12 utilized to dissect down through the skin and in the midline down to the trachea thyroid notch identified cricoid identified thyroid isthmus bovied. Any bleeding controlled with bipolar electrocautery at a setting of 10 in 15. Anesthesia lowered the tube slightly tracheotomy made between rings 1 and 2 this occurred after the placement of a cricoid hook to suspend the laryngeal framework anteriorly. Copious amounts of mucus and purulence were suctioned from the airway. Anesthesia then removed the tube until its tip was no longer visible within the tracheotomy. Trach described above placed anesthesia connected their circuit to the trach. They confirmed adequate placement. Cricoid hook [employer] were then removed. Four corner 3-0 silk sutures were placed. Velcro trach ties placed. Gauze drain sponge placed. This marked end the procedure. Total blood loss 7 cc. I performed all dictated portions. Care the patient turned over to Anesthesiology. Estimated Blood Loss 7 Urine Output 750 Drains No Packing No Pathology none sent Complications No immediate complications Condition stable Disposition ICU
[2021-11-21 11:41] LABS: Glucose Point of Care 143 mg/dl (65-105)
--- NOTE | 2021-11-21 11:54 | PCNFU ---
Nutrition Follow-Up Complete: Inadequate oral intake related to covid 19 and respiratory failure as evidenced by poor intake Goal: Meet nutritional needs Patient is progressing towards goal we will continue current goal. Pt current nutrition is NPO. Nutrition recommendation: Nepro at 45 ml/hr over 22 hours. Last recorded weight is 168.4 kg-stable Bowel Motility: +BM reported / Labs Reviewed:Na 133, GFR 55, Glu 114, BUN 35, Alb 2.8, Hct 24.0,Hgb 7.9 Meds Noted:Vit C, Reglan, Lopressor, Versed, Levophed, Protonix, Albuterol, Fentanyl,Lantus, Propofol 30 misb=335 kcals. Skin: Blister-knee Additional Notes: Patient currently NPO for Trach today. PEG placed 11/20. Recommend restarting tube feedings of Nepro at 45 ml/hr over 22 hours, which will provide 1782 kcals/80 gms protein/720 ml water. Propofol providing an additional 792 kcals. 30 ml free water flush q 4 hours. Agree with diet orders. Will follow up daily in ICU rounds. Will monitor every T/F.
--- NOTE | 2021-11-21 12:00 | WPDINTPN ---
Progress Note: A&P Assessment and Plan (1) Acute respiratory failure with hypoxia: Code(s): J96.01 - Acute respiratory failure with hypoxia Status: Acute Assessment and Plan: Acute hypoxic respiratory failure likely related to COVID pneumonia, component of small PE also could be a factor -patient failed his BiPAP, was on 28/08 and 100% FiO2 with O2 sats in the mid to upper 80s. - intubated in the ICU on 11/08/2021 -currently on peep of 10 and 45% FiO2, will wean FiO2 to maintain O2 sats greater than 92% -chest x-ray and ABGs reviewed -Permissive hypercapnia -sedated with propofol fentanyl, Versed infusion, patient is going for tracheostomy today will start start weaning sedation postprocedure -patient has been off Nimbex since 11/13 -continue bronchodilators and Pulmicort (2) Shock: Code(s): R57.9 - Shock, unspecified Status: Acute Assessment and Plan: RESOLVED hypotension requiring IV fluids. Likely related to hypovolemia or septic shock -08/17/22: Patient has been off Levophed now -11/08/2021 blood cultures negative x2, urine cultures negative -11/10/2021 sputum culture negative -status post 7 days of vancomycin and cefepime (stopped on 11/15/2021) (3) Pneumonia due to COVID-19 virus: Code(s): U07.1 - COVID-19; J12.82 - Pneumonia due to coronavirus disease 2019 Status: Acute Assessment and Plan: Patient was tested positive a week prior to admission on 10/27/2021, unvaccinated -completed dexamethasone, baricitinib and remdesivir -continue droplet, airborne, contact isolation/precautions -continue vitamin-C and vitamin-D (4) Pulmonary embolism: Qualifiers: Pulmonary embolism type: unspecified Chronicity: unspecified Acute cor pulmonale presence: unspecified Qualified Code(s): I26.99 - Other pulmonary embolism without acute cor pulmonale Code(s): I26.99 - Other pulmonary embolism without acute cor pulmonale Status: Acute Assessment and Plan: Chest CTA on 10/29/2021: 1. New small filling defect right upper lobe segmental pulmonary artery, consistent with pulmonary embolism. Small thrombus burden. 2: Progression of extensive patchy bilateral airspace disease with worsening in the right lower lobe, compatible with pneumonia. -patient is on therapeutic Lovenox which is on hold for PEG tube and tracheostomy and will be she started (5) Type 2 diabetes mellitus: Code(s): E11.9 - Type 2 diabetes mellitus without complications Status: Acute Assessment and Plan: Blood sugars have been stable, continue Accu-Cheks and sliding scale insulin -hemoglobin A1c this admission was 7.9 (6) Atrial fibrillation with RVR: Code(s): I48.91 - Unspecified atrial fibrillation Status: Acute Assessment and Plan: AFib RVR, patient initially was in SVT with heart rates in the 200s, was given adenosine 6 mg IV x1 on 11/08/2021, no change was noted, patient was then given metoprolol 5 mg IV x1 and briefly slow down to the 150s 160s. - OFF amiodarone infusion - continue metoprolol per tube - Patient also on therapeutic Lovenox -currently in AFib, rate controlled (7) Acute kidney injury: Code(s): N17.9 - Acute kidney failure, unspecified Status: Acute Assessment and Plan: patient with acute kidney injury, creatinine up to 1.3 from 0.7 (11/08) - likely due to hypotension, shock, infection, COVID pneumonia, hypoxia -nephrology following the patient Creatinine improved but still elevated, urine output has been significantly better -continue to monitor renal function, electrolytes and urine output -continue midodrine Additional Plan DVT prophylaxis: On therapeutic Lovenox which is currently on hold for procedures and will presume Stress ulcer prophylaxis: Protonix -> changed to per tube Pepcid Nutrition: Continue tube feeds PEG was placed yesterday Patient is scheduled for tracheostomy today Code status: F
--- NOTE | 2021-11-21 12:47 | PM.PNNEP ---
Progress Note: A&P Assessment and Plan (1) Acute kidney injury: Code(s): N17.9 - Acute kidney failure, unspecified Status: Acute Assessment and Plan: Kane has acute kidney injury. His creatinine peaked at 2.0 , and has improved with better blood pressure. It is now down to 1.3 Urine electrolytes are pre renal. CPK is normal Renal ultrasound is unremarkable. most likely this is acute kidney injury due to multiple factors including pre renal azotemia, ATN from his shock and COVID-19. urine output was 1850. creatinine is down to 1.3 he is on 30% FiO2 and 10 of peep. I think his kidneys like the higher systolic effected by the midodrine. Will continue his medications (2) Shock: Code(s): R57.9 - Shock, unspecified Status: Acute Assessment and Plan: Resolved (3) Pulmonary embolism: Qualifiers: Pulmonary embolism type: unspecified Chronicity: unspecified Acute cor pulmonale presence: unspecified Qualified Code(s): I26.99 - Other pulmonary embolism without acute cor pulmonale Code(s): I26.99 - Other pulmonary embolism without acute cor pulmonale Status: Acute Assessment and Plan: He is on Lovenox (4) Pneumonia due to COVID-19 virus: Code(s): U07.1 - COVID-19; J12.82 - Pneumonia due to coronavirus disease 2019 Status: Acute Assessment and Plan: he is getting supportive care with ventilator, paralytics, bronchodilators, rotation , etc. he is on baricitinib. he received Dexamethasone and remdesivir FiO2 is at 30% with 10 of peep. (5) Hypertension: Code(s): I10 - Essential (primary) hypertension Status: Acute Assessment and Plan: With soft blood pressure, His antihypertensives are on hold. (6) Atrial fibrillation with RVR: Code(s): I48.91 - Unspecified atrial fibrillation Status: Acute Assessment and Plan: heart rate is under good control. On metoprolol 25mg twice a day (7) Type 2 diabetes mellitus: Code(s): E11.9 - Type 2 diabetes mellitus without complications Status: Acute Assessment and Plan: On Accu-Cheks and sliding-scale insulin (8) Anemia: Code(s): D64.9 - Anemia, unspecified Status: Acute Assessment and Plan: patient's hemoglobin is drifting down. He is on Epogen Subjective Date/time seen: 11/21/21 12:47 Interval history: The patient is on the ventilator and cannot give a history He had a trach yesterday Exam Narrative: WDWN in the ICU on a ventilator per tracheostomy in NAD skin no rash head ncat lungs mildly coarse bilaterally cor reg no rub abd BS+ nontender and soft ext trace edema. Objective Data Vital Signs Vital Signs: Vital Signs - 24 hr 11/20/21 13:16 11/20/21 14:00 11/20/21 15:03 Temperature Pulse Rate 77 78 71 Respiratory Rate 24 H 30 H 25 H Blood Pressure 100/68 Pulse Oximetry 94 11/20/21 15:07 11/20/21 15:30 11/20/21 15:31 Temperature Pulse Rate 74 74 74 Respiratory Rate 25 H 25 H Blood Pressure Pulse Oximetry 92 11/20/21 15:32 11/20/21 16:00 11/20/21 17:45 Temperature 35.9 C L Pulse Rate 74 73 73 Respiratory Rate 25 H 25 H 25 H Blood Pressure 101/71 Pulse Oximetry 94 11/20/21 17:59 11/20/21 18:00 11/20/21 20:00 Temperature 35.8 C L Pulse Rate 63 90 66 Respiratory Rate 30 H 28 H Blood Pressure 100/68 95/71 L Pulse Oximetry 94 95 95 11/20/21 20:16 11/20/21 20:43 11/20/21 20:56 Temperature Pulse Rate 78 79 82 Respiratory Rate 28 H 25 H Blood Pressure Pulse Oximetry 94 11/20/21 21:05 11/20/21 22:00 11/20/21 22:48 Temperature 35.8 C L Pulse Rate 80 75 71 Respiratory Rate 25 H 28 H 28 H Blood Pressure 96/66 L Pulse Oximetry 96 11/20/21 22:49 11/20/21 22:50 11/21/21 00:00 Temperature 33.9 C L Pulse Rate 71 71 95 Respiratory Rate 28 H 28 H 28 H Blood Pressure 98/73 L Pulse O
--- NOTE | 2021-11-21 16:53 | WPDGIPROGNO ---
Progress Note: A&P Assessment and Plan (1) Pneumonia due to COVID-19 virus: Code(s): U07.1 - COVID-19; J12.82 - Pneumonia due to coronavirus disease 2019 Status: Acute Assessment and Plan: s/p trach and G-tube on feeding (recommendation by industrial roofer) will follow from af[place] (2) Acute respiratory failure with hypoxia: Code(s): J96.01 - Acute respiratory failure with hypoxia Status: Acute Assessment and Plan: vent dependent by ICU team (3) Acute kidney injury: Code(s): N17.9 - Acute kidney failure, unspecified Status: Acute Assessment and Plan: nephrology on board (4) DVT (deep venous thrombosis): Qualifiers: Affected thrombotic vein of extremity: unspecified lower extremity distal vein Chronicity: acute DVT location: lower extremity Laterality: unspecified laterality Qualified Code(s): I82.4Z9 - Acute embolism and thrombosis of unspecified deep veins of unspecified distal lower extremity Code(s): I82.409 - Acute embolism and thrombosis of unspecified deep veins of unspecified lower extremity Status: Acute Subjective Date/time seen: 11/21/21 16:53 Interval history: tolerating tube feeding, also had tracheostomy Review of Systems Review of Systems: All systems reviewed & are unremarkable except as noted in HPI and below Exam Const: Other: ill, intubated and sedated Eyes: Sclera: sclerae normal Neck: Neck: supple Other: trach in place Resp: Auscultation: rhonchi Cardio: Rate: regular rate GI: GI Palp: Yes Soft to palpation and No Guarding due to palpation present (GI) Auscultation: normal bowel sounds Other: G-tube in place, site looks ok Urinary Catheter: Urinary Catheter: patent and draining Skin: General skin exam: normal color Neuro: Other: sedated Extrem: General: normal to inspection Psych: Other: unable to assess Objective Data Vital Signs Vital Signs: Vital Signs - 24 hr 11/20/21 17:45 11/20/21 17:59 11/20/21 18:00 Temperature Pulse Rate 73 63 90 Respiratory Rate 25 H 30 H Blood Pressure 100/68 Pulse Oximetry 94 95 11/20/21 20:00 11/20/21 20:16 11/20/21 20:43 Temperature 96.4 F L Pulse Rate 66 78 79 Respiratory Rate 28 H 28 H 25 H Blood Pressure 95/71 L Pulse Oximetry 95 94 11/20/21 20:56 11/20/21 21:05 11/20/21 22:00 Temperature 96.4 F L Pulse Rate 82 80 75 Respiratory Rate 25 H 28 H Blood Pressure 96/66 L Pulse Oximetry 96 11/20/21 22:48 11/20/21 22:49 11/20/21 22:50 Temperature Pulse Rate 71 71 71 Respiratory Rate 28 H 28 H 28 H Blood Pressure Pulse Oximetry 11/21/21 00:00 11/21/21 01:19 11/21/21 01:47 Temperature 93.1 F L Pulse Rate 95 64 61 Respiratory Rate 28 H 28 H 28 H Blood Pressure 98/73 L Pulse Oximetry 97 11/21/21 01:48 11/21/21 02:00 11/21/21 03:50 Temperature 95.9 F L Pulse Rate 62 72 78 Respiratory Rate 28 H 28 H Blood Pressure 100/72 Pulse Oximetry 95 96 11/21/21 04:00 11/21/21 04:15 11/21/21 06:00 Temperature 96.7 F L Pulse Rate 82 77 81 Respiratory Rate 28 H 28 H Blood Pressure 92/64 L 98/60 L Pulse Oximetry 95 96 99 11/21/21 06:21 11/21/21 08:00 11/21/21 08:52 Temperature 98.2 F Pulse Rate 80 77 115 H Respiratory Rate 28 H 22 H 28 H Blood Pressure 97/63 L Pulse Oximetry 100 11/21/21 10:28 11/21/21 10:30 11/21/21 10:40 Temperature Pulse Rate 107 H 110 H 112 H Respiratory Rate 28 H Blood Pressure Pulse Oximetry 95 11/21/21 10:46 11/21/21 10:51 11/21/21 11:39 Temperature Pulse Rate 115 H 115 H 115 H Respiratory Rate 28 H 28 H 28 H Blood Pressure Pulse Oximetry 11/21/21 12:00 11/21/21 14:00 11/21/21 16:00 Temperature Pulse Rate 115 H 86 91 Respiratory Rate 28 H Blood Pressure Pulse Oximetry 95 Intake/Output Intake/Output: Intake & Output 11/18/21 11/19/21 11/20/21 11/21/21 23:59 23:59 23:59 23:59 Intake Total 235
[2021-11-21 16:56] LABS: Glucose Point of Care 135 mg/dl (65-105)
[2021-11-21] MEDS: METOCLOPRAMIDE HCL 10 MG/10 ML SOLN UDC FEED TUBE (17:09)
[2021-11-21] MEDS: PROPOFOL IV EMULSION 100 ML 29.97 MG IV CONT ×2 (17:09→20:30)
[2021-11-21] MEDS: MIDAZOLAM 100MG/NS 100ML(*CRX) 100 MG/100 ML BAG (20:35)
[2021-11-21] MEDS: MIDAZOLAM 100MG/NS 100ML(*CRX) 100 MG/100 ML BAG IV CONT (20:35)
[2021-11-21] MEDS: FAMOTIDINE 20 MG TABLET FEED TUBE (20:39)
[2021-11-21] MEDS: ATORVASTATIN 20 MG TABLET PO (20:39)
[2021-11-21] MEDS: METOPROLOL TARTRATE INJ 5 MG/5 ML VIAL IV PUSH (22:09)
[2021-11-21 23:57] LABS: Glucose Point of Care 144 mg/dl (65-105)
[2021-11-22] VITALS (44 sets, daily range): BP systolic 98–135; BP diastolic 56–95; PULSE 82–135; RESP 24–36; TEMP 37.4–38.1; O2SAT 94–100
[2021-11-22] MEDS: METOCLOPRAMIDE HCL 10 MG/10 ML SOLN UDC FEED TUBE ×4 (01:07→17:01)
[2021-11-22] MEDS: PROPOFOL IV EMULSION 100 ML 39.96 MG IV CONT ×3 (01:57→06:45)
[2021-11-22] MEDS: ALBUTEROL SULFATE NEB 2.5 MG/0.5 ML INH 5 MG INHALATION ×4 (02:22→19:27)
[2021-11-22] MEDS: IPRATROPIUM BR 0.02% INH SOLN 0.5 MG/2.5 ML VIAL INHALATION ×3 (02:22→19:27)
[2021-11-22] MEDS: FENTANYL 2,500MCG/NS250ML(*CRX 2,500 MCG/250 ML BAG 7.5 MCG IV CONT (04:41)
[2021-11-22] MEDS: CENTRAL LINE FLUSH 10 ML IV PUSH ×2 (05:01→13:15)
[2021-11-22 05:10] LABS: Basophils Percent Auto 0.4 % (0.2-1.2); Eosinophils Absolute Auto 0.3 K/mm3 (0-0.3); Eosinophils Percent Auto 2.9 % (0-4.4); Hematocrit 24.1 % (42.0-52.0); Hemoglobin 7.6 g/dL (14.0-18.0); Immature Granulocyte Absolute 0.13 K/mm3 (0.00-0.031); Immature Granulocyte Percent A 1.2 % (0-0.5); Lymphocytes Absolute Auto 1.08 K/mm3 (0.9-3.2); Lymphocytes Percent Auto 10.2 % (18.3-44.2); Mean Corpuscular HGB Conc 31.5 g/dl (32-36); Mean Corpuscular Hemoglobin 29.7 pg (26-34); Mean Corpuscular Volume 94.1 fl (80-100); Mean Platelet Volume 10.3 fl (7.4-10.4); Monocytes Absolute Auto 1.1 K/mm3 (0.1-0.6); Neutrophils Percent Auto 75.3 % (45.5-73.1); Nucleated Red Blood Cells Perc 0.2 % (0.0-0.2); Platelet Count Result 503 k/mm3 (150-375); Red Blood Count 2.56 M/mm3 (4.6-6.20); Red Cell Distribution Width 15.6 % (11.5-14.5); White Blood Count 10.6 K/mm3 (4.5-10.0)
[2021-11-22 05:26] LABS: Alanine Aminotransferase 19 U/L (4-50); Albumin Level 2.8 g/dL (3.5-5.1); Alkaline Phosphatase 140 U/L (38-126); Anion Gap 5 mmol/L (8-16); Aspartate Amino Transferase 26 U/L (17-59); Bilirubin,Total 0.4 mg/dL (0.2-1.3); Blood Urea Nitrogen 35 mg/dL (9-20); Calcium 9.1 mg/dL (8.4-10.2); Carbon Dioxide 29 mmol/L (22-30); Chloride 100 mmol/L (98-107); Estimated CRCL calculation 79 ml/min; Estimated Glomerular Filt Rate 55; Glucose 164 mg/dL (65-110); Magnesium 2.2 mg/dL (1.6-2.3); Sodium 134 mmol/L (137-145)
[2021-11-22 05:39] LABS: Alveolar/Arterial O2 Gradient 116.3 mmHg; Base Excess ABG 1.5 mEq/l (+/-2.0); Carboxyhemoglobin 0.3 % THb (0-2.0); Fractional Inspired Oxygen 35 %; HCO3 ABG 27.4 mEq/l (22.0-26.0); Oxygen Content ABG 14.4 %vol (16.0-22.0); Oxygen Saturation ABG 94.7 % (95.0-100.0); Oxyhemoglobin 94.4 % THb (90.0-100.0); PCO2 ABG 49.1 mmHg (35.0-45.0); PO2 ABG 76.2 mmHg (80.0-100.0); PO2 FiO2 Ratio Arterial Blood 2.18 %; Reduced Hemoglobin 5.3 %THb (0-5.0); Total Hemoglobin 10.8 g/dL (12.0-18.0); pH ABG 7.364 (7.350-7.450)
[2021-11-22 05:40] LABS: Arterial Blood Gas Ventilator rate 28 /MIN; Device VENTILATOR; Modified Allen's Test Unable to perform; Site Drawn LEFT RADIAL
[2021-11-22 05:41] LABS: Arterial Blood Gas PEEP 8 cmH2O; Arterial Blood Gas Tidal Volume 480 ml; Arterial Blood Gas Vent Mode CMV
[2021-11-22] MEDS: CHOLECALCIFEROL 1,000 UNITS TABLET 1000 UNITS PO (08:14)
[2021-11-22] MEDS: MIDODRINE HCL 10 MG TABLET PO ×2 (08:14→12:13)
[2021-11-22] MEDS: FAMOTIDINE 20 MG TABLET FEED TUBE ×2 (08:15→20:00)
[2021-11-22] MEDS: ASCORBIC ACID 500 MG TABLET PO (08:15)
[2021-11-22] MEDS: MINERAL OIL/WHITE PETROLATUM OINTMENT 1 APPLIC EACH EYE ×2 (08:15→20:01)
[2021-11-22] MEDS: METOPROLOL TARTRATE 25 MG TABLET PO ×2 (08:15→20:00)
[2021-11-22] MEDS: EPOETIN ALFA-EPBX 10,000 UNITS/ML VIAL 10000 UNITS SUB-Q (08:15)
[2021-11-22] MEDS: PROPOFOL IV EMULSION 100 ML 34.97 MG IV CONT (08:21)
[2021-11-22 08:28] LABS: Glucose Point of Care 152 mg/dl (65-105)
--- NOTE | 2021-11-22 09:19 | PM.PNNEP ---
Progress Note: A&P Assessment and Plan (1) Acute kidney injury: Code(s): N17.9 - Acute kidney failure, unspecified Status: Acute Assessment and Plan: improving if not stabilizing due to ATN with multifactorial etiology: prerenal factors hypotension/shock infection/COVID-19 pneumonia hypoxia evaluation to date demonstrates: prerenal urine electrolytes unremarkable renal ultrasound normal CPK creatinine peaked/plateaued at ~ 2.0mg/dl improved urine output noted with downtrending creatinine suspect better hemodynamics from previous vasopressors and now midodrine resulted in better blood flow to kidneys continue follow trend of repeat labs and urine output (2) Acute respiratory failure with hypoxia: Code(s): J96.01 - Acute respiratory failure with hypoxia Status: Acute Assessment and Plan: due to a combination of COVID pneumonia and pulmonary embolism intubated on 11/08/21 s/p tracheostomy on 11/21/21 continue inhalers + bronchodilators continue ventilator support plan for LTACH on discharge (3) Shock: Code(s): R57.9 - Shock, unspecified Status: Resolved Assessment and Plan: resolved off vasopressor therapy blood/urine/sputum culture negative completed course of antibiotic therapy remains on midodrine (4) Pulmonary embolism: Qualifiers: Acute cor pulmonale presence: unspecified Chronicity: unspecified Pulmonary embolism type: unspecified Qualified Code(s): I26.99 - Other pulmonary embolism without acute cor pulmonale Code(s): I26.99 - Other pulmonary embolism without acute cor pulmonale Status: Acute Assessment and Plan: as noted by CT angiogram of chest on anticoagulation with lovenox (5) Pneumonia due to COVID-19 virus: Code(s): U07.1 - COVID-19; J12.82 - Pneumonia due to coronavirus disease 2019 Status: Acute Assessment and Plan: positivity noted ~ 1 week prior to admission unvaccinated completed coarse of dexamethasone, baricitinib and remdesivir ventilator weaning (6) Hypertension: Code(s): I10 - Essential (primary) hypertension Status: Acute Assessment and Plan: holding antihypertensives give soft BP on midodrine to maintain systolic blood pressure follow trend of hemodynamics (7) Atrial fibrillation with RVR: Code(s): I48.91 - Unspecified atrial fibrillation Status: Acute Assessment and Plan: rate control strategy on anticoagulation (8) Anemia: Code(s): D64.9 - Anemia, unspecified Status: Acute Assessment and Plan: H/H on lower side probably related to acute medical issuea and JUVENAL on Epogen but wean as renal function improved follow trend of H/H (9) Type 2 diabetes mellitus: Code(s): E11.9 - Type 2 diabetes mellitus without complications Status: Acute Assessment and Plan: follow Accu-Cheks on sliding-scale insulin Will continue to follow. Subjective Date/time seen: 11/22/21 09:19 Chart reviewed - assuming care from Dr. Smith; remains on ventilator support; stable hemodynamics at this time without the need for vasopressor support (but is on midodrine therapy); s/p tracheostomy yesterday and tolerated this procedure reasonably well; good urine output noted and renal stable improving if not stable. Exam Narrative: General: WD/WN male on vent via tracheostomy in NAD Heart: normal S1 and S2; no rub Lungs: coarse breath sounds bilaterally Abdomen: soft, nontender, nondistended, positive bowel sounds Extremities: no cyanosis or clubbing; trace edema Skin: warm and dry Objective Data Vital Signs Vital Signs: Vital Signs Temp Pulse Resp BP Pulse Ox 11/22/21 09:14 89 32 H 11/22/21 08:51 82 28 H 11/22/21 08:37 99 29 H 99 11/22/21 08:29 93 30 H 11/22/21 08:28 101 H 30 H 11/22/21 08:21 93 30 H
--- NOTE | 2021-11-22 09:19 | P.PNNP_ITS ---
Progress Note: A&P Assessment and Plan (1) Acute kidney injury: Code(s): N17.9 - Acute kidney failure, unspecified Status: Acute Assessment and Plan: * improving if not stabilizing * due to ATN with multifactorial etiology: * prerenal factors * hypotension/shock * infection/COVID-19 pneumonia * hypoxia * evaluation to date demonstrates: * prerenal urine electrolytes * unremarkable renal ultrasound * normal CPK * creatinine peaked/plateaued at ~ 2.0mg/dl * improved urine output noted with downtrending creatinine * suspect better hemodynamics from previous vasopressors and now midodrine resulted in better blood flow to kidneys * continue follow trend of repeat labs and urine output (2) Acute respiratory failure with hypoxia: Code(s): J96.01 - Acute respiratory failure with hypoxia Status: Acute Assessment and Plan: * due to a combination of COVID pneumonia and pulmonary embolism * intubated on 11/08/21 * s/p tracheostomy on 11/21/21 * continue inhalers + bronchodilators * continue ventilator support * plan for LTACH on discharge (3) Shock: Code(s): R57.9 - Shock, unspecified Status: Resolved Assessment and Plan: * resolved * off vasopressor therapy * blood/urine/sputum culture negative * completed course of antibiotic therapy * remains on midodrine (4) Pulmonary embolism: Qualifiers: Acute cor pulmonale presence: unspecified Chronicity: unspecified Pulmonary embolism type: unspecified Qualified Code(s): I26.99 - Other pulm onary embolism without acute cor pulmonale Code(s): I26.99 - Other pulmonary embolism without acute cor pulmonale Status: Acute Assessment and Plan: * as noted by CT angiogram of chest * on anticoagulation with lovenox (5) Pneumonia due to COVID-19 virus: Code(s): U07.1 - COVID-19; J12.82 - Pneumonia due to coronavirus disease 2019 Status: Acute Assessment and Plan: * positivity noted ~ 1 week prior to admission * unvaccinated * completed coarse of dexamethasone, baricitinib and remdesivir * ventilator weaning (6) Hypertension: Code(s): I10 - Essential (primary) hypertension Status: Acute Assessment and Plan: * holding antihypertensives give soft BP * on midodrine to maintain systolic blood pressure * follow trend of hemodynamics (7) Atrial fibrillation with RVR: Code(s): I48.91 - Unspecified atrial fibrillation Status: Acute Assessment and Plan: * rate control strategy * on anticoagulation (8) Anemia: Code(s): D64.9 - Anemia, unspecified Status: Acute Assessment and Plan: * H/H on lower side * probably related to acute medical issuea and JUVENAL * on Epogen but wean as renal function improved * follow trend of H/H (9) Type 2 diabetes mellitus: Code(s): E11.9 - Type 2 diabetes mellitus without complications Status: Acute Assessment and Plan: * follow Accu-Cheks * on sliding-scale insulin Will continue to follow. Subjective Date/time seen: 11/22/21 09:19 Chart reviewed - assuming care from Dr. Smith; remains on ventilator support; stable hemodynamics at this time without the need for vasopressor support (but is on midodrine therapy); s/p tracheostomy yesterday and tolerated this procedure reasonably well; good urine output noted and renal stable improving if not stable. Exam Narrative: General: WD/
--- NOTE | 2021-11-22 11:54 | WPDINTPN ---
Progress Note: A&P Assessment and Plan (1) Acute respiratory failure with hypoxia: Code(s): J96.01 - Acute respiratory failure with hypoxia Status: Acute Assessment and Plan: Acute hypoxic respiratory failure likely related to COVID pneumonia, component of small PE also could be a factor -patient failed his BiPAP, was on 28/08 and 100% FiO2 with O2 sats in the mid to upper 80s. - intubated in the ICU on 11/08/2021 tracheostomy done on 11/21 -currently on peep of 8 and 45% FiO2, will wean FiO2 to maintain O2 sats greater than 92% -chest x-ray and ABGs reviewed -Permissive hypercapnia -wean sedation down -continue bronchodilators and Pulmicort (2) Shock: Code(s): R57.9 - Shock, unspecified Status: Resolved Assessment and Plan: RESOLVED hypotension requiring IV fluids. Likely related to hypovolemia or septic shock -08/17/22: Patient has been off Levophed now -11/08/2021 blood cultures negative x2, urine cultures negative -11/10/2021 sputum culture negative -status post 7 days of vancomycin and cefepime (stopped on 11/15/2021) (3) Pneumonia due to COVID-19 virus: Code(s): U07.1 - COVID-19; J12.82 - Pneumonia due to coronavirus disease 2019 Status: Acute Assessment and Plan: Patient was tested positive a week prior to admission on 10/27/2021, unvaccinated -completed dexamethasone, baricitinib and remdesivir -continue droplet, airborne, contact isolation/precautions -continue vitamin-C and vitamin-D (4) Pulmonary embolism: Qualifiers: Pulmonary embolism type: unspecified Chronicity: unspecified Acute cor pulmonale presence: unspecified Qualified Code(s): I26.99 - Other pulmonary embolism without acute cor pulmonale Code(s): I26.99 - Other pulmonary embolism without acute cor pulmonale Status: Acute Assessment and Plan: Chest CTA on 10/29/2021: 1. New small filling defect right upper lobe segmental pulmonary artery, consistent with pulmonary embolism. Small thrombus burden. 2: Progression of extensive patchy bilateral airspace disease with worsening in the right lower lobe, compatible with pneumonia. -patient is on therapeutic Lovenox (5) Type 2 diabetes mellitus: Code(s): E11.9 - Type 2 diabetes mellitus without complications Status: Acute Assessment and Plan: Blood sugars have been stable, continue Accu-Cheks and sliding scale insulin -hemoglobin A1c this admission was 7.9 (6) Atrial fibrillation with RVR: Code(s): I48.91 - Unspecified atrial fibrillation Status: Acute Assessment and Plan: AFib RVR, patient initially was in SVT with heart rates in the 200s, was given adenosine 6 mg IV x1 on 11/08/2021, no change was noted, patient was then given metoprolol 5 mg IV x1 and briefly slow down to the 150s 160s. - OFF amiodarone infusion - continue metoprolol per tube and will add IV metoprolol - Patient also on therapeutic Lovenox -currently in AFib, rate controlled (7) Acute kidney injury: Code(s): N17.9 - Acute kidney failure, unspecified Status: Acute Assessment and Plan: patient with acute kidney injury, creatinine up to 1.3 from 0.7 (11/08) - likely due to hypotension, shock, infection, COVID pneumonia, hypoxia -nephrology following the patient - Creatinine improved and urine output has been significantly better -continue to monitor renal function, electrolytes and urine output -continue midodrine (8) Fever: Code(s): R50.9 - Fever, unspecified Status: Acute Assessment and Plan: Low-grade fever. Patient has finished a course of antibiotics WBCs normal Monitor Additional Plan DVT prophylaxis: On therapeutic Lovenox Stress ulcer prophylaxis: per tube Pepcid Nutrition: Continue tube feeds via PEG Code status: Full code Critical care time spent: 32 minutes This dictation may have been done utilizing a voice recognition system. Attempts have been mad
[2021-11-22 12:23] LABS: Glucose Point of Care 156 mg/dl (65-105)
[2021-11-22] MEDS: PROPOFOL IV EMULSION 100 ML 19.98 MG IV CONT (13:15)
[2021-11-22] MEDS: METOPROLOL TARTRATE INJ 5 MG/5 ML VIAL IV PUSH (14:21)
[2021-11-22] MEDS: PROPOFOL IV EMULSION 100 ML 24.98 MG IV CONT ×2 (16:54→20:59)
[2021-11-22 17:01] LABS: Glucose Point of Care 170 mg/dl (65-105)
[2021-11-22] MEDS: ENOXAPARIN 100 MG/ML SYRINGE SUB-Q (20:00)
[2021-11-22] MEDS: ENOXAPARIN 30 MG/0.3 ML SYRINGE SUB-Q (20:00)
[2021-11-22] MEDS: ATORVASTATIN 20 MG TABLET PO (20:00)
[2021-11-23] VITALS (27 sets, daily range): BP systolic 132–172; BP diastolic 72–98; PULSE 94–134; RESP 24–34; TEMP 36.7–37.5; O2SAT 94–100
[2021-11-23] MEDS: METOCLOPRAMIDE HCL 10 MG/10 ML SOLN UDC FEED TUBE ×4 (00:01→17:48)
[2021-11-23] MEDS: CENTRAL LINE FLUSH 10 ML IV PUSH ×4 (00:01→22:05)
[2021-11-23] MEDS: PROPOFOL IV EMULSION 100 ML 24.98 MG IV CONT ×2 (01:00→05:46)
[2021-11-23 01:26] LABS: Glucose Point of Care 165 mg/dl (65-105)
[2021-11-23] MEDS: ALBUTEROL SULFATE NEB 2.5 MG/0.5 ML INH 5 MG INHALATION ×4 (02:17→20:00)
[2021-11-23] MEDS: IPRATROPIUM BR 0.02% INH SOLN 0.5 MG/2.5 ML VIAL INHALATION ×4 (02:17→20:00)
[2021-11-23 05:10] LABS: Basophils Percent Auto 0.2 % (0.2-1.2); Eosinophils Absolute Auto 0.5 K/mm3 (0-0.3); Eosinophils Percent Auto 5.2 % (0-4.4); Immature Granulocyte Absolute 0.11 K/mm3 (0.00-0.031); Immature Granulocyte Percent A 1.2 % (0-0.5); Lymphocytes Absolute Auto 1.04 K/mm3 (0.9-3.2); Lymphocytes Percent Auto 11.1 % (18.3-44.2); Mean Corpuscular Hemoglobin 29.5 pg (26-34); Mean Corpuscular Volume 92.3 fl (80-100); Mean Platelet Volume 9.9 fl (7.4-10.4); Monocytes Absolute Auto 0.9 K/mm3 (0.1-0.6); Monocytes Percent Auto 9.5 % (2.6-8.5); Neutrophils Absolute Auto 6.8 K/mm3 (1.3-6.7); Neutrophils Percent Auto 72.8 % (45.5-73.1); Platelet Count Result 603 k/mm3 (150-375); Red Blood Count 2.71 M/mm3 (4.6-6.20); Red Cell Distribution Width 15.9 % (11.5-14.5); White Blood Count 9.4 K/mm3 (4.5-10.0)
[2021-11-23 05:32] LABS: Alanine Aminotransferase 18 U/L (4-50); Albumin Level 2.9 g/dL (3.5-5.1); Alkaline Phosphatase 178 U/L (38-126); Anion Gap 6 mmol/L (8-16); Aspartate Amino Transferase 25 U/L (17-59); Bilirubin,Total 0.4 mg/dL (0.2-1.3); Blood Urea Nitrogen 27 mg/dL (9-20); Calcium 9.4 mg/dL (8.4-10.2); Carbon Dioxide 30 mmol/L (22-30); Chloride 100 mmol/L (98-107); Estimated CRCL calculation 85 ml/min; Estimated Glomerular Filt Rate 60; Glucose 166 mg/dL (65-110); Magnesium 2.2 mg/dL (1.6-2.3); Potassium 3.5 mmol/L (3.4-5.0); Sodium 136 mmol/L (137-145)
[2021-11-23 06:46] LABS: Alveolar/Arterial O2 Gradient 131.2 mmHg; Base Excess ABG 2.3 mEq/l (+/-2.0); Carboxyhemoglobin 0.3 % THb (0-2.0); Fractional Inspired Oxygen 35 %; HCO3 ABG 27.6 mEq/l (22.0-26.0); Methemoglobin ABG 0.1 %THb (0-1.5); Oxygen Content ABG 12.1 %vol (16.0-22.0); Oxygen Saturation ABG 92.3 % (95.0-100.0); Oxyhemoglobin 91.1 % THb (90.0-100.0); PCO2 ABG 46.4 mmHg (35.0-45.0); PO2 ABG 64.4 mmHg (80.0-100.0); PO2 FiO2 Ratio Arterial Blood 1.84 %; Reduced Hemoglobin 8.5 %THb (0-5.0); Total Hemoglobin 9.4 g/dL (12.0-18.0); pH ABG 7.393 (7.350-7.450)
[2021-11-23 06:49] LABS: Glucose Point of Care 157 mg/dl (65-105)
[2021-11-23 06:54] LABS: Device VENTILATOR; Modified Allen's Test Pass; Site Drawn RIGHT RADIAL
[2021-11-23 06:58] LABS: Arterial Blood Gas PEEP 8 cmH2O; Arterial Blood Gas Tidal Volume 480 ml; Arterial Blood Gas Vent Mode CMV; Arterial Blood Gas Ventilator rate 28 /MIN
[2021-11-23] MEDS: MIDODRINE HCL 10 MG TABLET PO (08:22)
[2021-11-23] MEDS: METOPROLOL TARTRATE 25 MG TABLET PO (08:22)
[2021-11-23] MEDS: ASCORBIC ACID 500 MG TABLET PO (08:22)
[2021-11-23] MEDS: CHOLECALCIFEROL 1,000 UNITS TABLET 1000 UNITS PO (08:22)
[2021-11-23] MEDS: FAMOTIDINE 20 MG TABLET FEED TUBE ×2 (08:23→20:18)
[2021-11-23] MEDS: ENOXAPARIN 30 MG/0.3 ML SYRINGE SUB-Q ×2 (08:23→20:19)
[2021-11-23] MEDS: MINERAL OIL/WHITE PETROLATUM OINTMENT 1 APPLIC EACH EYE ×2 (08:23→20:18)
[2021-11-23] MEDS: ENOXAPARIN 100 MG/ML SYRINGE SUB-Q ×2 (08:23→20:19)
--- NOTE | 2021-11-23 09:11 | WPDINTPN ---
Progress Note: A&P Assessment and Plan (1) Acute respiratory failure with hypoxia: Code(s): J96.01 - Acute respiratory failure with hypoxia Status: Acute Assessment and Plan: Acute hypoxic respiratory failure likely related to COVID pneumonia, component of small PE also could be a factor -patient failed his BiPAP, was on 28/08 and 100% FiO2 with O2 sats in the mid to upper 80s. - intubated in the ICU on 11/08/2021 tracheostomy done on 11/21 -currently on peep of 8 and 45% FiO2, will wean FiO2 to maintain O2 sats greater than 92% -chest x-ray and ABGs reviewed -Permissive hypercapnia -currently on propofol which I have held for sedation holiday to assess for weaning trial -continue bronchodilators and Pulmicort (2) Shock: Code(s): R57.9 - Shock, unspecified Status: Resolved Assessment and Plan: RESOLVED hypotension requiring IV fluids. Likely related to hypovolemia or septic shock -08/17/22: Patient has been off Levophed now -11/08/2021 blood cultures negative x2, urine cultures negative -11/10/2021 sputum culture negative -status post 7 days of vancomycin and cefepime (stopped on 11/15/2021) (3) Pneumonia due to COVID-19 virus: Code(s): U07.1 - COVID-19; J12.82 - Pneumonia due to coronavirus disease 2019 Status: Acute Assessment and Plan: Patient was tested positive a week prior to admission on 10/27/2021, unvaccinated -completed dexamethasone, baricitinib and remdesivir -continue droplet, airborne, contact isolation/precautions -continue vitamin-C and vitamin-D (4) Pulmonary embolism: Qualifiers: Pulmonary embolism type: unspecified Chronicity: unspecified Acute cor pulmonale presence: unspecified Qualified Code(s): I26.99 - Other pulmonary embolism without acute cor pulmonale Code(s): I26.99 - Other pulmonary embolism without acute cor pulmonale Status: Acute Assessment and Plan: Chest CTA on 10/29/2021: 1. New small filling defect right upper lobe segmental pulmonary artery, consistent with pulmonary embolism. Small thrombus burden. 2: Progression of extensive patchy bilateral airspace disease with worsening in the right lower lobe, compatible with pneumonia. -patient is on therapeutic Lovenox (5) Type 2 diabetes mellitus: Code(s): E11.9 - Type 2 diabetes mellitus without complications Status: Acute Assessment and Plan: Blood sugars have been stable, continue Accu-Cheks and sliding scale insulin -hemoglobin A1c this admission was 7.9 (6) Atrial fibrillation with RVR: Code(s): I48.91 - Unspecified atrial fibrillation Status: Acute Assessment and Plan: AFib RVR, patient initially was in SVT with heart rates in the 200s, was given adenosine 6 mg IV x1 on 11/08/2021, no change was noted, patient was then given metoprolol 5 mg IV x1 and briefly slow down to the 150s 160s. - OFF amiodarone infusion - continue metoprolol per tube and p.r.n. IV - Patient also on therapeutic Lovenox -currently in AFib, rate controlled (7) Acute kidney injury: Code(s): N17.9 - Acute kidney failure, unspecified Status: Acute Assessment and Plan: patient with acute kidney injury likely due to hypotension, shock, infection, COVID pneumonia, hypoxia - Creatinine improved and urine output has been significantly better -continue to monitor renal function, electrolytes and urine output -continue midodrine (8) Fever: Code(s): R50.9 - Fever, unspecified Status: Acute Assessment and Plan: Low-grade fever. Patient has finished a course of antibiotics WBCs normal Monitor Additional Plan DVT prophylaxis: On therapeutic Lovenox Stress ulcer prophylaxis: per tube Pepcid Nutrition: Continue tube feeds via PEG Code status: Full code Critical care time spent: 30 minutes This dictation may have been done utilizing a voice recognition system. Attempts have been made to correct errors
--- NOTE | 2021-11-23 11:10 | PM.PNNEP ---
Progress Note: A&P Assessment and Plan (1) Acute kidney injury: Code(s): N17.9 - Acute kidney failure, unspecified Status: Acute Assessment and Plan: improving if not stabilizing due to ATN with multifactorial etiology: prerenal factors hypotension/shock infection/COVID-19 pneumonia hypoxia evaluation to date demonstrates: prerenal urine electrolytes unremarkable renal ultrasound normal CPK creatinine peaked/plateaued at ~ 2.0mg/dl improved urine output noted with downtrending creatinine suspect better hemodynamics from previous vasopressors and now midodrine resulted in better blood flow to kidneys continue follow trend of repeat labs and urine output (2) Acute respiratory failure with hypoxia: Code(s): J96.01 - Acute respiratory failure with hypoxia Status: Acute Assessment and Plan: due to a combination of COVID pneumonia and pulmonary embolism intubated on 11/08/21 s/p tracheostomy on 11/21/21 continue inhalers + bronchodilators continue ventilator support and weaning plan for LTACH on discharge (3) Shock: Code(s): R57.9 - Shock, unspecified Status: Resolved Assessment and Plan: resolved - likely due to sepsis + volume depletion off vasopressor therapy and IVFs blood/urine/sputum culture negative completed course of antibiotic therapy remains on midodrine (4) Pulmonary embolism: Qualifiers: Pulmonary embolism type: unspecified Chronicity: unspecified Acute cor pulmonale presence: unspecified Qualified Code(s): I26.99 - Other pulmonary embolism without acute cor pulmonale Code(s): I26.99 - Other pulmonary embolism without acute cor pulmonale Status: Acute Assessment and Plan: as noted by CT angiogram of chest on anticoagulation with lovenox (5) Pneumonia due to COVID-19 virus: Code(s): U07.1 - COVID-19; J12.82 - Pneumonia due to coronavirus disease 2019 Status: Acute Assessment and Plan: positivity noted ~ 1 week prior to admission unvaccinated completed coarse of dexamethasone, baricitinib and remdesivir ventilator weaning (6) Hypertension: Code(s): I10 - Essential (primary) hypertension Status: Acute Assessment and Plan: holding antihypertensives give soft BP on midodrine to maintain systolic blood pressure follow trend of hemodynamics (7) Atrial fibrillation with RVR: Code(s): I48.91 - Unspecified atrial fibrillation Status: Acute Assessment and Plan: rate control strategy on anticoagulation (8) Anemia: Code(s): D64.9 - Anemia, unspecified Status: Acute Assessment and Plan: H/H on lower side probably related to acute medical issuea and JUVENAL on Epogen but wean as renal function improved follow trend of H/H (9) Type 2 diabetes mellitus: Code(s): E11.9 - Type 2 diabetes mellitus without complications Status: Acute Assessment and Plan: follow Accu-Cheks on sliding-scale insulin Will continue to follow. Subjective Date/time seen: 11/23/21 11:10 No new issues or problems to report; remains on mechanical ventilation via recent tracheostomy; remains hemodynamically stable without need for vasopressors; continunes to make good urine output with ongoing improvement in renal function; no issues/events overnight or earlier this AM. Exam Narrative: General: WD/WN male on vent via tracheostomy in NAD Heart: normal S1 and S2; no rub Lungs: coarse breath sounds bilaterally Abdomen: soft, nontender, nondistended, positive bowel sounds Extremities: no cyanosis or clubbing; trace edema Skin: warm and intact Objective Data Vital Signs Vital Signs: Vital Signs Temp Pulse Resp BP Pulse Ox 11/23/21 10:02 97 28 H 11/23/21 10:00 36.9 C 105 H 154/94 H 96 11/23/21 09:55 104 H 96 11/23/21 09:48 97 28 H 11/23/21 08:00 36.7 C 113
--- NOTE | 2021-11-23 11:10 | P.PNNP_ITS ---
Progress Note: A&P Assessment and Plan (1) Acute kidney injury: Code(s): N17.9 - Acute kidney failure, unspecified Status: Acute Assessment and Plan: * improving if not stabilizing * due to ATN with multifactorial etiology: * prerenal factors * hypotension/shock * infection/COVID-19 pneumonia * hypoxia * evaluation to date demonstrates: * prerenal urine electrolytes * unremarkable renal ultrasound * normal CPK * creatinine peaked/plateaued at ~ 2.0mg/dl * improved urine output noted with downtrending creatinine * suspect better hemodynamics from previous vasopressors and now midodrine resulted in better blood flow to kidneys * continue follow trend of repeat labs and urine output (2) Acute respiratory failure with hypoxia: Code(s): J96.01 - Acute respiratory failure with hypoxia Status: Acute Assessment and Plan: * due to a combination of COVID pneumonia and pulmonary embolism * intubated on 11/08/21 * s/p tracheostomy on 11/21/21 * continue inhalers + bronchodilators * continue ventilator support and weaning * plan for LTACH on discharge (3) Shock: Code(s): R57.9 - Shock, unspecified Status: Resolved Assessment and Plan: * resolved - likely due to sepsis + volume depletion * off vasopressor therapy and IVFs * blood/urine/sputum culture negative * completed course of antibiotic therapy * remains on midodrine (4) Pulmonary embolism: Qualifiers: Pulmonary embolism type: unspecified Chronicity: unspecified Acute cor pulmonale presence: unspecified Qualified Code(s): I26.99 - Other pulmonary embolism without acute cor pulmonale Code(s): I26.99 - Other pulmonary embolism without acute cor pulmonale Status: Acute Assessment and Plan: * as noted by CT angiogram of chest * on anticoagulation with lovenox (5) Pneumonia due to COVID-19 virus: Code(s): U07.1 - COVID-19; J12.82 - Pneumonia due to coronavirus disease 2018 Status: Acute Assessment and Plan: * positivity noted ~ 1 week prior to admission * unvaccinated * completed coarse of dexamethasone, baricitinib and remdesivir * ventilator weaning (6) Hypertension: Code(s): I10 - Essential (primary) hypertension Status: Acute Assessment and Plan: * holding antihypertensives give soft BP * on midodrine to maintain systolic blood pressure * follow trend of hemodynamics (7) Atrial fibrillation with RVR: Code(s): I48.91 - Unspecified atrial fibrillation Status: Acute Assessment and Plan: * rate control strategy * on anticoagulation (8) Anemia: Code(s): D64.9 - Anemia, unspecified Status: Acute Assessment and Plan: * H/H on lower side * probably related to acute medical issuea and JUVENAL * on Epogen but wean as renal function improved * follow trend of H/H (9) Type 2 diabetes mellitus: Code(s): E11.9 - Type 2 diabetes mellitus without complications Status: Acute Assessment and Plan: * follow Accu-Cheks * on sliding-scale insulin Will continue to follow. Subjective Date/time seen: 11/23/21 11:10 No new issues or problems to report; remains on mechanical ventilation via recent tracheostomy; remains hemodynamically stable without need for vasopressors; continunes to make good urine output with ongoing improvement in renal function; no issues/events overnight or earlier this AM. Exam Narrative:
[2021-11-23 12:31] LABS: Glucose Point of Care 191 mg/dl (65-105)
[2021-11-23] MEDS: LABETALOL HCL INJ 100 MG/20 ML VIAL 20 MG IV PUSH (14:28)
--- NOTE | 2021-11-23 14:32 | PM.IMPN ---
Progress Note: A&P Assessment and Plan (1) Acute respiratory failure with hypoxia: Code(s): J96.01 - Acute respiratory failure with hypoxia Status: Acute Assessment and Plan: Acute hypoxic respiratory failure likely related to COVID pneumonia, component of small PE also could be a factor -patient failed his BiPAP, was on 28/08 and 100% FiO2 with O2 sats in the mid to upper 80s. - intubated in the ICU on 11/08/2021 tracheostomy done on 11/21 -currently on peep of 8 and 45% FiO2, will wean FiO2 to maintain O2 sats greater than 92% -chest x-ray and ABGs reviewed -Permissive hypercapnia -currently on propofol which I have held for sedation holiday to assess for weaning trial -continue bronchodilators and Pulmicort (2) Shock: Code(s): R57.9 - Shock, unspecified Status: Resolved Assessment and Plan: RESOLVED hypotension requiring IV fluids. Likely related to hypovolemia or septic shock -08/17/22: Patient has been off Levophed now -11/08/2021 blood cultures negative x2, urine cultures negative -11/10/2021 sputum culture negative -status post 7 days of vancomycin and cefepime (stopped on 11/15/2021) (3) Pneumonia due to COVID-19 virus: Code(s): U07.1 - COVID-19; J12.82 - Pneumonia due to coronavirus disease 2019 Status: Acute Assessment and Plan: Patient was tested positive a week prior to admission on 10/27/2021, unvaccinated -completed dexamethasone, baricitinib and remdesivir -continue droplet, airborne, contact isolation/precautions -continue vitamin-C and vitamin-D (4) Pulmonary embolism: Qualifiers: Pulmonary embolism type: unspecified Chronicity: unspecified Acute cor pulmonale presence: unspecified Qualified Code(s): I26.99 - Other pulmonary embolism without acute cor pulmonale Code(s): I26.99 - Other pulmonary embolism without acute cor pulmonale Status: Acute Assessment and Plan: Chest CTA on 10/29/2021: 1. New small filling defect right upper lobe segmental pulmonary artery, consistent with pulmonary embolism. Small thrombus burden. 2: Progression of extensive patchy bilateral airspace disease with worsening in the right lower lobe, compatible with pneumonia. -patient is on therapeutic Lovenox (5) Type 2 diabetes mellitus: Code(s): E11.9 - Type 2 diabetes mellitus without complications Status: Acute Assessment and Plan: Blood sugars have been stable, continue Accu-Cheks and sliding scale insulin -hemoglobin A1c this admission was 7.9 (6) Atrial fibrillation with RVR: Code(s): I48.91 - Unspecified atrial fibrillation Status: Acute Assessment and Plan: AFib RVR, patient initially was in SVT with heart rates in the 200s, was given adenosine 6 mg IV x1 on 11/08/2021, no change was noted, patient was then given metoprolol 5 mg IV x1 and briefly slow down to the 150s 160s. - OFF amiodarone infusion - continue metoprolol per tube and p.r.n. IV - Patient also on therapeutic Lovenox -currently in AFib, rate controlled (7) Acute kidney injury: Code(s): N17.9 - Acute kidney failure, unspecified Status: Acute Assessment and Plan: patient with acute kidney injury likely due to hypotension, shock, infection, COVID pneumonia, hypoxia - Creatinine improved and urine output has been significantly better -continue to monitor renal function, electrolytes and urine output -continue midodrine (8) Fever: Code(s): R50.9 - Fever, unspecified Status: Acute Assessment and Plan: Low-grade fever. Patient has finished a course of antibiotics WBCs normal Monitor Additional Plan 11/23/2021 Patient had trach and was started on tube feeding. Plan is to continue current treatment, discharge plan consult for placement. Subjective Date/time seen: 11/23/21 14:32 Patient was seen during the morning rounds today. Patient has trach and G-tube. No new worsening complaints. Toleratin
[2021-11-23] MEDS: amLODIPine BESYLATE 5 MG TABLET 10 MG PO (17:47)
[2021-11-23] MEDS: INSULIN ASPART (*BKC) 100 UNITS/ML SUB-Q (17:47)
[2021-11-23 18:06] LABS: Glucose Point of Care 208 mg/dl (65-105)
[2021-11-23] MEDS: METOPROLOL TARTRATE 50 MG TAB PO (20:20)
[2021-11-23] MEDS: ATORVASTATIN 20 MG TABLET PO (20:20)
[2021-11-24] VITALS (19 sets, daily range): BP systolic 129–160; BP diastolic 76–96; PULSE 91–120; RESP 28–34; TEMP 36.1–36.9; O2SAT 92–98
[2021-11-24] MEDS: METOCLOPRAMIDE HCL 10 MG/10 ML SOLN UDC FEED TUBE ×3 (00:31→12:50)
[2021-11-24] MEDS: LABETALOL HCL INJ 100 MG/20 ML VIAL 20 MG IV PUSH (00:31)
[2021-11-24 00:51] LABS: Glucose Point of Care 180 mg/dl (65-105)
[2021-11-24] MEDS: IPRATROPIUM BR 0.02% INH SOLN 0.5 MG/2.5 ML VIAL INHALATION ×3 (03:05→14:06)
[2021-11-24] MEDS: ALBUTEROL SULFATE NEB 2.5 MG/0.5 ML INH 5 MG INHALATION ×3 (03:05→14:06)
[2021-11-24 04:46] LABS: Basophils Percent Auto 0.1 % (0.2-1.2); Eosinophils Absolute Auto 0.1 K/mm3 (0-0.3); Hematocrit 26.9 % (42.0-52.0); Hemoglobin 8.4 g/dL (14.0-18.0); Immature Granulocyte Absolute 0.11 K/mm3 (0.00-0.031); Lymphocytes Absolute Auto 0.49 K/mm3 (0.9-3.2); Lymphocytes Percent Auto 4.2 % (18.3-44.2); Mean Corpuscular HGB Conc 31.2 g/dl (32-36); Mean Corpuscular Hemoglobin 29.4 pg (26-34); Mean Corpuscular Volume 94.1 fl (80-100); Mean Platelet Volume 9.3 fl (7.4-10.4); Monocytes Absolute Auto 0.8 K/mm3 (0.1-0.6); Monocytes Percent Auto 7.1 % (2.6-8.5); Neutrophils Percent Auto 86.6 % (45.5-73.1); Platelet Count Result 634 k/mm3 (150-375); Red Blood Count 2.86 M/mm3 (4.6-6.20); Red Cell Distribution Width 16.2 % (11.5-14.5); White Blood Count 11.6 K/mm3 (4.5-10.0)
[2021-11-24 05:06] LABS: Alanine Aminotransferase 21 U/L (4-50); Albumin Level 2.9 g/dL (3.5-5.1); Alkaline Phosphatase 195 U/L (38-126); Anion Gap 4 mmol/L (8-16); Aspartate Amino Transferase 28 U/L (17-59); Bilirubin,Total 0.5 mg/dL (0.2-1.3); Blood Urea Nitrogen 27 mg/dL (9-20); Calcium 9.7 mg/dL (8.4-10.2); Carbon Dioxide 32 mmol/L (22-30); Chloride 103 mmol/L (98-107); Estimated CRCL calculation 92 ml/min; Estimated Glomerular Filt Rate > 60; Glucose 278 mg/dL (65-110); Magnesium 2.2 mg/dL (1.6-2.3); Sodium 139 mmol/L (137-145)
[2021-11-24 06:18] LABS: Alveolar/Arterial O2 Gradient 78.8 mmHg; Base Excess ABG 3.2 mEq/l (+/-2.0); Carboxyhemoglobin 0.5 % THb (0-2.0); Fractional Inspired Oxygen 30 %; HCO3 ABG 29.9 mEq/l (22.0-26.0); Oxygen Content ABG 12.1 %vol (16.0-22.0); Oxygen Saturation ABG 91.7 % (95.0-100.0); Oxyhemoglobin 91.8 % THb (90.0-100.0); PCO2 ABG 57.7 mmHg (35.0-45.0); PO2 ABG 67.3 mmHg (80.0-100.0); PO2 FiO2 Ratio Arterial Blood 2.24 %; Reduced Hemoglobin 7.7 %THb (0-5.0); Total Hemoglobin 9.3 g/dL (12.0-18.0); pH ABG 7.332 (7.350-7.450)
[2021-11-24 06:19] LABS: Device VENTILATOR; Modified Allen's Test Unable to perform; Site Drawn RIGHT RADIAL
[2021-11-24 06:20] LABS: Arterial Blood Gas PEEP 8 cmH2O; Arterial Blood Gas Tidal Volume 480 ml; Arterial Blood Gas Vent Mode CMV; Arterial Blood Gas Ventilator rate 28 /MIN
[2021-11-24] MEDS: INSULIN ASPART (*BKC) 100 UNITS/ML SUB-Q ×2 (06:33→12:51)
[2021-11-24] MEDS: CENTRAL LINE FLUSH 10 ML IV PUSH ×2 (06:36→15:36)
[2021-11-24] MEDS: FAMOTIDINE 20 MG TABLET FEED TUBE (08:29)
[2021-11-24] MEDS: METOPROLOL TARTRATE 50 MG TAB PO (08:29)
[2021-11-24] MEDS: ENOXAPARIN 30 MG/0.3 ML SYRINGE SUB-Q (08:29)
[2021-11-24] MEDS: amLODIPine BESYLATE 5 MG TABLET 10 MG PO (08:29)
[2021-11-24] MEDS: MINERAL OIL/WHITE PETROLATUM OINTMENT 1 APPLIC EACH EYE (08:29)
[2021-11-24] MEDS: ASCORBIC ACID 500 MG TABLET PO (08:29)
[2021-11-24] MEDS: ENOXAPARIN 100 MG/ML SYRINGE SUB-Q (08:29)
[2021-11-24] MEDS: CHOLECALCIFEROL 1,000 UNITS TABLET 1000 UNITS PO (08:29)
--- NOTE | 2021-11-24 10:46 | WPDINTPN ---
Progress Note: A&P Assessment and Plan (1) Acute respiratory failure with hypoxia: Code(s): J96.01 - Acute respiratory failure with hypoxia Status: Acute Assessment and Plan: Acute hypoxic respiratory failure likely related to COVID pneumonia, component of small PE also could be a factor -patient failed his BiPAP, was on 28/08 and 100% FiO2 with O2 sats in the mid to upper 80s. - intubated in the ICU on 11/08/2021 tracheostomy done on 11/21 -currently on peep of 8 and 45% FiO2, will wean FiO2 to maintain O2 sats greater than 92% -failed pressure support ventilation trial due to high RSBI this morning -chest x-ray and ABGs reviewed -Permissive hypercapnia -currently off all sedation. Will use on p.r.n. basis -continue bronchodilators and Pulmicort (2) Shock: Code(s): R57.9 - Shock, unspecified Status: Resolved Assessment and Plan: RESOLVED blood pressure is elevated now and hence I have discontinued my to drain -11/08/2021 blood cultures negative x2, urine cultures negative -11/10/2021 sputum culture negative -status post 7 days of vancomycin and cefepime (stopped on 11/15/2021) (3) Pneumonia due to COVID-19 virus: Code(s): U07.1 - COVID-19; J12.82 - Pneumonia due to coronavirus disease 2018 Status: Acute Assessment and Plan: Patient was tested positive a week prior to admission on 10/27/2021, unvaccinated -completed dexamethasone, baricitinib and remdesivir -continue droplet, airborne, contact isolation/precautions -continue vitamin-C and vitamin-D (4) Pulmonary embolism: Qualifiers: Pulmonary embolism type: unspecified Chronicity: unspecified Acute cor pulmonale presence: unspecified Qualified Code(s): I26.99 - Other pulmonary embolism without acute cor pulmonale Code(s): I26.99 - Other pulmonary embolism without acute cor pulmonale Status: Acute Assessment and Plan: Chest CTA on 10/29/2021: 1. New small filling defect right upper lobe segmental pulmonary artery, consistent with pulmonary embolism. Small thrombus burden. 2: Progression of extensive patchy bilateral airspace disease with worsening in the right lower lobe, compatible with pneumonia. -patient is on therapeutic Lovenox (5) Type 2 diabetes mellitus: Code(s): E11.9 - Type 2 diabetes mellitus without complications Status: Acute Assessment and Plan: Continue Accu-Cheks and sliding scale insulin Add Lantus -hemoglobin A1c this admission was 7.9 (6) Atrial fibrillation with RVR: Code(s): I48.91 - Unspecified atrial fibrillation Status: Acute Assessment and Plan: AFib RVR, patient initially was in SVT with heart rates in the 200s, was given adenosine 6 mg IV x1 on 11/08/2021, no change was noted, patient was then given metoprolol 5 mg IV x1 and briefly slow down to the 150s 160s. - OFF amiodarone infusion - continue metoprolol per tube and p.r.n. IV - Patient also on therapeutic Lovenox -currently in AFib, rate controlled (7) Acute kidney injury: Code(s): N17.9 - Acute kidney failure, unspecified Status: Acute Assessment and Plan: patient with acute kidney injury likely due to hypotension, shock, infection, COVID pneumonia, hypoxia - Creatinine improved and urine output has been significantly better -continue to monitor renal function, electrolytes and urine output -continue midodrine (8) Fever: Code(s): R50.9 - Fever, unspecified Status: Acute Assessment and Plan: Afebrile now Patient has finished a course of antibiotics WBCs normal Monitor (9) Hypertension: Code(s): I10 - Essential (primary) hypertension Status: Acute Assessment and Plan: Blood pressure elevated now Midodrine discontinued On metoprolol and Norvasc Monitor Additional Plan DVT prophylaxis: On therapeutic Lovenox Stress ulcer prophylaxis: per tube Pepcid Nutrition: Continue tube feeds via PEG Code st
--- NOTE | 2021-11-24 11:14 | PCFNICU ---
ICU Rounding Note: Pt current nutrition is Nepro at 45 ml/hr over 22 hours. Last recorded weight is 170.1 kg up from 162.5 kg on admit. Bowel Motility:No BM to report since 11/16. Spoke with nursing in regards to starting Miralax. Labs Reviewed:Glu 278,BUN 27, Alb 2.9,Hct 26.9,Hgb 8.4 Meds Noted:Reglan, Vit C, Vit D, Norvasc, Pepcid,Lopressor. Skin: WNL Additional Notes: Patient current with Trach/PEG. off all sedation. hypoactive bowel sounds. Tube feedings of Nepro at 45 ml/hr and tolerating per nursing. Agree with diet orders. Recommend: Miralax for bowel motility. Discharge plans for LTAC once bed is available. Following daily in ICU rounds. Will monitor every T/F.
--- NOTE | 2021-11-24 12:00 | PM.PNNEP ---
Progress Note: A&P Assessment and Plan (1) Acute kidney injury: Code(s): N17.9 - Acute kidney failure, unspecified Status: Acute Assessment and Plan: resolving due to ATN with multifactorial etiology: prerenal factors hypotension/shock infection/COVID-19 pneumonia hypoxia evaluation to date demonstrates: prerenal urine electrolytes unremarkable renal ultrasound normal CPK creatinine peaked/plateaued at ~ 2.0mg/dl improved urine output noted with downtrending creatinine suspect better hemodynamics from previous vasopressors and now midodrine resulted in better blood flow to kidneys continue follow trend of repeat labs and urine output (2) Acute respiratory failure with hypoxia: Code(s): J96.01 - Acute respiratory failure with hypoxia Status: Acute Assessment and Plan: due to a combination of COVID pneumonia and pulmonary embolism intubated on 11/08/21 s/p tracheostomy on 11/21/21 continue inhalers + bronchodilators continue ventilator support and weaning plan for LTACH on discharge (3) Shock: Code(s): R57.9 - Shock, unspecified Status: Resolved Assessment and Plan: resolved - likely due to sepsis + volume depletion off vasopressor therapy and IVFs blood/urine/sputum culture negative completed course of antibiotic therapy midodrine discontinued (4) Pulmonary embolism: Qualifiers: Pulmonary embolism type: unspecified Chronicity: unspecified Acute cor pulmonale presence: unspecified Qualified Code(s): I26.99 - Other pulmonary embolism without acute cor pulmonale Code(s): I26.99 - Other pulmonary embolism without acute cor pulmonale Status: Acute Assessment and Plan: as noted by CT angiogram of chest on anticoagulation with lovenox (5) Pneumonia due to COVID-19 virus: Code(s): U07.1 - COVID-19; J12.82 - Pneumonia due to coronavirus disease 2019 Status: Acute Assessment and Plan: positivity noted ~ 1 week prior to admission unvaccinated completed coarse of dexamethasone, baricitinib and remdesivir ventilator weaning (6) Hypertension: Code(s): I10 - Essential (primary) hypertension Status: Acute Assessment and Plan: rising BP noted BP medications slowly being reintroduced midodrine discontinued follow trend of hemodynamics (7) Atrial fibrillation with RVR: Code(s): I48.91 - Unspecified atrial fibrillation Status: Acute Assessment and Plan: rate control strategy on anticoagulation (8) Anemia: Code(s): D64.9 - Anemia, unspecified Status: Acute Assessment and Plan: H/H on lower side probably related to acute medical issuea and JUVENAL on Epogen but wean as renal function improved follow trend of H/H (9) Type 2 diabetes mellitus: Code(s): E11.9 - Type 2 diabetes mellitus without complications Status: Acute Assessment and Plan: follow Accu-Cheks on sliding-scale insulin Will continue to follow. Subjective Date/time seen: 11/24/21 12:00 Remains hemodynamically stable (actually somewhat hypertensive) at the time of my visit; remains on ventilator support via tracheostomy; no other acute issues or problems apparent; no events overnight or earlier this morning; nursing reports possible transfer to [facility] later today. Exam Narrative: General: WD/WN male on vent via tracheostomy in NAD Heart: normal S1 and S2; no rub Lungs: coarse breath sounds bilaterally Abdomen: soft, nontender, nondistended, positive bowel sounds Extremities: no cyanosis or clubbing; trace edema Skin: no rash or nodules Objective Data Vital Signs Vital Signs: Vital Signs Temp Pulse Resp BP Pulse Ox 11/24/21 12:00 36.8 C 105 H 34 H 142/82 H 95 11/24/21 11:30 100 98 11/24/21 10:00 36.2 C L 91 30 H 130/82 97 11/24/21 09:15 100 28 H 11/24/21 09:09 114 H 31 H
--- NOTE | 2021-11-24 12:00 | P.PNNP_ITS ---
Progress Note: A&P Assessment and Plan (1) Acute kidney injury: Code(s): N17.9 - Acute kidney failure, unspecified Status: Acute Assessment and Plan: * resolving * due to ATN with multifactorial etiology: * prerenal factors * hypotension/shock * infection/COVID-19 pneumonia * hypoxia * evaluation to date demonstrates: * prerenal urine electrolytes * unremarkable renal ultrasound * normal CPK * creatinine peaked/plateaued at ~ 2.0mg/dl * improved urine output noted with downtrending creatinine * suspect better hemodynamics from previous vasopressors and now midodrine resulted in better blood flow to kidneys * continue follow trend of repeat labs and urine output (2) Acute respiratory failure with hypoxia: Code(s): J96.01 - Acute respiratory failure with hypoxia Status: Acute Assessment and Plan: * due to a combination of COVID pneumonia and pulmonary embolism * intubated on 11/08/21 * s/p tracheostomy on 11/21/21 * continue inhalers + bronchodilators * continue ventilator support and weaning * plan for LTACH on discharge (3) Shock: Code(s): R57.9 - Shock, unspecified Status: Resolved Assessment and Plan: * resolved - likely due to sepsis + volume depletion * off vasopressor therapy and IVFs * blood/urine/sputum culture negative * completed course of antibiotic therapy * midodrine discontinued (4) Pulmonary embolism: Qualifiers: Pulmonary embolism type: unspecified Chronicity: unspecified Acute cor pulmonale presence: unspecified Qualified Code(s): I26.99 - Other pulmonary embolism without acute cor pulmonale Code(s): I26.99 - Other pulmonary embolism without acute cor pulmonale Status: Acute Assessment and Plan: * as noted by CT angiogram of chest * on anticoagulation with lovenox (5) Pneumonia due to COVID-19 virus: Code(s): U07.1 - COVID-19; J12.82 - Pneumonia due to coronavirus disease 2019 Status: Acute Assessment and Plan: * positivity noted ~ 1 week prior to admission * unvaccinated * completed coarse of dexamethasone, baricitinib and remdesivir * ventilator weaning (6) Hypertension: Code(s): I10 - Essential (primary) hypertension Status: Acute Assessment and Plan: * rising BP noted * BP medications slowly being reintroduced * midodrine discontinued * follow trend of hemodynamics (7) Atrial fibrillation with RVR: Code(s): I48.91 - Unspecified atrial fibrillation Status: Acute Assessment and Plan: * rate control strategy * on anticoagulation (8) Anemia: Code(s): D64.9 - Anemia, unspecified Status: Acute Assessment and Plan: * H/H on lower side * probably related to acute medical issuea and JUVENAL * on Epogen but wean as renal function improved * follow trend of H/H (9) Type 2 diabetes mellitus: Code(s): E11.9 - Type 2 diabetes mellitus without complications Status: Acute Assessment and Plan: * follow Accu-Cheks * on sliding-scale insulin Will continue to follow. Subjective Date/time seen: 11/24/21 12:00 Remains hemodynamically stable (actually somewhat hypertensive) at the time of my visit; remains on ventilator support via tracheostomy; no other acute issues or problems apparent; no events overnight or earlier this morning; nursing reports possible transfer to LTACH later today. Exam Narrative: General: WD/WN
[2021-11-24 12:46] LABS: Glucose Point of Care 219 mg/dl (65-105)
[2021-11-24] MEDS: INSULIN GLARGINE (*BKC) 100 UNITS/ML 15 UNITS SUB-Q (12:50)
--- NOTE | 2021-11-24 15:27 | PM.DS ---
DS: Admitting Diagnosis Discharge Date 11/24/21 Admitting Diagnosis Shortness of breath DS: Discharge Diagnosis Discharge Diagnosis (1) Acute respiratory failure with hypoxia: Code(s): J96.01 - Acute respiratory failure with hypoxia Status: Acute Assessment and Plan: Acute hypoxic respiratory failure likely related to COVID pneumonia with the PE being a minor factor. Patient failed BiPAP and was intubated on 11/08/2021. Difficulty weaning so tracheostomy placed on 11/21. Currently off sedation. Patient being transferred to LTAC for further vent management. (2) Shock: Code(s): R57.9 - Shock, unspecified Status: Resolved Assessment and Plan: Patient developed shock related to respiratory failure. He was supported and this resolved. He was treated with broad specturm abx but cultures were negative. (3) Pneumonia due to COVID-19 virus: Code(s): U07.1 - COVID-19; J12.82 - Pneumonia due to coronavirus disease 2019 Status: Acute Assessment and Plan: Patient tested positive a week prior to admission on 10/27/2021 for COVID. He is unvaccinated. He completed a course of dexamethasone, baricitinib and remdesivir. We continued droplet, airborne, contact isolation/precautions. (4) Pulmonary embolism: Qualifiers: Acute cor pulmonale presence: unspecified Chronicity: unspecified Pulmonary embolism type: unspecified Qualified Code(s): I26.99 - Other pulmonary embolism without acute cor pulmonale Code(s): I26.99 - Other pulmonary embolism without acute cor pulmonale Status: Acute Assessment and Plan: Chest CTA on 10/29/2021 showing PE but small clot burden. Patient treated with therapeutic Lovenox (5) Type 2 diabetes mellitus: Code(s): E11.9 - Type 2 diabetes mellitus without complications Status: Acute Assessment and Plan: A1c 7.9. Treated with Lantus. He was monitored closely with Accu-Cheks and sliding scale insulin (6) Atrial fibrillation with RVR: Code(s): I48.91 - Unspecified atrial fibrillation Status: Acute Assessment and Plan: Patient with AFib RVR but patient initially was in SVT with heart rates in the 200s and given adenosine 6 mg IV x1 on 11/08/2021. No change was noted so patient was then given metoprolol 5 mg IV x1 and briefly slow down to the 150s 160s. Was on Amiodarone infusion but off now. Switched to metoprolol. Remains in AFib and also on therapeutic Lovenox (7) Acute kidney injury: Code(s): N17.9 - Acute kidney failure, unspecified Status: Acute Assessment and Plan: Patient with JUVENAL likely due to hypotension, shock, infection, COVID pneumonia, and/or hypoxia. Creatinine improved and urine output has been significantly better (8) Fever: Code(s): R50.9 - Fever, unspecified Status: Acute Assessment and Plan: Patient febrile and was covered with IV antibiotics. He became afebrile; WBCs normal (9) Hypertension: Code(s): I10 - Essential (primary) hypertension Status: Acute Assessment and Plan: Blood pressure elevated and Midodrine discontinued. Resumed on metoprolol and Norvasc. BP was monitored closely. (10) Thyroid nodule: Code(s): E04.1 - Nontoxic single thyroid nodule Status: Acute Assessment and Plan: Patient has 1.3 cm right thyroid nodule noted on CT. Will need follow-up when acute illness resolves. DS: Summary Hospital Course Reason for hospitalization: 66yo male with HTN, DM, BPH and history of deep venous thrombosis after orthopedic surgery and more recently pulmonary emboli in November 2020 who presented to the emergency department via EMS for evaluation of shortness of breath. He was COVID positive on 1 week prior to admission. He is unvaccinated. Hospital Course: Patient had a complicated hospital course. Please see above for details of hospital course. Status a
== END 2021-11-24 16:40 | DRG 4 ==
LOC: ANHED 14:58 → ANHIMU 16:31 → ANHICU 11-08 14:22
PROVIDERS: Family Medicine; Hospitalist; Internal Medicine; Internal Medicine Gastroenterology; Internal Medicine Nephrology; Internal Medicine Pulmonary Disease; Nurse Practitioner; Otolaryngology; Physician Assistant; Admitting Provider Family Medicine; Emergency Provider Emergency Medicine; PCP Family Medicine; Visit Provider Family Medicine
PROC: 0DH63UZ Insertion of Feeding Device into Stomach, Percutaneous Approach (ICD-10-PCS; CPT 43246; 2021-11-20 11:00)
PROC: 0B110F4 Bypass Trachea to Cutaneous with Tracheostomy Device, Open Approach (ICD-10-PCS; principal; 2021-11-21 09:15)
DX: U07.1 COVID-19 (principal); J12.82 Pneumonia due to coronavirus disease 2019; J96.01 Acute respiratory failure with hypoxia; I26.99 Other pulmonary embolism without acute cor pulmonale; N17.0 Acute kidney failure with tubular necrosis; J15.9 Unspecified bacterial pneumonia; R57.8 Other shock; Z68.43 Body mass index [BMI] 50.0-59.9, adult; R13.19 Other dysphagia; K29.70 Gastritis, unspecified, without bleeding; E66.01 Morbid (severe) obesity due to excess calories; I48.91 Unspecified atrial fibrillation; E04.1 Nontoxic single thyroid nodule; D63.1 Anemia in chronic kidney disease; I10 Essential (primary) hypertension; E11.9 Type 2 diabetes mellitus without complications; E78.5 Hyperlipidemia, unspecified; N40.0 Benign prostatic hyperplasia without lower urinary tract symptoms; Z86.718 Personal history of other venous thrombosis and embolism; Z79.01 Long term (current) use of anticoagulants
CPT/HCPCS: 31500; 36415; 36600; 43246; 71045; 71250; 71275; 76775; 80048; 80053; 80069; 80202; 82375; 82436; 82533; 82550; 82565; 82570; 82728; 82805; 82948; 83036; 83050; 83615; 83735; 84100; 84133; 84145; 84156; 84300; 84443; 84450; 84460; 84484; 85025; 85027; 85380; 85610; 85730; 85999; 86140; 87040; 87070; 87086; 87205; 93005; 94002; 94003; 94640; 99291; A9270; C1751; C9113; C9803; J0153; J0282; J0456; J0690; J0696; J0743; J0834; J1100; J1160; J1650; J1815; J1940; J2250; J2704; J2765; J3010; J3370; J3480; J7030; J7120; Q5105; Q9967; U0003; U0005